=== PATIENT | female | born 1960 | race Caucasian/White ===

== ENCOUNTER 2023-09-26 15:33 | Inpatient (IN) | payer MEDICARE, OTHER, SELFPAY ==
[2023-09-26] VITALS (14 sets, daily range): BP systolic 110–159; BP diastolic 71–113; BMI 18.4; BMI 17.2
[2023-09-26 11:59] LABS: % Basophils 0.2 % (0-2); % Eosinophils 0.1 % (0-6); % Immature Granulocytes 0.5 % (0-0.5); % Lymphocytes 8.7 % (20.5-51.1); % Monocytes 4.6 % (1.7-9.3); % Neutrophils 85.9 % (42.2-75.2); Absolute Lymphocytes 0.7 10^3/uL (1.2-3.4); Absolute Monocytes 0.4 10^3/uL (0.1-0.6); Absolute Neutrophils 7.3 10^3/uL (1.4-6.5); Hematocrit 30.1 % (37.0-47.0); Hemoglobin 10.2 g/dL (12.0-16.0); Mean Corp Hgb Conc. 33.9 g/dL (33.0-37.0); Mean Corpuscular Hgb 29.2 pg (27.0-31.0); Mean Corpuscular Volume 86.2 fL (81.0-99.0); Mean Platelet Volume 8.8 fL (7.4-10.4); Nucleated Red Blood Cells % 0 %; Platelet Count 306 10^3/uL (130-400); Red Blood Cell Count 3.49 10^6/uL (4.20-5.40); Red Cell Dist. Width 16.5 % (11.5-14.5); White Blood Cell Count 8.5 10^3/uL (4.8-10.8)
--- NOTE | 2023-09-26 12:05 | ED.GENMED ---
History of Present Illness
General
Chief Complaint: Heart Rate Problem
Source: patient and family
Time Seen by Provider: 09/26/23 11:57
History of Present Illness
History of Present Illness:
63yoF with a history of hypertension, hyperlipidemia, and type 2 diabetes presenting via EMS for evaluation of an elevated heart rate. Family noticed that her bilateral legs were swollen last week. They scheduled an appointment with her PCP to
evaluate this. While at her PCP appointment today, she was found to be tachycardic in the 150s. EKG showed rapid atrial fibrillation and EMS was called. She has no prior history of atrial fibrillation and is not on any anticoagulation. No
interventions were done by EMS. Patient is asymptomatic other than her leg swelling. She denies any chest pain, shortness of breath, palpitations, dizziness, syncope.
Phy Exam
General Physical Exam
General Presentation: well appearing
General age: appears stated age
General Skin: warm and dry
General Habitus: normal
General Mental: alert
Cardiovascular Exam
Cardiovascular Exam: irregularly irregular and tachycardia
Pulmonary Exam
Pulmonary Exam: lungs clear, no respiratory distress, no crackles and no wheezing
Musculoskeletal Exam
Musculoskeletal Exam: other (2-3+ pitting edema in bilateral lower extremities)
Skin Exam
Skin Exam: normal color and warm/dry
Psychiatric Exam
Psychiatric Exam: normal mood/affect
Course
Orders/Labs/Results
Orders:
Orders
09/26/23 Lunch
2200 calorie (18 carb) Diabetic
At Your Request: Full Participation
Oral Supplement (If unsure of flavor order apple or vanilla): Ensure Enlive Vanilla
Supplement Frequency: BID
09/26/23 11:40
Electrocardiogram (*1) Urgent
Reason for Study: Chest Pain
EKG- Treatment ONCE
IV Insert/Care/Rem.- Treatment PRN
09/26/23 11:50
Complete Blood Count/With Diff Urgent
Comprehensive Metabolic Panel Urgent
Ferritin Urgent
Comment: IRON,TIBC,FERRITIN ADDED ON BY FLOOR 3:50PM 09-26-23
Glycohemoglobin (HgbA1c) Urgent
Iron Urgent
Magnesium Urgent
Comment: ADD
TSH Urgent
Comment: ADD
Total Iron Binding Urgent
09/26/23 12:04
Add On- LAB Urgent
Tests Added?: magnesium, TSH
Cardiac Monitoring- Treatment ONCE
Diltiazem HCl [Cardizem] 15 mg IV NOW STA
CR Chest - 2 Views Urgent
Comment:
Reason For Exam: Leg swelling
09/26/23 12:11
NT-proBNP Urgent
Troponin I Urgent
09/26/23 12:21
Potassium Chloride [KCl] 40 meq PO NOW STA
09/26/23 12:37
Diltiazem HCl [Cardizem] 15 mg IV NOW STA
09/26/23 13:39
Diltiazem 125 mg/125 ml Nss [Cardizem] 125 mg in 125 ml IV NOW
Initial dose in mg/hr, then titrate:: 5
Titrate to keep:: Heart rate 80-100 bpm
Titrate by mg/hr:: 5 mg/hr
Frequency of titrations (minutes):: 15
Maximum dose in mg/hr:: 15
09/26/23 14:01
Magnesium Sulfate 2 Gram/50 ml [Magnesium Sulfate] 2 gram in 50 ml IV NOW
09/26/23 15:07
ECG [Electrocardiogram (*1)] Urgent
Reason for Study: Abnormal EKG
09/26/23 15:08
CARDIOLOGY CONSULT Routine
Consulting Provider: Jasbir Bruce
Was physician already notified: Yes
Reason for consult: afbi with RVR
09/26/23 15:15
Magnesium Sulfate 2 Gram/50 ml [Magnesium Sulfate] 2 gram in 50 ml IV NOW
09/26/23 15:18
Admit/Transfer Patient As Directed
Co-Sign Provider:
Level of Care: Inpatient admission
Assign to:: IMU- Intermediate Care
Physician / Group: Dr. Emanuel
Diagnosis: Atrial fibrillation with RVR
Reason for Hospitalization: Atrial fibrillation with RVR
Expected length of stay greater than two midnights?: Yes
ELOS- Estimated Length of Stay in days: 3
I certify the patient meets the requirements for IP care: Yes
PRN Pain Medication Management As Directed
May give lesser potent ordered pain med per pt: Yes
preference::
Protocol:: Medication orders for pain may be administered in a
manner that supports deferring to patient preference
when the pt is:
- Requesting an ordered lesser potent pain medication.
Least to most potent pain medications are defined
as: acetaminophen < NSAID < tramadol < opioids
(morphine, oxycodone, hydromorphone).
- Requesting a lesser dose of the same medication IF
ORDERED.
- Requesting a less intrusive route of administration
if both routes are prescribed by the provider (PO <
IV).
09/26/23 15:19
Add On- LAB Urgent
Comments:: draw if unable to add
Tests Added?: CMP values to earlier labs
09/26/23 15:20
Legs, Bilateral US [US Periph Venous LOWER Ext Sammy] Urgent
Comment:
Reason For Exam: bilateral lower extremity swelling
09/26/23 15:21
Code Status As Directed
Resuscitation Status: Full Code
09/26/23 17:30
Dextrose 50%-Water [Dextrose 50% Syringe] 12.5 grams IV [id number] PRN
Glucagon [GlucaGen] 1 mg IM PRN PRN
Insulin Aspart Corrective Low [Novolog Flexpen-Low Resistance] See Protocol SC AC
09/26/23 17:30
Echo 2D MMode Color/Doppler Routine
Reason for Study: new-onset afib with RVR; significant BL LE edema; mild orthopnea
DIETARY CONSULT Routine
Reason for Consult: 19 lbs weight loss since June; malnutrition
Activity As Directed
Activity Level: As Tolerated
Bedside Glucose Monitoring As Directed
Frequency: AC&HS
Additional Instructions:: Change to q6h if pt on TPN, tube feeding or not eating
Ot Eval And Treat Routine
Pt Eval And Treat Routine
Activity Level: As Tolerated
09/26/23 20:00
Potassium Chloride [KCl] 40 meq PO ONCE ONE
09/27/23 06:00
Complete Blood Count/With Diff IN AM
Comprehensive Metabolic Panel IN AM
Glycohemoglobin (HgbA1c) IN AM
09/27/23 08:00
Atorvastatin [Lipitor] 40 mg PO DAILY
Abnormal Lab Results
09/26/23
11:50
RBC 3.49 L 10^6/uL
(4.20-5.40)
Hgb 10.2 L g/dL
(12.0-16.0)
Hct 30.1 L %
(37.0-47.0)
RDW 16.5 H %
(11.5-14.5)
Absolute Neuts (auto) 7.3 H 10^3/uL
(1.4-6.5)
Absolute Lymphs (auto) 0.7 L 10^3/uL
(1.2-3.4)
Neutrophils % 85.9 H %
(42.2-75.2)
Lymphocytes % 8.7 L %
(20.5-51.1)
Potassium 3.0 L mmol/L
(3.5-5.1)
Glucose 169 H mg/dl
(70-99)
Magnesium 1.1 L mg/dl
(1.6-2.3)
TIBC 177 L ug/dl
(265-497)
Ferritin 331.0 H ng/ml
(11.1-264.0)
Alkaline Phosphatase 130 H U/L
(38-126)
Total Protein 5.9 L g/dl
(6.3-8.2)
Albumin 3.1 L g/dl
(3.5-5.0)
TSH 0.44 L uIU/ml
(0.47-4.68)
09/26/23 11:50
09/26/23 11:50
Vital Signs
Initial and Last Documented VS:
Initial Vital Signs
Temp Pulse Resp BP Pulse Ox
98.5 F 152 20 148/87 98
09/26/23 11:41 09/26/23 11:41 09/26/23 11:41 09/26/23 11:41 09/26/23 11:41
Last Documented Vital Signs
Temp Pulse Resp BP Pulse Ox
98.1 F 97 18 111/75 100
09/26/23 20:13 09/26/23 19:15 09/26/23 19:15 09/26/23 15:30 09/26/23 19:15
MDM/Problems Addressed
Differential Diagnosis Includes:
63yoF here with afib with RVR. Went to PCP today due to new bilateral leg swelling. Incidentally found to be in rapid afib with HR in the 150s. No prior hx of afib. No cardiac symptoms. HR 152 on arrival. BP stable. She is well-appearing no acute
distress. Differential diagnosis includes but is not limited to: CHF, atrial fibrillation, ACS, electrolyte abnormality, thyroid dysfunction
Initial ED plan: Patient placed on secured entrance monitor. Check cardiac labs, magnesium, TSH, EKG, and chest x-ray. Will give IV Cardizem bolus.
*EKG
Interpreted by ED Provider?: Yes
EKG Intrepretation Date: 09/26/23
Heart Rate: 163
Rate: tachycardiac
Rhythm: a-fib
Felton: normal axis
QRS Pattern: right bundle branch block
Ischemia: non-specific ST changes
*Critical Care Note
Total Time (30-74mins, 75-104mins- exclusive of procedures): 35
Update Note
Update Note:
Labs reveal a potassium of 3.0 and a magnesium of 1.1 which were replaced. BNP elevated at 1600. Chest x-ray clear without pulmonary edema. Patient given Cardizem 15mg x2 with persistent tachycardia. She was initiated on a Cardizem gtt and
admitted for further management.
ED Attending Note
-
Portions of this chart may have been created with voice recognition software.� Occasional wrong word or��sound alike� substitutions may have occurred due to the inherent limitations of voice recognition software.
Discharge Plan
Departure
Patient Disposition: Admit
Date of Disposition: 09/26/23
Time of Disposition: 14:48
Presentation/result/management discussed w/ accepting MD/DO: Hospitalist
Discharge Problem:
Atrial fibrillation with RVR, Hypomagnesemia, Hypokalemia, Bilateral lower extremity edema
Interventions
Interventions:
*Risk Screen - Suicide Last Done: 09/26/23 11:41
*General Assessment Last Done: 09/26/23 11:41
*Neglect/Abuse Screening Last Done: 09/26/23 11:41
*ED COVID-19 Vaccine History Last Done: 09/26/23 17:36
*Nursing Disposition Last Done: 09/26/23 17:33
ED- Cardiac Assessment Last Done: 09/26/23 12:06
ED- Pulmonary Assessment Last Done: 09/26/23 12:06
Discharge Date and Time
Discharge Date/Time: 09/26/23 17:34
[2023-09-26] MEDS: CARDIZEM 15 MG IV ×2 (12:11→12:49)
[2023-09-26 12:16] LABS: ALT (SGPT) 15 U/L (0-35); AST (SGOT) 21 U/L (14-36); Albumin 3.1 g/dl (3.5-5.0); Alkaline Phosphatase 130 U/L (38-126); Blood Urea Nitrogen 10 mg/dl (7-17); Calcium 8.4 mg/dl (8.4-10.2); Carbon Dioxide 30 mmol/L (22-30); Chloride 98 mmol/L (98-107); Estimated Creatinine Clearance 54 ml/min; Glucose 169 mg/dl (70-99); Sodium 138 mmol/L (135-145); Total Bilirubin 0.8 mg/dl (0.2-1.3); Total Protein 5.9 g/dl (6.3-8.2); eGFR > 60.00
[2023-09-26] MEDS: KCL 40 MEQ PO ×2 (12:49→21:55)
[2023-09-26 13:16] LABS: NT-proBNP 1610 pg/ml; Troponin I < 0.012 ng/ml
[2023-09-26 13:48] LABS: Magnesium 1.1 mg/dl (1.6-2.3)
[2023-09-26] MEDS: CARDIZEM 125 IV ×2 (13:50→23:49)
[2023-09-26] MEDS: MAGNESIUM SULFATE 50 IV ×2 (14:39→17:13)
--- NOTE | 2023-09-26 15:30 | CON.CAR ---
Addendum entered and electronically signed by Jasbir Bruce MD 09/26/23 18:22:
I saw and examined the patient.
The Consumer Insights Intern's note was reviewed and I agree with the note.
Comment:
GEN: No distress, awake, Ox3
HEENT: supple, anicteric, mmm
LUNGS: scatt rhonchi
CV: Irreg, S1/S2, 1/6 syst LSB, no gallop
ABD: soft, BS+, NT/ND
EXT: +1 edema
NEURO: Gross non-focal
Plan:
63 year old female with PMH of HTN, lipids, prediabetes presents with 20lb wt loss, nausea/vomiting, edema was found to have new onset afib and elevated pro-BNP.
US legs with +DVT. Await CT Scan of chest. Chads VAsc is 5
Agree with Shreya. Cont IV cardizem.
Will give a dose of Iv lasix. I suspect she does have some mild volume overload. Will check echo in AM.
Will need to evaluate the etiology of her weight loss. Could consider ROSALIA cardioversion at some point, but would want evaluation of her esophagus with her nausea vomiting and weight loss.
For now I would continue a rate control strategy.
SKIN: No rash
Original Note:
Consultation
Consultation Request
Date/Time Consultation Performed: 09/26/23
Requesting Provider: Dr. Emanuel
Performing Provider: Paty Rutherford PA-C for Dr. Bruce
Reason for Consultation: afib with RVR
Medical History
-
Chief Complaint: tachycardia
History of Present Illness:
Patient is a 63-year-old female with past medical history of prediabetes, hypertension, hyperlipidemia who typically lives with her brother and mother. Her sister, who is present with her at bedside, states that in July her sister moved in with her
as their mother was in the hospital. She states that she had significant GI issues including vomiting and poor appetite with approximately 19 pound weight loss over the following 6 weeks, which they thought was stress related, and seems to have
improved on its own. They were scheduled to see their primary care physician earlier today, and she noted elevated heart rate and lower extremity edema and referred them to the emergency room for further evaluation. She denies chest pain,
shortness of breath, palpitations, lightheadedness or dizziness, fevers or chills, cough. She is in atrial fibrillation with rapid ventricular response which is new diagnosis for patient. She has never seen a camera prototyping engineer before. proBNP 1610.
PMH:
Prediabetes
HTN
HLD
Past Medical History
Past Medical History: Other (in HPI)
Social History
Tobacco: Non-Smoker
Alcohol: None
Living: With Family
Employment: Retired
Family History
Family History: Other (heart issues in father, brother)
Allergies / Home Medications
Allergy/AdvReac Type Severity Reaction Status Date / Time
No Known Allergies Allergy Verified 09/26/23 11:41
�Medication �Instructions �Recorded �Confirmed �Type
atorvastatin 40 mg tablet 40 mg PO DAILY 09/26/23 09/26/23 History
lisinopril 20 mg tablet 20 mg PO DAILY 09/26/23 09/26/23 History
metformin 1,000 mg tablet,extended 1,000 mg PO BID 09/26/23 09/26/23 History
release 24hr (osmotic)
Review of Systems
-
History Source: Patient and Family
All other systems: Negative unless noted
Physical Exam
Vital Signs
Temp Pulse Resp BP Pulse Ox
98.5 F 134 16 121/87 98
09/26/23 11:41 09/26/23 15:00 09/26/23 15:00 09/26/23 15:00 09/26/23 15:00
Lab Results
09/26/23 11:50
09/26/23 11:50
Troponin I < 0.012 ng/ml 09/26/23 12:11
Omg-Q-Fwnnjuvnclq Pept 1610 pg/ml 09/26/23 12:11
Physical Exam
General: No Apparent Distress and Comfortable
HEENT: Normocephalic, Anicteric and Moist Mucous Membranes
Respiratory: Other (fine crackles at bases)
Cardiac: S1/S2 and Irregular Rhythm
GI: Soft, Non Tender, Non Distended and Normal Bowel Sounds
Musculoskeletal: No Clubbing, No Cyanosis and Edema (2+ of B/L LE)
Skin: Warm and Dry
Neuro: AO x 3
Impression / Plan
-
Primary Exceptional Needs Teacher: none prior to admission
Assessment:
Presentation with elevated HR
Atrial fibrillation with RVR, new diagnosis of unclear duration
B/L LE edema, concern for acute CHF of unknown type
RBBB while in rapid afib, no prior EKG to compare
Anemia
Hypokalemia
Hypomagnesemia
Recent vomiting/poor appetite/weight loss
Prediabetes
HTN
HLD
Plan:
-Patient is a 63-year-old female who presents due to elevated heart rate and lower extremity edema noted at primary care visit today
-Suspected new A-fib triggered by recent GI issues
-Continue IV Cardizem, uptitrate as needed for HR control. holding OP lisinopril for now
-[id number] score of 5 for age, female, hypertension, CHF. Will initiate on Eliquis 5 mg twice daily based on age and creatinine. reports no bleeding issues however is noted to have anemia, hgb 10.2. check iron studies
-Replete potassium and magnesium
-proBNP 1610. Chest x-ray without acute abnormality. Consider for trial of IV Lasix 20mg daily
-For lower extremity ultrasound to rule out DVT
-Check echo
-check TSH
-may require ROSALIA/CV prior to DC
-trop negative x1, trend. no CP
-d/w patient and sister at bedside
Data Reviewed
-
EKG: Tracing Personally Visualized and interpreted
Radiology: Report Reviewed by me
Labs: Labs Reviewed by me
Old Records: Reviewed
--- NOTE | 2023-09-26 15:32 | HPS.HSE ---
Addendum entered and electronically signed by Rodrigo Emanuel MD 09/26/23 16:01:
I personally performed a history and physical exam of the patient and discussed management with the resident. I reviewed the resident's note and agree with the documented findings and plan of care HPI/CC.
63-year-old female who presents with tachycardia. She was at her outpatient physician's office and was found to be in atrial fibrillation with a rapid ventricular response. Patient denies chest pain shortness of breath. She has had significant
unintentional weight loss over the past few months. She complains of cough when laying supine. She is also noticed bilateral lower extremity edema.
121/87, 134, 16, 98.5 �F, 98% RA
NAD, awake and alert, NCAT
tachy, irreg/irreg, physiologically split S1, normal S2
CTAB
CN2-12 intact
2+ B/L LE pitting edema
ECG (read by me): Afib with RVR @ 163, R-axis devation, ST-dep V1-V4 consistent with repolarization abnormality
CXR (read by me): No acute cardiopulmonary process.
WBC 8.5
Hb 10.2
K 3.0
Mg 1.1
proBNP 1610
Trop < 0.012
Afib with RVR:
-with hypokalemia and hypomagnesemia, 80meq K now, 4g IV Mg now
-cardizem gtt, Titrate to HR<110
-cards to see
-TSH pending
-concerned with wt loss and LE edema. Check B/L LE U/S to assess for DVT. If NEG will need CTA chest to assess for PE.
-start Eliquis
-check echo once HR better controlled
Original Note:
Family Physician
-
Family Physician: Gaurav Jensen PA-C
Chief Complaint
-
Bilateral lower extremity edema and rapid heart rate.
History of Present Illness
Shiloh Flores, age 63, was brought to the emergency on 09-26-23 for evaluation of an elevated heart rate. She was at her primary's clinic for bilateral lower extremity edema for the past week or so, when her heart rate was noted to be around 150. ECG
showed atrial fibrillation and she was advised to go to the hospital. In the ED, she was initiated on diltiazem drip and pro-BNP was elevated at 1610. She was admitted for further evaluation and management.
Medical History
Past Medical History
Past Medical History: Reports Other (hypertension, hyperlipidemia, type II diabetes mellitus)
Past Surgical History: Reports Other (ovarian cyst resection - )
Social History
Tobacco: Non-smoker
Alcohol: None
Drug: None
Personal: Single
Living: With Family (brother and parents)
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
Family History
Family History: Not pertinent
Allergies / Home Medications
Allergies reflects when Allergies were last updated in [facility].
Home Medications with original date entered in [facility]
Allergy/Medication List:
Allergies
Allergy/AdvReac Type Severity Reaction Status Date / Time
No Known Allergies Allergy Verified 09/26/23 11:41
Home Medications
atorvastatin 40 mg tablet 40 mg PO DAILY 09/26/23
lisinopril 20 mg tablet 20 mg PO DAILY 09/26/23
metformin 1,000 mg tablet,extended release 24hr (osmotic) 1,000 mg PO BID 09/26/23
Review of Systems
-
History Source: Patient
Constitutional: Reports Weight Loss (19 lbs since June 2023)
EENT: Reports No Symptoms
Respiratory: Reports No Symptoms
Cardiac: Reports Palpitations
Abdomen/GI: Reports No Symptoms
: Reports No Symptoms
Musculoskeletal: Reports Edema (bilateral lower extremity)
Skin: Reports No Symptoms
Neurological: Reports No Symptoms
Endocrine: Reports No Symptoms
Hematologic/Lymphatic: Reports No Symptoms
Psych: Reports No Symptoms
Physical Exam
Vital Signs
Vital Signs
Temp Pulse Resp BP Pulse Ox
98.5 F 134 16 121/87 98
09/26/23 11:41 09/26/23 15:00 09/26/23 15:00 09/26/23 15:00 09/26/23 15:00
Physical Exam
General: No Apparent Distress and Comfortable
HEENT: NormoCephalic, Anicteric, Moist mucous membranes and Atraumatic
Respiratory: Clear and Non Labored Respirations
Cardiac: S1/S2 and Tachycardia; No Murmur, Rub or JVD
GI: Soft, Non Tender, Non Distended and No Hepatosplenomegaly
Rectal: Deferred by Provider
Musculoskeletal: No Clubbing, No Cyanosis, Edema, Left Lower Extremity (+3) and Edema, Right Lower Extremity (+3)
Skin: Warm, Dry and IV/Catheter Site
Neuro: Awake, Alert, Oriented and Nonfocal/grossly intact
Hematologic/Lymphatic: No Lymphadenopathy
Psych: Calm and Intact Judgment/Insight
Laboratory Results
-
09/26/23 11:50
09/26/23 11:50
Laboratory Results
Total Bilirubin 0.8 mg/dl (0.2-1.3) 09/26/23 11:50
AST 21 U/L (14-36) 09/26/23 11:50
ALT 15 U/L (0-35) 09/26/23 11:50
Alkaline Phosphatase 130 U/L (38-126) H 09/26/23 11:50
Troponin I < 0.012 ng/ml 09/26/23 12:11
Impression/Plan
-
Impression and plan
Atrial fibrillation with rapid ventricular response
- Admit to IMU.
- Will get repeat ECG.
- TSH pending.
- Cardiology consultation.
- pro-BNP 1610 - check echocardiogram when heart rate is better.
- Continue diltiazem drip started in the emergency.
- [id number] Score at least 4 - start apixaban.
Bilateral lower extremity edema
- Check bilateral lower extremity ultrasound to rule out DVT.
- Will get a PE study if US unremarkable.
Hypokalemia
- Status-post 80 meq in the ED.
- Follow BMP.
Hypomagnesemia
- Status-post 4g in the ED.
- Follow Mg.
Unintentional weight loss
Moderate protein-calorie malnutrition
Underweight with BMI <19.9
- 19 lbs. since June 2023.
- No associated symptoms or changes to health.
- Dietary consultation.
- Can consider imaging to explore more.
Essential hypertension
- Continue lisinopril.
Hyperlipidemia
- Continue atorvastatin
Type II diabetes mellitus
- Continue metformin.
- Check HbA1c.
- SSC.
VTE prophylaxis
- Apixaban.
Code status
- Full.
[2023-09-26 16:47] LABS: Iron 73 ug/dl (37-170)
[2023-09-26 16:57] LABS: Percent Saturation 41 % (20-50); Total Iron Binding Capacity 177 ug/dl (265-497)
[2023-09-26] MEDS: LASIX 20 MG IV (17:08)
--- NOTE | 2023-09-26 17:15 | PTCARENOTE ---
Patient received from the ER. Patient was able to walk to the bed after using the restroom. No complaints of pain. Patient currently receiving Cardizem and Mag Sulfate through IV and K-rider to be hung. CT ordered with contrast. Oriented to
room. Admission done. Call plascencia in reach.
[2023-09-26 17:25] LABS: TSH 0.44 uIU/ml (0.47-4.68)
--- NOTE | 2023-09-26 17:37 | W.PN.UPDATE ---
Update Note
Progress Note Update
I just called pharmacy to ensure that the patient gets a total of 10 mg of Eliquis now as opposed to 1999.
[2023-09-26] MEDS: ELIQUIS 10 MG PO (18:43)
[2023-09-26] MEDS: KCL 270 MEQ IV (18:43)
[2023-09-26] MEDS: OMNIPAQUE 50 ML PO (18:44)
[2023-09-26 18:53] LABS: Glucose - Point of Care 172 mg/dl (70-99)
[2023-09-26] MEDS: NOVOLOG FLEXPEN-LOW RESISTANCE 1 UNITS SC (20:28)
[2023-09-26 20:40] LABS: Glucose - Point of Care 157 mg/dl (70-99)
[2023-09-26 21:31] LABS: Troponin I 0.015 ng/ml
--- NOTE | 2023-09-26 22:04 | PTCARENOTE ---
Pt received on 15 mg/hr of Cardizem per Orders for goal of HR <100. Pt HR currently 110's, Pt having episodes of jumping up to 130's-140's, then returns to low 100's. Pt denies chest pain. Trops being followed, EKG done with each trop. Pt afib on
the monitor. Pt getting K rider @ 67.5 ml/hr via left AC IV. SENIOR ENVIRONMENTAL SCIENTIST notifed of HR. no new orders at this time. Pt down down to CT for ordered CT. Call light in reach. This RN is continuing with plan of care.
[2023-09-26 22:51] LABS: Glucose - Point of Care 111 mg/dl (70-99)
--- NOTE | 2023-09-26 23:05 | PTCARENOTE ---
DIE SETTER notified of CT results being posted. DIE SETTER notified this RN that they discussed results with Dr. Peacock, and notified this RN that the ordered 'eliquis should be enough'. Orders received for follow up BMP, to assess potassium and magnesium. Pt
remains tachycardiac with current Cardizem at 15mcg/hr, rate is however more controlled now at 100. Pt continues to deny chest pain and is asymptomatic.
[2023-09-27] VITALS (15 sets, daily range): BP systolic 79–125; BP diastolic 49–99; PULSE 96–132; O2SAT 97; BMI 16.8
[2023-09-27 00:38] LABS: Blood Urea Nitrogen 8 mg/dl (7-17); Calcium 7.5 mg/dl (8.4-10.2); Carbon Dioxide 35 mmol/L (22-30); Estimated Creatinine Clearance 59 ml/min; Glucose 112 mg/dl (70-99); Magnesium 2.5 mg/dl (1.6-2.3); Potassium 3.1 mmol/L (3.5-5.1); eGFR > 60.00
[2023-09-27 00:44] LABS: Chloride 100 mmol/L (98-107); Sodium 138 mmol/L (135-145)
--- NOTE | 2023-09-27 01:45 | W.PN.UPDATE ---
Update Note
Progress Note Update
RN notified BASEBALL PLAYER regarding HR goes up to 130's, baseline 110's, BP 121/109, asymptomatic, on Cardizem drip max 15mg/hr. noted Potassium and Mag being low and repleted.
Also patient to get CT Chest to r/o PE at present. CT results +, on Eliquis 10mg PO BID
Elevated HR likely due to PE, electrolyte abnormalities, will order Labs now.
RN notified K 3.1, noted corrected calcium 7.8. Will order KCL 40meq PO x1, Calcium gluconate 1g IV now.
Patient's HR back to baseline, continuos to be asymptomatic
[2023-09-27] MEDS: KCL 40 MEQ PO (02:07)
[2023-09-27] MEDS: CALCIUM GLUCONATE 100 IV (02:07)
[2023-09-27 05:32] LABS: % Eosinophils 0.3 % (0-6); % Immature Granulocytes 0.4 % (0-0.5); % Lymphocytes 11.6 % (20.5-51.1); % Monocytes 5.4 % (1.7-9.3); % Neutrophils 82.3 % (42.2-75.2); Absolute Lymphocytes 0.9 10^3/uL (1.2-3.4); Absolute Monocytes 0.4 10^3/uL (0.1-0.6); Absolute Neutrophils 6.2 10^3/uL (1.4-6.5); Hematocrit 28.7 % (37.0-47.0); Hemoglobin 9.7 g/dL (12.0-16.0); Mean Corp Hgb Conc. 33.8 g/dL (33.0-37.0); Mean Corpuscular Hgb 30.3 pg (27.0-31.0); Mean Corpuscular Volume 89.7 fL (81.0-99.0); Mean Platelet Volume 8.7 fL (7.4-10.4); Nucleated Red Blood Cells % 0 %; Platelet Count 306 10^3/uL (130-400); Red Cell Dist. Width 16.9 % (11.5-14.5); White Blood Cell Count 7.5 10^3/uL (4.8-10.8)
[2023-09-27 06:03] LABS: ALT (SGPT) 14 U/L (0-35); AST (SGOT) 19 U/L (14-36); Albumin 2.8 g/dl (3.5-5.0); Alkaline Phosphatase 125 U/L (38-126); Blood Urea Nitrogen 7 mg/dl (7-17); Calcium 8.1 mg/dl (8.4-10.2); Carbon Dioxide 35 mmol/L (22-30); Chloride 101 mmol/L (98-107); Estimated Creatinine Clearance 49 ml/min; Glucose 100 mg/dl (70-99); Magnesium 2.2 mg/dl (1.6-2.3); Potassium 4.3 mmol/L (3.5-5.1); Sodium 143 mmol/L (135-145); Total Bilirubin 0.6 mg/dl (0.2-1.3); Total Protein 5.4 g/dl (6.3-8.2); eGFR > 60.00
--- NOTE | 2023-09-27 07:47 | W.PN.CARDCBS ---
Addendum entered and electronically signed by Paty Rutherford PA-C 09/27/23 12:14:
attempted to call patient's sister Marita, no answer. left message. will attempt to call back later.
Addendum entered and electronically signed by Jasbir Bruce MD 09/27/23 12:10:
I saw and examined the patient.
The Administrator Pesticide's note was reviewed and I agree with the note.
Comment:
GEN: No distress, awake, Ox3
HEENT: supple, anicteric, mmm
LUNGS: CTA, no wheezes/rales
CV: Irreg, S1/S2, 1/6 syst LSB, no gallop
ABD: soft, BS+, NT/ND
EXT: No edema
NEURO: Gross non-focal
SKIN: No rash
Plan:
Remains in A-fib with modestly elevated rates. Will start Toprol 25 mg p.o. daily and titrate. Okay to continue IV Cardizem for today.
CT scan results reviewed with pulmonary embolism and possible colon mass. Agree with IV heparin until evaluation of colon mass is complete.
Check echocardiogram today.
With pulmonary embolism and colon mass will hold off on ROSALIA cardioversion for now and pursue a rate control strategy.
Eventually restart Eliquis.
Original Note:
Today's Communication / Plan
-
transition eliquis to IV heparin
continue IV cardizem gtt, add po toprol. holding OP lisinopril
check echo
Impression / Plan
-
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
Assessment:
Presentation with elevated HR
Atrial fibrillation with RVR, new diagnosis of unclear duration, s/p spontaneous conversion to SR with PACs 09/26
ST
B/L LE edema, concern for acute CHF of unknown type
RBBB while in rapid afib, no prior EKG to compare
RLE DVT/Bilateral PE/right common femoral and superficial femoral vein thrombus
Severe L colitis, concern for underlying colon mass
Anemia
Hypokalemia
Hypomagnesemia
Recent vomiting/poor appetite/weight loss
Prediabetes
HTN
HLD
Left ovarian dermoid cyst
Right adrenal adenoma
Small pancreatic cystic lesion
Plan:
-Patient is a 63-year-old female who presents due to elevated heart rate and lower extremity edema noted at primary care visit
-Imaging yesterday revealed right lower extremity DVT with involvement of right common femoral and superficial femoral vein. Also with evidence of bilateral PE with borderline right heart strain by CT.
-For echo today
-CT also with evidence of severe left colitis with inability to rule out underlying mass. Treatment per primary service
-Spontaneously converted to sinus tachycardia with frequent PACs
-Continue IV Cardizem. Add p.o. Toprol. Holding outpatient lisinopril for now
-Was initiated on Eliquis, however suspect needs GI consultation with possible colonoscopy. Discussed with hospitalist. Transition from Eliquis to IV heparin. Follow hemoglobin
-proBNP 1610. Responded well to dose of IV Lasix 20 mg on 09/25. Hold off on further at present and follow volume status
-TSH 0.44, check free T4
-d/w nursing
Progress Note - Natural Gas Engineer
Subjective
Date of Service: September 27, 2023
Slept well overnight. Denies chest discomfort, shortness of breath, palpitations, abdominal pain
Objective
Labs:
09/27/23 05:18
Labs
Hgb 9.7 g/dL (12.0-16.0) L 09/27/23 05:18
Hct 28.7 % (37.0-47.0) L 09/27/23 05:18
Plt Count 306 10^3/uL (130-400) 09/27/23 05:18
Sodium 143 mmol/L (135-145) 09/27/23 05:18
Potassium 4.3 mmol/L (3.5-5.1) D 09/27/23 05:18
BUN 7 mg/dl (7-17) 09/27/23 05:18
Creatinine 0.7 mg/dL (0.6-1.0) 09/27/23 05:18
Glucose 100 mg/dl (70-99) H 09/27/23 05:18
Troponins
09/26/23 09/26/23
12:11 20:48
Troponin I < 0.012 0.015
Vital Signs and I&O:
Vital Signs
Temp Pulse Resp BP Pulse Ox
97.4 F 112 23 114/64 98
09/27/23 04:25 09/27/23 07:30 09/27/23 07:30 09/27/23 06:00 09/27/23 07:30
Vital Signs
Temp Pulse Resp BP Pulse Ox
97.4 F 112 23 114/64 98
09/27/23 04:25 09/27/23 07:30 09/27/23 07:30 09/27/23 06:00 09/27/23 07:30
Intake & Output
09/24/23 09/25/23 09/26/23 09/27/23
07:59 07:59 07:59 07:59
Intake Total 960 / 960
Output Total 1800 / 1800
Balance -840 / -840
Physical Exam
Physical Exam
GEN: No distress, awake, alert, oriented x3
HEENT: supple, anicteric, mmm, eomi
LUNGS: CTA B/L, no wheezes/rales
CV: Reg and tachy, S1/S2, no murmur
ABD: soft, BS+, NT/ND
EXT: No cyanosis, clubbing. 1+ of LLE, 2+ of RLE edema
NEURO: Gross non-focal
SKIN: Warm, pink, dry. No rash
[2023-09-27] MEDS: NOVOLOG FLEXPEN-LOW RESISTANCE SC (07:54)
[2023-09-27] MEDS: ZESTRIL 20 MG PO (07:57)
[2023-09-27] MEDS: LIPITOR 40 MG PO (07:57)
[2023-09-27 08:01] LABS: Glucose - Point of Care 98 mg/dl (70-99)
[2023-09-27 08:34] LABS: Glycohemoglobin (HgbA1c) 6.5 % (4.0-5.6)
[2023-09-27 09:03] LABS: Hematocrit 28.9 % (37.0-47.0); Hemoglobin 9.7 g/dL (12.0-16.0); Mean Corp Hgb Conc. 33.6 g/dL (33.0-37.0); Mean Corpuscular Volume 86.5 fL (81.0-99.0); Mean Platelet Volume 8.7 fL (7.4-10.4); Platelet Count 364 10^3/uL (130-400); Red Blood Cell Count 3.34 10^6/uL (4.20-5.40); Red Cell Dist. Width 17.1 % (11.5-14.5); White Blood Cell Count 7.6 10^3/uL (4.8-10.8)
[2023-09-27 09:06] LABS: APTT 28.4 Sec (23.4-35.0)
--- NOTE | 2023-09-27 09:11 | CON.ONC ---
Impression
Impression
acute VTE, on heparin gtt
new AF with RVR, on heparin gtt, Cardizem, echo pending
b/l LE edema, elevated BNP
severe left colitis with inability to rule out underlying mass
normocytic anemia, Hgb ~10g/dL, unknown baseline. Iron studies c/w AOCD
weight loss
electrolyte derangement
Left ovarian dermoid cyst, will need eventual dedicated pelvic ultrasound
Right adrenal adenoma, will need eventual dedicated adrenal protocol CT
Small pancreatic cystic lesion, will need eventual MRI/MRCP abdomen without and with gadolinium contrast
Plan
Plan
f/u GI consult
VTE seemingly unprovoked, 3 months OAC with consideration of VTE ppx thereafter. Would defer to cardiology regarding OAC halfway dosing with new AF. f/u LA, cardiolipin, [id number]. check baseline dddimer.
f/u 2D echo
check retic, b12, folate
Patient History
History of Present Illness
63yo F presented with nausea, vomiting, 20lb weight loss despite increased edema and was found to have new onset atrial fibrillation and elevated BNP. She reports GI symptoms of nausea, vomiting, and poor oral intake resulting in 20lb weight loss
since July 2023. She was referred to the ER by her PCP for elevated HR and increased lower extremity edema. LE US showed Extensive right lower extremity DVT. CT showed bilateral pulmonary emboli with borderline right heart strain. She has been
started on a heparin gtt.
She denies chest pain, shortness of breath, palpitations, lightheadedness or dizziness, fevers or chills, cough. She denies any prior VTE events or provoking factors leading up to VTE.
Poor historian, brother, Khanh at bedside provided history. He tells me that patient's legal guardian is their sister since pt has IDD.
Past-Medical/Surgical History
PMH HTN, HLD, preDM2, IDD
PSH: ovarian cyst
Social: never smoker, retired, denies ETOH or recreational drugs. Lives with sister
Family denies bleeding/clotting disorders. denies malignancy
Patient Medication
�Medication �Instructions �Recorded �Confirmed �Last Taken �Type
atorvastatin 40 mg tablet 40 mg PO DAILY High Cholesterol 09/26/23 09/26/23 09/26/23 History
lisinopril 20 mg tablet 20 mg PO DAILY Blood Pressure 09/26/23 09/26/23 09/26/23 History
metformin 1,000 mg tablet,extended 1,000 mg PO BID Diabetes 09/26/23 09/26/23 09/26/23 History
release 24hr (osmotic)
Active Medications
Generic Name Dose Route Start Last Admin
Trade Name Freq PRN Reason Stop Dose Admin
Apixaban 10 mg 09/26/23 17:45 09/26/23 18:43
Apixaban (Eliquis) 5 Mg Tablet PO 10 mg
BID MENDEZ Administration
Atorvastatin Calcium 40 mg 09/27/23 08:00 09/27/23 07:57
Atorvastatin (Lipitor) 40 Mg Tablet PO 10/25/23 07:59 40 mg
DAILY MENDEZ Administration
Dextrose 12.5 grams 09/26/23 17:30
Dextrose 50% (0.5 Grams/Ml) 50 Ml Syringe IV 10/24/23 17:29
[id number] PRN
hypoglycemia
Protocol
Glucagon 1 mg 09/26/23 17:30
Glucagon 1 Mg Vial IM 10/24/23 17:29
PRN PRN
hypoglycemia
Protocol
Diltiazem HCl 125 mg in 125 mls @ 0 mls/hr 09/26/23 23:45 09/26/23 23:49
Cardizem IV 125 mls
PER PROTOCOL MENDEZ Administration
Protocol
Per Protocol
Heparin Sodium 25,000 units in 250 mls @ 0 mls/hr 09/27/23 07:45
Heparin 33429 Units/250 Ml IV
PER PROTOCOL MENDEZ
Protocol
Per Protocol
Insulin Aspart 0 units 09/26/23 17:30 09/27/23 07:54
Insulin Aspart Low Resistance 300 Units/3 Ml Pen.Injctr SC 10/24/23 17:29 Not Given
AC MENDEZ
Protocol
Lisinopril 20 mg 09/27/23 08:00 09/27/23 07:57
Lisinopril 20 Mg Tablet PO 10/25/23 07:59 20 mg
DAILY MENDEZ Administration
Metoprolol Succinate 25 mg 09/27/23 09:00
Metoprolol 25 Mg Extended Release Tablet PO 10/25/23 08:59
DAILY MENDEZ
Sodium Chloride 0 flush 09/26/23 18:00
Sodium Chloride 0.9% (Flush) Syringe IV 10/24/23 17:59
PER PROTOCOL MENDEZ
Review of Systems
-
Review of systems notable for HPI, otherwise negative
Physical Exam
-
General: No Apparent Distress and Comfortable
HEENT: Normocephalic, Anicteric and Moist Mucous Membranes
Respiratory: crackles b/l bases
Cardiac: S1/S2 and Irregular Rhythm
GI: Soft, Non Tender, Non Distended
Musculoskeletal: +2 RLE edema, +1 LLE edema
Skin: Warm and Dry
Neuro: AO x 3
Labs
Lab Results
WBC 7.6 10^3/uL (4.8-10.8) 09/27/23 08:45
RBC 3.34 10^6/uL (4.20-5.40) L 09/27/23 08:45
Hgb 9.7 g/dL (12.0-16.0) L 09/27/23 08:45
Hct 28.9 % (37.0-47.0) L 09/27/23 08:45
MCV 86.5 fL (81.0-99.0) 09/27/23 08:45
MCH 29.0 pg (27.0-31.0) 09/27/23 08:45
MCHC 33.6 g/dL (33.0-37.0) 09/27/23 08:45
RDW 17.1 % (11.5-14.5) H 09/27/23 08:45
Plt Count 364 10^3/uL (130-400) 09/27/23 08:45
MPV 8.7 fL (7.4-10.4) 09/27/23 08:45
Abs Immat Gran (auto) 0.0 10^3/uL (0-0.05) 09/27/23 05:18
Absolute Neuts (auto) 6.2 10^3/uL (1.4-6.5) 09/27/23 05:18
Absolute Lymphs (auto) 0.9 10^3/uL (1.2-3.4) L 09/27/23 05:18
Absolute Monos (auto) 0.4 10^3/uL (0.1-0.6) 09/27/23 05:18
Absolute Eos (auto) 0.0 10^3/uL (0-0.7) 09/27/23 05:18
Absolute Basos (auto) 0.0 10^3/uL (0-0.2) 09/27/23 05:18
Immature Gran % 0.4 % (0-0.5) 09/27/23 05:18
Neutrophils % 82.3 % (42.2-75.2) H 09/27/23 05:18
Lymphocytes % 11.6 % (20.5-51.1) L 09/27/23 05:18
Monocytes % 5.4 % (1.7-9.3) 09/27/23 05:18
Eosinophils % 0.3 % (0-6) 09/27/23 05:18
Basophils % 0.0 % (0-2) 09/27/23 05:18
Creatinine 0.7 mg/dL (0.6-1.0) 09/27/23 05:18
Vital Signs
Vital Signs
Temp Pulse Resp BP Pulse Ox
97.4 F 102 23 114/64 98
09/27/23 04:25 09/27/23 07:57 09/27/23 07:30 09/27/23 07:57 09/27/23 07:30
[2023-09-27] MEDS: CARDIZEM 125 IV ×2 (09:28→18:20)
--- NOTE | 2023-09-27 09:40 | W.PN.HOSP.TC ---
Addendum entered and electronically signed by Rodrigo Emanuel MD 09/27/23 11:32:
I saw and evaluated the patient. I reviewed the resident�s note and agree with findings and plan as documented in the resident�s note.
No new complaints.
NAD, awake and alert, NCAT
tachy, irreg/irreg, normal S1/S2
CTAB anteriorly
remains CN2-12 intact
2+ B/L LE pitting edema
ECG on admission (read by me): Afib with RVR @ 163, R-axis devation, ST-dep V1-V4 consistent with repolarization abnormality
CTA C/A/P:
1. Bilateral pulmonary emboli as described. Borderline right heart strain.
2. Severe left-sided colitis. Difficult to rule out mass in the sigmoid colon. Recommend direct visualization.
3. Findings most in keeping with a left ovarian dermoid measuring up to 3.9 cm. Consider further evaluation with dedicated pelvic ultrasound.
4. Probable right adrenal adenoma measuring up to 2.1 cm. This can be further evaluated on a nonemergent basis with a dedicated adrenal protocol CT, to be ordered as CT Abdomen with and without contrast.
5. Tiny 5 mm pancreatic cystic lesion, possibly a pseudocyst or side branch of intraductal papillary mucinous neoplasm. Recommend outpatient workup with dedicated MRI/MRCP abdomen without and with gadolinium contrast.
6. Right common femoral and superficial femoral vein thrombus noted. The IVC and bilateral common iliac veins are patent.
WBC 8.5
Hb 10.2
K 3.0
Mg 1.1
proBNP 1610
Trop < 0.012
Acute B/L PEs and RLE DVT:
-stop Eliquis, transition to heparin gtt for now
-concern for hypercoagulable state due to underlying malignancy, yet to be discovered. CT scan of the abdomen pelvis notable for sigmoid colitis where there could be an underlying mass. Also 5 mm pancreatic cystic lesion is concerning.
-Consult GI/Heme
-Check MRI of the abdomen with MRCP
Afib with RVR:
-with hypokalemia and hypomagnesemia, both resolved with repletion
-cardizem gtt, Titrate to HR<110
-Cardiology following
-TSH slightly low, free T4 normal
-Check echo
Discussed with hematology and cardiology. Patient Sister updated at length.
Total time spent on today's encounter was 55 minutes which included time spent in counseling the patient/family regarding diagnosis and treatment plan as listed above, goals of care, and symptom management. Case was discussed with nursing staff,
specialists, and care coordinators/case management. All labs and imaging personally reviewed by me. Remainder the time spent in detailed review of previous records, lab data, imaging, and other medical provider documentation.
Original Note:
Today's Communication/Plan
-
- Heparin ggt today.
- MR/MRCP and echocardiogram.
- Heme/onc, GI and dietary consultation.
Assessment / Plan
Assessment / Plan
Assessment
Shiloh Flores, age 63, was brought to the emergency on 09-26-23 for evaluation of an elevated heart rate. She was at her primary's clinic for bilateral lower extremity edema for the past week or so, when her heart rate was noted to be around 150. ECG
showed atrial fibrillation and she was advised to go to the hospital. In the ED, she was initiated on diltiazem drip and pro-BNP was elevated at 1610. She was admitted for further evaluation and management.
Impression and plan
Atrial fibrillation with rapid ventricular response
- Admit to IMU.
- Will get repeat ECG.
- TSH 0.44; T4 pending.
- Cardiology consultation.
- pro-BNP 1610 - check echocardiogram when heart rate is better.
- Continue diltiazem drip started in the emergency.
- Start metoprolol succinate 25 mg.
- [id number] Score at least 4 - apixaban started yesterday, held per below.
Acute bilateral pulmonary embolism
Acute extensive right lower extremity deep vein thrombosis
- Likely unprovoked with no clear etiology.
- Notably, has had a 19 lbs weight loss since June 2023.
- Received 1 dose of apixaban 10 mg last night; hold and start heparin drip.
- Lupus anticoagulant profile sent before starting the drip.
Severe left-sided colitis
Pancreatic cystic lesion
- CT AP findings cannot conclusively rule out a mass - check MRI/MRCP abdomen without and with gadolinium contrast.
- Hematology-oncology and gastroenterology consultation.
Hypokalemia
- Status-post 80 meq in the ED.
- Follow BMP; replete as needed.
Hypomagnesemia
- Status-post 4g in the ED.
- Follow Mg.
Unintentional weight loss
Moderate protein-calorie malnutrition
Underweight with BMI <19.9
- 19 lbs. since June 2023.
- No associated symptoms or changes to health.
- Ensure twice a day.
- Dietary consultation.
Essential hypertension
- Hold lisinopril.
Hyperlipidemia
- Continue atorvastatin.
Type II diabetes mellitus
- Hold metformin.
- Check HbA1c.
- SSC.
VTE prophylaxis
- Apixaban.
Code status
- Full.
Anticipated Discharge: > 48 hours
Subjective/Interval History
-
Date of Service: September 27, 2023
Objective Data
-
Labs:
Laboratory Results
09/27/23 09/27/23 09/27/23
00:11 05:18 08:45
WBC 7.5 7.6
Hgb 9.7 L 9.7 L
Hct 28.7 L 28.9 L
Plt Count 306 364
APTT 28.4
Sodium 138 143
Potassium 3.1 L 4.3 D
Chloride 100 101
Carbon Dioxide 35 H 35 H
BUN 8 7
Creatinine 0.6 0.7
Glucose 112 H 100 H
Calcium 7.5 L 8.1 L
Total Bilirubin 0.6
AST 19
ALT 14
Alkaline Phosphatase 125
Vital Signs:
Vital Signs
Temp Pulse Resp BP Pulse Ox
97.4 F 102 23 114/64 98
09/27/23 04:25 09/27/23 07:57 09/27/23 07:30 09/27/23 07:57 09/27/23 07:30
I&O
09/26/23 09/27/23 09/28/23
06:59 06:59 06:59
Intake Total 960 / 960
Output Total 1800 / 1800
Balance -840 / -840
Review of Systems
-
History Source: Patient
Constitutional: Reports Weight Loss, No Appetite and Fatigue
EENT: Reports No Symptoms Reported
Respiratory: Reports No Symptoms
Cardiac: Reports Palpitations
Abdomen/GI: Reports No Symptoms
Breast: Reports No Symptoms
Genitourinary: Reports No Symptoms
Musculoskeletal: Reports Edema (bilateral lower extremity)
Skin: Reports No Symptoms
Neuro: Reports No Symptoms
Endocrine: Reports No Symptoms
Hematologic / Lymphatic: Reports No Symptoms
Allergy / Immunology: Reports No Symptoms
Physical Exam
-
General: No Apparent Distress and Comfortable
HEENT: Normocephalic, Atraumatic, Moist Mucous Membranes and Anicteric
Respiratory: Clear to Auscultation and Non Labored Respirations
Cardiac: Regular Rhythm, S1/S2 and Tachycardic
GI: Soft, Nontender, Nondistended and No Hepatosplenomegaly
Genito-urinary: No Costovertebral Tender
Musculoskeletal: No Clubbing, No Cyanosis, Edema, Right Lower Extrem (+3) and Edema, Left Lower Extrem (+3)
Skin: Warm, Dry and IV Access / Catheter Site
Neuro: Awake, Alert, Oriented and Nonfocal/Grossly Intact
Hematologic / Lymphatic: No Lymphadenopathy
Psych: Calm
[2023-09-27] MEDS: HEPARIN 25000 UNITS/250 ML IV (09:42)
[2023-09-27] MEDS: TOPROL XL 25 MG PO (09:42)
--- NOTE | 2023-09-27 09:45 | PTCARENOTE ---
Patient received from business consult. Patient resting comfortably in the chair. AAO, VSS. No events noted overnight. No complaints of pain at this time. Cardizem gtt continued at 15mg/hr for HR 80-100. Patient did received Calcium via IV
overnight. Heparin gtt started at 700 units, holding Eliquis. Planning for MRI this AM. Call plascencia in reach.
[2023-09-27 10:11] LABS: Free T4 1.81 ng/dl (0.78-2.19)
--- NOTE | 2023-09-27 10:13 | CON.GI ---
Addendum entered and electronically signed by Enrrique Coates MD 09/27/23 15:48:
Pt ate today. We will put on clears tomorrow for colonoscopy Sunday.
Addendum entered and electronically signed by Enrrique Coates MD 09/27/23 15:42:
I saw and examined the patient.
The RECORD LABEL INTERN or PA's note was reviewed and I agree with the note.
Comment: 63yo female with intellectual disability admitted with Afib/RVR and found to have DVT, b/l PE. Started on Eliquis, but switched to heparin gtt. CT CAP showed extensive moderate/severe circumferential wall thickening descending/sigmoid
colon, difficult to rule out mass in sigmoid colon. Pt has had n/v prior to admission, but started on PPI with improvement. She had n/v for several months and lost 17 pounds. No prior EGD/colonoscopy. She may have been eating poorly due to
stress of mother being sick. Pt remains on heparin until eval of colon mass/colonoscopy. Also holding off on ROSALIA/cardioversion and focus on rate control.
REC:
L colon thickening could be from ischemic colitis given her other clot burden, but will plan on colonoscopy to rule out colon mass
OK for colonoscopy from Cardiology standpoint
Hold heparin at 2am for procedure tomorrow.
Will prep tonight.
She is eating without difficulty and has no further n/v. Will hold off on EGD
Addendum entered and electronically signed by Nerissa Harris NP 09/27/23 11:08:
MRI pending for pancreatic cyst evaluation.
Original Note:
Consultation
-
Date/Time Consultation Requested: 09/27/23 @ 09:48
Date/Time Consultation Performed: 09/27/23 @ 10:15
Requesting Provider: Beto Sim MD
Performing Provider: ELOY Ayala; Dr. Enrrique Coates
Reason for Consultation: left sided colitis, panc cyst
Medical History
Chief Complaint / HPI
Chief Complaint: bilateral LE edema, rapid heart beat
History of Present Illness:
The pt is a 63 yo female with a PMH significant for HTN, HLD, DM2, intellectual disability, who presented to the ER as directed by her PCP with complaints of a rapid heart rate and bilateral LE edema. Upon review of admitting records, the patient
had been complaining of increasing lower extremity edema bilaterally along with an elevated heart rate for about a week. She was evaluated by her PCP and underwent an EKG found to be in A-fib with RVR and was sent to the emergency room. She was
started on a diltiazem drip and admitted for evaluation by cardiology. She was placed on apixaban initially, due to the presence of A-fib, but also with findings of an extensive right lower extremity DVT on ultrasound. She was found to have
severely low magnesium levels of 1.1 and low potassium 3.0 and this was repleted. She underwent a CT of the chest, abdomen, and pelvis to rule out PE given her ongoing tachycardia and also for evaluation of weight loss, and was found to have
bilateral PE with concern for right heart strain, along with a 2.1 cm right adrenal nodule, a 5 mm pancreatic cyst, and moderate to severe thickening of the descending and sigmoid colon consistent with colitis. She was placed on IV heparin and an
echo was ordered. She is also pending an MRI of the abdomen due to findings of a small pancreatic cyst. Routine labs reviewed from today showing hemoglobin of 9.7, WBC 7.6, platelets 364,000, potassium 4.3, sodium 143, BUN 7, creatinine 0.7,
magnesium 2.2, total protein 5.4, albumin 2.8, with normal LFTs. Hemoglobin A1c 6.5 on admission. TSH 0.44 but with normal free T4. We are being asked to evaluate for the colonic CT findings along with her abnormal weight loss and upper GI
complaints. The patient has a mild intellectual disability therefore her brother is also at the bedside to assist with HPI. He reports that she has been having loss of appetite secondary to nausea and vomiting since June. She notes that her mother
was hospitalized at that time and was under somewhat increased stress, but she reports that anytime she had tried to eat food she would have subsequent vomiting within several minutes. This has subsequently led to about 19 pounds of weight loss
since that time. About 2 weeks ago her brother started her on pantoprazole and she has seen some improvement in her nausea and vomiting symptoms. She denies any hematemesis, melena or hematochezia. She denies any complaints of constipation or
diarrhea. She has no abdominal pain. She denies any dysphagia or odynophagia. She denies any family history of colon cancer or other GI cancers or disorders. She has never had a colonoscopy or endoscopy in the past. She denies use of blood
thinners, although is on IV heparin at this time. She denies any prior use of NSAIDs. She is on metformin for diabetes. She denies any recent travel, prolonged car rides, or family history of blood clotting disorders. Hematology is also
following for recommendations.
Past Medical History
Past Medical History: HTN, Hypercholesterolemia, NIDDM and Other (Intellectual disability)
Past Surgical History: Gynecological (Ovarian cyst removal)
Social History
Tobacco: Non-Smoker
Alcohol: None
Drug: None
Personal: Single
Living: With Family
Family History
Family History: Reviewed & Not Pertinent
Allergies / Home Medications
Allergy/AdvReac Type Severity Reaction Status Date / Time
No Known Allergies Allergy Verified 09/26/23 11:41
�Medication �Instructions �Recorded
atorvastatin 40 mg tablet 40 mg PO DAILY High Cholesterol 09/26/23
lisinopril 20 mg tablet 20 mg PO DAILY Blood Pressure 09/26/23
metformin 1,000 mg tablet,extended 1,000 mg PO BID Diabetes 09/26/23
release 24hr (osmotic)
Review of Systems
-
History Source: Patient and Family
Constitutional: Reports Weight Loss
EENT: Reports No Symptoms
Respiratory: Reports Cough
Cardiac: Reports Palpitations
Abdomen/GI: Reports No Symptoms
: Reports No Symptoms
Musculoskeletal: Reports Edema (Bilateral lower extremities)
Skin: Reports No Symptoms
Neurological: Reports No Symptoms
Endocrine: Reports No Symptoms
Vital Signs
Temp Pulse Resp BP Pulse Ox
97.4 F 106 23 125/90 98
09/27/23 04:25 09/27/23 09:42 09/27/23 07:30 09/27/23 09:42 09/27/23 07:30
Physical Exam
Exam
General: Well Developed, No Apparent Distress, Comfortable and Other (Thin appearing female in no acute distress)
HEENT: Normocephalic, Anicteric and Atraumatic
Respiratory: Clear
Cardiac: S1/S2 and Irregular Rhythm
Breast: Deferred by me
GI: Soft, Non Tender, Non Distended and Normal Bowel Sounds
Rectal: Deferred by Provider
Musculoskeletal: No Edema
Skin: Warm and Dry
Neuro: Awake, Alert and Oriented
Psych: Calm
Results
WBC 7.6 10^3/uL (4.8-10.8) 09/27/23 08:45
Hgb 9.7 g/dL (12.0-16.0) L 09/27/23 08:45
Hct 28.9 % (37.0-47.0) L 09/27/23 08:45
MCV 86.5 fL (81.0-99.0) 09/27/23 08:45
Plt Count 364 10^3/uL (130-400) 09/27/23 08:45
Absolute Neuts (auto) 6.2 10^3/uL (1.4-6.5) 09/27/23 05:18
APTT 28.4 Sec (23.4-35.0) 09/27/23 08:45
Sodium 143 mmol/L (135-145) 09/27/23 05:18
Potassium 4.3 mmol/L (3.5-5.1) D 09/27/23 05:18
Chloride 101 mmol/L (98-107) 09/27/23 05:18
Carbon Dioxide 35 mmol/L (22-30) H 09/27/23 05:18
BUN 7 mg/dl (7-17) 09/27/23 05:18
Creatinine 0.7 mg/dL (0.6-1.0) 09/27/23 05:18
Calcium 8.1 mg/dl (8.4-10.2) L 09/27/23 05:18
Total Bilirubin 0.6 mg/dl (0.2-1.3) 09/27/23 05:18
AST 19 U/L (14-36) 09/27/23 05:18
ALT 14 U/L (0-35) 09/27/23 05:18
Alkaline Phosphatase 125 U/L (38-126) 09/27/23 05:18
Diagnostic Image Results:
09/26/23 CT C/A/P w/IV contrast only: IMPRESSION:
1. Bilateral pulmonary emboli as described. Borderline right heart strain.
2. Severe left-sided colitis. Difficult to rule out mass in the sigmoid colon. Recommend direct visualization.
3. Findings most in keeping with a left ovarian dermoid measuring up to 3.9 cm. Consider further evaluation with dedicated pelvic ultrasound.
4. Probable right adrenal adenoma measuring up to 2.1 cm. This can be further evaluated on a nonemergent basis with a dedicated adrenal protocol CT, to be ordered as CT Abdomen with and without contrast.
5. Tiny 5 mm pancreatic cystic lesion, possibly a pseudocyst or side branch of intraductal papillary mucinous neoplasm. Recommend outpatient workup with dedicated MRI/MRCP abdomen without and with gadolinium contrast.
6. Right common femoral and superficial femoral vein thrombus noted. The IVC and bilateral common iliac veins are patent.
09/26/23 Duplex bilateral LE:IMPRESSION:
1. Extensive right lower extremity DVT as detailed.
2. No evidence of deep venous thrombosis in the left lower extremity as described above.
Prior GI Procedures:
EGD: none
Colonoscopy: none
Assessment / Plan
-
The patient is a pleasant 63-year-old female with a past medical history significant for hypertension, hyperlipidemia, DM2, intellectual disability, who presented to the emergency room after being referred by her primary care physician for new onset
A-fib and bilateral lower extremity edema, found to have an extensive right lower extremity DVT and bilateral PEs, started on apixaban initially now on IV heparin. Also with findings of moderate to severe left-sided colitis of uncertain etiology.
She reports about 19 pounds of weight loss since June along with symptoms of nausea and vomiting after eating, which has since improved since starting on pantoprazole. She has no chronic GI complaints and has never had a colonoscopy or EGD. She
denies any abdominal pain or signs of bleeding. She has no family history of colorectal cancer or other GI cancers or disorders.
Problem list:
-Extensive right lower extremity DVT, bilateral pulmonary emboli, suspected to be unprovoked
-Weight loss
-Nausea, vomiting
-CT imaging showing moderate to severe left-sided colitis, 2.1 cm right adrenal lesion, 5 mm pancreatic cyst
-Hypomagnesemia, resolved
-Hypokalemia, resolved
-Afib with RVR
-elevated ProBNP
-normocytic anemia, without iron deficiency
Other pertinent medical history:
-Hypertension
-HLD
-DM2
-intellectual disability
Recommendations:
-Etiology of current GI symptoms possibly secondary to underlying occult GI process v gastroparesis v PUD v other. She has no clinical symptoms of colitis at this time and CT is limited of the bowels without contrast. She however has had ongoing
nausea and vomiting with significant weight loss, which has since improved since starting on PPI therapy.
-She will need endoscopic evaluation with EGD and colonoscopy at some point in the near future. Given her ongoing issues including A-fib with RVR and bilateral PE with evidence of heart strain, will need to discuss with the hospitalist and
grants manager regarding timing for endoscopic evaluation. Ideally this should be done inpatient given she will need long-term anticoagulation. The patient and her brother are agreeable to this plan. Will review with Dr. Coates
-Continue daily PPI given her nausea and vomiting symptoms. To rule out possible PUD versus gastroparesis although her hemoglobin A1c is in an acceptable range making this less likely.
-Diet as per speech therapy
-PRN antiemetics
-Cardiology and hematology are following
-Further management pending above
-
-
Thank you for consultation and allowing me to participate in the patient's care. Please call the semiconductor technician GI physician during the after hours with any questions or concerns.
--- NOTE | 2023-09-27 10:52 | PTOTSP ---
ST Acute Care Evaluation
Pt presents with fairly functional oral, pharyngeal, and esophageal phases of swallow with solids and liquids - no overt s/s of penetration or aspiration observed at bedside. Pt DOES demonstrate some unsafe behaviors with PO intake including
slightly impulsive intake rate and has some reduced insight to deficits/impairments of impact of loosely-fitting dentures which place her at an increased aspiration risk.
Recommendations:
- Continue with regular solids (choose softer items), thin liquids, meds as tolerated.
- General aspiration precautions: HOB upright, small bites/sips, EAT/DRINK SLOWLY, and use denture adhesive as needed.
- Reflux precautions: HOB upright for at least 60 minutes after meals; overchew foods; PPI as RX.
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
--- NOTE | 2023-09-27 11:14 | CM ---
Addendum entered by Elaine Tom RN 09/27/23 17:18:
Plan issue Eliquis Free Month Card.
Plan offer VN for PT/OT.
Plan home possibly with VN.
Original Note:
Patient with Hx intellectual disability with Dx Afib with RVR, pulmonary emboli, RLE DVT. Room air. Receiving IV Heparin. PT & OT recommend HH.
Spoke with patient's brother Khanh Flores (ph [phone]);
The patient resides with her mother and brother Khanh in a 1 story house with 3 DION[address].
The patient has been independent in ADLs such as bathing/dressing and ambulates independently without using an assistive device.
Khanh says that the patient has an intellectual disability with an IQ of 60, so needs to be supervised by family.
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
The patient receives $900/month through Social Security.
The patient has no DME, VN or SNF.
PCP - Gaurav Jensen
Pharmacy - [facility]
CM Consult: Alfonso Check Eliquis
Per ambulatory orders/[employer], Eliquis cost $550/month, $832.44 90 days.
CM spoke with pharmacist, [facility]; cost is identical to cost above.
CM spoke with Danny Bauer (ph [phone], patient's plan # [phone]); $542.73/month. Patient has not met deductible of $545.00, the cost after that is unknown. They do not honor copay cards.
Spoke with Morena Farrell CM who contacted Danny Ponce and was given additional information - $545 deductible (which will be eliminated with Free Month Card given to local [facility]) and $18.90 for a 30 day supply.
Spoke with daughter ELIJAH Kirkland; she agrees to the $18.90 cost of Eliquis through [employer] with initial month at [facility] using the Free Month Card.
Plan offer VN for PT/OT.
Plan home possibly with VN.
--- NOTE | 2023-09-27 11:19 | CM ---
Pricing on Eliquis 5mg BID through the patient's [facility] ID # [id number] is $18.90 for a 30 day supply
[2023-09-27 13:01] LABS: Glucose - Point of Care 236 mg/dl (70-99)
[2023-09-27] MEDS: NOVOLOG FLEXPEN-LOW RESISTANCE 2 UNITS SC (13:43)
[2023-09-27 16:46] LABS: APTT 57.7 Sec (23.4-35.0)
[2023-09-27] MEDS: ATIVAN 1 MG IV (16:57)
[2023-09-27 18:30] LABS: Glucose - Point of Care 258 mg/dl (70-99)
[2023-09-27] MEDS: NOVOLOG FLEXPEN-LOW RESISTANCE 3 UNITS SC (18:40)
--- NOTE | 2023-09-27 20:11 | W.PN.UPDATE ---
Update Note
Progress Note Update
Upon further discussion with my partner, we will plan on flex sig to evaluate the L colon to exclude a mass. Keep NPO p MN. Hold heparin at 2am for flex sig tomorrow.
[2023-09-27 22:33] LABS: Glucose - Point of Care 218 mg/dl (70-99)
[2023-09-27 23:52] LABS: APTT 38.3 Sec (23.4-35.0)
[2023-09-28] VITALS (13 sets, daily range): BP systolic 94–137; BP diastolic 61–108
--- NOTE | 2023-09-28 02:00 | PTCARENOTE ---
Heparin placed on hold @ 0200 per MD order, in preparation for tentative flex/sig in AM
[2023-09-28 05:53] LABS: D-Dimer 1.15 ug/mlFEU (0.00-0.50)
[2023-09-28 05:59] LABS: Blood Urea Nitrogen 11 mg/dl (7-17); Carbon Dioxide 36 mmol/L (22-30); Chloride 100 mmol/L (98-107); Estimated Creatinine Clearance 58 ml/min; Glucose 96 mg/dl (70-99); Potassium 4.1 mmol/L (3.5-5.1); Sodium 140 mmol/L (135-145); eGFR > 60.00
[2023-09-28 06:38] LABS: Hematocrit 25.2 % (37.0-47.0); Hemoglobin 8.4 g/dL (12.0-16.0); Mean Corp Hgb Conc. 33.3 g/dL (33.0-37.0); Mean Corpuscular Hgb 29.3 pg (27.0-31.0); Mean Corpuscular Volume 87.8 fL (81.0-99.0); Mean Platelet Volume 8.8 fL (7.4-10.4); Platelet Count 283 10^3/uL (130-400); Red Blood Cell Count 2.87 10^6/uL (4.20-5.40); Red Cell Dist. Width 17.5 % (11.5-14.5); Reticulocyte Count 2.5 % (0.4-2.8)
[2023-09-28 07:09] LABS: Folate 8.1 ng/ml (2.76-20); Vitamin B12 542 pg/ml (239-931)
--- NOTE | 2023-09-28 08:42 | W.PN.UPDATE ---
Update Note
Progress Note Update
discussed via TT both CT and MRI with radiologist Dr. Oliver. Not c/w diverticulitis. More likely colitis less likely mass.
d/w Dr. Emanuel and sister Latonia and brother Khanh. will hold heparin and do flex sig.
[2023-09-28] MEDS: LIPITOR 40 MG PO (08:45)
[2023-09-28] MEDS: TOPROL XL 25 MG PO (08:45)
[2023-09-28] MEDS: NOVOLOG FLEXPEN-LOW RESISTANCE SC ×2 (08:46→13:16)
--- NOTE | 2023-09-28 08:47 | W.PN.HOSP.TC ---
Addendum entered and electronically signed by Rodrigo Emanuel MD 09/28/23 09:34:
I saw and evaluated the patient. I reviewed the resident�s note and agree with findings and plan as documented in the resident�s note.
No new complaints. Denies CP/SOB/abd pain
NAD, awake and alert, NCAT
RRR with occasional premature beats, normal S1/S2
CTAB anteriorly
remains CN2-12 intact
2+ RLE and 1+ LLE pitting edema
ECG on admission (read by me): Afib with RVR @ 163, R-axis deviation, ST-dep V1-V4 consistent with repolarization abnormality
CTA C/A/P:
1. Bilateral pulmonary emboli as described. Borderline right heart strain.
2. Severe left-sided colitis. Difficult to rule out mass in the sigmoid colon. Recommend direct visualization.
3. Findings most in keeping with a left ovarian dermoid measuring up to 3.9 cm. Consider further evaluation with dedicated pelvic ultrasound.
4. Probable right adrenal adenoma measuring up to 2.1 cm. This can be further evaluated on a nonemergent basis with a dedicated adrenal protocol CT, to be ordered as CT Abdomen with and without contrast.
5. Tiny 5 mm pancreatic cystic lesion, possibly a pseudocyst or side branch of intraductal papillary mucinous neoplasm. Recommend outpatient workup with dedicated MRI/MRCP abdomen without and with gadolinium contrast.
6. Right common femoral and superficial femoral vein thrombus noted. The IVC and bilateral common iliac veins are patent.
MRI Abd with MRCP: Subcentimeter pancreatic cystic lesions without suspicious features, likely pseudocysts and/or side branch ductal papillary mucinous neoplasms. Recommend follow-up MRI/MRCP abdomen without and with gadolinium contrast in 2 years
per ACR criteria. Wall thickening of the sigmoid colon likely reflects colitis, less likely diverticulitis. This appears overall slightly improved in extent compared to prior CT, with particular improvement throughout the descending colon compared
to prior.
Echo: Normal left ventricular size, wall thickness and systolic function. No regional
wall motion abnormalities are seen. LV ejection fraction is 56% by volumetric
assessment. Stage II diastolic dysfunction suggestive of abnormal relaxation
and increased filling pressures.
Normal right ventricular size and function.
Severely dilated left atrium.
Thickened mitral valve leaflets. Mitral annular calcification. Mild-moderate
mitral regurgitation.
Mild tricuspid regurgitation. Estimated pulmonary artery pressure of 25-30 mmHg
assuming a right atrial pressure of 3 mmHg.
No prior study available for comparison.
Acute B/L PEs and RLE DVT:
-cont heparin gtt (on hold for flex sig)
-will need lifelong AC
Sigmoid colitis:
-Doubt infectious as patient without fever, leukocytosis, abdominal pain
-For flex sig today, discussed with GI
Afib with RVR:
-with hypokalemia and hypomagnesemia, both resolved with repletion
-was on cardizem gtt until 8PM
-cont Toprol XL
-now converted to SR
-Cardiology following
-TSH slightly low, free T4 normal
-Echo above and notable for EF 56%, G2DD, normal RV sz/fxn, severely dilated LA, mild-mod MR, mild TR
Total time spent on today's encounter was 52 minutes which included time spent in counseling the patient/family regarding diagnosis and treatment plan as listed above, goals of care, and symptom management. Case was discussed with nursing staff,
specialists, and care coordinators/case management. All labs and imaging personally reviewed by me. Remainder the time spent in detailed review of previous records, lab data, imaging, and other medical provider documentation.
Original Note:
Today's Communication/Plan
-
- Flexible sigmoidoscopy today.
- Resume heparin after the procedure.
Assessment / Plan
Assessment / Plan
Assessment
Shiloh Flores, age 63, was brought to the emergency on 09-26-23 for evaluation of an elevated heart rate. She was at her primary's clinic for bilateral lower extremity edema for the past week or so, when her heart rate was noted to be around 150. ECG
showed atrial fibrillation and she was advised to go to the hospital. In the ED, she was initiated on diltiazem drip and pro-BNP was elevated at 1610. She was admitted for further evaluation and management.
Impression and plan
Atrial fibrillation with rapid ventricular response
- TSH 0.44 and fT4 1.81.
- Cardiology consultation.
- pro-BNP 1610
- Echocardiogram: stage II diastolic dysfunction, severely dilated left atrium, abnormal relaxation, increased filling pressures.
- Continue diltiazem drip started in the emergency.
- Start metoprolol succinate 25 mg.
- [id number] Score at least 4 - apixaban started 09-26-23, held per below.
Acute bilateral pulmonary embolism
Acute extensive right lower extremity deep vein thrombosis
- Likely unprovoked with no clear etiology.
- Notably, has had a 19 lbs weight loss since June 2023.
- Received 1 dose of apixaban 10 mg last night; hold and switched to heparin drip (held for now).
- Lupus anticoagulant profile sent before starting the drip.
Severe left-sided colitis
Pancreatic cystic lesion
- CT abdomen-pelvis and MR abdomen didn't show any masses.
- Sigmoidoscopy scheduled today; heparin held since 2 AM.
- Hematology-oncology and gastroenterology consultation.
- Will cancel colorectal surgery consultation; no indication for an intervention yet.
Hypokalemia
- Status-post 80 meq in the ED.
- Follow BMP; replete as needed.
Hypomagnesemia
- Status-post 4g in the ED.
- Follow Mg.
Unintentional weight loss
Moderate protein-calorie malnutrition
Underweight with BMI <19.9
- 19 lbs. since June 2023.
- No associated symptoms or changes to health.
- Ensure twice a day.
- Dietary consultation.
Essential hypertension
- Hold lisinopril.
Hyperlipidemia
- Continue atorvastatin.
Type II diabetes mellitus
- Hold metformin.
- Check HbA1c.
- SSC.
VTE prophylaxis
- Heparin drip.
Code status
- Full.
Anticipated Discharge: 24 - 48 hours
Subjective/Interval History
-
Date of Service: September 28, 2023
Objective Data
-
Labs:
Laboratory Results
09/27/23 09/28/23
23:27 05:27
WBC 9.0
Hgb 8.4 L
Hct 25.2 L
Plt Count 283 D
APTT 38.3 H
Sodium 140
Potassium 4.1
Chloride 100
Carbon Dioxide 36 H
BUN 11
Creatinine 0.6
Glucose 96
Calcium 8.0 L
Vital Signs:
Vital Signs
Temp Pulse Resp BP Pulse Ox
98.8 F 79 17 109/67 95
09/28/23 07:27 09/28/23 07:00 09/28/23 07:00 09/28/23 06:00 09/28/23 07:00
I&O
09/27/23 09/28/23 09/29/23
06:59 06:59 06:59
Intake Total 960 / 960 400 / 400
Output Total 1800 / 1800
Balance -840 / -840 400 / 400
Review of Systems
-
History Source: Patient
Constitutional: Reports Weight Loss, No Appetite and Fatigue
EENT: Reports No Symptoms Reported
Respiratory: Reports No Symptoms
Cardiac: Reports Palpitations
Abdomen/GI: Reports No Symptoms
Breast: Reports No Symptoms
Genitourinary: Reports No Symptoms
Musculoskeletal: Reports Edema (bilateral lower extremity; improved)
Skin: Reports No Symptoms
Neuro: Reports No Symptoms
Endocrine: Reports No Symptoms
Hematologic / Lymphatic: Reports No Symptoms
Allergy / Immunology: Reports No Symptoms
Physical Exam
-
General: No Apparent Distress and Comfortable
HEENT: Normocephalic, Atraumatic, Moist Mucous Membranes and Anicteric
Respiratory: Clear to Auscultation and Non Labored Respirations
Cardiac: Regular Rhythm, S1/S2 and Tachycardic
GI: Soft, Nontender, Nondistended and No Hepatosplenomegaly
Genito-urinary: No Costovertebral Tender
Musculoskeletal: No Clubbing, No Cyanosis, Edema, Right Lower Extrem (+2) and Edema, Left Lower Extrem (+2)
Skin: Warm, Dry and IV Access / Catheter Site
Neuro: Awake, Alert, Oriented and Nonfocal/Grossly Intact
Hematologic / Lymphatic: No Lymphadenopathy
Psych: Calm
--- NOTE | 2023-09-28 10:22 | W.PN.CARDCBS ---
Addendum entered and electronically signed by Hernandez Harvey MD 09/28/23 12:28:
I saw and examined the patient.
The MEDICAL OFFICE REPRESENTATIVE or PA's note was reviewed and I agree with the note.
Comment: General: Well developed, well nourished in NAD.
Neck: Supple, no JVD, HJR, carotids +2 B/L, no bruits bilaterally.
Heart: Non displaced PMI, RRR, no murmurs, No S3, S4, no rubs.
Lungs: Scattered rhonchi
Extremities: No clubbing, cyanosis or edema bilaterally.
Neuro: Grossly nonfocal, awake, alert and oriented x3.
Remains in sinus rhythm. Continue IV Cardizem while n.p.o. for workup of colon mass. Volume status stable off of oral diuretics.
Original Note:
Today's Communication / Plan
-
for sigmoidoscopy today to evaluate possible colon mass
remains in NSR, will continue IV dilitiazem through procedure since NPO
Impression / Plan
-
Primary Trimmer Meat: none prior to admission
Assessment:
Presentation with elevated HR
Atrial fibrillation with RVR, new diagnosis of unclear duration, s/p spontaneous conversion to SR with PACs 09/26
ST
B/L LE edema, concern for acute CHF of unknown type
RBBB while in rapid afib, no prior EKG to compare
RLE DVT/Bilateral PE/right common femoral and superficial femoral vein thrombus
Severe L colitis, getting sigmoidoscopy today
Anemia
Hypokalemia-resolved
Hypomagnesemia
Recent vomiting/poor appetite/weight loss
Prediabetes
HTN
HLD
Left ovarian dermoid cyst
Right adrenal adenoma
Small pancreatic cystic lesion
Plan:
-Patient is a 63-year-old female who presents due to elevated heart rate and lower extremity edema noted at primary care visit
-Imaging 09/25 revealed right lower extremity DVT with involvement of right common femoral and superficial femoral vein. Also with evidence of bilateral PE with borderline right heart strain by CT.
-Echo 09/27/23 EF 56%, stage II diastolic dysfxn, sev LA dilatation, mild-mod MR, mild TR, PAP 25-30
-CT with evidence of severe left colitis with inability to rule out underlying mass. Sigmoidoscopy today.
-Spontaneously converted to sinus tachycardia with frequent PACs 09/26. Reviewed telemetry for past 24 hrs- [facility]
-Continue IV Cardizem (since NPO). Continue p.o. Toprol. Holding outpatient lisinopril for now
-Was initiated on Eliquis, but transitioned to Heparin since getting GI procedure. Follow hemoglobins-Hgb down to 8.4 09/27, was 9.7 09/26. Sigmoidoscopy today.
-will need custodial anticoagulation for PE and afib. Depending on results of procedure, may transition back to Eliquis.
-proBNP 1610. Responded well to dose of IV Lasix 20 mg on 09/25. Hold off on further at present and follow volume status
-K stable 4.1, 09/27
-TSH 0.44, free T4 1.81 09/25
-d/w nursing
Progress Note - Trimmer Meat
Subjective
Date of Service: September 28, 2023
NPO for sigmoidoscopy today, just rec'd pre-procedure enema
denies CP/SOB/palpitations/dizziness
remains in NSR
Objective
Labs:
09/28/23 05:27
09/28/23 05:27
Labs
Hgb 8.4 g/dL (12.0-16.0) L 09/28/23 05:27
Hct 25.2 % (37.0-47.0) L 09/28/23 05:27
Plt Count 283 10^3/uL (130-400) D 09/28/23 05:27
APTT 38.3 Sec (23.4-35.0) H 09/27/23 23:27
Sodium 140 mmol/L (135-145) 09/28/23 05:27
Potassium 4.1 mmol/L (3.5-5.1) 09/28/23 05:27
BUN 11 mg/dl (7-17) 09/28/23 05:27
Creatinine 0.6 mg/dL (0.6-1.0) 09/28/23 05:27
Glucose 96 mg/dl (70-99) 09/28/23 05:27
Troponins
09/26/23 09/26/23
12:11 20:48
Troponin I < 0.012 0.015
Vital Signs and I&O:
Vital Signs
Temp Pulse Resp BP Pulse Ox
98.8 F 79 17 109/67 95
09/28/23 07:27 09/28/23 07:00 09/28/23 07:00 09/28/23 06:00 09/28/23 07:00
Vital Signs
Temp Pulse Resp BP Pulse Ox
98.8 F 79 17 109/67 95
09/28/23 07:27 09/28/23 07:00 09/28/23 07:00 09/28/23 06:00 09/28/23 07:00
Intake & Output
09/26/23 09/27/23 09/28/23 09/29/23
06:59 06:59 06:59 06:59
Intake Total 960 / 960 400 / 400
Output Total 1800 / 1800
Balance -840 / -840 400 / 400
Physical Exam
Physical Exam
GEN: No distress, awake, Ox3
HEENT: supple, anicteric, mmm
LUNGS: CTA, no wheezes/rales
CV: RRR w/ occ ectopic beats, S1/S2, 1/6 syst LSB, no gallop
ABD: soft, BS+, NT/ND
EXT: 2+ RLE edema trace LLE edema
NEURO: Gross non-focal
SKIN: No rash
--- NOTE | 2023-09-28 12:06 | W.PN.UPDATE ---
Update Note
Progress Note Update
flex sig:
severe diverticular narrowing in distal sigmoid and can't get past this safely. No obvious mass.
would resume heparin and if fever/wbc or clinically diverticulitis would treat it. If not would repeat imaging in future (weeks) to see if this resolved
can restart heparin and can eat
d/w sister alejandro
[2023-09-28 12:19] LABS: Glucose - Point of Care 104 mg/dl (70-99)
[2023-09-28] MEDS: NOVOLOG FLEXPEN-LOW RESISTANCE 1 UNITS SC (16:55)
[2023-09-28 17:03] LABS: Glucose - Point of Care 175 mg/dl (70-99)
[2023-09-28] MEDS: CARDIZEM 125 IV (18:07)
[2023-09-28 21:58] LABS: Glucose - Point of Care 104 mg/dl (70-99)
[2023-09-28 22:26] LABS: APTT 58.6 Sec (23.4-35.0)
[2023-09-29] VITALS (9 sets, daily range): BP systolic 110–150; BP diastolic 65–92
--- NOTE | 2023-09-29 01:01 | PTCARENOTE ---
Caring for patient overnight. aaox3. Denies pain. Continued to be on heparin gtt & cards gtt in beginning of shift. Cardizem was running at 5mg/hr. HR was dropping to 60's around 2345, [employer] aware, cards gtt put on hold for now. Heparin gtt continues.
Will monitor. BP's stable. Rhythm is Sinus arrhythmia and SR with PAC. Remains RA. Bed alarm on. Father & sister at bedside in beginning of shift. Will continue to monitor.
[2023-09-29] MEDS: HEPARIN 25000 UNITS/250 ML IV (03:26)
[2023-09-29 05:29] LABS: Hematocrit 27.6 % (37.0-47.0); Hemoglobin 9.2 g/dL (12.0-16.0); Mean Corp Hgb Conc. 33.3 g/dL (33.0-37.0); Mean Corpuscular Hgb 30.2 pg (27.0-31.0); Mean Corpuscular Volume 90.5 fL (81.0-99.0); Mean Platelet Volume 8.9 fL (7.4-10.4); Platelet Count 284 10^3/uL (130-400); Red Blood Cell Count 3.05 10^6/uL (4.20-5.40); Red Cell Dist. Width 17.2 % (11.5-14.5); White Blood Cell Count 6.5 10^3/uL (4.8-10.8)
[2023-09-29 05:52] LABS: APTT 123.7 Sec (23.4-35.0)
[2023-09-29 06:07] LABS: Blood Urea Nitrogen 9 mg/dl (7-17); Calcium 8.3 mg/dl (8.4-10.2); Carbon Dioxide 34 mmol/L (22-30); Chloride 100 mmol/L (98-107); Estimated Creatinine Clearance 49 ml/min; Glucose 93 mg/dl (70-99); Potassium 4.1 mmol/L (3.5-5.1); Sodium 137 mmol/L (135-145); eGFR > 60.00
[2023-09-29 08:20] LABS: Glucose - Point of Care 101 mg/dl (70-99)
[2023-09-29] MEDS: NOVOLOG FLEXPEN-LOW RESISTANCE SC (08:33)
[2023-09-29] MEDS: TOPROL XL 25 MG PO ×2 (08:36→21:12)
--- NOTE | 2023-09-29 08:59 | W.PN.HOSP.TC ---
Addendum entered and electronically signed by Rodrigo Emanuel MD 09/29/23 10:06:
I saw and evaluated the patient. I reviewed the resident�s note and agree with findings and plan as documented in the resident�s note.
No new complaints. Denies CP/SOB.
NAD, awake and alert, NCAT
tachy, irreg/irreg, normal S1/S2
CTAB anteriorly
continues to remain CN2-12 intact
ECG on admission (read by me): Afib with RVR @ 163, R-axis deviation, ST-dep V1-V4 consistent with repolarization abnormality
CTA C/A/P:
1. Bilateral pulmonary emboli as described. Borderline right heart strain.
2. Severe left-sided colitis. Difficult to rule out mass in the sigmoid colon. Recommend direct visualization.
3. Findings most in keeping with a left ovarian dermoid measuring up to 3.9 cm. Consider further evaluation with dedicated pelvic ultrasound.
4. Probable right adrenal adenoma measuring up to 2.1 cm. This can be further evaluated on a nonemergent basis with a dedicated adrenal protocol CT, to be ordered as CT Abdomen with and without contrast.
5. Tiny 5 mm pancreatic cystic lesion, possibly a pseudocyst or side branch of intraductal papillary mucinous neoplasm. Recommend outpatient workup with dedicated MRI/MRCP abdomen without and with gadolinium contrast.
6. Right common femoral and superficial femoral vein thrombus noted. The IVC and bilateral common iliac veins are patent.
MRI Abd with MRCP: Subcentimeter pancreatic cystic lesions without suspicious features, likely pseudocysts and/or side branch ductal papillary mucinous neoplasms. Recommend follow-up MRI/MRCP abdomen without and with gadolinium contrast in 2 years
per ACR criteria. Wall thickening of the sigmoid colon likely reflects colitis, less likely diverticulitis. This appears overall slightly improved in extent compared to prior CT, with particular improvement throughout the descending colon compared
to prior.
Echo: Normal left ventricular size, wall thickness and systolic function. No regional
wall motion abnormalities are seen. LV ejection fraction is 56% by volumetric
assessment. Stage II diastolic dysfunction suggestive of abnormal relaxation
and increased filling pressures.
Normal right ventricular size and function.
Severely dilated left atrium.
Thickened mitral valve leaflets. Mitral annular calcification. Mild-moderate
mitral regurgitation.
Mild tricuspid regurgitation. Estimated pulmonary artery pressure of 25-30 mmHg
assuming a right atrial pressure of 3 mmHg.
No prior study available for comparison.
Acute B/L PEs and RLE DVT:
-stop heparin gtt, transition to Eliquis
-will need lifelong AC
Sigmoid colitis:
-Doubt infectious as patient without fever, leukocytosis, abdominal pain
-flex sig 09/28/23: Severe diverticular narrowing in the distal sigmoid past which the scope could not be safely passed. No obvious mass.
Afib with RVR:
-with hypokalemia and hypomagnesemia, both resolved with repletion
-was on cardizem gtt, now off and tachycardic
-cont Toprol XL
-start Cardizem CD 120mg x 1, further dosing to be determined by cardiology
-Cardiology following
-TSH slightly low, free T4 normal
-Echo above and notable for EF 56%, G2DD, normal RV sz/fxn, severely dilated LA, mild-mod MR, mild TR
Total time spent on today's encounter was 50 minutes which included time spent in counseling the patient/family regarding diagnosis and treatment plan as listed above, goals of care, and symptom management. Case was discussed with nursing staff,
specialists, and care coordinators/case management. All labs and imaging personally reviewed by me. Remainder the time spent in detailed review of previous records, lab data, imaging, and other medical provider documentation.
Original Note:
Today's Communication/Plan
-
- Switch to apixaban today.
- Holding diltiazem drip for now.
Assessment / Plan
Assessment / Plan
Assessment
Shiloh Flores, age 63, was brought to the emergency on 09-26-23 for evaluation of an elevated heart rate. She was at her primary's clinic for bilateral lower extremity edema for the past week or so, when her heart rate was noted to be around 150. ECG
showed atrial fibrillation and she was advised to go to the hospital. In the ED, she was initiated on diltiazem drip and pro-BNP was elevated at 1610. She was admitted for further evaluation and management.
Impression and plan
Atrial fibrillation with rapid ventricular response
- TSH 0.44 and fT4 1.81.
- Cardiology consultation.
- pro-BNP 1610
- Echocardiogram: stage II diastolic dysfunction, severely dilated left atrium, abnormal relaxation, increased filling pressures.
- Can transition diltiazem drip to oral; hold for now due to low heart rate; pending cardiology follow-up.
- Continue metoprolol succinate 25 mg.
- [id number] Score at least 4 - apixaban started 09-26-23, held for heparin drip; re-start today.
Acute bilateral pulmonary embolism
Acute extensive right lower extremity deep vein thrombosis
- Likely unprovoked with no clear etiology; will need life-long anticoagulation.
- Notably, has had a 19 lbs weight loss since June 2023.
- Received 1 dose of apixaban 10 mg on admission; switched to heparin drip; switching back to apixaban today.
- Hematology-oncology following.
Severe left-sided colitis
Pancreatic cystic lesion
- CT abdomen-pelvis and MR abdomen didn't show any masses.
- Sigmoidoscopy noted severe narrowing and tortuosity - no masses.
- Gastroenterology following; presentation unlikely to be related to any GI issues.
- Will cancel colorectal surgery consultation; no indication for an intervention yet.
Hypokalemia
- Status-post 80 meq in the ED.
- Follow BMP; replete as needed.
Hypomagnesemia
- Status-post 4g in the ED.
- Follow Mg.
Unintentional weight loss
Moderate protein-calorie malnutrition
Underweight with BMI <19.9
- 19 lbs. since June 2023.
- No associated symptoms or changes to health.
- Ensure twice a day.
- Dietary consultation.
Essential hypertension
- Hold lisinopril.
Hyperlipidemia
- Continue atorvastatin.
Type II diabetes mellitus
- Resume metformin.
- Check HbA1c.
- SSC.
VTE prophylaxis
- Heparin drip.
Code status
- Full.
Anticipated Discharge: 24 - 48 hours
Subjective/Interval History
-
Date of Service: September 29, 2023
Objective Data
-
Labs:
Laboratory Results
09/28/23 09/29/23 09/29/23
21:46 05:06 11:59
WBC 6.5
Hgb 9.2 L
Hct 27.6 L
Plt Count 284
APTT 58.6 H 123.7 H Pending
Sodium 137
Potassium 4.1
Chloride 100
Carbon Dioxide 34 H
BUN 9
Creatinine 0.7
Glucose 93
Calcium 8.3 L
Vital Signs:
Vital Signs
Temp Pulse Resp BP Pulse Ox
98.4 F 108 13 117/79 96
09/29/23 07:35 09/29/23 08:36 09/29/23 04:00 09/29/23 08:36 09/29/23 04:00
I&O
09/28/23 09/29/23 09/30/23
06:59 06:59 06:59
Intake Total 400 / 400 960 / 960
Output Total 600 / 600
Balance 400 / 400 360 / 360
Review of Systems
-
History Source: Patient
Constitutional: Reports Weight Loss
EENT: Reports No Symptoms Reported
Respiratory: Reports No Symptoms
Cardiac: Reports Palpitations
Abdomen/GI: Reports No Symptoms
Breast: Reports No Symptoms
Genitourinary: Reports No Symptoms
Musculoskeletal: Reports Edema (bilateral lower extremity; improved)
Skin: Reports No Symptoms
Neuro: Reports No Symptoms
Endocrine: Reports No Symptoms
Hematologic / Lymphatic: Reports No Symptoms
Allergy / Immunology: Reports No Symptoms
Physical Exam
-
General: No Apparent Distress and Comfortable
HEENT: Normocephalic, Atraumatic, Moist Mucous Membranes and Anicteric
Respiratory: Clear to Auscultation and Non Labored Respirations
Cardiac: Regular Rhythm, S1/S2 and Tachycardic
GI: Soft, Nontender, Nondistended and No Hepatosplenomegaly
Genito-urinary: No Costovertebral Tender
Musculoskeletal: No Clubbing, No Cyanosis, Edema, Right Lower Extrem (+3) and Edema, Left Lower Extrem (+3)
Skin: Warm, Dry and IV Access / Catheter Site
Neuro: Awake, Alert, Oriented and Nonfocal/Grossly Intact
Hematologic / Lymphatic: No Lymphadenopathy
Psych: Calm
[2023-09-29] MEDS: ELIQUIS 10 MG PO ×2 (09:34→21:12)
[2023-09-29] MEDS: LIPITOR 40 MG PO (09:34)
--- NOTE | 2023-09-29 09:48 | PTCARENOTE ---
Pt OOB to chair cardizem off at shift change. Heparin gtt now DC given Eliquis as ordered.
--- NOTE | 2023-09-29 09:54 | PTCARENOTE ---
Pt sister POA called for update attempted to WILLY LM
[2023-09-29] MEDS: CARDIZEM CD 120 MG PO (10:02)
--- NOTE | 2023-09-29 11:27 | W.PN.CARDCBS ---
Addendum entered and electronically signed by Estefani Steven DO 09/29/23 14:26:
I saw and examined the patient.
The Mortarman's note was reviewed and I agree with the note.
Comment: Patient seen and examined. Sitting out of bed to chair and offers no complaints.
GEN: NAD, OOB to chair. RA
HEENT: mmm
LUNGS: CTA, no wheezes/rales
CV: RRR w/ occ ectopic beats, S1/S2, 02/10 syst LSB, no gallop
EXT: 2+ RLE edema trace LLE edema
Plan:
-Patient is a 63-year-old female admitted with new onset rapid atrial fibrillation found to have right lower extremity DVT with bilateral pulmonary embolism
-Patient has converted to sinus rhythm with PACs
-IV Cardizem discontinued. Will increase Toprol succinate to 25 mg twice daily
-Monitor heart rate/blood pressure trends
-Continue anticoagulation. Hospitalist service has transition from IV heparin to therapeutic dose to Eliquis given DVT/PE
-CT with evidence of severe left colitis with inability to rule out underlying mass.
-Sigmoidoscopy attempted 09/28/2023, but unable to get past severe diverticular narrowing in the distal sigmoid.
-Diet has been resumed. GI has signed off.
Normocytic anemia�monitor on anticoagulation
-Mild heart failure with preserved ejection fraction in the setting of rapid atrial fibrillation as well as bilateral PE
-proBNP 1610.
-Responded well to dose of IV Lasix 20 mg on 09/25.
-Hold off on further at present and follow volume status
From a cardiac standpoint may be transferred to telemetry
Discharge planning deferred to primary
Outpatient cardiac follow-up will be arranged
Original Note:
Today's Communication / Plan
-
Increase Toprol to 25mg BID for rate control
Continue Eliquis for anticoagulation for PE/DVT as well as Afib
Follow up arranged.
Impression / Plan
-
Primary Monitor And Storage Bin Tender: none prior to admission
Assessment:
Presentation with elevated HR
Atrial fibrillation with RVR, new diagnosis of unclear duration, s/p spontaneous conversion to SR with PACs 09/26
ST
B/L LE edema
RBBB while in rapid afib, no prior EKG to compare
RLE DVT/Bilateral PE/right common femoral and superficial femoral vein thrombus
Severe L colitis, getting sigmoidoscopy today
Anemia
Hypokalemia-resolved
Hypomagnesemia
Recent vomiting/poor appetite/weight loss
Prediabetes
HTN
HLD
Left ovarian dermoid cyst
Right adrenal adenoma
Small pancreatic cystic lesion
Echo 09/27/2023: EF 56%, stage II diastolic dysfunction, mild to moderate MR, mild TR, estimated PAP 25 to 30 mmHg
Plan:
-Patient is a 63-year-old female who presented due to elevated heart rate and lower extremity edema noted at primary care visit
-Imaging 09/25 revealed RLE DVT with involvement of right common femoral and superficial femoral vein. Also with evidence of bilateral PE with borderline right heart strain by CT.
-Echo 09/27/23 with preserved EF as noted above.
-CT with evidence of severe left colitis with inability to rule out underlying mass. Sigmoidoscopy attempted 09/28/2023, but unable to get past severe diverticular narrowing in the distal sigmoid.
-In rapid afib on arrival which was new diagnosis. Spontaneously converted to SR 09/26 and remains in sinus tach by review of tele.
-IV cardizem stopped. Given a single dose of PO Cardizem CD 120mg today. HRs improving. Also on Toprol 25mg daily, but will increase dose to 25mg BID for better rate control. Up-titrate as needed.
-Continue Eliquis for anticoagulation.
-proBNP 1610. Responded well to dose of IV Lasix 20 mg on 09/25. Hold off on further at present and follow volume status
-Follow up arranged.
Progress Note - Monitor And Storage Bin Tender
Subjective
Date of Service: September 29, 2023
No complaints.
Objective
Labs:
09/29/23 05:06
09/29/23 05:06
Labs
Hgb 9.2 g/dL (12.0-16.0) L 09/29/23 05:06
Hct 27.6 % (37.0-47.0) L 09/29/23 05:06
Plt Count 284 10^3/uL (130-400) 09/29/23 05:06
APTT 123.7 Sec (23.4-35.0) H 09/29/23 05:06
Sodium 137 mmol/L (135-145) 09/29/23 05:06
Potassium 4.1 mmol/L (3.5-5.1) 09/29/23 05:06
BUN 9 mg/dl (7-17) 09/29/23 05:06
Creatinine 0.7 mg/dL (0.6-1.0) 09/29/23 05:06
Glucose 93 mg/dl (70-99) 09/29/23 05:06
Troponins
09/26/23 09/26/23
12:11 20:48
Troponin I < 0.012 0.015
Vital Signs and I&O:
Vital Signs
Temp Pulse Resp BP Pulse Ox
98.4 F 117 19 113/68 96
09/29/23 07:35 09/29/23 10:02 09/29/23 10:00 09/29/23 10:02 09/29/23 10:00
Vital Signs
Temp Pulse Resp BP Pulse Ox
98.4 F 117 19 113/68 96
09/29/23 07:35 09/29/23 10:02 09/29/23 10:00 09/29/23 10:02 09/29/23 10:00
Intake & Output
08/22/24 08/23/24 08/24/24 08/25/24
06:59 06:59 06:59 06:59
Intake Total 960 / 960 400 / 400 960 / 960
Output Total 1800 / 1800 600 / 600
Balance -840 / -840 400 / 400 360 / 360
Physical Exam
Physical Exam
GEN: No distress, awake, alert, oriented x3
HEENT: supple, anicteric, mmm
LUNGS: CTA, no wheezes/rales
CV: RRR w/ occ ectopic beats, S1/S2, 1/6 syst LSB, no gallop
EXT: 2+ RLE edema trace LLE edema
NEURO: Gross non-focal
SKIN: No rash
[2023-09-29 12:14] LABS: Glucose - Point of Care 373 mg/dl (70-99)
[2023-09-29] MEDS: NOVOLOG FLEXPEN-LOW RESISTANCE 5 UNITS SC (12:57)
--- NOTE | 2023-09-29 13:24 | W.PN.GI.CBS2 ---
Today's Communication / Plan
-
clinically improved
Assessment / Plan
-
The patient is a pleasant 63-year-old female with a past medical history significant for hypertension, hyperlipidemia, DM2, intellectual disability, who presented to the emergency room after being referred by her primary care physician for new onset
A-fib and bilateral lower extremity edema, found to have an extensive right lower extremity DVT and bilateral PEs, started on apixaban initially now on IV heparin. Also with findings of moderate to severe left-sided colitis of uncertain etiology.
She reports about 19 pounds of weight loss since June along with symptoms of nausea and vomiting after eating, which has since improved since starting on pantoprazole. She has no chronic GI complaints and has never had a colonoscopy or EGD. She
denies any abdominal pain or signs of bleeding. She has no family history of colorectal cancer or other GI cancers or disorders.
Problem list:
-Extensive right lower extremity DVT, bilateral pulmonary emboli, suspected to be unprovoked
-Weight loss
-Nausea, vomiting
-CT imaging showing moderate to severe left-sided colitis, 2.1 cm right adrenal lesion, 5 mm pancreatic cyst
-Hypomagnesemia, resolved
-Hypokalemia, resolved
-Afib with RVR
-elevated ProBNP
-normocytic anemia, without iron deficiency
Other pertinent medical history:
-Hypertension
-HLD
-DM2
-intellectual disability
Recommendations:
- flex sig showed severe diverticular disease with narrowing, could not advance scope. likely finding on CT scan. Would not retry scope, d/w sister POA as well
- nausea improved
- ok for any anticoagulation needed
will sign off call with questions
Subjective
Subjective
Date of Service: September 29, 2023
Pt w/o pain, hungry
Objective
Data Reviewed
Laboratory Data:
Laboratory Results
09/29/23 05:06
09/29/23 05:06
Laboratory Results
APTT 123.7 Sec (23.4-35.0) H 09/29/23 05:06
Magnesium 2.2 mg/dl (1.6-2.3) 09/27/23 05:18
Total Bilirubin 0.6 mg/dl (0.2-1.3) 09/27/23 05:18
AST 19 U/L (14-36) 09/27/23 05:18
ALT 14 U/L (0-35) 09/27/23 05:18
Alkaline Phosphatase 125 U/L (38-126) 09/27/23 05:18
Vital Signs and I&O:
Vital Signs
Temp Pulse Resp BP Pulse Ox
98.0 F 97 20 129/92 97
09/29/23 11:30 09/29/23 12:00 09/29/23 12:00 09/29/23 12:00 09/29/23 12:00
I&O
09/28/23 09/29/23 09/30/23
06:59 06:59 06:59
Intake Total 400 / 400 960 / 960
Output Total 600 / 600
Balance 400 / 400 360 / 360
Physical Exam
Physical Exam
GI: Soft and Non Distended
[2023-09-29] MEDS: NOVOLOG FLEXPEN-LOW RESISTANCE 2 UNITS SC (16:44)
[2023-09-29 16:57] LABS: Glucose - Point of Care 203 mg/dl (70-99)
[2023-09-29 21:46] LABS: Glucose - Point of Care 279 mg/dl (70-99)
--- NOTE | 2023-09-29 22:21 | PTCARENOTE ---
Caring for pt overnight. aaox3, anxious, denies pain. SR w/ pac. Rhythm looks better than yesterday. VSS. Took her PO eliquis & sabinarol. Anxious about going home tomorrow, wants to leave. Remains on RA. RLE more swollen than LLE d/t DVT. Pt oob to
chair & BSC x1. No other issues at this time. Will continue to monitor.
[2023-09-30] VITALS (10 sets, daily range): BP systolic 107–136; BP diastolic 64–100
[2023-09-30 01:51] LABS: Beta-2-Glycoprotein I Ab. IgG <10 SGU (<=20); Beta-2-Glycoprotein I Ab. IgM <10 SMU (<=20)
[2023-09-30 07:33] LABS: Hematocrit 27.1 % (37.0-47.0); Hemoglobin 8.9 g/dL (12.0-16.0); Mean Corp Hgb Conc. 32.8 g/dL (33.0-37.0); Mean Corpuscular Volume 88.3 fL (81.0-99.0); Mean Platelet Volume 8.9 fL (7.4-10.4); Platelet Count 324 10^3/uL (130-400); Red Blood Cell Count 3.07 10^6/uL (4.20-5.40); Red Cell Dist. Width 17.4 % (11.5-14.5); White Blood Cell Count 8.8 10^3/uL (4.8-10.8)
[2023-09-30 07:45] LABS: Blood Urea Nitrogen 14 mg/dl (7-17); Calcium 8.4 mg/dl (8.4-10.2); Carbon Dioxide 35 mmol/L (22-30); Chloride 98 mmol/L (98-107); Estimated Creatinine Clearance 49 ml/min; Glucose 117 mg/dl (70-99); Potassium 4.4 mmol/L (3.5-5.1); Sodium 136 mmol/L (135-145); eGFR > 60.00
[2023-09-30 07:59] LABS: Glucose - Point of Care 131 mg/dl (70-99)
[2023-09-30] MEDS: NOVOLOG FLEXPEN-LOW RESISTANCE SC ×2 (08:22→17:04)
[2023-09-30] MEDS: LIPITOR 40 MG PO (08:42)
[2023-09-30] MEDS: TOPROL XL 25 MG PO (08:42)
[2023-09-30] MEDS: ELIQUIS 10 MG PO ×2 (08:42→19:54)
--- NOTE | 2023-09-30 09:51 | W.PN.HOSP.TC ---
Addendum entered and electronically signed by Rodrigo Emanuel MD 09/30/23 10:22:
I saw and evaluated the patient. I reviewed the resident�s note and agree with findings and plan as documented in the resident�s note.
No new complaints. Denies CP/SOB.
NAD, awake and alert, NCAT
remains tachy, irreg/irreg, normal S1/S2
CTAB
CN2-12 intact
2+ RLE edema
ECG on admission (read by me): Afib with RVR @ 163, R-axis deviation, ST-dep V1-V4 consistent with repolarization abnormality
CTA C/A/P:
1. Bilateral pulmonary emboli as described. Borderline right heart strain.
2. Severe left-sided colitis. Difficult to rule out mass in the sigmoid colon. Recommend direct visualization.
3. Findings most in keeping with a left ovarian dermoid measuring up to 3.9 cm. Consider further evaluation with dedicated pelvic ultrasound.
4. Probable right adrenal adenoma measuring up to 2.1 cm. This can be further evaluated on a nonemergent basis with a dedicated adrenal protocol CT, to be ordered as CT Abdomen with and without contrast.
5. Tiny 5 mm pancreatic cystic lesion, possibly a pseudocyst or side branch of intraductal papillary mucinous neoplasm. Recommend outpatient workup with dedicated MRI/MRCP abdomen without and with gadolinium contrast.
6. Right common femoral and superficial femoral vein thrombus noted. The IVC and bilateral common iliac veins are patent.
MRI Abd with MRCP: Subcentimeter pancreatic cystic lesions without suspicious features, likely pseudocysts and/or side branch ductal papillary mucinous neoplasms. Recommend follow-up MRI/MRCP abdomen without and with gadolinium contrast in 2 years
per ACR criteria. Wall thickening of the sigmoid colon likely reflects colitis, less likely diverticulitis. This appears overall slightly improved in extent compared to prior CT, with particular improvement throughout the descending colon compared
to prior.
Echo: Normal left ventricular size, wall thickness and systolic function. No regional
wall motion abnormalities are seen. LV ejection fraction is 56% by volumetric
assessment. Stage II diastolic dysfunction suggestive of abnormal relaxation
and increased filling pressures.
Normal right ventricular size and function.
Severely dilated left atrium.
Thickened mitral valve leaflets. Mitral annular calcification. Mild-moderate
mitral regurgitation.
Mild tricuspid regurgitation. Estimated pulmonary artery pressure of 25-30 mmHg
assuming a right atrial pressure of 3 mmHg.
No prior study available for comparison.
Acute B/L PEs and RLE DVT:
-was on heparin gtt, now transitioned to Eliquis
-will need lifelong AC
Sigmoid colitis:
-Doubt infectious as patient without fever, leukocytosis, abdominal pain
-flex sig 09/28/23: Severe diverticular narrowing in the distal sigmoid past which the scope could not be safely passed. No obvious mass.
Afib with RVR:
-with hypokalemia and hypomagnesemia, both resolved with repletion
-was on cardizem gtt, now off
-cont Toprol XL BID
-Cardiology following
-TSH slightly low, free T4 normal
-Echo above and notable for EF 56%, G2DD, normal RV sz/fxn, severely dilated LA, mild-mod MR, mild TR
Dispo: tachy this AM 100s-110s. Will need better rate control prior to discharge.
Original Note:
Today's Communication/Plan
-
- Resume metformin
- Transfer to tele.
- Metoprolol twice a day.
Assessment / Plan
Assessment / Plan
Assessment
Shiloh Flores, age 63, was brought to the emergency on 09-26-23 for evaluation of an elevated heart rate. She was at her primary's clinic for bilateral lower extremity edema for the past week or so, when her heart rate was noted to be around 150. ECG
showed atrial fibrillation and she was advised to go to the hospital. In the ED, she was initiated on diltiazem drip and pro-BNP was elevated at 1610. She was admitted for further evaluation and management.
Impression and plan
Atrial fibrillation with rapid ventricular response
Acute heart failure with preserved ejection fraction in setting of the above
- TSH 0.44 and fT4 1.81, pro-BNP 1610.
- Echocardiogram: stage II diastolic dysfunction, severely dilated left atrium, abnormal relaxation, increased filling pressures.
- Diltiazem drip discontinued; increase metoprolol succinate 25 mg to twice a day.
- [id number] Score at least 4 - apixaban started 09-26-23; held for heparin drip; re-started 09-29-23.
- Cardiology following.
Acute bilateral pulmonary embolism
Acute extensive right lower extremity deep vein thrombosis
- Likely unprovoked with no clear etiology; will need life-long anticoagulation.
- Notably, has had a 19 lbs weight loss since June 2023; [id number] imaging noted no masses this admission.
- Apixaban -> heparin drip -> apixaban, per above.
- Hematology-oncology following.
Severe left-sided colitis
Pancreatic cystic lesion
- CT abdomen-pelvis and MR abdomen didn't show any masses.
- Sigmoidoscopy on 09-28-23 could not go past severe diverticular narrowing in the distal sigmoid.
- Gastroenterology following; will require outpatient follow-up.
- Will cancel colorectal surgery consultation; no indication for an intervention yet.
Hypokalemia
- Status-post 80 meq in the ED.
- Follow BMP; replete as needed.
Hypomagnesemia
- Status-post 4g in the ED.
- Follow Mg.
Unintentional weight loss
Moderate protein-calorie malnutrition
Underweight with BMI <19.9
- 19 lbs. since June 2023.
- No associated symptoms or changes to health.
- Ensure twice a day.
- Dietary consultation.
Essential hypertension
- Hold lisinopril.
Hyperlipidemia
- Continue atorvastatin.
Type II diabetes mellitus
- Resume metformin.
- Check HbA1c.
- SSC.
Venous thromboembolism prophylaxis
- Apixaban.
Code status
- Full.
Anticipated Discharge: 24 - 48 hours
Subjective/Interval History
-
Date of Service: September 30, 2023
Objective Data
-
Labs:
Laboratory Results
09/30/23
07:05
WBC 8.8
Hgb 8.9 L
Hct 27.1 L
Plt Count 324
Sodium 136
Potassium 4.4
Chloride 98
Carbon Dioxide 35 H
BUN 14
Creatinine 0.7
Glucose 117 H
Calcium 8.4
Vital Signs:
Vital Signs
Temp Pulse Resp BP Pulse Ox
98.1 F 101 19 121/68 99
09/30/23 07:25 09/30/23 08:42 09/30/23 08:00 09/30/23 08:42 09/30/23 08:37
I&O
09/29/23 09/30/23 10/01/23
06:59 06:59 06:59
Intake Total 960 / 960
Output Total 600 / 600
Balance 360 / 360
Review of Systems
-
History Source: Patient
Constitutional: Reports Weight Loss
EENT: Reports No Symptoms Reported
Respiratory: Reports No Symptoms
Cardiac: Reports Palpitations
Abdomen/GI: Reports No Symptoms
Breast: Reports No Symptoms
Genitourinary: Reports No Symptoms
Musculoskeletal: Reports Edema (bilateral lower extremity; improved)
Skin: Reports No Symptoms
Neuro: Reports No Symptoms
Endocrine: Reports No Symptoms
Hematologic / Lymphatic: Reports No Symptoms
Allergy / Immunology: Reports No Symptoms
Physical Exam
-
General: No Apparent Distress and Comfortable
HEENT: Normocephalic, Atraumatic, Moist Mucous Membranes and Anicteric
Respiratory: Clear to Auscultation and Non Labored Respirations
Cardiac: Regular Rhythm, S1/S2 and Tachycardic
GI: Soft, Nontender, Nondistended and No Hepatosplenomegaly
Genito-urinary: No Costovertebral Tender
Musculoskeletal: No Clubbing, No Cyanosis, Edema, Right Lower Extrem (+3) and Edema, Left Lower Extrem (+3)
Skin: Warm, Dry and IV Access / Catheter Site
Neuro: Awake, Alert, Oriented and Nonfocal/Grossly Intact
Hematologic / Lymphatic: No Lymphadenopathy
Psych: Calm
[2023-09-30] MEDS: GLUCOPHAGE 1000 MG PO ×2 (10:10→17:24)
[2023-09-30 11:27] LABS: Glucose - Point of Care 368 mg/dl (70-99)
[2023-09-30] MEDS: TOPROL XL 12.5 MG PO (11:46)
[2023-09-30] MEDS: NOVOLOG FLEXPEN-LOW RESISTANCE 5 UNITS SC (11:47)
[2023-09-30 12:40] LABS: Cardiolipin IgA Antibody <10 APL (<=11); Cardiolipin IgM Antibody <10 MPL (<=12); Cardiolipin Igg Antibody <10 GPL (<=14)
--- NOTE | 2023-09-30 14:06 | W.PN.CARDCBS ---
Today's Communication / Plan
-
Titrate dose of Toprol-XL for improved heart rate trends
Discharge planning
Impression / Plan
-
Primary Type Proof Reproducer: none prior to admission
Assessment:
Presentation with elevated HR
Atrial fibrillation with RVR, new diagnosis of unclear duration, s/p spontaneous conversion to SR with PACs 09/26
ST
B/L LE edema
RBBB while in rapid afib, no prior EKG to compare
RLE DVT/Bilateral PE/right common femoral and superficial femoral vein thrombus
Severe L colitis, getting sigmoidoscopy today
Anemia
Hypokalemia-resolved
Hypomagnesemia
Recent vomiting/poor appetite/weight loss
Prediabetes
HTN
HLD
Left ovarian dermoid cyst
Right adrenal adenoma
Small pancreatic cystic lesion
Echo 09/27/2023: EF 56%, stage II diastolic dysfunction, mild to moderate MR, mild TR, estimated PAP 25 to 30 mmHg
Plan:
-Patient is a 63-year-old female admitted with new onset rapid atrial fibrillation found to have right lower extremity DVT with bilateral pulmonary embolism
-Patient has converted to sinus rhythm with PACs
-Increase Toprol-XL to 37.5 mg twice daily
-Monitor heart rate/blood pressure trends
-Continue anticoagulation. Hospitalist service has transition from IV heparin to therapeutic dose to Eliquis given DVT/PE
-CT with evidence of severe left colitis with inability to rule out underlying mass.
-Sigmoidoscopy attempted 09/28/2023, but unable to get past severe diverticular narrowing in the distal sigmoid.
-Diet has been resumed. GI has signed off.
Normocytic anemia�monitor on anticoagulation
-Mild heart failure with preserved ejection fraction in the setting of rapid atrial fibrillation as well as bilateral PE
-proBNP 1610.
-Responded well to dose of IV Lasix 20 mg on 09/25.
-Hold off on further at present and follow volume status
From a cardiac standpoint may be transferred to telemetry
Discharge planning deferred to primary
Outpatient cardiac follow-up will be arranged
Progress Note - Type Proof Reproducer
Subjective
Date of Service: September 30, 2023
Seen and examined sitting out of bed to chair without symptoms. Overall feels well and is anxious for eventual discharge
Objective
Labs:
09/30/23 07:05
09/30/23 07:05
Labs
Hgb 8.9 g/dL (12.0-16.0) L 09/30/23 07:05
Hct 27.1 % (37.0-47.0) L 09/30/23 07:05
Plt Count 324 10^3/uL (130-400) 09/30/23 07:05
APTT Cancelled 09/29/23 11:59
Sodium 136 mmol/L (135-145) 09/30/23 07:05
Potassium 4.4 mmol/L (3.5-5.1) 09/30/23 07:05
BUN 14 mg/dl (7-17) 09/30/23 07:05
Creatinine 0.7 mg/dL (0.6-1.0) 09/30/23 07:05
Glucose 117 mg/dl (70-99) H 09/30/23 07:05
Vital Signs and I&O:
Vital Signs
Temp Pulse Resp BP Pulse Ox
97.6 F 98 19 108/64 99
09/30/23 11:10 09/30/23 11:46 09/30/23 08:00 09/30/23 11:46 09/30/23 08:37
Vital Signs
Temp Pulse Resp BP Pulse Ox
97.6 F 98 19 108/64 99
09/30/23 11:10 09/30/23 11:46 09/30/23 08:00 09/30/23 11:46 09/30/23 08:37
Intake & Output
08/09/29/23 09/30/23 10/01/23
06:59 06:59 06:59 06:59
Intake Total 400 / 400 960 / 960
Output Total 600 / 600
Balance 400 / 400 360 / 360
Physical Exam
Physical Exam
GEN: NAD, OOB to chair. RA
HEENT: mmm
LUNGS: CTA, no wheezes/rales
CV: RRR w/ occ ectopic beats, S1/S2, 1/6 syst LSB, no gallop
EXT: ++ RLE edema; trace LLE edema
--- NOTE | 2023-09-30 17:00 | PTCARENOTE ---
Assumed care of patient this morning. She is aaox3. Pt pleasant. Pt ate all meals today. Pt downgraded to telemetry and patient steady on feet. Pt able to use bathroom and take walks around unit herself. She had no complaints during the day. All
questions asked by sisters, answered to best ability of RN. Assessment, care and VS as charted.
[2023-09-30 17:14] LABS: Glucose - Point of Care 133 mg/dl (70-99)
[2023-09-30] MEDS: TOPROL XL 37.5 MG PO (19:54)
--- NOTE | 2023-09-30 20:17 | PTCARENOTE ---
Received pt from mayr LEZAMA. Pt is AAOx3. Sinus tach on the monitor. On RA, lungs clear. BRP. Pt walking around the unit. VSS. Pt is out of bed in the chair with call plascencia in reach.
[2023-09-30 21:47] LABS: Glucose - Point of Care 263 mg/dl (70-99)
[2023-10-01] VITALS (12 sets, daily range): BP systolic 87–143; BP diastolic 61–83; PULSE 81; O2SAT 98; BMI 16.8
[2023-10-01 05:36] LABS: Hematocrit 24.5 % (37.0-47.0); Hemoglobin 8.2 g/dL (12.0-16.0); Mean Corp Hgb Conc. 33.5 g/dL (33.0-37.0); Mean Corpuscular Hgb 30.7 pg (27.0-31.0); Mean Corpuscular Volume 91.8 fL (81.0-99.0); Platelet Count 303 10^3/uL (130-400); Red Blood Cell Count 2.67 10^6/uL (4.20-5.40); Red Cell Dist. Width 17.7 % (11.5-14.5)
[2023-10-01 05:43] LABS: Blood Urea Nitrogen 17 mg/dl (7-17); Calcium 8.3 mg/dl (8.4-10.2); Carbon Dioxide 32 mmol/L (22-30); Chloride 99 mmol/L (98-107); Estimated Creatinine Clearance 49 ml/min; Glucose 154 mg/dl (70-99); Potassium 4.1 mmol/L (3.5-5.1); Sodium 136 mmol/L (135-145); eGFR > 60.00
[2023-10-01] MEDS: TOPROL XL 37.5 MG PO ×2 (08:13→20:20)
[2023-10-01] MEDS: LIPITOR 40 MG PO (08:13)
[2023-10-01] MEDS: GLUCOPHAGE 1000 MG PO ×2 (08:14→16:03)
[2023-10-01] MEDS: ELIQUIS 10 MG PO ×2 (08:15→20:20)
[2023-10-01 08:22] LABS: Glucose - Point of Care 122 mg/dl (70-99)
[2023-10-01] MEDS: NOVOLOG FLEXPEN-LOW RESISTANCE SC (08:24)
--- NOTE | 2023-10-01 09:05 | W.PN.CARDCBS ---
Today's Communication / Plan
-
Stable cardiology status for discharge
Sign off
Impression / Plan
-
Primary Secured Entrance Monitor: none prior to admission
Assessment:
Presentation with elevated HR
Atrial fibrillation with RVR, new diagnosis of unclear duration, s/p spontaneous conversion to SR with PACs 09/26
ST
B/L LE edema
RBBB while in rapid afib, no prior EKG to compare
RLE DVT/Bilateral PE/right common femoral and superficial femoral vein thrombus
Severe L colitis, getting sigmoidoscopy today
Anemia
Hypokalemia-resolved
Hypomagnesemia
Recent vomiting/poor appetite/weight loss
Prediabetes
HTN
HLD
Left ovarian dermoid cyst
Right adrenal adenoma
Small pancreatic cystic lesion
Echo 09/27/2023: EF 56%, stage II diastolic dysfunction, mild to moderate MR, mild TR, estimated PAP 25 to 30 mmHg
Plan:
Remains in sinus rhythm
Continue Eliquis and Toprol
Volume status okay on no diuretics
Stable cardiology status for discharge
Will sign off, call with questions
Progress Note - Secured Entrance Monitor
Subjective
Date of Service: October 01, 2023
No complaints
Objective
Labs:
10/01/23 04:57
10/01/23 04:57
Labs
Hgb 8.2 g/dL (12.0-16.0) L 10/01/23 04:57
Hct 24.5 % (37.0-47.0) L 10/01/23 04:57
Plt Count 303 10^3/uL (130-400) 10/01/23 04:57
APTT Cancelled 09/29/23 11:59
Sodium 136 mmol/L (135-145) 10/01/23 04:57
Potassium 4.1 mmol/L (3.5-5.1) 10/01/23 04:57
BUN 17 mg/dl (7-17) 10/01/23 04:57
Creatinine 0.7 mg/dL (0.6-1.0) 10/01/23 04:57
Glucose 154 mg/dl (70-99) H 10/01/23 04:57
Vital Signs and I&O:
Vital Signs
Temp Pulse Resp BP Pulse Ox
98.7 F 99 16 134/83 97
10/01/23 08:03 10/01/23 08:13 09/30/23 15:41 10/01/23 08:13 10/01/23 08:32
Vital Signs
Temp Pulse Resp BP Pulse Ox
98.7 F 99 16 134/83 97
10/01/23 08:03 10/01/23 08:13 09/30/23 15:41 10/01/23 08:13 10/01/23 08:32
Intake & Output
09/29/23 09/30/23 10/01/23 10/02/23
06:59 06:59 06:59 06:59
Intake Total 960 / 960 1250 / 1250
Output Total 600 / 600
Balance 360 / 360 1250 / 1250
Physical Exam
Physical Exam
General: Well developed, well nourished in NAD.
Neck: Supple, no JVD, HJR, carotids +2 B/L, no bruits bilaterally.
Heart: Non displaced PMI, RRR, no murmurs, No S3, S4, no rubs.
Lungs: Scattered rhonchi
Extremities: No clubbing, cyanosis or edema bilaterally.
Neuro: Grossly nonfocal, awake, alert and oriented x3.
[2023-10-01 11:38] LABS: Glucose - Point of Care 211 mg/dl (70-99)
[2023-10-01] MEDS: NOVOLOG FLEXPEN-LOW RESISTANCE 2 UNITS SC (11:49)
--- NOTE | 2023-10-01 11:53 | PTCARENOTE ---
Pt transferred to [facility]. Report called to receiving RN. Pt transported via wheelchair. Collected all pt belongings and sent with pt.
--- NOTE | 2023-10-01 15:14 | CM ---
Patient with Hx intellectual disability with Dx Afib with RVR, pulmonary emboli, RLE DVT. Room air. PT & OT recommend HH. Transferred from IMU to 3W today,
Spoke with patient's sister ELIJAH Kirkland;
discussed PT/OT recommendations - Marita agrees to a referral to [facility] for SN/PT/OT.
IMM completed and copy sent to her email at [email or web address].
Spoke with Christelle, Clinical Liaison, [facility]; they are able to accept the referral.
Met with patient; Shreya Free Month Card left at bedside on 3W.
Plan home with [facility], with family.
[2023-10-01] MEDS: NOVOLOG FLEXPEN-LOW RESISTANCE 1 UNITS SC (16:06)
[2023-10-01 16:07] LABS: Glucose - Point of Care 199 mg/dl (70-99)
--- NOTE | 2023-10-01 17:35 | W.PN.HOSP.TC ---
Addendum entered and electronically signed by Markos Campuzano MD 10/01/23 23:40:
Attending Addendum-
I saw and evaluated the patient. I reviewed the resident�s note and agree with findings and plan as documented in the resident�s note. Sub: feels much improved. no Cp palps 'i wanna go home' Full 12 point ROS reviewed and negative except as
documented Exam: Vitals reviewed in chart GEN-NAD heart irreg irreg lungs clear abd soft LE no edema Plan:
# Atrial fibrillation with rapid ventricular response
- resolved dilt->toprol XL BID
- cont eliquis- new
- [id number] Score 4
# Acute heart failure with preserved ejection fraction
- not is AE
- no meds
- fluids restrict daily weights
- Cardiology following.
# Leukocytosis
- repeat CBC in am
- unclear etiology
# Acute bilateral PE/Acute extensive right lower extremity DVT
- cont new eliquis- life long treatment dose
- Hematology-oncology following.
#Left-sided colitis
- resolved
- Pancreatic cystic lesion
- Sigmoidoscopy on 09-28-23 could not go past severe diverticular narrowing in the distal sigmoid.
- Gastroenterology following; will require outpatient follow-up.
- Will cancel colorectal surgery consultation; no indication for an intervention yet.
# Hypokalemia
- resolved
- Follow BMP; replete as needed.
# Hypomagnesemia
- resolved
- Follow Mg.
Unintentional weight loss
Moderate protein-calorie malnutrition
Underweight with BMI <19.9
- 19 lbs. since June 2023.
- No associated symptoms or changes to health.
- Ensure twice a day.
# Essential hypertension
- restart lisinopril.
# Hyperlipidemia
- Continue atorvastatin.
# Type II diabetes mellitus
- Resume metformin.
- SSC.
- controlled
Venous thromboembolism prophylaxis
- Apixaban.
Code status
- Full.
Dispo DC home in am
Time spent coordinating care, review of plan of care with resident, personally reviewed records in EMR, med rec, consults, notes, labs, radiology, d/w nursing � 53 mins
Original Note:
Today's Communication/Plan
-
Rate controlled on Toprol, stable per cardiology
Will plan for discharge tomorrow pending WBC count and AM labs
Assessment / Plan
Assessment / Plan
Assessment
Shiloh Flores, age 63, was brought to the emergency on 09-26-23 for evaluation of an elevated heart rate. She was at her primary's clinic for bilateral lower extremity edema for the past week or so, when her heart rate was noted to be around 150. ECG
showed atrial fibrillation and she was advised to go to the hospital. In the ED, she was initiated on diltiazem drip and pro-BNP was elevated at 1610. She was admitted for further evaluation and management.
Assessment & Plan:
##Atrial fibrillation with rapid ventricular response
#Acute heart failure with preserved ejection fraction
- TSH 0.44 and fT4 1.81, pro-BNP 1610 on admission.
- Echocardiogram: stage II diastolic dysfunction, severely dilated left atrium, abnormal relaxation, increased filling pressures
- [id number] Score at least 4
- Metoprolol Succinate 37.5mg BID
- Cardiology: Sign off, stable for discharge
- Will call patient sister Latonia in the AM to confer plan
#Acute bilateral pulmonary embolism
#Acute extensive right lower extremity deep vein thrombosis
- Likely unprovoked with no clear etiology; will need life-long anticoagulation.
- Hematology-oncology following.
- Continue with Eliquis 10mg PO BID
#Severe left-sided colitis
#Pancreatic cystic lesion
- CT Abd/Pelvis and MR abdomen didn't show any masses
- Sigmoidoscopy on 09/28/2023 could not go past severe diverticular narrowing in the distal sigmoid.
- Gastroenterology following; will require outpatient follow-up.
- Will cancel colorectal surgery consultation; no indication for an intervention at this time
#Hypokalemia
- Status-post 80 meq in the ED.
- K stable 4.1
#Hypomagnesemia
- Status-post 4g in the ED
- Last Mg 09/26 was stable at 2.2
#Unintentional weight loss
#Malnutrition
#Underweight with BMI <19.9
- Lost 19 lbs. since June 2023
- No associated symptoms or changes to health
- Dietary consult placed; patient meets criteria for Malnutrition as she has had >10% weight loss over a 6 month period & <75% of her energy needs met for over 1 month.
- Ensure twice a day; patient's appetite is good
#HTN
- Continue to hold Lisinopril, BP currently stable on Toprol
#Hyperlipidemia
- Continue atorvastatin
#DM Type II
- C/w metformin 1000mgBID
- HbA1c from 09/25 was 6.5%
- SSC on, used 0 units so far
#Dispo:
-VTE PPx: Eliquis
- Code Status: Full
- Diet: Regular
Anticipated Discharge: Within 24 hours
Subjective/Interval History
-
No acute complaints this morning. No overnight events.
She is not complaining of any N/V/Diarrhea, no dizziness, chest pain or palpitations, no abdominal pain. She is passing stool and urine with no signs of blood. No subjective fevers or chills.
Objective Data
-
Labs:
Laboratory Results
10/01/23
04:57
WBC 15.0 H
Hgb 8.2 L
Hct 24.5 L
Plt Count 303
Sodium 136
Potassium 4.1
Chloride 99
Carbon Dioxide 32 H
BUN 17
Creatinine 0.7
Glucose 154 H
Calcium 8.3 L
Vital Signs:
Vital Signs
Temp Pulse Resp BP Pulse Ox
97.8 F 90 17 143/73 98
10/01/23 14:58 10/01/23 14:58 10/01/23 14:58 10/01/23 14:58 10/01/23 14:58
I&O
09/30/23 10/01/23 10/02/23
06:59 06:59 06:59
Intake Total 1250 / 1250 540 / 540
Balance 1250 / 1250 540 / 540
Review of Systems
-
Unable to obtain full review of systems at this time due to: Other (Intellectual Disability)
History Source: Patient
All other systems: Reviewed and negative
Constitutional: Reports No Symptoms
EENT: Reports No Symptoms Reported
Respiratory: Reports No Symptoms
Cardiac: Reports No Symptoms
Abdomen/GI: Reports No Symptoms
Genitourinary: Reports No Symptoms
Musculoskeletal: Reports No Symptoms
Neuro: Reports No Symptoms
Physical Exam
-
General: Well Developed, Well Nourished and No Apparent Distress
HEENT: Normocephalic, Atraumatic, Moist Mucous Membranes and Anicteric
Respiratory: Clear to Auscultation
Cardiac: S1/S2 and Irregular Rhythm
Breast: Deferred by me
GI: Soft, Nontender, Nondistended and Normal Bowel Sounds
Rectal: Deferred by Provider
Genito-urinary: Deferred by me
Musculoskeletal: No Clubbing, No Cyanosis, Edema, Right Lower Extrem (Trace) and Edema, Left Lower Extrem (Trace)
Skin: Warm and Dry
Neuro: Awake, Alert and Oriented
Hematologic / Lymphatic: No Lymphadenopathy
Psych: Calm
[2023-10-01 19:47] LABS: Anti-Xa Qualitative Interp Present (Not Present); Anticoagulant Med Neutralizati DOAC-Stop (Not Performed); Hexagonal Phospholipid Confirm Not Performed s (<=7.9); Neutralized PTT-LA Ratio Not Performed (<=1.20); Neutralized dRVTT Screen Ratio 1.12 (<=1.20); PTT-LA Ratio 0.67 (<=1.20); Thrombin Time Not Performed s (<=19.5); dRVTT 1.1 Mix Ratio Not Performed (<=1.20); dRVTT Confirmation Ratio Not Performed (<=1.20); dRVTT Screen Ratio 1.85 (<=1.20)
[2023-10-01 22:12] LABS: Glucose - Point of Care 168 mg/dl (70-99)
[2023-10-02 03:00] VITALS: BP 134/78
[2023-10-02 06:25] LABS: % Basophils 0.2 % (0-2); % Eosinophils 0.5 % (0-6); % Immature Granulocytes 0.3 % (0-0.5); % Lymphocytes 11.9 % (20.5-51.1); % Monocytes 4.6 % (1.7-9.3); % Neutrophils 82.5 % (42.2-75.2); Absolute Eosinophils 0.1 10^3/uL (0-0.7); Absolute Lymphocytes 1.2 10^3/uL (1.2-3.4); Absolute Monocytes 0.5 10^3/uL (0.1-0.6); Absolute Neutrophils 8.1 10^3/uL (1.4-6.5); Hematocrit 24.8 % (37.0-47.0); Hemoglobin 8.1 g/dL (12.0-16.0); Mean Corp Hgb Conc. 32.7 g/dL (33.0-37.0); Mean Corpuscular Hgb 29.5 pg (27.0-31.0); Mean Corpuscular Volume 90.2 fL (81.0-99.0); Nucleated Red Blood Cells % 0 %; Platelet Count 314 10^3/uL (130-400); Red Blood Cell Count 2.75 10^6/uL (4.20-5.40); Red Cell Dist. Width 17.7 % (11.5-14.5); White Blood Cell Count 9.8 10^3/uL (4.8-10.8)
[2023-10-02 06:40] LABS: ALT (SGPT) 12 U/L (0-35); AST (SGOT) 15 U/L (14-36); Albumin 2.7 g/dl (3.5-5.0); Alkaline Phosphatase 101 U/L (38-126); Blood Urea Nitrogen 12 mg/dl (7-17); Calcium 8.8 mg/dl (8.4-10.2); Carbon Dioxide 34 mmol/L (22-30); Chloride 99 mmol/L (98-107); Estimated Creatinine Clearance 58 ml/min; Glucose 104 mg/dl (70-99); Potassium 4.4 mmol/L (3.5-5.1); Sodium 137 mmol/L (135-145); Total Bilirubin 0.4 mg/dl (0.2-1.3); Total Protein 5.3 g/dl (6.3-8.2); eGFR > 60.00
[2023-10-02 07:21] VITALS: BP 138/77
[2023-10-02 07:31] LABS: Glucose - Point of Care 93 mg/dl (70-99)
--- NOTE | 2023-10-02 07:53 | W.PN.HOSP.TC ---
Addendum entered and electronically signed by Markos Campuzano MD 10/02/23 22:36:
Attending Addendum-
I saw and evaluated the patient. I reviewed the resident�s note and agree with findings and plan as documented in the resident�s note. Sub:'I wanna go home and want pancakes!' No complaints. Full 12 point ROS reviewed and negative except as
documented Exam: Vitals reviewed in chart GEN-NAD heart irreg irreg lungs clear abd soft LE no edema Plan:
# Atrial fibrillation with rapid ventricular response
- resolved dilt->toprol XL BID
- cont eliquis- new
- [id number] Score 4
# Acute heart failure with preserved ejection fraction
- not is AE
- no meds
- fluids restrict daily weights
- Cardiology following.
# Leukocytosis
- resolved
# Acute bilateral PE/Acute extensive right lower extremity DVT
- cont new eliquis- life long treatment dose loading x 7 days then 5 bid
- Hematology-oncology following.
#Left-sided colitis
- resolved
- Pancreatic cystic lesion
- Sigmoidoscopy on 09-28-23 could not go past severe diverticular narrowing in the distal sigmoid.
- Gastroenterology following; will require outpatient follow-up.
- Will cancel colorectal surgery consultation; no indication for an intervention yet.
# Hypokalemia
- resolved
- Follow BMP; replete as needed.
# Hypomagnesemia
- resolved
- Follow Mg.
Unintentional weight loss
Moderate protein-calorie malnutrition
Underweight with BMI <19.9
- 19 lbs. since June 2023.
- No associated symptoms or changes to health.
- Ensure twice a day.
# Essential hypertension
- restart lisinopril.
# Hyperlipidemia
- Continue atorvastatin.
# Type II diabetes mellitus
- Resume metformin.
- SSC.
- controlled
Venous thromboembolism prophylaxis
- Apixaban.
Code status
- Full.
Dispo DC home
Time spent coordinating care, DC planning, review of DC plan of care with resident, transition of care, review of records, med rec/scripts sent electronically, consults, notes, d/w consultants, nursing, family, and CM� 37 mins
Original Note:
Today's Communication/Plan
-
Discharge patient to home. Continue taking Toprol 37.5mg BID & Eliquis 10mg BID for 7 days, then switch to Eliquis 5mg BID for the next 30days. Follow up OP with Cardiology, PCP and GI.
Assessment / Plan
Assessment / Plan
Shiloh Flores, age 63, was brought to the emergency on 09-26-23 for evaluation of an elevated heart rate. She was at her primary's clinic for bilateral lower extremity edema for the past week or so, when her heart rate was noted to be around 150. ECG
showed atrial fibrillation and she was advised to go to the hospital. In the ED, she was initiated on diltiazem drip and pro-BNP was elevated at 1610. She was admitted for further evaluation and management.
Assessment & Plan:
##Atrial fibrillation with rapid ventricular response
#Acute heart failure with preserved ejection fraction
- TSH 0.44 and fT4 1.81, pro-BNP 1610 on admission.
- Echocardiogram: stage II diastolic dysfunction, severely dilated left atrium, abnormal relaxation, increased filling pressures
- [id number] Score at least 4
- Metoprolol Succinate 37.5mg BID
- Cardiology: Sign off, stable for discharge
- Rate controlled on Toprol; OK to D/C
#Acute bilateral pulmonary embolism
#Acute extensive right lower extremity deep vein thrombosis
- Likely unprovoked with no clear etiology; will need life-long anticoagulation.
- Hematology-oncology following.
- Continue with Eliquis 10mg PO BID for 7 days, then transition to 5mg BID for 30 days
- OP Cardiology follow up & PCP follow up in 2 weeks
#Severe left-sided colitis
#Pancreatic cystic lesion
- CT Abd/Pelvis and MR abdomen didn't show any masses
- Sigmoidoscopy on 09/28/2023 could not go past severe diverticular narrowing in the distal sigmoid.
- Will cancel colorectal surgery consultation; no indication for an intervention at this time
- Patient to follow up OP with GI of her choice.
#Hypokalemia
- Resolved - K stable 4.4
#Hypomagnesemia
- Resolved - Last Mg 09/26 was stable at 2.2
#Unintentional weight loss
#Malnutrition
#Underweight with BMI <19.9
- Lost 19 lbs. since June 2023
- No associated symptoms or changes to health
- Dietary consult placed; patient meets criteria for Malnutrition as she has had >10% weight loss over a 6 month period & <75% of her energy needs met for over 1 month.
- Ensure twice a day; patient's appetite is good
#HTN
- Continue to hold Lisinopril, BP currently stable on Toprol
#Hyperlipidemia
- Continue atorvastatin
#DM Type II
- C/w metformin 1000mgBID
- HbA1c from 09/25 was 6.5%
- SSC on, used 0 units so far
#Dispo:
Discharge Today
Anticipated Discharge: Today
Subjective/Interval History
-
Seen in the AM, no overnight events. No acute complaints.
Objective Data
-
Labs:
Laboratory Results
10/02/23
05:29
WBC 9.8
Hgb 8.1 L
Hct 24.8 L
Plt Count 314
Sodium 137
Potassium 4.4
Chloride 99
Carbon Dioxide 34 H
BUN 12
Creatinine 0.6
Glucose 104 H
Calcium 8.8
Total Bilirubin 0.4
AST 15
ALT 12
Alkaline Phosphatase 101
Vital Signs:
Vital Signs
Temp Pulse Resp BP Pulse Ox
97.8 F 78 17 138/77 98
10/02/23 07:21 10/02/23 07:21 10/02/23 07:21 10/02/23 07:21 10/02/23 07:21
I&O
10/01/23 10/02/23 10/03/23
06:59 06:59 06:59
Intake Total 1250 / 1250 660 / 660
Balance 1250 / 1250 660 / 660
Review of Systems
-
Unable to obtain full review of systems at this time due to: Other (Intellectual Disability)
History Source: Patient
All other systems: Reviewed and negative
Constitutional: Reports No Symptoms
EENT: Reports No Symptoms Reported
Respiratory: Reports No Symptoms
Cardiac: Reports No Symptoms
Abdomen/GI: Reports No Symptoms
Genitourinary: Reports No Symptoms
Musculoskeletal: Reports No Symptoms
Skin: Reports No Symptoms
Neuro: Reports No Symptoms
Physical Exam
-
General: Well Developed, Well Nourished and No Apparent Distress
HEENT: Normocephalic, Atraumatic, Moist Mucous Membranes, Anicteric and PERRLA
Respiratory: Clear to Auscultation
Cardiac: S1/S2 and Irregular Rhythm
Breast: Deferred by me
GI: Soft, Nontender, Nondistended and Normal Bowel Sounds
Musculoskeletal: No Clubbing, No Cyanosis, Edema, Right Lower Extrem (2+ edema up to the tibia, improving) and Edema, Left Lower Extrem (2+ pitting edema just above the ankle, improving)
Skin: Warm and Dry
Neuro: Awake, Alert and Oriented
[2023-10-02] MEDS: NOVOLOG FLEXPEN-LOW RESISTANCE SC ×2 (08:09→11:52)
[2023-10-02] MEDS: ELIQUIS 10 MG PO (08:10)
[2023-10-02] MEDS: LIPITOR 40 MG PO (08:10)
[2023-10-02] MEDS: GLUCOPHAGE 1000 MG PO (08:10)
[2023-10-02] MEDS: TOPROL XL 37.5 MG PO (08:11)
[2023-10-02 10:52] VITALS: BP 114/67
[2023-10-02 11:29] LABS: Glucose - Point of Care 195 mg/dl (70-99)
--- NOTE | 2023-10-02 12:57 | CM ---
Pt for discharge today
Family to transport
[facility]'s/Darline to follow
Plan - home with [facility]'s/Darline and family care
f - [phone]
[2023-10-02] MEDS: PREVNAR 20 0.5 ML IM (13:28)
--- NOTE | 2023-10-02 17:29 | W.DCSUMMARY ---
Addendum entered and electronically signed by Markos Campuzano MD 10/02/23 22:39:
Read, reviewed, and agree. See same day progress note for additional details. Addendum- Eliquis dose clarified with cards pharmacy and patient- Eliquis 10mg PO BID x 7 days total then 5mg PO BID
Jarrett Campuzano MD
Original Note:
Documented by User: Cade Spencer MD, Resident 10/02/23 17:31
Discharge Summary
Discharge Data
Date of Admission: 09/26/23
Date of Discharge: 10/02/23
-
Pending Results: No
Hospital Course
Discharging Physician : Dr. Cade Spencer, Dr. Markos Victoria
Disposition : Home
Primary care physician :� � Unknown
Principal Discharge diagnosis :��
A-fib with rapid ventricular response
Acute heart failure with preserved ejection fraction
Acute bilateral PE
Severe left-sided colitis
Chronic Discharge diagnosis :��
Hypertension
Hyperlipidemia
Type 2 diabetes mellitus
Hospital Course :�
63-year-old female presented to the ED with elevated heart rate, bilateral leg swelling which has been ongoing for 1 week.� In the ED she was 10 she was found tachycardic with heart rate of 150s.� EKG showed atrial fibrillation with rapid
ventricular response.� Patient has had no prior history of A-fib and was not on any anticoagulation.� Patient was started on IV Cardizem 15 mg x2 with no change in the heart rate and patient remained tachycardic.� Patient was then initiated on
Cardizem gtt and cardiology was consulted.� Cardiology started the patient on Eliquis 5 mg twice daily, patient did not have any bleeding issues but she did have a hemoglobin of 10.2 on admission.� lower extremity ultrasound was positive for right
lower extremity DVT, CT scan of the chest showed bilateral PE,� �troponin levels were negative.� Patient's dose of Eliquis was increased to 10 mg twice daily in addition to metoprolol 25 mg twice daily.� Patient was not a candidate for cardioversion
due to active bilateral PE and lower extremity DVT.� CT scan also showed severe left-sided colitis, patient was asymptomatic, no fever no chills no signs of infection.� Sigmoidoscopy was done which showed no emerging colon mass.� Patient's heart
rate improved with beta-jeni and anticoagulation.� Right lower extremity swelling improved.� Echocardiogram showed mild HFpEF for which patient was given a low-dose of IV Lasix of 20 mg.� � � �
On the day of discharge vitals were stable.�
We are discharging patient on Eliquis 10 mg twice a day, and Toprol XL 37.5 mg twice daily.� Patient to follow-up with outpatient cardiology and primary care physician.�
Important imaging findings :��
Chest x-ray- No focal consolidation, pleural effusion, or pneumothorax.� The cardiomediastinal silhouette is normal. Mild dextroscoliosis of the thoracolumbar spine.
Peripheral vascular ultrasound- 1. Extensive right lower extremity DVT as detailed.� 2. No evidence of deep venous thrombosis in the left lower extremity.�
Abdominal/pelvis CT-��
1. Bilateral pulmonary emboli as described.� Borderline right heart strain.
2. Severe left-sided colitis. Difficult to rule out mass in the sigmoid colon. Recommend direct visualization.
3. Findings most in keeping with a left ovarian dermoid measuring up to 3.9 cm. Consider further evaluation with dedicated pelvic ultrasound.
4. Probable right adrenal adenoma measuring up to 2.1 cm. This can be further evaluated on a nonemergent basis with a dedicated adrenal protocol CT, to be ordered as CT Abdomen with and without contrast.
5. Tiny 5 mm pancreatic cystic lesion, possibly a pseudocyst or side branch of intraductal papillary mucinous neoplasm. Recommend outpatient workup with dedicated MRI/MRCP abdomen without and with gadolinium contrast.
6. Right common femoral and superficial femoral vein thrombus noted. The IVC and bilateral common iliac veins are patent.
Abdominal MRI-�
Subcentimeter pancreatic cystic lesions without suspicious features, likely pseudocysts and/or side branch ductal papillary mucinous neoplasms. Recommend follow-up MRI/MRCP abdomen without and with gadolinium contrast in 2 years per ACR criteria.
Procedure findings :��
Sigmoidoscopy-� � �Multiple diverticula were found in the recto-sigmoid colon and distal� sigmoid colon. There was severe narrowing and tortuosity in this region� and the scope could not be safely passed through this area.
Discharge Plan
-
Patient Disposition: Home (Routine Discharge)
Discharge Diagnosis/Procedures: Atrial fibrillation with rapid ventricular response
Acute heart failure with preserved ejection fraction
Acute bilateral PE/acute extensive right lower extremity DVT
Severe left-sided colitis
Hypokalemia
Hypertension
Hyperlipidemia
Type 2 diabetes mellitus
Condition: Good
Diet: Low Sodium
Activity: No restrictions
Driving Restrictions: As prior to admission
Bathing Restrictions: None
Referrals:
Alpa Mcgrath PA-C [Specified Professional Personl] - 10/26/23 10:40 am (You have a follow up visit with Cardiology at the [place] office. Please call with questions. )
Gaurav Jensen PA-C [Family Provider] - in less than 1 week
Additional Discharge Medication Instructions: Eliquis 5 mg take 1 tablet twice a day
Metoprolol succinate extended release 37.5 mg take 1 tablet twice a day
Prescriptions:
New
Eliquis 5 mg Tablet
10 mg PO BID 30 Days Qty: 120 0RF
Rx Instructions:
take one tablet twice a day
metoprolol succinate 25 mg Tablet Extended Release 24 Hr
37.5 mg PO BID 30 Days Qty: 90 0RF
Eliquis 5 mg tablet
10 mg PO BID 7 Days Qty: 28 0RF
Rx Instructions:
Take 2 5mg Tablets, two times per day, for seven days
Eliquis 5 mg tablet
5 mg PO BID 30 Days Qty: 60 0RF
Rx Instructions:
Take one 5mg tablet, two times per day, for 30 days
Continued
atorvastatin 40 mg Tablet
40 mg PO DAILY
lisinopril 20 mg Tablet
20 mg PO DAILY
metformin 1,000 mg Tablet Extended Release 24hr
1,000 mg PO BID
Discharge Orders:
Discharge Patient (As Directed); Ordered 10/02/23
Ordered By: Claudia Tamayo
Discharge Date and Time
Discharge Date/Time: 10/02/23 13:58
Print Language: PARAGUAYAN

Documented by User: Markos Campuzano MD 10/02/23 22:33
Discharge Summary
Discharge Data
Date of Admission: 09/26/23
Date of Discharge: 10/02/23
Discharge Plan
-
Patient Disposition: Home (Routine Discharge)
Discharge Diagnosis/Procedures: Atrial fibrillation with rapid ventricular response
Acute heart failure with preserved ejection fraction
Acute bilateral PE/acute extensive right lower extremity DVT
Severe left-sided colitis
Hypokalemia
Hypertension
Hyperlipidemia
Type 2 diabetes mellitus
Condition: Good
Diet: Low Sodium
Activity: No restrictions
Driving Restrictions: As prior to admission
Bathing Restrictions: None
Referrals:
Alpa Mcgrath PA-C [Specified Professional Personl] - 10/26/23 10:40 am (You have a follow up visit with Cardiology at the [facility]. Please call with questions. )
Gaurav Jensen PA-C [Family Provider] - in less than 1 week
Additional Discharge Medication Instructions: Eliquis 5 mg take 1 tablet twice a day
Metoprolol succinate extended release 37.5 mg take 1 tablet twice a day
Prescriptions:
New
Eliquis 5 mg Tablet
10 mg PO BID 30 Days Qty: 120 0RF
Rx Instructions:
take one tablet twice a day
metoprolol succinate 25 mg Tablet Extended Release 24 Hr
37.5 mg PO BID 30 Days Qty: 90 0RF
Eliquis 5 mg tablet
10 mg PO BID 7 Days Qty: 28 0RF
Rx Instructions:
Take 2 5mg Tablets, two times per day, for seven days
Eliquis 5 mg tablet
5 mg PO BID 30 Days Qty: 60 0RF
Rx Instructions:
Take one 5mg tablet, two times per day, for 30 days
Continued
atorvastatin 40 mg Tablet
40 mg PO DAILY
lisinopril 20 mg Tablet
20 mg PO DAILY
metformin 1,000 mg Tablet Extended Release 24hr
1,000 mg PO BID
Discharge Orders:
Discharge Patient (As Directed); Ordered 10/02/23
Ordered By: Claudia Tamayo
Discharge Date and Time
Discharge Date/Time: 10/02/23 13:58
Print Language: PARAGUAYAN
== END 2023-10-02 13:58 | disposition home health service (06) | DRG 308 ==
LOC: 3 WEST ACU 15:33
PROVIDERS: Internal Medicine; Nurse Practitioner Acute Care; Nurse Practitioner Gerontology; Physician Assistant; Student in an Organized Health Care Education/Training Program; ADMITTING PHYSICIAN Internal Medicine; ATTENDING PHYSICIAN Family Medicine; CONSULT PHYSICIAN Internal Medicine Cardiovascular Disease; CONSULT PHYSICIAN Internal Medicine Hematology & Oncology; CONSULT PHYSICIAN Specialist; EMERGENCY PHYSICIAN Emergency Medicine; FAMILY PHYSICIAN Physician Assistant Medical
PROC: 0DJD8ZZ Inspection of Lower Intestinal Tract, Via Natural or Artificial Opening Endoscopic (ICD-10-PCS; 2023-09-28)
DX: I48.91 Unspecified atrial fibrillation (principal); I26.99 Other pulmonary embolism without acute cor pulmonale; I50.31 Acute diastolic (congestive) heart failure; E44.0 Moderate protein-calorie malnutrition; Z68.1 Body mass index [BMI] 19.9 or less, adult; K51.50 Left sided colitis without complications; I82.411 Acute embolism and thrombosis of right femoral vein; E87.6 Hypokalemia; E83.42 Hypomagnesemia; I11.0 Hypertensive heart disease with heart failure; E11.649 Type 2 diabetes mellitus with hypoglycemia without coma; E27.9 Disorder of adrenal gland, unspecified; E78.00 Pure hypercholesterolemia, unspecified; K57.30 Diverticulosis of large intestine without perforation or abscess without bleeding; Z79.01 Long term (current) use of anticoagulants
CPT/HCPCS: 71046; 71275; 74177; 74183; 80048; 80053; 82607; 82728; 82746; 82962; 83036; 83540; 83550; 83735; 83880; 84439; 84443; 84484; 85025; 85027; 85045; 85379; 85520; 85610; 85613; 85730; 86146; 86147; 90677; 92526; 92610; 93005; 93306; 93970; 96374; 96375; 96376; 97116; 97163; 97166; 97530; 97535; 99291; A9575; G0009; Q9967

== ENCOUNTER 2023-11-03 02:47 | Inpatient (IN) | payer MEDICARE, OTHER, SELFPAY ==
[2023-11-02] VITALS (19 sets, daily range): BP systolic 88–116; BP diastolic 56–73; BMI 19.2
--- NOTE | 2023-11-02 21:27 | ED.GENMED ---
History of Present Illness
General
Chief Complaint: Fever
Time Seen by Provider: 11/02/23 21:14
History of Present Illness
History of Present Illness:
Patient is a 63-year-old woman with history of intellectual disability, PE/DVT on Eliquis, A-fib presenting to the emergency department after a fall. Per chart review patient was discharged on October 01 after she was admitted for A-fib, bilateral
PE as well as HFpEF which was a new diagnosis and A-fib that self converted. Patient has a limited history given her intellectual disability. She does state that she fell. Patient states that she fell in the bathroom however family members who
were there states that it occurred in the bedroom. Patient was slightly confused after the fall. She did not lose consciousness. She is on a blood thinner. She was dizzy after the fall. They then brought her in here. She was found to be
febrile. Patient has been having diarrhea. Per chart review appears that patient was diagnosed with severe left-sided colitis and had a sigmoidoscopy done which was unremarkable. Patient denies any palpitations chest pain or difficulty breathing.
Denies any nausea or vomiting. She denies any fevers at home. She does state that she felt lightheaded dizzy prior to the fall. She is compliant with her Eliquis. She is not on any diuretics and did see her business services representative recently for follow-up
from the hospitalization.
Phy Exam
Physical Exam
Physical Exam:
GENERAL: in no acute distress
HEENT: normocephalic, extraocular movements intact, dry oral mucosa
NECK: normal inspection
RESPIRATORY: no respiratory distress, clear to auscultation bilaterally
CARDIOVASCULAR: Tachycardic rate
ABDOMEN/: soft, non-distended, left upper and lower sided tenderness, no rebound or guarding
EXTREMITIES: non-tender, bilateral pitting edema
NEUROLOGIC: awake and alert, moves all extremities
SKIN: warm
Course
Orders/Labs/Results
Orders:
Orders
11/02/23 21:07
Electrocardiogram (*1) Urgent
Reason for Study: Chest Pain
Cardiac Monitoring- Treatment ONCE
EKG- Treatment ONCE
IV Insert/Care/Rem.- Treatment PRN
O2 Therapy [RESP] Urgent
Titrate/Wean O2 to maintain O2 sat greater than (%): 90
Special Instructions: Maintain sats >/=90%
Pulse Ox/spot Check [RESP] Urgent
Quantity: 1
Special Instructions: ON ROOM AIR
11/02/23 21:14
COVID-19 Antigen Urgent
Source: Nasal Swab
Complete Blood Count/With Diff Urgent
Comprehensive Metabolic Panel Urgent
Lactate Level [Lactic Acid] Urgent
NT-proBNP Urgent
Comment: ADDON
Prothrombin Time Urgent
Troponin I Urgent
Influenza A+B Rapid Molecular Urgent
LILY Source: Nasal Swab
Specimen Description:
11/02/23 21:15
CR Chest Portable - 1 View Urgent
Comment:
Reason For Exam: sob
Reason Study Needs to be Portable: Patient Unstable
11/02/23 21:24
CT Abd/pelvis W Iv Cont Urgent
Comment:
Reason For Exam: abdominal pain
CT Head W/o Iv Contrast Urgent
Comment:
Reason For Exam: fall on eliquis
0.9% Sodium Chloride 250 ml [Nss] 250 ml IV BOLUS
Piperacillin/Tazo 4.5 Gram [Zosyn] 4.5 gram in 100 ml IV NOW
11/02/23 21:25
Urinalysis Reflex To Culture Urgent
Acetaminophen [Tylenol] 1,000 mg PO NOW STA
11/02/23 21:48
Blood Culture Routine
LILY Source: Blood/Venous
Specimen Description:
Blood Culture Urgent
LILY Source: Blood/Venous
Specimen Description:
11/02/23 21:50
CT Cervical Spine W/o Iv Contr Urgent
Comment:
Reason For Exam: fall
11/02/23 22:17
Add On- LAB Urgent
Comments:: BNP
Tests Added?: BNP
11/02/23 22:18
NORepinephrine 4 MG/250 ML [Levophed] 4 mg in 250 ml IV NOW
Initial dose in mcg/min, then titrate:: 2
Titrate to keep:: MAP > 65 mmHg
Titrate by mcg/min:: 1-2 mcg/min
Frequency of titrations (minutes):: 5
Maximum dose in ICU in mcg/min:: 30
Maximum dose in IMU in mcg/min:: 8
Maximum dose in IVU in mcg/min:: 4
Begin to taper infusion when:: Remained at goal for 4hrs
Taper by mcg/min:: 1-2 mcg/min
Frequency of taper (minutes) if patient maintains goal:: 30
Taper to off?: Yes
If infusion off & no longer maintaining goal:: Contact Provider
11/02/23 23:00
Lactic Acid Q4H
Comment: CANCEL 2nd LACTIC ACID IF 1st LACTIC ACID IS LESS THAN 2
11/03/23 01:15
Lactate Level [Lactic Acid] Urgent
11/03/23 03:00
Lactic Acid Q4H
Comment: CANCEL 2nd LACTIC ACID IF 1st LACTIC ACID IS LESS THAN 2
Abnormal Lab Results
11/02/23
21:14
RBC 2.68 L 10^6/uL
(4.20-5.40)
Hgb 7.9 L g/dL
(12.0-16.0)
Hct 24.8 L %
(37.0-47.0)
MCHC 31.9 L g/dL
(33.0-37.0)
RDW 15.3 H %
(11.5-14.5)
Plt Count 575 H 10^3/uL
(130-400)
Absolute Neuts (auto) 7.7 H 10^3/uL
(1.4-6.5)
Absolute Lymphs (auto) 0.7 L 10^3/uL
(1.2-3.4)
Neutrophils % 87.2 H %
(42.2-75.2)
Lymphocytes % 7.7 L %
(20.5-51.1)
PT 27.2 H Sec
(11.4-14.6)
BUN 41 H mg/dl
(7-17)
Glucose 202 H mg/dl
(70-99)
Lactic Acid 4.9 H* mmol/L
(0.7-2.0)
Total Protein 5.2 L g/dl
(6.3-8.2)
Albumin 2.5 L g/dl
(3.5-5.0)
11/02/23 21:14
11/02/23 21:14
Vital Signs
Initial and Last Documented VS:
Initial Vital Signs
Temp Pulse Resp BP Pulse Ox
102.3 F H 147 23 106/73 93
11/02/23 21:09 11/02/23 21:09 11/02/23 21:09 11/02/23 21:09 11/02/23 21:09
Last Documented Vital Signs
Temp Pulse Resp BP Pulse Ox
102.3 F H 132 21 110/70 97
11/02/23 21:09 11/02/23 22:50 11/02/23 22:50 11/02/23 22:50 11/02/23 22:50
MDM/Problems Addressed
Differential Diagnosis Includes:
Patient is a 63-year-old woman with history of PE/DVT on Eliquis, A-fib on metoprolol, HFpEF not on diuretics presenting to the emergency department after a fall and diarrhea and abdominal pain. She is febrile tachycardic with a blood pressure in
the low 100s. Exam does show woman with dry oral mucosa and left-sided abdominal tenderness. Differential is broad but from the fall will rule out traumatic intracranial injury. Given the abdominal pain and the recent colitis will rule out
abscess fistula. Less likely to be perforation given that the abdomen is soft. Could be UTI. Will check blood work urine EKG chest x-ray CT scan of the head and abdomen. Will give empiric antibiotics. Given the HFpEF as well as some bilateral
pitting edema we will give small fluid boluses.
*Critical Care Note
Total Time (30-74mins, 75-104mins- exclusive of procedures): Not Applicable
Update Note
Update Note:
On reevaluation patient blood pressure is now in the 80s. She did receive 250 cc fluid bolus as well as 250 cc through the antibiotics. I did complete a bedside echo. She does have a plethoric IVC. She does have some B-lines but not overtly
significant for pulmonary edema. Given the plethoric IVC and the bilateral pitting edema we will add on BNP. Will start peripheral pressors and hold additional fluids.
Received critical call as patient's lactate is elevated. Chest x-ray per my interpretation with no focal opacity.
On reevaluation patient resting comfortably. Currently has no new complaints. Does not feel lightheaded dizzy. Her heart rate has improved to the low 100s. We are pending CT scans at this time. Discussed with hospitalist. Signed out to
oncoming attending pending CT scans and urine sample.
ED Attending Note
-
Portions of this chart may have been created with voice recognition software.� Occasional wrong word or��sound alike� substitutions may have occurred due to the inherent limitations of voice recognition software.
Discharge Plan
Departure
Prescriptions:
No Action
atorvastatin 40 mg Tablet
40 mg PO DAILY
lisinopril 20 mg Tablet
20 mg PO DAILY
metformin 1,000 mg Tablet Extended Release 24hr
1,000 mg PO BID
Eliquis 5 mg Tablet
10 mg PO BID 30 Days Qty: 120 0RF
Rx Instructions:
take one tablet twice a day
metoprolol succinate 25 mg Tablet Extended Release 24 Hr
37.5 mg PO BID 30 Days Qty: 90 0RF
Eliquis 5 mg tablet
10 mg PO BID 7 Days Qty: 28 0RF
Rx Instructions:
Take 2 5mg Tablets, two times per day, for seven days
Eliquis 5 mg tablet
5 mg PO BID 30 Days Qty: 60 0RF
Rx Instructions:
Take one 5mg tablet, two times per day, for 30 days
Referrals:
Kaylynn Vela DO [Family Provider] -
Interventions
Interventions:
*Risk Screen - Suicide Last Done: 11/02/23 20:59
*General Assessment Last Done: 11/02/23 20:59
*Neglect/Abuse Screening Last Done: 11/02/23 20:59
ED- Fall Risk Assessment Last Done: 11/02/23 20:59
*ED COVID-19 Vaccine History Last Done: 11/02/23 20:59
ED- Neurological Assessment Last Done: 11/02/23 20:59
ED-Skin Assessment Last Done: 11/02/23 20:59
Discharge Date and Time
Print Language: SAMOAN
[2023-11-02 21:47] LABS: Hematocrit 24.8 % (37.0-47.0); Hemoglobin 7.9 g/dL (12.0-16.0); Mean Corp Hgb Conc. 31.9 g/dL (33.0-37.0); Mean Corpuscular Hgb 29.5 pg (27.0-31.0); Mean Corpuscular Volume 92.5 fL (81.0-99.0); Mean Platelet Volume 9.7 fL (7.4-10.4); Platelet Count 575 10^3/uL (130-400); Red Blood Cell Count 2.68 10^6/uL (4.20-5.40); Red Cell Dist. Width 15.3 % (11.5-14.5); White Blood Cell Count 8.9 10^3/uL (4.8-10.8)
[2023-11-02] MEDS: TYLENOL 1000 MG PO (21:48)
[2023-11-02 21:49] LABS: COVID-19 Antigen Negative (Negative)
[2023-11-02 21:55] LABS: INR 2.54; PT 27.2 Sec (11.4-14.6)
[2023-11-02] MEDS: NSS 250 IV (21:55)
[2023-11-02] MEDS: ZOSYN 100 IV (21:55)
[2023-11-02 22:09] LABS: Troponin I < 0.012 ng/ml
[2023-11-02 22:10] LABS: % Basophils 0.5 % (0-2); % Immature Granulocytes 0.5 % (0-0.5); % Lymphocytes 7.7 % (20.5-51.1); % Monocytes 4.1 % (1.7-9.3); % Neutrophils 87.2 % (42.2-75.2); Absolute Lymphocytes 0.7 10^3/uL (1.2-3.4); Absolute Monocytes 0.4 10^3/uL (0.1-0.6); Absolute Neutrophils 7.7 10^3/uL (1.4-6.5); Nucleated Red Blood Cells % 0 %
[2023-11-02 22:14] LABS: ALT (SGPT) 13 U/L (0-35); AST (SGOT) 19 U/L (14-36); Albumin 2.5 g/dl (3.5-5.0); Alkaline Phosphatase 119 U/L (38-126); Blood Urea Nitrogen 41 mg/dl (7-17); Calcium 8.4 mg/dl (8.4-10.2); Carbon Dioxide 24 mmol/L (22-30); Chloride 103 mmol/L (98-107); Estimated Creatinine Clearance 40 ml/min; Glucose 202 mg/dl (70-99); Potassium 4.2 mmol/L (3.5-5.1); Sodium 140 mmol/L (135-145); Total Bilirubin 0.5 mg/dl (0.2-1.3); Total Protein 5.2 g/dl (6.3-8.2); eGFR > 60.00
[2023-11-02 22:17] LABS: Lactic Acid 4.9 mmol/L (0.7-2.0)
[2023-11-02] MEDS: LEVOPHED 250 IV (22:24)
[2023-11-02 23:17] LABS: NT-proBNP 1530 pg/ml
[2023-11-03] VITALS (86 sets, daily range): BP systolic 47–125; BP diastolic 37–84; BMI 17.1
[2023-11-03 00:59] LABS: Urine Albumin Trace (Neg - Trace); Urine Bilirubin 1+ (Negative); Urine Character Slightly Cloudy (Clear); Urine Color Yellow; Urine Glucose Negative (Negative); Urine Ketone Negative (Negative); Urine Leukocyte 2+ (Negative); Urine Nitrite Positive (Negative); Urine Occult Blood 3+ (Negative); Urine Specific Gravity 1.015 (<1.030); Urine Urobilinogen Negative (Neg - 1+)
--- NOTE | 2023-11-03 01:09 | HPS.HSE ---
Family Physician
-
Family Physician: Kaylynn Vela,
Chief Complaint
-
Fall & Abdominal Pain
History of Present Illness
This is a 63-year-old female with past medical history of IDD, hypertension, diabetes, intellectual developmental delay and was recently diagnosed with atrial fibrillation as well as PE and right lower extremity DVT presenting to the emergency
department with episode of fall at home and found to be febrile in the ED.
Patient reports that she has been having loose stools/diarrhea for the past 2 to 3 days. She reports going to the bathroom around 3-4 times a day with watery stools. She denies any blood in her stool. She denies seeing any black or dark stool.
She denies any nausea or vomiting. Reports poor appetite and reduced p.o. intake. She was febrile in the ED but denies fevers at home. She reports abdominal pain and points to the left lower quadrant.
Patient reports high urine output. She specifically denies dysuria or flank pain. She was walking in the bathroom when she felt she tripped and fell. She reported feeling dizzy today. She denies chest pain, palpitations.
During her last admission she was found to be in atrial fibrillation with rapid response. She was found to have mild CHF with preserved EF and bilateral PE as well as a right lower extremity DVT. She was placed on Eliquis 10 mg twice daily.
Metoprolol was also started at 25 mg twice daily and discharged on 37.5 twice daily. She was not discharged on any diuretics.
Patient reported that starting about 4 days ago she had difficulty putting on her shoes and family confirmed that she started having bilateral lower extremity edema at around that time. Patient is less mobile and states that she is mostly sitting
down most of the day. She denies any calf pain. She denies any orthopnea, PND or worsening dyspnea on exertion. Patient recently completed a session for outpatient loop monitoring.
On arrival in ED she was febrile to 101. BP was 88/56 and she was tachycardic to 120,. ECG with ST at 140. Hgb 7.9. Plt 575. BUN 41. Cr 1.0. Trop 0.012. Lactate is 4.9. Chest Xray is clear. CT head/ C-spine is negative for any acute
process. CT abd pelvis with circumferential thickening of the distal transverse colon to rectum and additional central small bowel wall thickening c/w enterocolitis. COVID/FLU negative. U/A pending.
Medical History
Past Medical History
Past Medical History: Reports Arrhythmia (atrial fibrillation), CHF, HTN and NIDDM
Additional Past Medical History:
Intellectual developmental delay
Past Surgical History: Reports None
Social History
Tobacco: Non-smoker
Alcohol: None
Drug: None
Personal: Single
Living: With Family
Employment: Not Employed
Family History
Family History: Not pertinent
Allergies / Home Medications
Allergies reflects when Allergies were last updated in [email or web address].
Home Medications with original date entered in [email or web address]
Allergy/Medication List:
Allergies
Allergy/AdvReac Type Severity Reaction Status Date / Time
No Known Allergies Allergy Verified 09/26/23 11:41
Home Medications
atorvastatin 40 mg tablet 40 mg PO DAILY High Cholesterol 09/26/23
lisinopril 20 mg tablet 20 mg PO DAILY Blood Pressure 09/26/23
metformin 1,000 mg tablet,extended release 24hr (osmotic) 1,000 mg PO BID Diabetes 09/26/23
apixaban 5 mg tablet (Eliquis) 5 mg PO BID 30 days #60 tabs 10/02/23
apixaban 5 mg tablet (Eliquis) 10 mg (2 x 5 mg) PO BID 30 days #120 tabs 10/02/23
apixaban 5 mg tablet (Eliquis) 10 mg (2 x 5 mg) PO BID 7 days #28 tabs 10/02/23
metoprolol succinate 25 mg tablet,extended release 24 hr 37.5 mg (1.5 x 25 mg) PO BID Arrhythmia 30 days #90 tabs 10/02/23
Review of Systems
-
History Source: Patient and Family
Constitutional: Reports No Symptoms
EENT: Reports No Symptoms
Respiratory: Reports No Symptoms
Cardiac: Reports No Symptoms
Abdomen/GI: Reports Abdominal Pain and Diarrhea
: Reports No Symptoms
Musculoskeletal: Reports No Symptoms
Skin: Reports No Symptoms
Neurological: Reports Weakness
Endocrine: Reports No Symptoms
Hematologic/Lymphatic: Reports No Symptoms
Psych: Reports No Symptoms
Physical Exam
Vital Signs
Vital Signs
Temp Pulse Resp BP Pulse Ox
98.7 F 148 27 121/68 97
11/02/23 23:29 11/03/23 01:00 11/03/23 00:45 11/03/23 01:00 11/03/23 01:00
Physical Exam
General: No Apparent Distress, Comfortable and Appears Chronically Ill
HEENT: NormoCephalic, Anicteric, Atraumatic and PERRLA
Respiratory: Clear
Cardiac: S1/S2, Irregular Rhythm and Tachycardia
GI: Soft, Non Tender, Non Distended and Normal Bowel Sounds
Rectal: Deferred by Provider
Genito-urinary: Deferred by me
Musculoskeletal: No Clubbing, No Cyanosis, Edema, Left Lower Extremity (2+ pitting edema) and Edema, Right Lower Extremity (2+ pitting edema)
Skin: Warm
Neuro: AO x 3
Hematologic/Lymphatic: No Lymphadenopathy
Psych: Calm
Laboratory Results
-
11/02/23 21:14
11/02/23 21:14
Laboratory Results
PT 27.2 Sec (11.4-14.6) H 11/02/23 21:14
INR 2.54 11/02/23 21:14
Lactic Acid Cancelled 11/03/23 03:00
Total Bilirubin 0.5 mg/dl (0.2-1.3) 11/02/23 21:14
AST 19 U/L (14-36) 11/02/23 21:14
ALT 13 U/L (0-35) 11/02/23 21:14
Alkaline Phosphatase 119 U/L (38-126) 11/02/23 21:14
Troponin I < 0.012 ng/ml 11/02/23 21:14
Data Reviewed
-
Diagnostic Radiology: Image Personally Visualized and interpreted
CT Scan: Report Reviewed by me
Medical Tests (Nuc Med, Echo, EKG etc): Image Personally Visualized and interpreted
Lab Data: Labs Reviewed by me
Old Records: Reviewed
Impression/Plan
-
IMPRESSION:
63 Female with recent diagnosis of afib RVR on AC presenting with diarrhea, abdominal pain, fever and hypotension. Initial w/u in ED was negative. COVID/FLU negative and clear Xray. However u/a was found to be markedly positive. CT showing signs
c/w enterocolitis and patient reporting diarrhea. Hgb is stable.
PLAN:
1. Urosepsis - Patient with fever, markedly positive u/a and hypotension with lactic acidosis.
- admit to icu
- blood and urine cultures sent
- zosyn for now
- levophed to maintain map > 60
- she is appears dehydrated for me despite lower extremity edema. Cannot give 30ml/kg at this time. Will give additional bolus of 250 ml. If well tolerated, will give total of 500 ml bolus
- ID consultation
- holding lisinopril and metoprolol for now
2. Enterocolitis - possible enterocolitis on CT scan. Finding appears similar to prior CT scan in september which at the time showed severe - left sided colitis. Patient was asymptomatic at that time. Had sigmoidoscopy that showed severe
diverticular disease with narrowing, could not advance scope and likely explains the current findings. Cannot rule out colitis entirely but no evidence of perforation
- will continue zosyn as above
- hold diuretics for now
- obtain stool cdiff, culture and wbc
- consider GI consultation
- regular diet as tolerated
3. AFIB RVR - Poor rate control in setting of fever, sepsis and pressors. Recently completed outpatient continuos monitoring
- holding metoprolol due to pressors
- may need amio vs attempted cardioversion as she has been on AC for 1 month
- cardiology consultation
- IV metoprolol as bp tolerates
4. CHF - H/O HFpEF, Peripheral edema w/o pulmonary edema or pleural effusion on xray.
- holding diuretics for now
- holding lisinopril
- rate control as above
5. DM II
- hold metformin x 48 hours
- insulin sliding scale
6. Anemia - Hgb 7.9 today, 8.1 last d/c so no significant change. Denies any hematochezia or melena.
- type and screen in am
- transfuse for hgb > 7
DVT PPX - on eliquis
Code status - Full code
[2023-11-03 01:10] LABS: Urine Bacteria Many (Negative); Urine White Cell 70-80 /HPF (0-5)
[2023-11-03 01:55] LABS: Lactic Acid 2.1 mmol/L (0.7-2.0)
[2023-11-03] MEDS: NSS 250 IV (02:08)
[2023-11-03] MEDS: TYLENOL 650 MG PO (04:20)
[2023-11-03] MEDS: ZOSYN 50 IV ×4 (04:21→20:48)
[2023-11-03 05:08] LABS: Hematocrit 24.3 % (37.0-47.0); Hemoglobin 7.8 g/dL (12.0-16.0); Mean Corp Hgb Conc. 32.1 g/dL (33.0-37.0); Mean Corpuscular Hgb 30.4 pg (27.0-31.0); Mean Corpuscular Volume 94.6 fL (81.0-99.0); Mean Platelet Volume 9.8 fL (7.4-10.4); Platelet Count 421 10^3/uL (130-400); Red Blood Cell Count 2.57 10^6/uL (4.20-5.40); Red Cell Dist. Width 15.3 % (11.5-14.5); White Blood Cell Count 10.1 10^3/uL (4.8-10.8)
[2023-11-03 05:09] LABS: APTT 37.2 Sec (23.4-35.0); INR 2.71; PT 28.7 Sec (11.4-14.6)
[2023-11-03 05:35] LABS: Lactic Acid 2.3 mmol/L (0.7-2.0)
[2023-11-03 06:50] LABS: Cortisol, Random 60.8 ug/dl
[2023-11-03] MEDS: NOVOLOG FLEXPEN-LOW RESISTANCE SC ×3 (07:30→16:58)
[2023-11-03 07:50] LABS: Glucose - Point of Care 164 mg/dl (70-99)
--- NOTE | 2023-11-03 08:00 | PTCARENOTE ---
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 Patient is sleepy, easily arousable. She is AAOx3. on room air. Patient is on room air, 97%. she is in a sinus rhythm with atrial tachycardia with intermittent afib. Pressure has been low. Levophed has
turned off prior to report. Map remains >65. Patient is pale, is ordered 1800 nils diet, TT HMS and obtained order for clear liquid diet. Patient has purewick in place with some cat urine noted in collection canister. Small blistered abrasion
on left abdomen. Patient is pale and cachectic in appearance. Skin is otherwise intact.
--- NOTE | 2023-11-03 08:37 | CON.INTV ---
Consultation
Consultation Request
Date/Time Consultation Requested: 11/03/2023325
Date/Time Consultation Performed: 11/03/2023 - 832
Requesting Provider: Dr. Aiken
Performing Provider: Dr. Jurado
Reason for Consultation: Sepsis
Medical History
-
Chief Complaint: Fall
History of Present Illness:
63-year-old female with a past medical history of hypertension, hyperlipidemia, history of DVT/PE, DM type II, intellectual developmental delay and A-fib on Eliquis who presented with fall at home. She was getting ready to shower when she lost her
balance and fell. No head trauma or LOC. She says she has a history of blood clots and she is endorsing feet swelling. She also endorsed having diarrhea for the last 2-3 days, going to the bathroom 3�4 times a day with watery stools. She is also
been urinating a lot but no pain or flank pain. She was recently hospitalized here on 09/25 - 10/02/2023 where she was found to be in A-fib with RVR which was new onset, with cardiology consulted due to acute heart failure and she also had an acute
PE. She was stabilized and discharged home with Eliquis and metoprolol and told to follow-up with cardiology as an outpatient. Currently, in the ER she was febrile to 102.3 �F, pulse rate 147, breathing at 23 breaths/min, BP 106/73 and saturating
93% on room air. Labs showed normal WBC at 8.9, anemia to 7.9, thrombocytosis to 575, elevated INR to 2.54, glucose 202, lactate 4.9, troponin negative at <0.012, BNP elevated at 1530, albumin level 2.5, urinalysis positive for UTI with positive
nitrites and 2+ leukocyte esterase and COVID antigen was negative. Blood cultures and urine cultures were collected. CXR showed no acute cardiopulmonary disease. CT abdomen/pelvis with contrast showed colitis involving the splenic flexure to
distal sigmoid colon otherwise no evidence of hydronephrosis and the kidneys appeared normal. CT head was done as well as CT cervical spine given her fall and there was no acute intracranial normalities, and no evidence of vertebral fracture or
herniation/displacement. In the ER she was given Zosyn, 250 cc IVF bolus with NS 0.9% x 2 (total of 1/2L) and then started on Levophed given persistent SBP in the 80�90s. She was admitted to the ICU for further care and director statistical programming services
consulted for additional management/recommendations.
When I saw the patient today at bedside she was in no acute distress, with BP 80/66 and was just weaned off of Levophed at change of shift this morning. Heart rate 107 and saturating 99% on room air. She denies shortness of breath, chest pain or
abdominal pain. Per the nurse, the patient is having gelatinous foul-smelling stool. Patient also denies WALKER, nausea, fevers or chills.
PMHx: History of PE/RLE DVT, hypertension, hyperlipidemia, paroxysmal A-fib on Eliquis, chronic HFpEF, anemia, intellectual development delay
PSHx: Ovarian cyst mass removal (1999), hernia repair at age 3
Past Medical History
Past Medical History: Other (Above as per HPI)
Past Surgical History: Other (Above as per HPI)
Social History
Tobacco: Non-smoker
Alcohol: None
Drug: None
Personal: Single
Living: With Family
Employment: Not Employed
Family History
Family History: Hypertension (Mother)
Allergies / Home Medications
Allergies
Allergy/AdvReac Type Severity Reaction Status Date / Time
No Known Allergies Allergy Verified 09/26/23 11:41
Home Medications
�Medication �Instructions �Recorded �Confirmed �Last Taken �Type
atorvastatin 40 mg tablet 40 mg PO DAILY High Cholesterol 09/26/23 11/03/23 11/02/23 History
lisinopril 20 mg tablet 10 mg PO DAILY Blood Pressure 09/26/23 11/03/23 11/02/23 History
apixaban 5 mg tablet (Eliquis) 5 mg PO BID 30 days #60 tabs 10/02/23 11/03/23 11/03/23 Rx
5
metformin 500 BID 11/03/23 11/03/23 11/02/23 History
metoprolol succinate 50 mg BID 11/03/23 11/03/23 11/02/23 History
Review of Systems
-
History Source: Patient
All other systems: Negative unless noted
Vitals / Labs / Diagnostic Testing
Vital Signs
Temp Pulse Resp BP Pulse Ox
98.8 F 99 18 98/63 99
11/03/23 07:00 11/03/23 10:11 11/03/23 09:00 11/03/23 10:11 11/03/23 09:00
Lab Data
11/03/23 04:36
11/02/23 21:14
Laboratory Results
11/02/23 11/03/23
21:14 04:36
PT 27.2 H 28.7 H
INR 2.54 2.71
APTT 37.2 H
Microbiology
11/02/23 21:14 Nasal Swab Influenza Types A & B (MARK) - Final
Negative for Influenza A & B, NAAT
Negative results must be combined with clinical observations
and patient history.
Nucleic Acid Amplification test (NAAT)performed on the
[employer] platform.
Diagnostic Testing:
Physical Exam
-
HEENT: Normocephalic and Anicteric
Cardiovascular: Irregular Rhythm, Peripheral Edema (+1 lower extremity pitting edema bilaterally) and Other (Tachycardic)
Respiratory: Wheeze (negative), Rales (negative), Rhonchi (negative) and Non-Labored Respirations
GI: Soft, Non Distended, Non Tender and Normal Bowel Sounds
Neurology: Awake, Alert and Tremors (negative)
Skin: Warm and Dry
General: Respiratory Distress (negative), Comfortable, Chills (negative) and Sweats (negative)
Assessment
-
Assessment: 63-year-old female with a past medical history of hypertension, hyperlipidemia, history of DVT/PE, DM type II, intellectual developmental delay and A-fib on Eliquis who presented with fall at home. She was getting ready to shower when
she lost her balance and fell. No head trauma or LOC. She says she has a history of blood clots and she is endorsing feet swelling. She also endorsed having diarrhea for the last 2-3 days, going to the bathroom 3�4 times a day with watery stools.
She is also been urinating a lot but no pain or flank pain. She was recently hospitalized here on 09/25 - 10/02/2023 where she was found to be in A-fib with RVR which was new onset, with cardiology consulted due to acute heart failure and she also
had an acute PE. She was stabilized and discharged home with Eliquis and metoprolol and told to follow-up with cardiology as an outpatient. Currently, in the ER she was febrile to 102.3 �F, pulse rate 147, breathing at 23 breaths/min, BP 106/73
and saturating 93% on room air. Labs showed normal WBC at 8.9, anemia to 7.9, thrombocytosis to 575, elevated INR to 2.54, glucose 202, lactate 4.9, troponin negative at <0.012, BNP elevated at 1530, albumin level 2.5, urinalysis positive for UTI
with positive nitrites and 2+ leukocyte esterase and COVID antigen was negative. Blood cultures and urine cultures were collected. CXR showed no acute cardiopulmonary disease. CT abdomen/pelvis with contrast showed colitis involving the splenic
flexure to distal sigmoid colon otherwise no evidence of hydronephrosis and the kidneys appeared normal. CT head was done as well as CT cervical spine given her fall and there was no acute intracranial normalities, and no evidence of vertebral
fracture or herniation/displacement. In the ER she was given Zosyn, 250 cc IVF bolus with NS 0.9% x 2 (total of 1/2L) and then started on Levophed given persistent SBP in the 80�90s. She was admitted to the ICU for further care and director statistical programming
services consulted for additional management/recommendations.
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
Impression:
#Septic shock due to complicated UTI + colitis involving the splenic flexure to distal sigmoid colon
#Complicated UTI
#Lactic acidosis due to shock state as above
#Hypoalbuminemia
#Acute kidney injury (baseline creatinine 0.6�0.7)
#DM type II (HbA1C: 6.5 on 09/26/2023) c/b hyperglycemia
#Thrombocytosis likely reactive due to sepsis
#Supratherapeutic INR likely due to septic shock with recent diarrhea for the last 3-4 days prior to arrival in the setting of Eliquis use
#Acute on chronic anemia (baseline Hb 8.5�10g/dL)
#Colitis involving the splenic flexure to distal sigmoid colon with history of severe left-sided colitis from September 2023
#Left ovarian dermoid cyst
#5 mm pancreatic cystic lesion suspected to be pseudocyst or sidebranch of intraductal papillary mucinous neoplasm
#History of bilateral PE with extensive right lower extremity DVT (09/2023)
Plan:
- Continue with broad spectrum ABx and would plan for 10-14 days total given her shock state
- Currently on Zosyn (started 11/02)
- Continue vasopressors with levophed and wean as tolerated
- Maintain MAP>65
- if levophed requirements rise >10 then start vasopressin and consider stress dose steroids depending on requirements
- Continue to trend lactate until it is <2 mmol/L
- Ok to give IVF but use cautiously given Hx of CHF
- Start supplemental albumin 25g 25% to help raise albumin level and improve oncotic pressure
- Maintain SpO2 >90-94%
- Monitor diarrhea and check for C. diff --> negative; follow-up stool cultures
- Patient did have sigmoidoscopy last admission in September 2023 which showed multiple diverticula in the rectosigmoid colon and distal sigmoid colon with severe narrowing and tortuosity in that region and the scope could not be safely passed through
the area --> GI on last admission said that given high risk would not repeat attempt at colonoscopy or sigmoidoscopy, which was discussed with patient's POA (sister) at the time
- Replete electrolytes with K>4, Mg>2
- trend H/H and transfuse if needed to keep >7g/dL; keep plt>20k
- Maintain euglycemia with goal BG 140-180 with ISS and if BG still not at goal then would start lantus in that case
- prn nebulized bronchodilators - not currently bronchospastic
- Incentive spirometer encouraged
- PT/OT once off pressors
- DVT ppx: Eliquis but careful given elevated INR; anti-Xa level is elevated at 3.92, which is expected given that she is on Eliquis. Considering that this is not markedly elevated and this assay is not calibrated for use of Eliquis, I will
cautiously continue with Eliquis for now and monitor for any bleeding.
Critical care statement: A total of 40 minutes of critical care time was provided for this patient today. This includes management of unstable vital signs, evaluation of the patient at bedside, reviewing the patient's pertinent medical records
including radiographs, microbiology, laboratory evaluations, and discussion with primary team, consultants, pharmacy, nutrition, physical therapy, case management, charge nurse, critical care nursing, and respiratory therapy.
Data:
CT abdomen/pelvis with IV contrast 11/02/2023:
1). Colitis from the splenic flexure to the distal sigmoid colon
2). Small bowel enteritis
3). 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
[2023-11-03] MEDS: NSS (PRESERVATIVE FREE) 10 ML IV (08:40)
[2023-11-03] MEDS: LIPITOR 40 MG PO (08:40)
[2023-11-03] MEDS: PROTONIX IV 40 MG IV (08:40)
[2023-11-03] MEDS: ELIQUIS 5 MG PO ×2 (08:41→20:53)
--- NOTE | 2023-11-03 09:06 | CON.ID ---
Consultation
-
Date/Time Consultation Requested: 11/03/23 3:26
Date/Time Consultation Performed: 11/03/23 9:09
Requesting Provider: Dr Aiken
Performing Provider: Dr Brooks
Reason for Consultation: sepsis, pyelonephritis, ?colitis
Chief Complaint / Past History
Chief Complaint
Fall & Abdominal Pain
History of Present Illness
Ms Flores is a 63 year old female with history of DM, intellectual developmental delay who presented here for fall and home. Fall in the bathroom, confused and slightly dizzy after the fall, no LOC. Also watery stools for 2-3 days, no bloody or
dark stool. No nausea or vomiting. Also urinary frequency and urgency but no dysuria/suprapubic tenderness/flank pain. + anoreixa. Denies fevers at home but found to be febrile in the ER. No chronic GI complaints. Does have 19 lb wiehgt loss
since june and nausea and vomiting after eating that improved on protonix.
Her last admission was notable for colitis with flex sig showing severe diverticular disease with narrowing to the point that scope could not be advanced.
In e ER febrile to 101, BP 88/56 and HR 120, wbc 8.9, Hgb 7.9, Plt 575,L shift noted, BUN 41. Cr 1.0 from baseline 0.7, t bili 0.5, ast 19, alt 13, alk phos 119. Trop 0.012. Lactate 4.9 downtrending to 2.3. UA 70-80 wbc/hpf, no comment on
squamous cells, Chest Xray is clear. CT head/ C-spine is negative for any acute process. CT abd pelvis w/IV contrast with colitis distal transverse colon to rectum and additional central small bowel wall thickening c/w enterocolitis. covid ag
neg, influenza pcr neg, bcx x2 in progress, urine culture in progress,
Past History
Additional Past Medical History:
atrial fibrillation, CHF, HTN and NIDDM
Past Surgical History: None
Allergy History:
No Known Allergies Allergy (Verified 09/26/23 11:41)
Medications Reviewed: Yes
Social History
Tobacco: Non-Smoker
Alcohol: None
Drug: None
Family History
Family History: Not Pertinent
Review of Systems
Review of Systems
General: Negative Fever or Chills
All systems: All other systems were reviewed and were negative
Vital Signs
Temp Pulse Resp BP Pulse Ox
98.8 F 99 18 85/55 99
11/03/23 07:00 11/03/23 09:00 11/03/23 09:00 11/03/23 09:00 11/03/23 09:00
Physical Exam
Physical Exam
Constitutional: No Acute Distress and Cachetic
Cardiovascular: Regular Rate and S1/S2; Negative Murmur or Rub
Pulmonary: Clear and Symmetric; Negative Wheezes, Rales or Rhonchi
Gastrointestinal: Soft, Tender (LLQ), Non Distended and Normal Bowel Sounds
Genito-Urinary: Negative Suprapubic Tenderness
Skin: Warm and Dry; Negative Rash or Jaundice
Neurological: Awake and Alert (articulate)
Lab / Diagnostic Study Results
11/03/23 04:36
11/02/23 21:14
Abs Immat Gran (auto) 0.0 10^3/uL (0-0.05) 11/02/23 21:14
Absolute Neuts (auto) 7.7 10^3/uL (1.4-6.5) H 11/02/23 21:14
Absolute Lymphs (auto) 0.7 10^3/uL (1.2-3.4) L 11/02/23 21:14
Absolute Monos (auto) 0.4 10^3/uL (0.1-0.6) 11/02/23 21:14
Absolute Basos (auto) 0.0 10^3/uL (0-0.2) 11/02/23 21:14
Immature Gran % 0.5 % (0-0.5) 11/02/23 21:14
Neutrophils % 87.2 % (42.2-75.2) H 11/02/23 21:14
Lymphocytes % 7.7 % (20.5-51.1) L 11/02/23 21:14
Monocytes % 4.1 % (1.7-9.3) 11/02/23 21:14
Eosinophils % 0.0 % (0-6) 11/02/23 21:14
Basophils % 0.5 % (0-2) 11/02/23 21:14
PT 28.7 Sec (11.4-14.6) H 11/03/23 04:36
INR 2.71 11/03/23 04:36
Lactic Acid 2.3 mmol/L (0.7-2.0) H 11/03/23 04:36
Microbiology Results
Micro:
11/03/23 00:48 Urine Culture - Pending
Urine
11/02/23 21:48 Blood Culture - Pending
Blood/Venous
11/02/23 21:48 Blood Culture - Pending
Blood/Venous
11/02/23 21:14 Influenza Types A & B (MARK) - Final
Nasal Swab Negative for Influenza A & B, NAAT
Negative results must be combined with clinical observations
and patient history.
Nucleic Acid Amplification test (NAAT)performed on the
[employer] platform.
Assessment / Plan
UTI
Questionable Gastroenteritis/colitis
Septic Shock - resolved
Thrombocytosis - improving
Cachexia
Intellectual disability
- agree that finding of possible enteritis on CT scan may reflect known narrowing attributed to diverticular disease
- blood cultures x2 in progress
- urine culture in progress
- C diff will be checked given shock; routine stools cultures low yield
- currently on zosyn - would continue
follow clinically
--- NOTE | 2023-11-03 09:18 | CON.CAR ---
Addendum entered and electronically signed by Jasbir Bruce MD 11/03/23 10:02:
I saw and examined the patient.
The Warper Fixer's note was reviewed and I agree with the note.
Comment:
GEN: No distress, awake, Ox3
HEENT: supple, anicteric, mmm
LUNGS: CTA, no wheezes/rales
CV: Irreg, S1/S2, 1/6 syst LSB, no gallop
ABD: soft, BS+, NT/ND
EXT: +1 edema
NEURO: Gross non-focal
SKIN: No rash
Plan:
She is well-known to us from a recent hospitalization in September for DVT/PE and new onset atrial fibrillation. She presents after a fall and was found to have sepsis, and UTI. She was briefly on Levophed but this is now weaned off and started on IV
antibiotics. We are asked to reevaluate her for paroxysmal atrial fibrillation. She was previously taking Eliquis.
Currently on telemetry she is in sinus rhythm with bursts of A-fib/atrial tachycardia. Will start amiodarone 200 mg p.o. 3 times daily. Continue Eliquis.
Eventually restart Toprol when blood pressure becomes more stable and her infection has been treated.
She is markedly anemic. Continue to follow hemoglobin while on Eliquis
Treat antibiotics for infection.
Echo from previous admission in September revealed preserved ejection fraction with mild to moderate valvular disease.
Original Note:
Consultation
Consultation Request
Date/Time Consultation Requested: 11/03/23 at 0326
Date/Time Consultation Performed: 11/03/23 at 0848
Requesting Provider: Dr. Dos Santos
Performing Provider: Dr. Bruce
Reason for Consultation: Paroxysmal Afib, elevated pro-BNP, fall on Eliquis
Medical History
-
History of Present Illness:
Patient came to [facility] last night after a fall at home and cardiology is now consulted for abnormal telemetry and chronic OAC. Patient was just admitted to 09/26/23 until 10/02/23 with new DVT and PE. Cardiology was consulted at that time foe new
Afib that spontaneously converted to SR. Eliquis 5 mg BID started. Patient was also diuresed with Lasix 20 mg IV x1, but patient was not discharged to home on diuretic due to hypotension. Patient came to hospital f/u visit at cardiology office
10/26/23 and appeared to be euvolemic and patient's sister thought her LE edema was improved. Lisinopril dose was decreased to 10 mg daily due to hypotension. Also, Toprol XL was increased to 50 mg BID due to rapid HR, but patient was in SR on ECG. 7
day monitor applied that is not yet resulted. Patient came back to [facility] last night after a fall at home. Patient with sepsis, shock and UTI on admission. Levophed started overnight, but now stopped. Patient started on IV antibiotics. Cardiology
consulted for tele review that looked like possible recurrent Afib with RVR. Patient denies palpitations. No chest pain or SOB
PMH:
Recent admission with DVT, PE and newly diagnosed Afib 09/26/23 until 10/02/23
Paroxysmal Afib
new diagnosis 09/26/23 that spontaneously converted 09/27/23
Chronic Eliquis OAC
Acute on chronic vs chronic B/L LE edema
cRBBB
h/o right common femoral and superficial femoral vein thrombus and B/L PE 09/26/23
Anemia
Prediabetes
HTN
HLD
Past Medical History
Past Medical History: Other (in HPI)
Past Surgical History: Gynecological (ovarian cyst removed 1999) and Other (hernia repair)
Social History
Tobacco: Non-Smoker
Alcohol: None
Personal: Single
Living: With Family
Employment: Retired
Family History
Family History: Other (heart issues in father, brother)
Allergies / Home Medications
Allergy/AdvReac Type Severity Reaction Status Date / Time
No Known Allergies Allergy Verified 09/26/23 11:41
�Medication �Instructions �Recorded �Confirmed �Type
atorvastatin 40 mg tablet 40 mg PO DAILY High Cholesterol 09/26/23 09/26/23 History
lisinopril 20 mg tablet 20 mg PO DAILY Blood Pressure 09/26/23 09/26/23 History
metformin 1,000 mg tablet,extended 1,000 mg PO BID Diabetes 09/26/23 09/26/23 History
release 24hr (osmotic)
apixaban 5 mg tablet (Eliquis) 5 mg PO BID 30 days #60 tabs 10/02/23 11/03/23 Rx
apixaban 5 mg tablet (Eliquis) 10 mg (2 x 5 mg) PO BID 30 days 10/02/23 Rx
#120 tabs
apixaban 5 mg tablet (Eliquis) 10 mg (2 x 5 mg) PO BID 7 days #28 10/02/23 Rx
tabs
metoprolol succinate 25 mg 37.5 mg (1.5 x 25 mg) PO BID 10/02/23 Rx
tablet,extended release 24 hr Arrhythmia 30 days #90 tabs
Review of Systems
-
History Source: Patient
All other systems: Negative unless noted
Physical Exam
Vital Signs
Temp Pulse Resp BP Pulse Ox
98.8 F 99 18 85/55 99
11/03/23 07:00 11/03/23 09:00 11/03/23 09:00 11/03/23 09:00 11/03/23 09:00
GEN: NAD. AAOx3
HEENT: EOMI, MMM, wearing glasses
LUNGS: CTA B/L, no wheezes or rales
CV: SR with PACs and short runs of Atach on tele. 02/10 syst LSB
EXT: +2 pitting B/L LE edema. No clubbing, cyanosis or lesions B/L
NEURO: Gross non-focal
SKIN: Warm, dry and pink. No rash
Lab Results
11/03/23 04:36
11/02/23 21:14
Troponin I < 0.012 ng/ml 11/02/23 21:14
Ofl-X-Ltwvbrxajsh Pept 1530 pg/ml 11/02/23 21:14
Impression / Plan
-
PCP: Gaurav Jensen PA-C
Cardiology: Dr. Bruce
Impression:
Admitted with fall, UTI and sepsis 11/02/23
Enterocolitis
previously identified severe left colitis 09/26/23
Fall
Sinus tachycardia with PACs and short runs of PAT 11/03/23
Recent admission with DVT, PE and newly diagnosed Afib 09/26/23 until 10/02/23
Paroxysmal Afib
new diagnosis 09/26/23 that spontaneously converted 09/27/23
Chronic Eliquis OAC
Acute on chronic vs chronic B/L LE edema
cRBBB
h/o right common femoral and superficial femoral vein thrombus and B/L PE 09/26/23
Anemia
Prediabetes
HTN
HLD
Echo 09/27/2023: EF 56%, stage II diastolic dysfunction, mild to moderate MR, mild TR, estimated PAP 25 to 30 mmHg
Plan:
-Patient came to [facility] last night after a fall at home and cardiology is now consulted for abnormal telemetry and chronic OAC. Patient was just admitted to 09/26/23 until 10/02/23 with new DVT and PE. Cardiology was consulted at that time foe new
Afib that spontaneously converted to SR. Eliquis 5 mg BID started. Patient was also diuresed with Lasix 20 mg IV x1, but patient was not discharged to home on diuretic due to hypotension. Patient came to hospital f/u visit at cardiology office
10/26/23 and appeared to be euvolemic and patient's sister thought her LE edema was improved. Lisinopril dose was decreased to 10 mg daily due to hypotension. Also, Toprol XL was increased to 50 mg BID due to rapid HR, but patient was in SR on ECG. 7
day monitor applied that is not yet resulted. Patient came back to [facility] last night after a fall at home. Patient with sepsis, shock and UTI on admission. Levophed started overnight, but now stopped. Patient started on IV antibiotics. Cardiology
consulted for tele review that looked like possible recurrent Afib with RVR. Patient denies palpitations. No chest pain or SOB
-Tele and ECG reviewed by me. Patient with sinus tachycardia and PACs and short runs of Atach on tele. Will add amiodarone 200 mg TID. Outpatient dose of Toprol XL 50 mg BID is on hold due ot hypotension.
-Cont Eliquis 5 mg BID (age 63, wt 39.7 kg, Cre 1.0). Patient fell in the setting of sepsis and shock.
-pro-BNP is elevated at 1530 and was 1610 during her last admission. Patient with chronic LE edema that her family reports was improved at her last office visit 10/26/23. Patient with extensive RLE DVT last admission. Not sure that we can safely add
tubigrips to help with edema. Cont with elevation. Would not diurese and of note patient was only given Lasix 20 mg IV x1 last admission and was not d/c'd to home on a diuretic. EF preserved
-Troponin undetectable x1
-Outpatient dose of lisinopril decreased to 10 mg daily prior to admission and is now on hold due to hypotension
[2023-11-03 09:23] LABS: Lactic Acid 2.1 mmol/L (0.7-2.0)
[2023-11-03] MEDS: PACERONE 200 MG PO ×3 (10:11→20:48)
[2023-11-03 11:39] LABS: Glucose - Point of Care 146 mg/dl (70-99)
[2023-11-03 12:46] LABS: Lactic Acid 3.3 mmol/L (0.7-2.0)
--- NOTE | 2023-11-03 12:47 | W.PN.UPDATE ---
Update Note
Progress Note Update
Non-billable addendum, admitted 1 AM today
Admitted for urosepsis, currently off pressors
Assessment:
Septic shock
UTI
- s/p IVF and now off pressors; Albumin added. monitor BP and follow lactate levels
- ID following; continue Zosyn, day 1 for suspected UTI and possible colitis. Follow cultures, C. Diff
PAF with RVR from sepsis
Sinus tachycardia with PACs and short runs of PAT
- DCA cards following
- Eliquis/Amiodarone
Recent admission acute bilateral PE and RLE DVT
- continue Eliquis
Acute on chronic vs chronic B/L LE edema
Hx of chronic HFpEF
- monitor diuretic needs
Acute thrombocytosis possibly from sepsis
Type 2 DM
- hold Metformin
- SSI
- diabetic diet
- A1c 6.5% recently
Essential HTN
- holding BP meds for sepsis
HLD - statin
Chronic anemia
- monitor Hb
DVT ppx: Eliquis
Code: Full
--- NOTE | 2023-11-03 12:50 | PTCARENOTE ---
Patient had bowel movement, gelatinous, loose. assisted patient onto bedside commode. sent stool sample
[2023-11-03] MEDS: FLEXBUMIN 100 IV ×2 (13:24→16:53)
[2023-11-03 13:39] LABS: Heparin Anti-Xa LMW (LMWH) 3.92 IU/mL (0.20-0.50)
[2023-11-03 16:37] LABS: Lactic Acid 1.6 mmol/L (0.7-2.0)
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
[2023-11-03] MEDS: LR 1000 IV (16:50)
[2023-11-03 17:08] LABS: Glucose - Point of Care 144 mg/dl (70-99)
--- NOTE | 2023-11-03 20:45 | PTCARENOTE ---
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 RA IV x 2 WNL- LR/levo infusing per work list. RA Sat 98%. purewick intact. POC discussed. call thais w/pt.
[2023-11-03 22:11] LABS: Glucose - Point of Care 136 mg/dl (70-99)
[2023-11-04] VITALS (31 sets, daily range): BP systolic 90–144; BP diastolic 57–92; BMI 16.3
--- NOTE | 2023-11-04 | PTCARENOTE ---
no changes in pt assessment.
[2023-11-04] MEDS: ZOSYN 50 IV ×4 (05:00→20:43)
[2023-11-04] MEDS: LR 1000 IV (05:01)
--- NOTE | 2023-11-04 05:13 | PTCARENOTE ---
no changes in pt assessment.
[2023-11-04 05:17] LABS: Venous Blood Gas B.E. 2.6 mmol/L (-4 to +4); Venous Blood Gas HCO3 27.8 mmol/L (22-27); Venous Blood Gas O2 Sat % 94.7 %; Venous Blood Gas pCO2 46 mmHg (35-48); Venous Blood Gas pH 7.39 (7.32-7.43); Venous Blood Gas pO2 61 mmHg (30-50)
[2023-11-04 05:33] LABS: APTT 45.1 Sec (23.4-35.0); INR 3.89; PT 38.2 Sec (11.4-14.6)
[2023-11-04 06:02] LABS: ALT (SGPT) < 10 U/L (0-35); AST (SGOT) 16 U/L (14-36); Albumin 2.5 g/dl (3.5-5.0); Alkaline Phosphatase 92 U/L (38-126); Blood Urea Nitrogen 22 mg/dl (7-17); Calcium 8.2 mg/dl (8.4-10.2); Carbon Dioxide 25 mmol/L (22-30); Chloride 102 mmol/L (98-107); Estimated Creatinine Clearance 42 ml/min; Glucose 85 mg/dl (70-99); Magnesium 1.6 mg/dl (1.6-2.3); Potassium 2.9 mmol/L (3.5-5.1); Sodium 139 mmol/L (135-145); Total Bilirubin 0.6 mg/dl (0.2-1.3); Total Protein 4.6 g/dl (6.3-8.2); eGFR > 60.00
[2023-11-04 06:22] LABS: Hematocrit 17.2 % (37.0-47.0); Hemoglobin 5.5 g/dL (12.0-16.0); Mean Corpuscular Hgb 28.8 pg (27.0-31.0); Mean Corpuscular Volume 90.1 fL (81.0-99.0); Mean Platelet Volume 9.2 fL (7.4-10.4); Platelet Count 251 10^3/uL (130-400); Red Blood Cell Count 1.91 10^6/uL (4.20-5.40); Red Cell Dist. Width 14.9 % (11.5-14.5); White Blood Cell Count 10.9 10^3/uL (4.8-10.8)
--- NOTE | 2023-11-04 06:32 | PTCARENOTE ---
Isaiah covering pt- text pg'd to make aware of hgb 5.5 (recheck sent- result also 5.5). also K+2.9 but still awaiting redraw result on this also. awaiting orders.
[2023-11-04 06:49] LABS: Blood Urea Nitrogen 21 mg/dl (7-17); Calcium 8.4 mg/dl (8.4-10.2); Carbon Dioxide 26 mmol/L (22-30); Chloride 102 mmol/L (98-107); Estimated Creatinine Clearance 42 ml/min; Glucose 89 mg/dl (70-99); Potassium 2.7 mmol/L (3.5-5.1); Sodium 139 mmol/L (135-145); eGFR > 60.00
[2023-11-04] MEDS: KCL 40 MEQ PO (07:06)
[2023-11-04] MEDS: KCL 270 MEQ IV (07:10)
[2023-11-04] MEDS: NOVOLOG FLEXPEN-LOW RESISTANCE SC ×3 (07:47→16:46)
--- NOTE | 2023-11-04 08:27 | W.PN.CARDCBS ---
Today's Communication / Plan
-
Hemoglobin down to 5.5. Transfuse and follow hemoglobin. Would hold Eliquis in a.m. for now.
Remains in sinus rhythm with bursts of A. tach and A-fib. Continue amiodarone 200 mg p.o. 3 times daily.
Continue antibiotics for colitis/sepsis.
Continue to use Levophed as needed for blood pressure support
Impression / Plan
-
PCP: Gaurav Jensen PA-C
Cardiology: Dr. Bruce
Impression:
Admitted with fall, UTI and sepsis 11/02/23
Enterocolitis
previously identified severe left colitis 09/26/23
Fall
marked anemia
Sinus tachycardia with PACs and short runs of PAT 11/03/23
Recent admission with DVT, PE and newly diagnosed Afib 09/26/23 until 10/02/23
Paroxysmal Afib
new diagnosis 09/26/23 that spontaneously converted 09/27/23
Chronic Eliquis OAC
Acute on chronic vs chronic B/L LE edema
cRBBB
h/o right common femoral and superficial femoral vein thrombus and B/L PE 09/26/23
Prediabetes
HTN
HLD
Echo 09/27/2023: EF 56%, stage II diastolic dysfunction, mild to moderate MR, mild TR, estimated PAP 25 to 30 mmHg
Plan:
-Hemoglobin down to 5.5 but no overt bleeding. Will hold Eliquis in a.m. today. Would repeat later today after transfusion.
-Still with possible colitis. Replete electrolytes.
-Rhythm remains sinus with bursts of A. tach/A-fib. Continue amiodarone 200 mg p.o. 3 times daily.
-Continue antibiotics
-Troponin undetectable x1
-Continue supportive care for sepsis/infection with Levophed. Would hold off on diuretics and watch for signs of volume overload.
Progress Note - Product Safety Professional
Subjective
Date of Service: November 04, 2023
Denies any bleeding. Denies any palpitations or chest pains.
Objective
Labs:
11/04/23 06:09
11/04/23 06:09
Labs
Hgb 5.5 g/dL (12.0-16.0) L* D 11/04/23 06:09
Hct 17.2 % (37.0-47.0) L* 11/04/23 06:09
Plt Count 251 10^3/uL (130-400) D 11/04/23 06:09
PT 38.2 Sec (11.4-14.6) H 11/04/23 05:02
INR 3.89 11/04/23 05:02
APTT 45.1 Sec (23.4-35.0) H 11/04/23 05:02
Sodium 139 mmol/L (135-145) 11/04/23 06:09
Potassium 2.7 mmol/L (3.5-5.1) L* 11/04/23 06:09
BUN 21 mg/dl (7-17) H 11/04/23 06:09
Creatinine 0.8 mg/dL (0.6-1.0) 11/04/23 06:09
Glucose 89 mg/dl (70-99) 11/04/23 06:09
Troponins
11/02/23
21:14
Troponin I < 0.012
Vital Signs and I&O:
Vital Signs
Temp Pulse Resp BP Pulse Ox
99.2 F 88 24 106/63 98
11/04/23 08:23 11/04/23 07:55 11/04/23 07:55 11/04/23 07:00 11/04/23 07:55
Vital Signs
Temp Pulse Resp BP Pulse Ox
99.2 F 88 24 106/63 98
11/04/23 08:23 11/04/23 07:55 11/04/23 07:55 11/04/23 07:00 11/04/23 07:55
Intake & Output
11/02/23 11/03/23 11/04/23 11/05/23
06:59 06:59 06:59 06:59
Intake Total 1345.0 / 1545.0 280 / 280
Output Total 250 / 250
Balance 1095.0 / 1295.0 280 / 280
Physical Exam
Physical Exam
GEN: No distress, awake, Ox3
HEENT: supple, anicteric, mmm
LUNGS: CTA, no wheezes/rales
CV: Reg, with ectopy, S1/S2, 1/6 syst LSB, no gallop
ABD: soft, BS+, NT/ND
EXT: No edema
NEURO: Gross non-focal
SKIN: No rash
--- NOTE | 2023-11-04 08:44 | W.PN.INTV ---
Today's Communication / Plan
Recommendations
Continue with antibiotics as per ID
Follow-up urine culture sensitivities which is now growing E. coli
Follow-up blood cultures
Trend H/H and transfuse if needed to keep Hb>7, plt>20k; hold Eliquis for now; trend INR
Maintain MAP >65
Hemodynamics have been stable since off Levophed since 11/02
Up OOB as tolerated
PT/OT
Maintain SpO2 >90-94%
prn IV albumin for hypotension
ADAT as per GI
Patient is stable for downgrade out of ICU to telemetry. Hazmat Technician/Pulmonary service will now sign off. Please reconsult if there are any additional questions/concerns, or if patient's respiratory status deteriorates.
Assessment
-
Assessment: 63-year-old female with a past medical history of hypertension, hyperlipidemia, history of DVT/PE, DM type II, intellectual developmental delay and A-fib on Eliquis who presented with fall at home. She was getting ready to shower when
she lost her balance and fell. No head trauma or LOC. She says she has a history of blood clots and she is endorsing feet swelling. She also endorsed having diarrhea for the last 2-3 days, going to the bathroom 3�4 times a day with watery stools.
She is also been urinating a lot but no pain or flank pain. She was recently hospitalized here on 09/25 - 10/02/2023 where she was found to be in A-fib with RVR which was new onset, with cardiology consulted due to acute heart failure and she also
had an acute PE. She was stabilized and discharged home with Eliquis and metoprolol and told to follow-up with cardiology as an outpatient. Currently, in the ER she was febrile to 102.3 �F, pulse rate 147, breathing at 23 breaths/min, BP 106/73
and saturating 93% on room air. Labs showed normal WBC at 8.9, anemia to 7.9, thrombocytosis to 575, elevated INR to 2.54, glucose 202, lactate 4.9, troponin negative at <0.012, BNP elevated at 1530, albumin level 2.5, urinalysis positive for UTI
with positive nitrites and 2+ leukocyte esterase and COVID antigen was negative. Blood cultures and urine cultures were collected. CXR showed no acute cardiopulmonary disease. CT abdomen/pelvis with contrast showed colitis involving the splenic
flexure to distal sigmoid colon otherwise no evidence of hydronephrosis and the kidneys appeared normal. CT head was done as well as CT cervical spine given her fall and there was no acute intracranial normalities, and no evidence of vertebral
fracture or herniation/displacement. In the ER she was given Zosyn, 250 cc IVF bolus with NS 0.9% x 2 (total of 1/2L) and then started on Levophed given persistent SBP in the 80�90s. 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
services consulted for additional management/recommendations.
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
Impression:
#Septic shock due to complicated UTI + colitis involving the splenic flexure to distal sigmoid colon - shock state resolved as of 11/02
#Complicated UTI with E. coli seen on UCx (collected 11/03/2023, although only 30,000 CFU/mL)
#Lactic acidosis due to shock state as above - resolved
#Hypoalbuminemia
#Intermittent atrial tachycardia with A-fib
#Acute kidney injury (baseline creatinine 0.6�0.7) - resolved
#DM type II (HbA1C: 6.5 on 09/26/2023) c/b hyperglycemia
#Thrombocytosis likely reactive due to sepsis - resolved
#Supratherapeutic INR likely due to septic shock with recent diarrhea for the last 3-4 days prior to arrival in the setting of Eliquis use
#Acute on chronic anemia (baseline Hb 8.5�10g/dL)
#Iron deficiency anemia
#Colitis involving the splenic flexure to distal sigmoid colon with history of severe left-sided colitis from September 2023
#Left ovarian dermoid cyst
#5 mm pancreatic cystic lesion suspected to be pseudocyst or sidebranch of intraductal papillary mucinous neoplasm
#History of bilateral PE with extensive right lower extremity DVT (09/2023)
Plan:
- Continue with broad spectrum ABx and would plan for 10-14 days total given she was in septic shock (now shock state resolved)
- Currently on Zosyn (started 11/02)
- E. coli growing on urine culture collected 11/02 - follow-up sensitivities; follow-up blood cultures collected on 11/02/2023 (NGTD)
- Maintain MAP>65
- Patient has been weaned off of vasopressors since 11/02
- prn albumin 25g, 25%
- Maintain SpO2 >90-94%
- Cardiology consulted given she has been having bursts of atrial tachycardia/A-fib
- Continue with amiodarone and reduce down to lowest required dose --> currently on 200mg PO TID
- Monitor diarrhea and check for C. diff --> negative; follow-up stool cultures
- Patient did have sigmoidoscopy last admission in September 2023 which showed multiple diverticula in the rectosigmoid colon and distal sigmoid colon with severe narrowing and tortuosity in that region and the scope could not be safely passed through
the area --> GI on last admission said that given high risk would not repeat attempt at colonoscopy or sigmoidoscopy, which was discussed with patient's POA (sister) at the time
- GI consulted - recs appreciated
- Now on low residue diet ---> ADAT
- Replete electrolytes with K>4, Mg>2
- trend H/H and transfuse if needed to keep >7g/dL; keep plt>20k
- Received 1 U PRBC today --> repeat H/H to ensure Hb rises appropriately
- Start iron supplementation given undetectable iron saturation with iron level <20
- Maintain euglycemia with goal BG 140-180 with ISS and if BG still not at goal then would start lantus in that case
- prn nebulized bronchodilators - not currently bronchospastic
- Incentive spirometer encouraged
- PT/OT
- DVT ppx: SCDs only for now given her acute anemia; once Hb is stable for >24-48 hours then consider resuming Eliquis at that time. Anti-Xa level were checked yesterday and was elevated at 3.92, which is expected given that she is on Eliquis.
Patient is stable for downgrade out of ICU to telemetry. Hazmat Technician/Pulmonary service will now sign off. Thank you for allowing us to be involved in the care of this patient. Please reconsult if there are any additional questions/concerns, or if
patient's respiratory status deteriorates.
Data:
CT abdomen/pelvis with IV contrast 11/02/2023:
1). Colitis from the splenic flexure to the distal sigmoid colon
2). Small bowel enteritis
3). 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
Total time spent today was 75 minutes for this encounter. Time includes reviewing laboratory test/imaging results, reviewing pertinent medical records, obtaining and reviewing medical history, performing an appropriate exam, ordering medications,
tests and procedures. Time also includes documentation of this encounter, coordinating patient care and communicating with other healthcare professionals. Total time does not include separately billed tests performed on this date of service.
Subjective Dataa
Subjective Data
Date of Service:
Date of Service: November 04, 2023
Chief Complaint: Hazmat Technician Follow Up
Subjective:
Patient was seen and evaluated today at bedside. She was sitting in a chair in no acute distress. She has been off of Levophed since 7 PM last night. This morning patient's BP was 120/77, heart rate 102 and saturating 98% on room air. She was
anemic this morning with Hb 5.5 with no signs of bleeding. INR continues to climb and is currently 3.89. Potassium this morning was low at 2.7 and she was repleted. 1 unit PRBC was also ordered for transfusion. Patient's mother, Chey, at
bedside and all questions were answered. Patient denies chest pain, SOB, WALKER, nausea, fevers or chills. Still having gelatinous stool which is nonbloody.
Review of Systems
General: Other (Negative unless mentioned above)
Objective Data
Data Reviewed
Vital Signs / I&O / Oxygen:
Vital Signs
Temp Pulse Resp BP Pulse Ox
99.2 F 93 24 106/71 98
11/04/23 08:23 11/04/23 08:45 11/04/23 07:55 11/04/23 08:45 11/04/23 07:55
Intake and Output
11/03/23 11/04/23 11/05/23
06:59 06:59 06:59
Intake Total 1345.0 / 1545.0 427.5 / 427.5
Output Total 250 / 250
Balance 1095.0 / 1295.0 427.5 / 427.5
SaO2 98
Physical Exam
General: Respiratory Distress (negative), Comfortable, Chills (negative) and Sweats (negative)
HEENT: Normocephalic and Anicteric
Cardiovascular: S1-S2 and Peripheral Edema (+1 lower extremity pitting edema bilaterally)
Respiratory: Wheeze (negative), Crackles (negative), Rhonchi (negative) and Other (Grossly diminished breath sounds bilaterally)
GI: Soft, Non Distended, Non Tender and Normal Bowel Sounds
Neurology: Awake, Alert and Tremors (negative)
Skin: Warm, Dry, Jaundice (negative) and Rash (negative)
Labs/Micro/Reports
Lab Data
11/04/23 06:09
11/04/23 06:09
Laboratory Results
11/04/23
05:02
PT 38.2 H
INR 3.89
APTT 45.1 H
Microbiology
11/02/23 21:48 Blood/Venous Blood Culture - Preliminary
No Growth in 24 hours- Final report to follow
11/02/23 21:48 Blood/Venous Blood Culture - Preliminary
No Growth in 24 hours- Final report to follow
11/03/23 12:00 Feces/Stool Stool Leukocytes - Final
11/03/23 12:00 Feces/Stool C. difficile GDH Antigen & Toxins - Final
Negative for toxigenic C.difficile
11/02/23 21:14 Nasal Swab Influenza Types A & B (MARK) - Final
Negative for Influenza A & B, NAAT
Negative results must be combined with clinical observations
and patient history.
Nucleic Acid Amplification test (NAAT)performed on the
[employer] platform.
[2023-11-04] MEDS: LIPITOR 40 MG PO (08:45)
[2023-11-04] MEDS: PACERONE 200 MG PO ×3 (08:45→20:43)
[2023-11-04] MEDS: MAGNESIUM SULFATE 100 IV (08:46)
[2023-11-04] MEDS: NSS (PRESERVATIVE FREE) 10 ML IV (08:46)
[2023-11-04] MEDS: PROTONIX IV 40 MG IV (08:46)
[2023-11-04] MEDS: ELIQUIS PO (08:46)
--- NOTE | 2023-11-04 08:59 | PTCARENOTE ---
Updated assessment, vital signs ongoing and as documented. Cardiology follow up at bedside this am with patient. Lyte replacement as ordered. Reviewed with Hospitalist team, additional lytes as ordered. Holding danielle this am will reevaluate this
afternoon with cardiology. IVF continue will update nutritional follow up. Continue with teaching and rounds.
--- NOTE | 2023-11-04 09:39 | W.PN.ID1 ---
Date of Service
Date of Service: November 04, 2023
Today's Communication
continue zosyn
Assessment / Plan
UTI
Questionable Gastroenteritis/colitis
Septic Shock - resolved
Thrombocytosis - improving
Cachexia
Intellectual disability
- agree that finding of possible enteritis on CT scan may reflect known narrowing of colon attributed to diverticular disease
- blood cultures x2 in progress
- urine culture in progress
- C diff negative; routine stools cultures low yield
- hgb and K dropped overnight, management per primary team
- currently on zosyn - would continue
follow clinically
Chief Complaint
-: UTI and Other (shock)
Subjective / Review of Systems
afebrile
bp stable
hgb and K dropped overnight
no other overnight events
denies further abdominal pain
Vital Signs / Physical Exam
Vital Signs
Vital Signs
Temp Pulse Resp BP Pulse Ox
99.2 F 93 24 106/71 98
11/04/23 08:23 11/04/23 08:45 11/04/23 07:55 11/04/23 08:45 11/04/23 07:55
Physical Exam
Constitutional: No Acute Distress, Chronically Ill and Cachetic
Cardiovascular: Regular Rate and S1/S2; Negative Murmur or Rub
Pulmonary: Clear and Symmetric; Negative Wheezes or Rales
Gastrointestinal: Soft, Non Tender, Non Distended and Normal Bowel Sounds
Skin: Warm and Dry; Negative Rash or Jaundice
Objective Data
Lab Data
Lab Results
11/04/23 06:09
11/04/23 06:09
PT 38.2 Sec (11.4-14.6) H 11/04/23 05:02
INR 3.89 11/04/23 05:02
APTT 45.1 Sec (23.4-35.0) H 11/04/23 05:02
Estimated Creat Clear 42 ml/min 11/04/23 06:09
Lactic Acid 1.6 mmol/L (0.7-2.0) 11/03/23 16:17
Total Bilirubin 0.6 mg/dl (0.2-1.3) 11/04/23 05:02
AST 16 U/L (14-36) 11/04/23 05:02
ALT < 10 U/L (0-35) 11/04/23 05:02
Alkaline Phosphatase 92 U/L (38-126) 11/04/23 05:02
Most recent labs reviewed.
Micro Results:
11/02/23 21:48 Blood Culture - Preliminary
Blood/Venous No Growth in 24 hours- Final report to follow
11/02/23 21:48 Blood Culture - Preliminary
Blood/Venous No Growth in 24 hours- Final report to follow
11/03/23 12:00 Salmonella/Shigella Culture - Pending
Feces/Stool Campylobacter Culture - Pending
Shiga Toxin Test - Pending
Stool Leukocytes - Final
11/03/23 12:00 C. difficile GDH Antigen & Toxins - Final
Feces/Stool Negative for toxigenic C.difficile
11/03/23 00:48 Urine Culture - Pending
Urine
11/02/23 21:14 Influenza Types A & B (MARK) - Final
Nasal Swab Negative for Influenza A & B, NAAT
Negative results must be combined with clinical observations
and patient history.
Nucleic Acid Amplification test (NAAT)performed on the
[employer] platform.
[2023-11-04 12:20] LABS: Hematocrit 18.1 % (37.0-47.0); Hemoglobin 5.8 g/dL (12.0-16.0); Mean Corpuscular Hgb 29.1 pg (27.0-31.0); Mean Platelet Volume 9.4 fL (7.4-10.4); Platelet Count 290 10^3/uL (130-400); Red Blood Cell Count 1.99 10^6/uL (4.20-5.40); White Blood Cell Count 12.1 10^3/uL (4.8-10.8)
[2023-11-04 12:42] LABS: Blood Urea Nitrogen 17 mg/dl (7-17); Calcium 8.4 mg/dl (8.4-10.2); Carbon Dioxide 24 mmol/L (22-30); Chloride 105 mmol/L (98-107); Estimated Creatinine Clearance 42 ml/min; Glucose 85 mg/dl (70-99); Potassium 3.5 mmol/L (3.5-5.1); Sodium 140 mmol/L (135-145); eGFR > 60.00
[2023-11-04 13:29] LABS: Iron < 20 ug/dl (37-170); Total Iron Binding Capacity 108 ug/dl (265-497)
--- NOTE | 2023-11-04 14:47 | PTCARENOTE ---
Assessment trends ongoing. Unchanged. Receiving prbc, 100% of clears for lunch consumed. Follow up with POA and nursing table games floor supervisor now patient confidential. Patient ambulates room and to commode with light assist. GI consult updated at bedside.
Following updates with lumber buyer in and out at bedside with patient. Presently watching tv and verbalizes help thru shift. Continue supportive cares and teaching. Complete bed bath with PCT this shift.
--- NOTE | 2023-11-04 14:48 | CON.GI ---
Consultation
-
Date/Time Consultation Requested: 11/04/23
Date/Time Consultation Performed: 11/04/23
Requesting Provider:
Performing Provider:
Reason for Consultation: colitis
Medical History
Chief Complaint / HPI
Chief Complaint: diarrhea
History of Present Illness:
This is a 63-year-old female with a past medical history significant for hypertension, hyperlipidemia, DM2, intellectual disability, recently in from 09/25 to 10/01 for new onset A-fib and bilateral lower extremity edema, found to have an extensive
right lower extremity DVT and bilateral PE started on Eliquis who now presents to the ER after a fall at home and had dizziness prior to the fall.� She has been diagnosed with urosepsis and has been started on antibiotics, pressors and amiodarone
and is in the ICU. Also on prior CT had findings of moderate to severe left-sided colitis of uncertain etiology ? mass and she underwent a sigmoidoscopy on 09/28/[address] Dos Santos and was found to have severe diverticulosis in the rectosigmoid and
the distal sigmoid colon with narrowed lumen and was unable to pass the scope beyond.� There was no obvious colitis noted in that area.� She had been having symptoms of intermittent episodes of diarrhea prior to that admission and also recently
prior to this admission along with weight loss.� Patient has intellectual disability and is able to answer some questions but hard to obtain history and most of the history was also obtained from reviewing the chart extensively from her prior
admissions.� On repeat CT from 11/01 still shows colitis from splenic flexure to the distal sigmoid colon.� She also had a drop in hemoglobin today from 7.8 yesterday to 5.8 today and during her admission in September her hemoglobin ranged between
8-10.� Discussed with nurse there was no rectal bleeding or melena since admission.� She did receive IV fluids for hypotension since admission.
Past Medical History
Past Medical History: Other (HTN, Hypercholesterolemia, NIDDM and Other (Intellectual disability), DVT, PE, A.fib, mild CHF/HFpEF,Left ovarian dermoid cyst, Right adrenal adenoma, Small pancreatic cystic lesion/IPMN)
Past Surgical History: Other (Ovarian cyst removal)
Social History
Tobacco: Non-Smoker
Alcohol: None
Drug: None
Living: With Family
Family History
Family History: Reviewed & Not Pertinent
Allergies / Home Medications
Allergy/AdvReac Type Severity Reaction Status Date / Time
No Known Allergies Allergy Verified 09/26/23 11:41
�Medication �Instructions �Recorded
atorvastatin 40 mg tablet 40 mg PO DAILY High Cholesterol 09/26/23
lisinopril 20 mg tablet 10 mg PO DAILY Blood Pressure 09/26/23
apixaban 5 mg tablet (Eliquis) 5 mg PO BID 30 days #60 tabs 10/02/23
metformin 500 BID 11/03/23
metoprolol succinate 50 mg BID 11/03/23
Review of Systems
-
All other systems: A 12 pt ROS was Negative except as stated above in HPI
Vital Signs
Temp Pulse Resp BP Pulse Ox
98.4 F 96 25 120/77 98
11/04/23 13:35 11/04/23 14:40 11/04/23 14:40 11/04/23 14:00 11/04/23 14:45
Physical Exam
Exam
General: No Apparent Distress
HEENT: Normocephalic
Respiratory: Clear
Cardiac: Irregular Rhythm
GI: Soft, Non Tender, Normal Bowel Sounds and Distended (especially upper abdomen)
Musculoskeletal: No Clubbing
Skin: Warm
Neuro: Awake, Alert and Oriented
Psych: Calm
Results
WBC 12.1 10^3/uL (4.8-10.8) H 11/04/23 12:06
Hgb 5.8 g/dL (12.0-16.0) L* 11/04/23 12:06
Hct 18.1 % (37.0-47.0) L* 11/04/23 12:06
MCV 91.0 fL (81.0-99.0) 11/04/23 12:06
Plt Count 290 10^3/uL (130-400) 11/04/23 12:06
Absolute Neuts (auto) Cancelled 11/04/23 05:02
PT 38.2 Sec (11.4-14.6) H 11/04/23 05:02
INR 3.89 11/04/23 05:02
APTT 45.1 Sec (23.4-35.0) H 11/04/23 05:02
Sodium 140 mmol/L (135-145) 11/04/23 12:06
Potassium 3.5 mmol/L (3.5-5.1) D 11/04/23 12:06
Chloride 105 mmol/L (98-107) 11/04/23 12:06
Carbon Dioxide 24 mmol/L (22-30) 11/04/23 12:06
BUN 17 mg/dl (7-17) 11/04/23 12:06
Creatinine 0.8 mg/dL (0.6-1.0) 11/04/23 12:06
Calcium 8.4 mg/dl (8.4-10.2) 11/04/23 12:06
Total Bilirubin 0.6 mg/dl (0.2-1.3) 11/04/23 05:02
AST 16 U/L (14-36) 11/04/23 05:02
ALT < 10 U/L (0-35) 11/04/23 05:02
Alkaline Phosphatase 92 U/L (38-126) 11/04/23 05:02
Diagnostic Image Results:
11/02/23 CT abdomen and pelvis with IV contrast
IMPRESSION:
1). Colitis from the splenic flexure to the distal sigmoid colon
2). Small bowel enteritis
3). 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
09/27/23 MRI abdomen W/o W Contrast
IMPRESSION:
Subcentimeter pancreatic cystic lesions without suspicious features, likely pseudocysts and/or side branch ductal papillary mucinous neoplasms. Recommend follow-up MRI/MRCP abdomen without and with gadolinium contrast in 2 years per ACR criteria.
Wall thickening of the sigmoid colon likely reflects colitis, less likely diverticulitis. This appears overall slightly improved in extent compared to prior CT, with particular improvement throughout the descending colon compared to prior.
09/26/23 CT chest,abdomen and Pelvis with IV contrast
IMPRESSION:
1. Bilateral pulmonary emboli as described. Borderline right heart strain.
2. Severe left-sided colitis. Difficult to rule out mass in the sigmoid colon. Recommend direct visualization.
3. Findings most in keeping with a left ovarian dermoid measuring up to 3.9 cm. Consider further evaluation with dedicated pelvic ultrasound.
4. Probable right adrenal adenoma measuring up to 2.1 cm. This can be further evaluated on a nonemergent basis with a dedicated adrenal protocol CT, to be ordered as CT Abdomen with and without contrast.
5. Tiny 5 mm pancreatic cystic lesion, possibly a pseudocyst or side branch of intraductal papillary mucinous neoplasm. Recommend outpatient workup with dedicated MRI/MRCP abdomen without and with gadolinium contrast.
6. Right common femoral and superficial femoral vein thrombus noted. The IVC and bilateral common iliac veins are patent.
Prior GI Procedures:
EGD: none
Colonoscopy: none
09/28/23 Flex Sig
Impression: - Diverticulosis in the recto-sigmoid colon and in the
distal sigmoid colon. Severe with narrowing and pale mucosa.
- No specimens collected.
Assessment / Plan
-
1. Left-sided colitis noted on multiple recent imaging studies from September and recent CT from 11/01 involving splenic flexure to sigmoid colon unclear if this is related to possible ischemic colitis versus segmental colitis from severe
diverticulosis versus less likely IBD, on sigmoidoscopy in September there was no evidence of obvious colitis in the rectosigmoid but because of severe narrowing in the distal sigmoid unable to pass scope beyond. When medically stable would recommend
a virtual CT or prior to DC we could do a Gastrografin enema to rule out possible neoplasm. Her diarrhea could be related to overflow diarrhea given luminal narrowing seen in the distal sigmoid colon on sigmoidoscopy vs colitis. Her abdomen seems
slightly distended today could be ileus will get an obstruction series in a.m. currently has no nausea or vomiting. She did have stool studies done from admission which were negative C. difficile and cultures are pending.
2. Current admission is for urosepsis continue care per primary team, she had been on pressors now off of them, continue antibiotics
3. Small subcentimeter pancreatic cystic lesions probable IPMN will need repeat MRI with MRCP in 2 years
4. Anemia with elevated ferritin level most likely reactive currently has no overt bleeding she did have a drop in hemoglobin of almost 2 g but no rectal bleeding or melena was reported some of it could be related to IV fluids and dilution continue
to monitor and transfuse as needed.
5. DVT, PE and A-fib all dx in September admission, on Eliquis watch closely for any signs of GI blood loss especially given acute drop in hemoglobin and may need to hold it if continues to drop
Data Reviewed
-
CT Scan: Report Reviewed by me
MRI: Report Reviewed by me
-
-
Thank you for consultation and allowing me to participate in the patient's care. Please call the ged preparation teacher GI physician during the after hours with any questions or concerns.
[2023-11-04 14:49] LABS: Folate 7.9 ng/ml (2.76-20); Vitamin B12 798 pg/ml (239-931)
--- NOTE | 2023-11-04 15:59 | W.PN.HOSP.TC ---
Today's Communication/Plan
-
1 unit PRBC follow Hb
holding Eliquis
continue Amiodarone
Continue IV abx
appreciate ID/cards/GI inputs
downgraded to tele after discussion with ICU team.
Assessment / Plan
Assessment / Plan
Assessment:
Septic shock
UTI
- s/p IVF and now off pressors; s/p Albumin. monitor BP. lactate levels normal.
- ID following; continue Zosyn, day 2 for suspected UTI and possible colitis. Follow cultures, C. Diff
- GI consulting on CT findings of colitis - ddx including ischemic vs diverticular disease. Considering Gastrografin enema vs outpatient virtual CT. Obs series planned in AM.
PAF with RVR from sepsis
Sinus tachycardia with PACs and short runs of PAT
- DCA cards following
- Amiodarone
- Eliquis held for anemia
Recent admission acute bilateral PE and RLE DVT
- Eliquis held for anemia
acute on chronic anemia, suspect dilutional from sepsis IVF
- follow up anemia workup
- no evidence of GI bleed
- s/p 1 unit PRBC today; f/u Hb
Acute on chronic vs chronic B/L LE edema
Hx of chronic HFpEF
- monitor diuretic needs
Acute thrombocytosis - resolved
Type 2 DM
- hold Metformin
- SSI
- diabetic diet
- A1c 6.5% recently
Essential HTN
- holding BP meds for sepsis
HLD - statin
Hypomagnesemia
Hypokalemia
- replete via IV prn
DVT ppx: SCDs while anemic
Code: Full
Dispo: tx to Tele
Anticipated Discharge: > 48 hours
Subjective/Interval History
-
Date of Service: November 04, 2023
resting comfortably, no complaints
Objective Data
-
Labs:
Laboratory Results
11/04/23 11/04/23 11/04/23
05:02 06:09 12:06
WBC Cancelled 10.9 H 12.1 H
Hgb Cancelled 5.5 L* D 5.8 L*
Hct Cancelled 17.2 L* 18.1 L*
Plt Count Cancelled 251 D 290
PT 38.2 H
INR 3.89
APTT 45.1 H
Sodium 139 139 140
Potassium 2.9 L D 2.7 L* 3.5 D
Chloride 102 102 105
Carbon Dioxide 25 26 24
BUN 22 H 21 H 17
Creatinine 0.8 0.8 0.8
Glucose 85 89 85
Calcium 8.2 L 8.4 8.4
Total Bilirubin 0.6
AST 16
ALT < 10
Alkaline Phosphatase 92
11/04/23
16:00
WBC Pending
Hgb Pending
Hct Pending
Plt Count Pending
PT
INR
APTT
Sodium
Potassium
Chloride
Carbon Dioxide
BUN
Creatinine
Glucose
Calcium
Total Bilirubin
AST
ALT
Alkaline Phosphatase
Vital Signs:
Vital Signs
Temp Pulse Resp BP Pulse Ox
99.8 F 106 20 138/94 98
11/04/23 15:30 11/04/23 15:34 11/04/23 15:15 11/04/23 15:34 11/04/23 14:45
I&O
11/03/23 11/04/23 11/05/23
06:59 06:59 06:59
Intake Total 1345.0 / 1545.0 1820.0 / 1820.0
Output Total 250 / 250
Balance 1095.0 / 1295.0 1820.0 / 1820.0
Physical Exam
-
General: No Apparent Distress
HEENT: Normocephalic and Atraumatic
Respiratory: Negative Wheezes
Cardiac: Regular Rhythm and S1/S2
GI: Soft
Musculoskeletal: No Edema
Neuro: AO x 3
Hematologic / Lymphatic: No Lymphadenopathy
Psych: Calm
Data Reviewed
-
Total Time Spent with Patient (in minutes): 41
Labs: Labs Reviewed by me
[2023-11-04] MEDS: KLOR-CON 40 MEQ PO (16:46)
--- NOTE | 2023-11-04 20:00 | PTCARENOTE ---
Recieved pt via handoff. Pt AO. WEBER. Generalized weakness in all extremities. Pulses weak on palpation. 98% on RA. Hypoactive bowel sounds in all [address] draining cat urine. Skin pale with trace edema. Receiving fluids see
flowsheet. Call plascencia within reach.
[2023-11-04] MEDS: TYLENOL 650 MG PO (20:38)
[2023-11-04 21:09] LABS: Hematocrit 20.4 % (37.0-47.0); Hemoglobin 6.8 g/dL (12.0-16.0); Mean Corp Hgb Conc. 33.3 g/dL (33.0-37.0); Mean Corpuscular Hgb 29.7 pg (27.0-31.0); Mean Corpuscular Volume 89.1 fL (81.0-99.0); Mean Platelet Volume 9.7 fL (7.4-10.4); Platelet Count 242 10^3/uL (130-400); Red Blood Cell Count 2.29 10^6/uL (4.20-5.40); Red Cell Dist. Width 15.3 % (11.5-14.5); White Blood Cell Count 13.7 10^3/uL (4.8-10.8)
[2023-11-05] VITALS (17 sets, daily range): BP systolic 115–145; BP diastolic 73–104; PULSE 111; O2SAT 99; BMI 18.6
--- NOTE | 2023-11-05 | PTCARENOTE ---
Pt receiving one unit of PRBC, tolerating well. Reassessed all systems and no changes in status, will continue to monitor.
[2023-11-05] MEDS: ZOSYN 50 IV (03:23)
[2023-11-05 04:00] LABS: % Basophils 0.2 % (0-2); % Eosinophils 0.2 % (0-6); % Immature Granulocytes 1.2 % (0-0.5); % Lymphocytes 5.1 % (20.5-51.1); % Monocytes 2.5 % (1.7-9.3); % Neutrophils 90.8 % (42.2-75.2); Absolute Immature Granulocytes 0.2 10^3/uL (0-0.05); Absolute Lymphocytes 0.7 10^3/uL (1.2-3.4); Absolute Monocytes 0.3 10^3/uL (0.1-0.6); Absolute Neutrophils 12.1 10^3/uL (1.4-6.5); Hematocrit 26.4 % (37.0-47.0); Mean Corp Hgb Conc. 34.1 g/dL (33.0-37.0); Mean Corpuscular Hgb 29.3 pg (27.0-31.0); Mean Platelet Volume 9.8 fL (7.4-10.4); Nucleated Red Blood Cells % 0 %; Platelet Count 233 10^3/uL (130-400); Red Blood Cell Count 3.07 10^6/uL (4.20-5.40); Red Cell Dist. Width 15.2 % (11.5-14.5); White Blood Cell Count 13.3 10^3/uL (4.8-10.8)
[2023-11-05 04:02] LABS: INR 2.21; PT 24.4 Sec (11.4-14.6)
[2023-11-05 04:03] LABS: APTT 40.3 Sec (23.4-35.0); Fibrinogen 383 MG/DL (199-459)
[2023-11-05 04:24] LABS: ALT (SGPT) 11 U/L (0-35); AST (SGOT) 18 U/L (14-36); Albumin 2.3 g/dl (3.5-5.0); Alkaline Phosphatase 98 U/L (38-126); Blood Urea Nitrogen 16 mg/dl (7-17); Calcium 7.9 mg/dl (8.4-10.2); Carbon Dioxide 24 mmol/L (22-30); Chloride 104 mmol/L (98-107); Estimated Creatinine Clearance 64 ml/min; Glucose 133 mg/dl (70-99); Magnesium 2.1 mg/dl (1.6-2.3); Phosphorus 2.8 mg/dl (2.5-4.5); Potassium 3.3 mmol/L (3.5-5.1); Sodium 137 mmol/L (135-145); Total Bilirubin 1.7 mg/dl (0.2-1.3); Total Protein 4.5 g/dl (6.3-8.2); eGFR > 60.00
--- NOTE | 2023-11-05 06:08 | PTCARENOTE ---
All systems reassessed, pt asleep will continue to monitor.
[2023-11-05] MEDS: KCL 270 MEQ IV (06:12)
[2023-11-05] MEDS: NOVOLOG FLEXPEN-LOW RESISTANCE SC (07:16)
[2023-11-05] MEDS: PROTONIX IV 40 MG IV (08:09)
[2023-11-05] MEDS: NSS (PRESERVATIVE FREE) 10 ML IV (08:09)
[2023-11-05] MEDS: LIPITOR 40 MG PO (08:10)
[2023-11-05] MEDS: PACERONE 200 MG PO ×3 (08:11→21:32)
[2023-11-05 08:21] LABS: Direct Bilirubin 0.5 mg/dl (0.0-0.4); LDH 256 U/L (120-246)
--- NOTE | 2023-11-05 09:13 | W.PN.CARDCBS ---
Today's Communication / Plan
-
Agree with primary care service regarding starting heparin cautiously (atrial arrhythmias, DVT and PE recently) and following hemoglobin-eventually if able resume Eliquis
Await GI opinion
If no obvious GI source of anemia consider hematology assessment
Recheck EKG
Lasix 20 mg x 1 for increased volume
Impression / Plan
-
PCP: Gaurav Jensen PA-C
Cardiology: Dr. Bruce
Impression:
Admitted with fall, UTI and sepsis 11/02/23
Enterocolitis
previously identified severe left colitis 09/26/23
Fall
Marked anemia
Sinus tachycardia with PACs and short runs of PAT 11/03/23
Recent admission with DVT, PE and newly diagnosed Afib 09/26/23 until 10/02/23
Paroxysmal Afib
new diagnosis 09/26/23 that spontaneously converted 09/27/23
Chronic Eliquis OAC
Acute on chronic vs chronic B/L LE edema
cRBBB
h/o right common femoral and superficial femoral vein thrombus and B/L PE 09/26/23
Prediabetes
HTN
HLD
Iatrogenic increased volume
Echo 09/27/2023: EF 56%, stage II diastolic dysfunction, mild to moderate MR, mild TR, estimated PAP 25 to 30 mmHg
Plan:
-Complicated situation with anemia of unclear close and no overt bleeding. Hemoglobin had been down to 5.5 and received 1 unit of packed red blood cells with hemoglobin currently 9.0. Recent DVT/PE and atrial fibrillation all of which warrants
anticoagulation.
Agree with primary care service regarding starting heparin cautiously and following hemoglobin-eventually if able resume Eliquis
Await GI opinion
If no obvious GI source consider hematology assessment
-Rhythm remains sinus with bursts of A. tach/A-fib.
Continue amiodarone 200 mg p.o. 3 times daily.
Recheck EKG
-Weights are up and down and likely not reliable. Exam with increased volume
Will give 1 dose of IV Lasix and follow.
-Still with possible colitis. Followed by primary service
-Hypokalemia and prior hypomagnesemia followed by primary service. Potassium being repleted.
-Continue antibiotics
-Troponin undetectable x1
-Continue supportive care for sepsis/infection with pressor support as needed.
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
Subjective
Date of Service: November 05, 2023
She denies chest pain and palpitations. 'She feels like she is going to '.
Objective
Labs:
11/05/23 03:22
11/05/23 03:22
Labs
Hgb 9.0 g/dL (12.0-16.0) L D 11/05/23 03:22
Hct 26.4 % (37.0-47.0) L 11/05/23 03:22
Plt Count 233 10^3/uL (130-400) 11/05/23 03:22
PT 24.4 Sec (11.4-14.6) H 11/05/23 03:22
INR 2.21 11/05/23 03:22
APTT 40.3 Sec (23.4-35.0) H 11/05/23 03:22
Sodium 137 mmol/L (135-145) 11/05/23 03:22
Potassium 3.3 mmol/L (3.5-5.1) L 11/05/23 03:22
BUN 16 mg/dl (7-17) 11/05/23 03:22
Creatinine 0.6 mg/dL (0.6-1.0) 11/05/23 03:22
Glucose 133 mg/dl (70-99) H 11/05/23 03:22
Troponins
11/02/23
21:14
Troponin I < 0.012
Vital Signs and I&O:
Vital Signs
Temp Pulse Resp BP Pulse Ox
97.5 F 99 14 118/93 97
11/05/23 07:31 11/05/23 08:11 11/05/23 06:05 11/05/23 08:11 11/05/23 08:35
Vital Signs
Temp Pulse Resp BP Pulse Ox
97.5 F 99 14 118/93 97
11/05/23 07:31 11/05/23 08:11 11/05/23 06:05 11/05/23 08:11 11/05/23 08:35
Intake & Output
11/03/23 11/04/23 11/05/23 11/06/23
06:59 06:59 06:59 06:59
Intake Total 1345.0 / 1545.0 3170.0 / 3170.0 120 / 120
Output Total 250 / 250 70 / 70
Balance 1095.0 / 1295.0 3100.0 / 3100.0 120 / 120
Physical Exam
Physical Exam
General: Well developed, well nourished in NAD.
Heart: Tacky but regular
Lungs: decreased breath sounds at the bases
Extremities: No clubbing, cyanosis and +1 edema bilaterally.
Neuro: Grossly nonfocal, awake, alert
--- NOTE | 2023-11-05 09:16 | W.PN.ID1 ---
Date of Service
Date of Service: November 05, 2023
Today's Communication
- UTI ruled out - colony count in the urine is very low at 30K, not consistent with UTI
- given two episodes of colitis which appears to be assc with anatomic irregularity/stricture within 2 months, recent unprovoked DVT/PE, would purse definitive diagnosis and management of cause of possible stricture, consider colorectal surgery
involvement at some point
- switched to augmentin day 3 of rx - final duration pending course
Assessment / Plan
Colitis
- Ruled out UTI
Septic Shock - resolved
Thrombocytosis - improving
Cachexia
Intellectual disability
- UTI ruled out, very low colony count of E coli, sepsis was likely due to colitis
- agree with additional imaging, would do inpatient if feasible
- given two episodes of colitis which appears to be assc with anatomic irregularity within 2 months, recent unprovoked DVT/PE, would purse definitive diagnosis and management of cause of possible stricture, consider colorectal surgery involvement at
some point
- blood cultures x2 in progress
- urine culture in progress
- C diff negative; routine stools cultures low yield
- switched to augmentin day 3 of rx - final duration pending course
follow clinically
Chief Complaint
-: UTI and Other (shock)
Subjective / Review of Systems
afebrile
bp stable
no events overnight
s/p 1 unit transfusion with overcorrection
no complaints
Vital Signs / Physical Exam
Vital Signs
Vital Signs
Temp Pulse Resp BP Pulse Ox
97.5 F 99 14 118/93 97
11/05/23 07:31 11/05/23 08:11 11/05/23 06:05 11/05/23 08:11 11/05/23 08:35
Physical Exam
Constitutional: No Acute Distress and Chronically Ill
Cardiovascular: Regular Rate and S1/S2; Negative Murmur or Rub
Pulmonary: Clear and Symmetric; Negative Wheezes or Rales
Gastrointestinal: Soft, Non Tender, Non Distended and Normal Bowel Sounds
Genito-Urinary: Negative Suprapubic Tenderness
Skin: Warm and Dry; Negative Rash or Jaundice
Objective Data
Lab Data
Lab Results
11/05/23 03:22
11/05/23 03:22
PT 24.4 Sec (11.4-14.6) H 11/05/23 03:22
INR 2.21 11/05/23 03:22
APTT 40.3 Sec (23.4-35.0) H 11/05/23 03:22
Estimated Creat Clear 64 ml/min 11/05/23 03:22
Lactic Acid 1.6 mmol/L (0.7-2.0) 11/03/23 16:17
Total Bilirubin 1.7 mg/dl (0.2-1.3) H D 11/05/23 03:22
AST 18 U/L (14-36) 11/05/23 03:22
ALT 11 U/L (0-35) 11/05/23 03:22
Alkaline Phosphatase 98 U/L (38-126) 11/05/23 03:22
Most recent labs reviewed.
Micro Results:
11/03/23 00:48 Urine Culture - Final
Urine Escherichia coli
11/02/23 21:48 Blood Culture - Preliminary
Blood/Venous No Growth in 48 hours- Final report to follow
11/02/23 21:48 Blood Culture - Preliminary
Blood/Venous No Growth in 48 hours- Final report to follow
11/03/23 12:00 Salmonella/Shigella Culture - Preliminary
Feces/Stool Culture in Progress
Campylobacter Culture - Preliminary
Culture in Progress
Shiga Toxin Test - Pending
Stool Leukocytes - Final
11/03/23 12:00 C. difficile GDH Antigen & Toxins - Final
Feces/Stool Negative for toxigenic C.difficile
11/02/23 21:14 Influenza Types A & B (MARK) - Final
Nasal Swab Negative for Influenza A & B, NAAT
Negative results must be combined with clinical observations
and patient history.
Nucleic Acid Amplification test (NAAT)performed on the
[employer] platform.
[2023-11-05] MEDS: HEPARIN 25000 UNITS/250 ML IV (09:45)
[2023-11-05] MEDS: AUGMENTIN 875 MG/125 MG 1 TABLET PO ×2 (10:21→21:32)
[2023-11-05] MEDS: LASIX 20 MG IV (11:06)
--- NOTE | 2023-11-05 11:42 | W.PN.HOSP.TC ---
Today's Communication/Plan
-
Heparin drip and follow CBC
Check FOBT
follow potassium and magnesium q12h
Start Glucerna
GI to reeval
Assessment / Plan
Assessment / Plan
63yo F with PMHx of DM, HTN, intellectual impairment, Afib, recent diagnosis of VTE brought to the hospital after the fall, found febrile with sepsis on admisison 2/2 UTI. Also had watery diarrhea for 3 days before admission and still was
continuing. Also b/l LE swelling
A/P:
#UTI with sepsis on admission
#Colitis, enteritis
#Overflow diarrhea
never used pressors - no shock
Zosyn as per ID
Ucx - pansensitive E.coli
C.diff negative
GI consult: working on ischemic/diverticular causes
#Paroxysmal Afib with RVR
#PACs
#acute on chronic HFpEF
Cardiology follows: amiodarone
Echo in Sep - grade 2 diastolic dysfunction, severe L atrial dilation
Lasix as per cardio
#Anemia, acute on chronic
#Iron deficiency
#Anemia of chronic disease
Eliquis initially held, as per RN - no signs of bleeding with stool, bedside FOBT done - apparently neg, will repeat for official record
Heparin drip and closely follow Hgb, transfuse as needed to keep Hgb >7
#LE swelling, cannot exclude 2/2 protein-loosing enteropathy with diarrhea
Lasix PRN
GI consult for diarrhea
Advise to increase oral intake
Proteine supplements
C.diff neg
Stool Cx pending
#Indirect bilirubinemia
most likely 2/2 PRBC transfusion
check haptoglobin
LDH mildly increased, no concern for significant hemolysis
Check retics
#Hypokalemia
#Hypomagnesemia
replete and follow
#DM type 2 with neuropathy
Accuchecks, DM diet, insulin SS, hold metformin
#L pelvis demoid
PCP f/u as outpatient
#Essential HTN
held BP meds due to relative hypotension - restart low dose lisinopril
DVT ppx on Heparin drip
FUll code
I have spent at least 59min reviewing chart, test results, communicating with consultants and direct patient care
Anticipated Discharge: > 48 hours
Subjective/Interval History
-
Date of Service: November 05, 2023
Objective Data
-
Labs:
Laboratory Results
11/05/23 11/05/23 11/05/23
03:22 07:52 16:00
WBC 13.3 H
Hgb 9.0 L D
Hct 26.4 L
Plt Count 233
PT 24.4 H
INR 2.21
APTT 40.3 H Pending Pending
Sodium 137
Potassium 3.3 L Pending
Chloride 104
Carbon Dioxide 24
BUN 16
Creatinine 0.6
Glucose 133 H
Calcium 7.9 L
Total Bilirubin 1.7 H D
AST 18
ALT 11
Alkaline Phosphatase 98
Vital Signs:
Vital Signs
Temp Pulse Resp BP Pulse Ox
97.5 F 101 14 134/92 97
11/05/23 07:31 11/05/23 11:06 11/05/23 06:05 11/05/23 11:06 11/05/23 08:35
I&O
11/04/23 11/05/23 11/06/23
06:59 06:59 06:59
Intake Total 1345.0 / 1545.0 3170.0 / 3170.0 770 / 770
Output Total 250 / 250 70 / 70 200 / 200
Balance 1095.0 / 1295.0 3100.0 / 3100.0 570 / 570
Review of Systems
-
History Source: Patient
All other systems: Reviewed and negative
Physical Exam
-
General: No Apparent Distress
HEENT: Normocephalic, Atraumatic and Moist Mucous Membranes
Respiratory: Clear to Auscultation
Cardiac: Regular Rhythm
GI: Soft, Nontender and Nondistended
Genito-urinary: No Costovertebral Tender
Musculoskeletal: No Clubbing, No Cyanosis, Edema, Right Lower Extrem and Edema, Left Lower Extrem
Skin: Warm
Neuro: Awake, Alert, Oriented and AO x 3
Hematologic / Lymphatic: Lymphadenopathy
Psych: Calm
[2023-11-05] MEDS: NOVOLOG FLEXPEN-LOW RESISTANCE 1 UNITS SC (12:15)
[2023-11-05 12:21] LABS: Glucose - Point of Care 179 mg/dl (70-99)
--- NOTE | 2023-11-05 12:39 | PTCARENOTE ---
No noted changes in assessment. VS as documented. Hospitalist team, cardiology teams at bedside thru morning. Updated plan of cares. Heparin drip orders and follow up lab trends as ordered. Patient can be dc'd from contact isolation/mod. Cleared
stool and micro. Hem/Gastro occult test times two negative this shift. Stool more gelatinous and increased bulk with solid po intake. Will continue with skin cares, ongoing rounds and frequent patient safety checks. PT/OT at bedside. Patient
ambulate dowell with assist. Follow up lytes and labs as ordered. Meds with follow up via [facility].
[2023-11-05] MEDS: FERRLECIT 110 MG IV (13:52)
--- NOTE | 2023-11-05 14:15 | W.PN.GI.CBS2 ---
Today's Communication / Plan
-
Gatrograffin enema in AM
X ray today
Assessment / Plan
-
1. Left-sided colitis noted on multiple recent imaging studies from September and recent CT from 11/01 involving splenic flexure to sigmoid colon unclear if this is related to possible ischemic colitis versus segmental colitis from severe
diverticulosis versus less likely IBD, on sigmoidoscopy in September there was no evidence of obvious colitis in the rectosigmoid but because of severe narrowing in the distal sigmoid unable to pass scope beyond. When medically stable would recommend
a virtual CT or prior to DC we could do a Gastrografin enema to rule out possible neoplasm will schedule in AM . Her diarrhea could be related to overflow diarrhea given luminal narrowing seen in the distal sigmoid colon on sigmoidoscopy vs
colitis. currently has no nausea or vomiting. She did have stool studies done from admission which were negative C. difficile and cultures also neg. Abd Xray pending r/o ileus. Will attempt colonoscopy prior to DC with endoscope or pediatric
colonoscope and if still unable to traverse the stricture may need colorectal surgery consult for resection
2. Current admission is for urosepsis continue care per primary team, she had been on pressors now off of them, continue antibiotics
3. Small subcentimeter pancreatic cystic lesions probable IPMN will need repeat MRI with MRCP in 2 years
4. Anemia with elevated ferritin level most likely AOCD, currently has no overt bleeding she did have a drop in hemoglobin of almost 2 g but no rectal bleeding or melena was reported some of it could be related to IV fluids and dilution continue to
monitor and transfuse as needed. Hb improved and stable post transfusion.
5. DVT, PE and A-fib all dx in September admission, on Eliquis watch closely for any signs of GI blood loss especially given acute drop in hemoglobin and may need to hold it if continues to drop. Eliquis held and on Heparin now
Subjective
Subjective
Date of Service: November 05, 2023
Patient appears comfortable and tolerating diet no nausea or vomiting
Discussed with nurse she had a bowel movement today which appears mucousy no blood no melena
Objective
Data Reviewed
Laboratory Data:
Laboratory Results
11/05/23 03:22
Laboratory Results
PT 24.4 Sec (11.4-14.6) H 11/05/23 03:22
INR 2.21 11/05/23 03:22
APTT 40.3 Sec (23.4-35.0) H 11/05/23 03:22
Phosphorus 2.8 mg/dl (2.5-4.5) 11/05/23 03:22
Magnesium 2.1 mg/dl (1.6-2.3) 11/05/23 03:22
Total Bilirubin 1.7 mg/dl (0.2-1.3) H D 11/05/23 03:22
AST 18 U/L (14-36) 11/05/23 03:22
ALT 11 U/L (0-35) 11/05/23 03:22
Alkaline Phosphatase 98 U/L (38-126) 11/05/23 03:22
Vital Signs and I&O:
Vital Signs
Temp Pulse Resp BP Pulse Ox
98.7 F 108 22 133/89 99
11/05/23 12:37 11/05/23 12:37 11/05/23 12:37 11/05/23 12:37 11/05/23 12:38
I&O
11/04/23 11/05/23 11/06/23
06:59 06:59 06:59
Intake Total 1345.0 / 1545.0 3170.0 / 3170.0 1480 / 1480
Output Total 250 / 250 70 / 70 400 / 400
Balance 1095.0 / 1295.0 3100.0 / 3100.0 1080 / 1080
Physical Exam
Physical Exam
Cardiology: Irregular Rate/Rhythm
Pulmonary: Clear
GI: Soft, Distended (Mildly distended), Non Tender and Normal Bowel Sounds
--- NOTE | 2023-11-05 14:19 | PTCARENOTE ---
Updated assessment. Patient remains on heparin drip follow up with GI. Two negative stool for hemacult. Review stool character and color. Possible plan for follow up scope. Eating and drinking tolerates low residue diet and clears denies n/v. Does
have some frequency with stools but remains continent. Voiding post lasix dosing. For follow up lytes and labs later today as ordered. Prep for transfer to fourth floor. Will follow up with POA to bring paper work and make aware of transfer.
--- NOTE | 2023-11-05 14:22 | PTCARENOTE ---
Update with infectious disease team. Patient clear of any isolation. New antibiotics as ordered. Continue to follow and update medications and plan of cares.
[2023-11-05] MEDS: TYLENOL 650 MG PO (14:41)
--- NOTE | 2023-11-05 16:01 | PTCARENOTE ---
Updated assessment plan with [facility]east team. Prep for transfer to xray then 4th floor. Gabrielle cares and skin cares completed. Family attempts to return to bedside at this time. Reinforce policies and procedures.
--- NOTE | 2023-11-05 16:12 | CM ---
CM spoke with [facility]
Confirmed receipt of report
Case has been assigned and work will outreach to CM
Discussion with nursing/Ronnie
[facility] completed visit today
Will await outcome of [facility] plan
Pt downgraded from ICU to 4E today
PT/OT with VN recommendations
CM will continue to follow for dc planning
Discharge Disposition- anticipate home with VN and [facility] involvement
--- NOTE | 2023-11-05 16:30 | TRANSFER ---
Pt arrives from ICU. stand by assistance provided into bathroom then to bed. heparin infusing at 800 units per hour into right FA without issue. staff settling pt in and working on drawing lab work. dinner ordered. pt oriented to unit. bed low,
rails up x 3, belongings in reach, call plascencia and tv remote in hand. po hydration provided.
[2023-11-05 16:36] LABS: Glucose - Point of Care 210 mg/dl (70-99)
--- NOTE | 2023-11-05 17:15 | W.PN.UPDATE ---
Addendum entered and electronically signed by Jadyn Michel MD 11/05/23 17:18:
patient already on antibiotics
Original Note:
Update Note
Progress Note Update
11/05/23 Abdomen series
IMPRESSION:
Radiographic findings most compatible with an enterocolitis. No findings highly suspicious for a bowel obstruction.
Suspicion for intramural colonic abscesses on the recent prior CT from 11/02/2023 measuring 1.6 cm in the anterolateral wall of the distal descending colon, and 2.4 cm in the anterior wall of the proximal sigmoid colon, both associated with severe
colitis.
DW she may have abscess noted on prior CT reviewed by him, will repeat CT and DC Gastrograffin enema for now and will need to consult CRS
[2023-11-05] MEDS: NOVOLOG FLEXPEN-LOW RESISTANCE 2 UNITS SC (17:25)
[2023-11-05 18:00] LABS: Magnesium 1.6 mg/dl (1.6-2.3); Potassium 3.6 mmol/L (3.5-5.1)
[2023-11-05 18:05] LABS: APTT > 200.0 Sec (23.4-35.0)
[2023-11-05] MEDS: OMNIPAQUE 50 ML PO (18:13)
[2023-11-05 21:16] LABS: Glucose - Point of Care 193 mg/dl (70-99)
[2023-11-05 21:22] LABS: Hepatitis C Antibody Negative (Negative)
[2023-11-06 03:18] VITALS: BP 131/90
[2023-11-06 03:21] LABS: APTT 82.3 Sec (23.4-35.0)
[2023-11-06 07:31] VITALS: BP 138/85
[2023-11-06 08:14] LABS: % Basophils 0.2 % (0-2); % Eosinophils 0.3 % (0-6); % Immature Granulocytes 0.7 % (0-0.5); % Lymphocytes 5.5 % (20.5-51.1); % Monocytes 2.9 % (1.7-9.3); % Neutrophils 90.4 % (42.2-75.2); Absolute Immature Granulocytes 0.1 10^3/uL (0-0.05); Absolute Lymphocytes 0.6 10^3/uL (1.2-3.4); Absolute Monocytes 0.3 10^3/uL (0.1-0.6); Absolute Neutrophils 10.1 10^3/uL (1.4-6.5); Hematocrit 27.3 % (37.0-47.0); Hemoglobin 9.4 g/dL (12.0-16.0); Mean Corp Hgb Conc. 34.4 g/dL (33.0-37.0); Mean Corpuscular Hgb 30.1 pg (27.0-31.0); Mean Corpuscular Volume 87.5 fL (81.0-99.0); Mean Platelet Volume 9.3 fL (7.4-10.4); Nucleated Red Blood Cells % 0 %; Platelet Count 205 10^3/uL (130-400); Red Blood Cell Count 3.12 10^6/uL (4.20-5.40); Red Cell Dist. Width 15.6 % (11.5-14.5); Reticulocyte Count 1.7 % (0.4-2.8); White Blood Cell Count 11.2 10^3/uL (4.8-10.8)
[2023-11-06] MEDS: NOVOLOG FLEXPEN-LOW RESISTANCE SC ×2 (08:15→12:45)
[2023-11-06 08:18] LABS: Glucose - Point of Care 127 mg/dl (70-99)
[2023-11-06 08:44] LABS: INR 1.53; PT 18.3 Sec (11.4-14.6)
[2023-11-06 08:46] LABS: APTT 71.7 Sec (23.4-35.0)
[2023-11-06 08:57] LABS: ALT (SGPT) 12 U/L (0-35); AST (SGOT) 13 U/L (14-36); Albumin 2.2 g/dl (3.5-5.0); Alkaline Phosphatase 133 U/L (38-126); Blood Urea Nitrogen 12 mg/dl (7-17); Calcium 7.8 mg/dl (8.4-10.2); Carbon Dioxide 25 mmol/L (22-30); Chloride 104 mmol/L (98-107); Estimated Creatinine Clearance 64 ml/min; Glucose 116 mg/dl (70-99); Magnesium 1.6 mg/dl (1.6-2.3); Potassium 3.3 mmol/L (3.5-5.1); Sodium 136 mmol/L (135-145); Total Bilirubin 0.6 mg/dl (0.2-1.3); Total Protein 4.5 g/dl (6.3-8.2); eGFR > 60.00
[2023-11-06] MEDS: NSS (PRESERVATIVE FREE) 10 ML IV (09:35)
[2023-11-06] MEDS: PACERONE 200 MG PO ×3 (09:36→22:10)
[2023-11-06] MEDS: ZESTRIL 5 MG PO (09:36)
[2023-11-06] MEDS: LIPITOR 40 MG PO (09:36)
[2023-11-06] MEDS: PROTONIX IV 40 MG IV (09:36)
[2023-11-06] MEDS: ZOSYN 50 IV (09:52)
[2023-11-06] MEDS: HEPARIN 1700 UNITS IV (10:00)
[2023-11-06] MEDS: MAGNESIUM SULFATE 50 IV (10:15)
--- NOTE | 2023-11-06 11:34 | CON.ONC ---
Impression
Impression
colitis/abscess
DVT/PE, late September 2023, likely provoked secondary to colitis
pAfib
intellectual disability
Plan
Plan
With recent DVT and PE, would recommend retrievable IVC filter if surgery is planned
If she declines surgery, would continue heparin --> Eliquis as she'll be at ongoing risk for VTE and w/ parox afib
I stopped IV iron - labs are c/w anemia of chronic disease not iron deficiency
Will sign off, please call w/ questions
Patient History
History of Present Illness
Asked to see patient re: consideration for IVC filter
She was admitted in September 2023 with N/V, weight loss and LE edema. She was found to have extensive RLE DVT, bilateral PE w/ right heart strain, new afib w/ RVR, and severe left sided colitis. After hospital stay, she was discharged on Eliquis.
She is now readmitted with enterocolitis and abdominal abscess, colectomy is being considered.
Patient tells me, 'I'm not having any surgery!'
Past-Medical/Surgical History
Past Medical History
Past Medical History: Other (HTN, Hypercholesterolemia, NIDDM and Other (Intellectual disability), DVT, PE, A.fib, mild CHF/HFpEF,Left ovarian dermoid cyst, Right adrenal adenoma, Small pancreatic cystic lesion/IPMN)
Past Surgical History: Other (Ovarian cyst removal)
Social History
Tobacco: Non-Smoker
Alcohol: None
Drug: None
Living: With Family
Family History
Family History: N/C
Patient Medication
�Medication �Instructions �Recorded �Confirmed �Last Taken �Type
atorvastatin 40 mg tablet 40 mg PO DAILY High Cholesterol 09/26/23 11/03/23 11/02/23 History
lisinopril 20 mg tablet 10 mg PO DAILY Blood Pressure 09/26/23 11/03/23 11/02/23 History
apixaban 5 mg tablet (Eliquis) 5 mg PO BID 30 days #60 tabs 10/02/23 11/03/23 11/03/23 Rx
5
metformin 500 BID Diabetes 11/03/23 11/03/23 11/02/23 History
metoprolol succinate 50 mg BID Heart Disease/Condition 11/03/23 11/03/23 11/02/23 History
Active Medications
Generic Name Dose Route Start Last Admin
Trade Name Freq PRN Reason Stop Dose Admin
Acetaminophen 650 mg 11/03/23 03:26 11/05/23 14:41
Acetaminophen 325 Mg Tablet PO 12/01/23 03:25 650 mg
Q4HPRN PRN Administration
WALKER/mild pain/temp > 100.4 F
Acetaminophen 650 mg 11/03/23 03:26
Acetaminophen 650 Mg Rectal Suppository RECTAL 12/01/23 03:25
Q4HPRN PRN
WALKER/ mild pain/ temp >/= 100.4F
Amiodarone HCl 200 mg 11/03/23 16:00 11/06/23 09:36
Amiodarone 200 Mg Tablet PO 12/01/23 15:59 200 mg
TID MENDEZ Administration
Atorvastatin Calcium 40 mg 11/03/23 08:00 11/06/23 09:36
Atorvastatin (Lipitor) 40 Mg Tablet PO 12/01/23 07:59 40 mg
DAILY MENDEZ Administration
Dextrose 12.5 grams 11/03/23 04:00
Dextrose 50% (0.5 Grams/Ml) 50 Ml Syringe IV 12/01/23 03:59
[id number] PRN
hypoglycemia
Protocol
Glucagon 1 mg 11/03/23 04:00
Glucagon 1 Mg Vial IM 12/01/23 03:59
PRN PRN
hypoglycemia - no IV access
Protocol
Heparin Sodium 3,500 units 11/06/23 09:35
Heparin 80 Units/Kg Iv Rebolus IV 12/04/23 09:34
PRN PRN
PTT < OR = 64 seconds
Heparin Sodium 1,700 units 11/06/23 09:36 11/06/23 10:00
Heparin 40 Units/Kg Iv Rebolus IV 12/04/23 09:35 1,700 units
PRN PRN Administration
PTT = 64.1 to 72.9 seconds
Heparin Sodium 25,000 units in 250 mls @ 0 mls/hr 11/05/23 08:00 11/05/23 09:45
Heparin 41511 Units/250 Ml IV 250 mls
PER PROTOCOL MENDEZ Administration
Protocol
Per Protocol
Piperacillin Sod/Tazobactam Sod 3.375 gram in 50 mls @ 100 mls/hr 11/06/23 08:00 11/06/23 09:52
Zosyn IV 50 mls
Q6H MENDEZ Administration
Insulin Aspart 0 units 11/03/23 07:30 11/06/23 08:15
Insulin Aspart Low Resistance 300 Units/3 Ml Pen.Injctr SC 12/01/23 07:29 Not Given
AC MENDEZ
Protocol
Lisinopril 5 mg 11/06/23 08:00 11/06/23 09:36
Lisinopril 5 Mg Tablet PO 12/04/23 07:59 5 mg
DAILY MENDEZ Administration
Ondansetron HCl 4 mg 11/03/23 03:26
Ondansetron 4 Mg/2 Ml Vial IV 12/01/23 03:25
Q6HPRN PRN
NAUSEA/VOMITING
Pantoprazole Sodium 40 mg 11/03/23 08:00 11/06/23 09:36
Pantoprazole Sodium 40 Mg/10 Ml Vial IV 12/01/23 07:59 40 mg
DAILY MENDEZ Administration
Sodium Chloride 0 flush 11/03/23 01:00
Sodium Chloride 0.9% (Flush) Syringe IV 12/01/23 00:59
PER PROTOCOL MENDEZ
Sodium Chloride 10 ml 11/03/23 08:00 11/06/23 09:35
Sodium Chloride 0.9% (Preservative Free) 10 Ml Vial IV 12/01/23 07:59 10 ml
DAILY MENDEZ Administration
Review of Systems
-
All Other Systems: Not reviewed unless documented
Physical Exam
-
General: No Apparent Distress and Comfortable; Negative Appears in Distress
Cardiology: Irregular Rate/Rhythm
Extremities: No C/C/E
Neurology: Non Focal and No Lateralizing Symptoms
Skin: Warm and Dry
Labs
Lab Results
WBC 11.2 10^3/uL (4.8-10.8) H 11/06/23 08:00
RBC 3.12 10^6/uL (4.20-5.40) L 11/06/23 08:00
Hgb 9.4 g/dL (12.0-16.0) L 11/06/23 08:00
Hct 27.3 % (37.0-47.0) L 11/06/23 08:00
MCV 87.5 fL (81.0-99.0) 11/06/23 08:00
MCH 30.1 pg (27.0-31.0) 11/06/23 08:00
MCHC 34.4 g/dL (33.0-37.0) 11/06/23 08:00
RDW 15.6 % (11.5-14.5) H 11/06/23 08:00
Plt Count 205 10^3/uL (130-400) 11/06/23 08:00
MPV 9.3 fL (7.4-10.4) 11/06/23 08:00
Abs Immat Gran (auto) 0.1 10^3/uL (0-0.05) H 11/06/23 08:00
Absolute Neuts (auto) 10.1 10^3/uL (1.4-6.5) H 11/06/23 08:00
Absolute Lymphs (auto) 0.6 10^3/uL (1.2-3.4) L 11/06/23 08:00
Absolute Monos (auto) 0.3 10^3/uL (0.1-0.6) 11/06/23 08:00
Absolute Eos (auto) 0.0 10^3/uL (0-0.7) 11/06/23 08:00
Absolute Basos (auto) 0.0 10^3/uL (0-0.2) 11/06/23 08:00
Immature Gran % 0.7 % (0-0.5) H 11/06/23 08:00
Neutrophils % 90.4 % (42.2-75.2) H 11/06/23 08:00
Lymphocytes % 5.5 % (20.5-51.1) L 11/06/23 08:00
Monocytes % 2.9 % (1.7-9.3) 11/06/23 08:00
Eosinophils % 0.3 % (0-6) 11/06/23 08:00
Basophils % 0.2 % (0-2) 11/06/23 08:00
Creatinine 0.6 mg/dL (0.6-1.0) 11/06/23 08:00
Vital Signs
Vital Signs
Temp Pulse Resp BP Pulse Ox
98.7 F 100 18 136/80 96
11/06/23 07:31 11/06/23 09:36 11/06/23 07:31 11/06/23 09:36 11/06/23 07:31
[2023-11-06 11:57] VITALS: BP 128/89
--- NOTE | 2023-11-06 12:36 | W.PN.HOSP.TC ---
Today's Communication/Plan
-
zosyn
patient and family working with Colorectal Sx for options
Assessment / Plan
Assessment / Plan
63yo F with PMHx of DM, HTN, intellectual impairment, Afib, recent diagnosis of VTE brought to the hospital after the fall, found febrile with sepsis on admisison 2/2 UTI. Also had watery diarrhea for 3 days before admission and still was
continuing. Also b/l LE swelling
A/P:
#Colitis, enteritis with abdominal abscess
#pSBO
Zosyn
Patient tolerating diet and has liquis bowel movement
COlorectalSx: options are resection vs perc drain. Unfortunately with possibility of underlying malignancy and further need for definite surgical intervention - surgical approach would be more favorable. Patient will need periOP IVCf and PICC. PoA
and patient will make decision for selection of the further management. Hospice also an option. This discussed with PoA on 11/06/23
C.diff negative
GI consult: working on ischemic/diverticular causes
#UTI with sepsis on admission
#Overflow diarrhea
never used pressors - no shock
Ucx - pansensitive E.coli
#Paroxysmal Afib with RVR
#PACs
#acute on chronic HFpEF
Cardiology follows: amiodarone
Echo in Sep - grade 2 diastolic dysfunction, severe L atrial dilation
Lasix as per cardio
#Recent VTE, provoked
#Anemia of chronic disease
Eliquis initially held, as per RN - no signs of bleeding with stool, bedside FOBT done - apparently neg, will repeat for official record
Heparin drip and closely follow Hgb, transfuse as needed to keep Hgb >7
Onc followed: recommended periOP IVCf
#LE swelling, cannot exclude 2/2 protein-loosing enteropathy with diarrhea
Lasix PRN
GI consult for diarrhea
Advise to increase oral intake
Proteine supplements
C.diff neg
Stool Cx pending
#Indirect bilirubinemia
most likely 2/2 PRBC transfusion
check haptoglobin
LDH mildly increased, no concern for significant hemolysis
Check retics
#Hypokalemia
#Hypomagnesemia
replete and follow
#DM type 2 with neuropathy
Accuchecks, DM diet, insulin SS, hold metformin
#L pelvis demoid
PCP f/u as outpatient
#Essential HTN
held BP meds due to relative hypotension - restart low dose lisinopril
DVT ppx on Heparin drip
FUll code
I have spent at least 59min reviewing chart, test results, communicating with consultants and direct patient care
Anticipated Discharge: > 48 hours
Subjective/Interval History
-
Date of Service: November 06, 2023
Objective Data
-
Labs:
Laboratory Results
11/06/23 11/06/23 11/06/23
08:00 15:45
WBC 11.2 H
Hgb 9.4 L
Hct 27.3 L
Plt Count 205
PT 18.3 H
INR 1.53
APTT 82.3 H 71.7 H Pending
Sodium 136
Potassium 3.3 L
Chloride 104
Carbon Dioxide 25
BUN 12
Creatinine 0.6
Glucose 116 H
Calcium 7.8 L
Total Bilirubin 0.6 D
AST 13 L
ALT 12
Alkaline Phosphatase 133 H
Vital Signs:
Vital Signs
Temp Pulse Resp BP Pulse Ox
98.5 F 105 22 128/89 97
11/06/23 11:57 11/06/23 11:57 11/06/23 11:57 11/06/23 11:57 11/06/23 11:57
I&O
11/05/23 11/06/23 11/07/23
06:59 06:59 06:59
Intake Total 3170.0 / 3170.0 2480 / 2480
Output Total 70 / 70 900 / 900
Balance 3100.0 / 3100.0 1580 / 1580
Review of Systems
-
History Source: Patient
All other systems: Reviewed and negative
Physical Exam
-
General: No Apparent Distress
HEENT: Moist Mucous Membranes
Respiratory: Clear to Auscultation
Cardiac: Regular Rhythm
GI: Soft, Nontender and Nondistended
Musculoskeletal: No Clubbing, No Cyanosis and No Edema
Neuro: Awake and Oriented
Psych: Other (intellectual disability)
[2023-11-06 12:47] LABS: Glucose - Point of Care 96 mg/dl (70-99)
--- NOTE | 2023-11-06 13:08 | CON.CRS ---
Consultation
-
Date/Time Consultation Requested: 11/06/2023, 07:12
Date/Time Consultation Performed: 11/06/2023, 08:30
Requesting Provider: Shawn Solorio MD
Performing Provider: Chandana Rose
Reason for Consultation: colitis
Medical History
-
Chief Complaint: abdominal pain
History of Present Illness:
63-year-old female, with a history of DVT/PE, diabetes type 2, intellectual developmental delay, A-fib on Eliquis, hypertension, hyperlipidemia, and colitis, presents to the ER on 11/03/2023 complaining of loose stools and diarrhea for 2 or 3 days.
Associated with this was left lower quadrant pain. She denies any bleeding in her stool. She denies any nausea or vomiting. She did have a decreased appetite and reduced oral intake. Despite this she has high urine output. She also had
complained upon admission of difficulty putting on her shoes and bilateral lower extremity edema as well as a recent fall. She was previously admitted from 09/26/2023 to 10/02/2023. During that admission she was diagnosed with A-fib which required a
rapid response and was found to have a bilateral pulmonary embolus as well as a right lower extremity DVT. Thus, she was placed on Eliquis 10 mg twice a day.
On admission to the ER she was febrile with a temperature of 101.0. Her blood pressure was 88/56 and she was tachycardic in the 120s. CT of the head and C-spine it was negative. CT of the abdomen and pelvis showed colitis from the splenic flexure
to the distal sigmoid colon. A urinalysis revealed a UTI. Zosyn was started. Given the findings on CT, gastroenterology was consulted. She did have a sigmoidoscopy in September 2023 and there is no evidence of obvious colitis in the rectosigmoid
but because of severe narrowing in the distal sigmoid, the scope was not able to be passed. GI had been considering a Gastrografin enema versus another colonoscopy during this admission. A repeat CAT scan was performed yesterday due to continuing
symptoms. CT showed a crescentic [place] elongated abnormal fluid collection measuring at least 7 cm in the left lower abdomen adjacent to suspected sigmoid colitis and secondarily inflamed partial obstruction proximal to the mid small bowel
containing bubbles of air suspicious for abscess. Given these findings, we have been consulted for further surgical recommendations.
Past Medical History
Past Medical History: Arrhythmias (afib), CHF, HTN, NIDDM and Other (intellectual development delay, PE/RLE DVT, chronic anemia)
Past Surgical History: Other (Ovarian cyst mass removal (1999), hernia repair at age 3)
Social History
Tobacco: Non-Smoker
Alcohol: None
Drug: None
Family History
Family History: Reviewed & Not Pertinent
Allergies / Home Medications
Allergy/AdvReac Type Severity Reaction Status Date / Time
No Known Allergies Allergy Verified 09/26/23 11:41
�Medication �Instructions �Recorded �Confirmed �Type
atorvastatin 40 mg tablet 40 mg PO DAILY High Cholesterol 09/26/23 11/03/23 History
lisinopril 20 mg tablet 10 mg PO DAILY Blood Pressure 09/26/23 11/03/23 History
apixaban 5 mg tablet (Eliquis) 5 mg PO BID 30 days #60 tabs 10/02/23 11/03/23 Rx
metformin 500 BID Diabetes 11/03/23 11/03/23 History
metoprolol succinate 50 mg BID Heart Disease/Condition 11/03/23 11/03/23 History
Review of Systems
-
History Source: Patient
All other systems: Negative unless noted
Abdomen/GI: Abdominal Pain and Diarrhea
A 10 point review of systems was completed, and was negative except as per HPI.
Physical Exam
Vital Signs
Temp 98.5 F 11/06/23 11:57
Pulse 105 11/06/23 11:57
Resp Rate 22 11/06/23 11:57
Blood pressure 128/89 11/06/23 11:57
SaO2 97 11/06/23 11:57
11/05/23 11/06/2311/06/24
06:59 06:59 06:59
Actual Weight 43.3 kg
Body Mass Index (BMI) 18.6
Lab Results / Allergies
11/06/23 08:00
11/06/23 08:00
WBC 11.2 10^3/uL (4.8-10.8) H 11/06/23 08:00
Hgb 9.4 g/dL (12.0-16.0) L 11/06/23 08:00
Hct 27.3 % (37.0-47.0) L 11/06/23 08:00
Plt Count 205 10^3/uL (130-400) 11/06/23 08:00
Abs Immat Gran (auto) 0.1 10^3/uL (0-0.05) H 11/06/23 08:00
Neutrophils % 90.4 % (42.2-75.2) H 11/06/23 08:00
Allergy/AdvReac Type Severity Reaction Status Date / Time
No Known Allergies Allergy Verified 09/26/23 11:41
Physical Exam
General: Well Developed and Well Nourished
GI: Soft, Non Tender and Tender (mild LLQ)
Skin: Warm and Dry
Neuro: AO x 3
Psych: Calm
Data Reviewed
-
CT Scan: Image Personally Visualized and interpreted, Report Reviewed by me and Discussed with Patient
Labs: Labs Reviewed by me, Discussed with Physician and Discussed with Patient
Old Records: Reviewed
Assessment / Plan
-
Assessment: 63-year-old female with a history of intellectual disability and recent DVT with PE and atrial fibrillation on Eliquis, found to have urosepsis due to UTI and an abnormal fluid collection measuring at least 7 cm the left lower abdomen
adjacent to suspected sigmoid colitis and at least partially obstructed proximal to mid small bowel containing bubbles of air suspicious for abscess
Plan:
CT is concerning given that she has not improved for a month radiographically. Most recent CT shows an abscess indicating that is worsening and a partial small bowel obstruction possibly from the secondarily. 1 option would be have IR put a drain
in however this may not avoid surgery. Another option is an open left colectomy with colostomy with a most likely permanent colostomy. When this was discussed with the patient, the patient verbalized several times 'I do not want surgery!'. We
will attempt to reach out to her sister who is the power of ip attorney to discuss the above options. Will discuss with vascular regarding whether or not she needs an IVC filter given her recent PE. If the family does not want surgery. Then an IR
drain may help temporarily. Will reach out to the other specialist involved to decide what is the best course of action for this patient as well as explained options to the POA. Plans to follow.
--- NOTE | 2023-11-06 14:11 | W.PN.CARDCBS ---
Addendum entered and electronically signed by Cameron Aguila MD 11/06/23 15:52:
I saw and examined the patient.
The Directory Assistance Operator's note was reviewed and I agree with the note.
Comment: Briefly, 63-year-old woman past medical history of atrial fibrillation and recent DVT/PE on Eliquis who presented with sepsis. CT abdomen pelvis concerning for abscess adjacent to the sigmoid colon. Ongoing consideration of operative
management and cardiology is asked to comment on this.
Not at prohibitive risk to proceed with surgery: no active ACS, decompensated heart failure, high-grade valve disease or uncontrolled arrhythmia
In regards to her atrial fibrillation, would continue amiodarone
Heparin drip for cardioembolic prophylaxis with eventual transition back to Eliquis
Rest per Shikha Woodruff
Original Note:
Today's Communication / Plan
-
Cont amiodarone load
Impression / Plan
-
PCP: Gaurav Jensen PA-C
Cardiology: Dr. Bruce
Impression:
Admitted with fall, UTI and sepsis 11/02/23
Possible sigmoid colitis
previously identified severe left colitis 09/26/23
Fall
Marked anemia
Sinus tachycardia with PACs and short runs of PAT 11/03/23
Recent admission with DVT, PE and newly diagnosed Afib 09/26/23 until 10/02/23
Paroxysmal Afib
new diagnosis 09/26/23 that spontaneously converted 09/27/23
Chronic Eliquis OAC
Acute on chronic vs chronic B/L LE edema
cRBBB
h/o right common femoral and superficial femoral vein thrombus and B/L PE 09/26/23
Prediabetes
HTN
HLD
Iatrogenic increased volume
Echo 09/27/2023: EF 56%, stage II diastolic dysfunction, mild to moderate MR, mild TR, estimated PAP 25 to 30 mmHg
Plan:
Patient was seen by colorectal surgery service 11/06/23 and there is concern that her abdominal CT changes have not improved and that the most recent Ct suggests an abscess and partial SBO. CRS team outlines options of IR and drain vs open left
colectomy with likely permanent colostomy vs hospice.
-From a cardiac standpoint, patient with preserved EF, no significant valvular heart disease and no chest pain or unstable symptoms. Patient can proceed with any of the above scenarios at moderate risk and without further cardiac testing. Would
recommend telemetry and to maintain Hg greater than 8.
-Heparin gtt running for recent DVT/PE 09/2023 and h/o pAfib.
-Patient was newly diagnosed Afib 09/2023 and now tele shows sinus tachycardia and PACs and short runs of Atach. New to amiodarone 200 mg TID and patient has received 1.8 gram load as of 11/06/23.
-Outpatient dose of Toprol XL 50 mg BID initially held due to hypotension.
-Outpatient dose of lisinopril decreased to 5 mg daily due to hypotension on admission
HPI: Patient came to [facility] last night after a fall at home and cardiology is now consulted for abnormal telemetry and chronic OAC. Patient was just admitted to 09/26/23 until 10/02/23 with new DVT and PE. Cardiology was consulted at that time foe
new Afib that spontaneously converted to SR. Eliquis 5 mg BID started. Patient was also diuresed with Lasix 20 mg IV x1, but patient was not discharged to home on diuretic due to hypotension. Patient came to hospital f/u visit at cardiology office
10/26/23 and appeared to be euvolemic and patient's sister thought her LE edema was improved. Lisinopril dose was decreased to 10 mg daily due to hypotension. Also, Toprol XL was increased to 50 mg BID due to rapid HR, but patient was in SR on ECG. 7
day monitor applied that is not yet resulted. Patient came back to [facility] last night after a fall at home. Patient with sepsis, shock and UTI on admission. Levophed started overnight, but now stopped. Patient started on IV antibiotics. Cardiology
consulted for tele review that looked like possible recurrent Afib with RVR. Patient denies palpitations. No chest pain or SOB
Progress Note - Metal Tank Erector
Subjective
Date of Service: November 06, 2023
No pain or palpitations
Objective
Labs:
11/06/23 08:00
11/06/23 08:00
Labs
Hgb 9.4 g/dL (12.0-16.0) L 11/06/23 08:00
Hct 27.3 % (37.0-47.0) L 11/06/23 08:00
Plt Count 205 10^3/uL (130-400) 11/06/23 08:00
PT 18.3 Sec (11.4-14.6) H 11/06/23 08:00
INR 1.53 11/06/23 08:00
APTT 71.7 Sec (23.4-35.0) H 11/06/23 08:00
Sodium 136 mmol/L (135-145) 11/06/23 08:00
Potassium 3.3 mmol/L (3.5-5.1) L 11/06/23 08:00
BUN 12 mg/dl (7-17) 11/06/23 08:00
Creatinine 0.6 mg/dL (0.6-1.0) 11/06/23 08:00
Glucose 116 mg/dl (70-99) H 11/06/23 08:00
Vital Signs and I&O:
Vital Signs
Temp Pulse Resp BP Pulse Ox
98.5 F 105 22 128/89 97
11/06/23 11:57 11/06/23 11:57 11/06/23 11:57 11/06/23 11:57 11/06/23 11:57
Vital Signs
Temp Pulse Resp BP Pulse Ox
98.5 F 105 22 128/89 97
11/06/23 11:57 11/06/23 11:57 11/06/23 11:57 11/06/23 11:57 11/06/23 11:57
Intake & Output
11/04/23 11/05/23 11/06/23 11/07/23
06:59 06:59 06:59 06:59
Intake Total 1345.0 / 1545.0 3170.0 / 3170.0 2480 / 2480
Output Total 250 / 250 70 / 70 900 / 900
Balance 1095.0 / 1295.0 3100.0 / 3100.0 1580 / 1580
Physical Exam
Physical Exam
GEN: NAD
HEENT: MMM, wearing glasses
LUNGS: No audible wheeze
CV: SR with PACs and short runs of Atach on tele
EXT: +1-2 pitting B/L LE edema
NEURO: Gross non-focal
SKIN: No rash
[2023-11-06] MEDS: KCL 40 MEQ PO (14:28)
--- NOTE | 2023-11-06 15:00 | W.PN.GI.CBS2 ---
Today's Communication / Plan
-
Continue Zosyn
Await family decision regarding GOC/surgery
Assessment / Plan
-
1. Left-sided colitis noted on multiple recent imaging studies from September and recent CT from 11/01 and 11/04 involving splenic flexure to sigmoid colon unclear if this is related to possible ischemic colitis versus segmental colitis from severe
diverticulosis versus less likely IBD cannot r/o malignant stricture, on sigmoidoscopy in September there was no evidence of obvious colitis in the rectosigmoid but because of severe narrowing in the distal sigmoid unable to pass scope beyond. Her
diarrhea could be related to overflow diarrhea given luminal narrowing seen in the distal sigmoid colon on sigmoidoscopy vs colitis. currently has no nausea or vomiting. She did have stool studies done from admission which were negative C.
difficile and cultures also neg. repeat CT from yesterday concerning for large abscess and partial small bowel obstruction. Discussed with Dr. Rose and other consultants at length option would be resection and colostomy versus temporary IR drain
and eventual resection and since patient is currently refusing surgery then the option would be hospice. I discussed at length with her sister who is her POA at bedside and her [id number] they are going to talk to the patient and see if she
would be agreeable for surgery. Continue Zosyn; she is currently on heparin and Eliquis has been held and may also need filter prior to surgery.
2. Current admission is for urosepsis continue care per primary team, she had been on pressors now off of them, continue antibiotics
3. Small subcentimeter pancreatic cystic lesions probable IPMN will need repeat MRI with MRCP in 2 years
4. Anemia with elevated ferritin level most likely AOCD, currently has no overt bleeding she did have a drop in hemoglobin of almost 2 g but no rectal bleeding or melena was reported some of it could be related to IV fluids and dilution continue to
monitor and transfuse as needed. Hb improved and stable post transfusion.
5. DVT, PE and A-fib all dx in September admission, on Eliquis watch closely for any signs of GI blood loss especially given acute drop in hemoglobin and may need to hold it if continues to drop. [place] held and on Heparin now
Subjective
Subjective
Date of Service: November 06, 2023
Patient denies abdominal pain but noted results from the CT last night there is evidence of colitis and abscess and partial small bowel obstruction
Still has loose mucousy bowel movements no rectal bleeding negative for occult blood
Objective
Data Reviewed
Laboratory Data:
Laboratory Results
11/06/23 08:00
11/06/23 08:00
Laboratory Results
PT 18.3 Sec (11.4-14.6) H 11/06/23 08:00
INR 1.53 11/06/23 08:00
APTT 71.7 Sec (23.4-35.0) H 11/06/23 08:00
Phosphorus 2.8 mg/dl (2.5-4.5) 11/05/23 03:22
Magnesium 1.6 mg/dl (1.6-2.3) 11/06/23 08:00
Total Bilirubin 0.6 mg/dl (0.2-1.3) D 11/06/23 08:00
AST 13 U/L (14-36) L 11/06/23 08:00
ALT 12 U/L (0-35) 11/06/23 08:00
Alkaline Phosphatase 133 U/L (38-126) H 11/06/23 08:00
Vital Signs and I&O:
Vital Signs
Temp Pulse Resp BP Pulse Ox
98.5 F 105 22 128/89 97
11/06/23 11:57 11/06/23 11:57 11/06/23 11:57 11/06/23 11:57 11/06/23 11:57
I&O
11/05/23 11/06/23 11/07/23
06:59 06:59 06:59
Intake Total 3170.0 / 3170.0 2480 / 2480
Output Total 70 / 70 900 / 900
Balance 3100.0 / 3100.0 1580 / 1580
11/05/23 CT abdomen and pelvis
IMPRESSION:
Findings at least for crescentic/curvilinear elongated abnormal fluid collection measuring at least 7 cm in the left lower abdomen adjacent to suspected sigmoid colitis and secondarily inflamed partially obstructed proximal to mid small bowel
containing bubbles of air, suspicious for abscess.
Oral contrast only opacifying stomach and proximal to mid small bowel, possibly partially obstructed in the left abdomen.
No free air.
New small bilateral pleural effusions.
Suspected small volume free fluid in the dependent true pelvis.
No additional significant interval change in comparison to recent prior study, as detailed above.
Physical Exam
Physical Exam
Cardiology: Normal Sinus Rhythm
Pulmonary: Clear
GI: Soft, Distended (especially in upper abdomen) and Normal Bowel Sounds
[2023-11-06 15:06] VITALS: BP 130/94
--- NOTE | 2023-11-06 15:42 | W.PN.ID1 ---
Date of Service
Date of Service: November 06, 2023
Today's Communication
- c/w augmentin day 4 of Rx, if patient is planned for the OR can switch to unasyn the AM of the procedure
follow clinically
Assessment / Plan
Colitis
Septic Shock - resolved
Thrombocytosis - improving
Cachexia
Intellectual disability
- UTI ruled out, very low colony count of E coli, sepsis was likely due to colitis
- given two episodes of colitis which appears to be assc with anatomic irregularity within 2 months, recent unprovoked DVT/PE, would purse definitive diagnosis and management of cause of possible stricture
- appreciate colorectal surgery, GI and consultants input
- c/w augmentin day 4 of Rx, if patient is planned for the OR can switch to unasyn the AM of the procedure
follow clinically
Chief Complaint
-: UTI and Other (shock)
Subjective / Review of Systems
afebrile
no further abdominal pain
discussed at length with sister (ELIJAH) and seems that patient will likely become agreeable for the surgey
Vital Signs / Physical Exam
Vital Signs
Vital Signs
Temp Pulse Resp BP Pulse Ox
98.5 F 105 22 128/89 97
11/06/23 11:57 11/06/23 11:57 11/06/23 11:57 11/06/23 11:57 11/06/23 11:57
Physical Exam
Constitutional: No Acute Distress, Chronically Ill and Cachetic
Cardiovascular: Regular Rate and S1/S2; Negative Murmur or Rub
Pulmonary: Clear and Symmetric; Negative Wheezes or Rales
Gastrointestinal: Soft, Non Tender, Non Distended and Normal Bowel Sounds
Skin: Warm and Dry; Negative Rash or Jaundice
Objective Data
Lab Data
Lab Results
11/06/23 08:00
11/06/23 08:00
PT 18.3 Sec (11.4-14.6) H 11/06/23 08:00
INR 1.53 11/06/23 08:00
APTT 71.7 Sec (23.4-35.0) H 11/06/23 08:00
Estimated Creat Clear 64 ml/min 11/06/23 08:00
Lactic Acid 1.6 mmol/L (0.7-2.0) 11/03/23 16:17
Total Bilirubin 0.6 mg/dl (0.2-1.3) D 11/06/23 08:00
AST 13 U/L (14-36) L 11/06/23 08:00
ALT 12 U/L (0-35) 11/06/23 08:00
Alkaline Phosphatase 133 U/L (38-126) H 11/06/23 08:00
Most recent labs reviewed.
Micro Results:
11/02/23 21:48 Blood Culture - Preliminary
Blood/Venous No Growth in 72 hours- Final report to follow
11/02/23 21:48 Blood Culture - Preliminary
Blood/Venous No Growth in 72 hours- Final report to follow
11/03/23 12:00 Salmonella/Shigella Culture - Final
Feces/Stool No Salmonella, Shigella, Aeromonas or Plesiomonas species
isolated.
Campylobacter Culture - Final
No Campylobacter species isolated.
Shiga Toxin Test - Final
No E. coli Shiga Toxin 1 or 2 detected.
Stool Leukocytes - Final
11/03/23 00:48 Urine Culture - Final
Urine Escherichia coli
11/03/23 12:00 C. difficile GDH Antigen & Toxins - Final
Feces/Stool Negative for toxigenic C.difficile
11/02/23 21:14 Influenza Types A & B (MARK) - Final
Nasal Swab Negative for Influenza A & B, NAAT
Negative results must be combined with clinical observations
and patient history.
Nucleic Acid Amplification test (NAAT)performed on the
[employer] platform.
Care Review
Plan reviewed with: Physician (all consulting MDs via group tiger text )
[2023-11-06] MEDS: ZOSYN IV ×2 (15:47→15:50)
[2023-11-06 16:05] VITALS: BP 136/89; PULSE 111
[2023-11-06] MEDS: UNASYN IV ×2 (16:13→22:11)
[2023-11-06 16:56] LABS: Glucose - Point of Care 197 mg/dl (70-99)
[2023-11-06] MEDS: NOVOLOG FLEXPEN-LOW RESISTANCE 1 UNITS SC (17:00)
--- NOTE | 2023-11-06 17:07 | CM ---
Records requested by Joanie at [facility] (phone [phone]). Faxed to [phone].
Met with family, assisted with coordinating meeting with Dr. Rose to discuss surgical plans.
CM to continue to follow.
--- NOTE | 2023-11-06 19:26 | PTCARENOTE ---
Received patient this am AAOx3. Pt anxious an forgetful at times. Pt has cognitive deficit. OOB to chair an tolerated well. Tolerated diet well. K 3.3 Pt medicated with 40 meq po potassium. Magnesium 1.6 Pt medicated with Magnesium rider as
ordered. Pt offered no complaints. Made patient comfortable. Cont to assess patient status.
[2023-11-06 20:15] LABS: Haptoglobin 319 mg/dL (30-200)
[2023-11-06 20:27] VITALS: BP 148/98
[2023-11-06 21:43] LABS: Glucose - Point of Care 161 mg/dl (70-99)
[2023-11-06] MEDS: HEPARIN 25000 UNITS/250 ML IV (22:14)
[2023-11-07] VITALS (9 sets, daily range): BP systolic 122–152; BP diastolic 80–93; PULSE 96–101; O2SAT 98
[2023-11-07 00:08] LABS: APTT 63.7 Sec (23.4-35.0)
[2023-11-07] MEDS: HEPARIN 3500 UNITS IV ×2 (00:54→16:54)
[2023-11-07] MEDS: UNASYN IV ×4 (03:07→21:50)
[2023-11-07 07:23] LABS: Glucose - Point of Care 114 mg/dl (70-99)
--- NOTE | 2023-11-07 08:37 | W.PN.GI.CBS2 ---
Today's Communication / Plan
-
clear liquis change to NPO if develops bleeding
Timing of surgery per CRS
Assessment / Plan
-
1. Left-sided colitis noted on multiple recent imaging studies from September and recent CT from 11/01 and 11/04 involving splenic flexure to sigmoid colon unclear if this is related to possible ischemic colitis versus segmental colitis from severe
diverticulosis versus less likely IBD cannot r/o malignant stricture, on sigmoidoscopy in September there was no evidence of obvious colitis in the rectosigmoid but because of severe narrowing in the distal sigmoid unable to pass scope beyond. Her
diarrhea could be related to overflow diarrhea given luminal narrowing seen in the distal sigmoid colon on sigmoidoscopy vs colitis. currently has no nausea or vomiting. She did have stool studies done from admission which were negative C.
difficile and cultures also neg. repeat CT from 11/04 concerning for large abscess and partial small bowel obstruction. Discussed with Dr. Rose and other consultants at length option would be resection and colostomy versus temporary IR drain and
eventual resection and since patient is currently refusing surgery then the option would be hospice. I discussed at length with her sister who is her POA at bedside and her [id number] yesterday they are going to talk to the patient and see if
she would be agreeable for surgery. Continue Zosyn; she is currently on heparin and Eliquis has been held and may also need filter prior to surgery. Patient now agreeable for surgery.
2. Current admission is for urosepsis continue care per primary team, she had been on pressors now off of them, continue antibiotics
3. Small subcentimeter pancreatic cystic lesions probable IPMN will need repeat MRI with MRCP in 2 years
4. Anemia with elevated ferritin level most likely AOCD, currently has no overt bleeding she did have a drop in hemoglobin of almost 2 g but no rectal bleeding or melena was reported some of it could be related to IV fluids and dilution continue to
monitor and transfuse as needed. Hb improved and stable post transfusion.
5. DVT, PE and A-fib all dx in September admission, on Eliquis watch closely for any signs of GI blood loss especially given acute drop in hemoglobin and may need to hold it if continues to drop. [place] held and on Heparin now
Subjective
Subjective
Date of Service: November 07, 2023
Patient denies abdominal pain, no nausea or vomiting, tolerating clear liquids, she did have a loose bowel movement today which was brown no blood noted
Objective
Data Reviewed
Laboratory Data:
Laboratory Results
PT 18.3 Sec (11.4-14.6) H 11/06/23 08:00
INR 1.53 11/06/23 08:00
APTT Cancelled 11/07/23 02:10
Phosphorus 2.8 mg/dl (2.5-4.5) 11/05/23 03:22
Magnesium 1.6 mg/dl (1.6-2.3) 11/06/23 08:00
Total Bilirubin 0.6 mg/dl (0.2-1.3) D 11/06/23 08:00
AST 13 U/L (14-36) L 11/06/23 08:00
ALT 12 U/L (0-35) 11/06/23 08:00
Alkaline Phosphatase 133 U/L (38-126) H 11/06/23 08:00
Vital Signs and I&O:
Vital Signs
Temp Pulse Resp BP Pulse Ox
97.6 F 64 22 126/80 92
11/07/23 07:30 11/07/23 07:30 11/07/23 07:30 11/07/23 07:30 11/07/23 07:30
I&O
11/06/23 11/07/23 11/08/23
06:59 06:59 06:59
Intake Total 2480 / 2480 1372 / 1372
Output Total 900 / 900
Balance 1580 / 1580 1372 / 1372
Physical Exam
Physical Exam
Cardiology: Normal Sinus Rhythm
Pulmonary: Clear
GI: Soft, Distended (more distended), Non Tender and Normal Bowel Sounds
[2023-11-07] MEDS: NOVOLOG FLEXPEN-LOW RESISTANCE SC ×3 (09:14→17:25)
--- NOTE | 2023-11-07 09:20 | W.PN.CRS1 ---
Today's Communication / Plan
-
As above
Assessment/Plan
-
63-year-old female with PMH of DVT/bilateral PE, A-fib (on Eliquis), DM, developmental delay, HTN, HLD, colitis associated with stricture (on flex sig in September, unable to traverse stricture), felt to be likely ischemic versus diverticular, other
possibilities include IBD, malignancy, less likely infectious; readmitted with recurrent abdominal pain and diarrhea, CT showing significant inflammation from the splenic flexure to the descending colon associated with a 7 cm collection, also
showing a partial small bowel obstruction
AF, HR in the 80s, down from 100s, normotensive
Labs pending
Plan for OR tomorrow due to worsening inflammation and stricture
Clears today and bowel prep; n.p.o. past midnight; will order p.o. antibiotics
Continue hep drip, hold 4 hours prior to surgery; will consult IR for IVC filter placement
Pain control with Tylenol
Continue IV antibiotics
Would send CRP and fecal calprotectin for completeness sake
Will get ostomy marking
Appreciate GI and hospitalist
Subjective Data
Subjective Data
Date of Service: November 07, 2023
No overnight events. Remains a little bloated, but passing flatus and BMs, nonbloody per patient.
Objective Data
-
Vital Signs
Temp Pulse Resp BP Pulse Ox
97.6 F 64 22 126/80 92
11/07/23 07:30 11/07/23 07:30 11/07/23 07:30 11/07/23 07:30 11/07/23 07:30
Intake & Output
11/06/23 11/07/23 11/08/23
06:59 06:59 06:59
Intake Total 2480 / 2480 1372 / 1372
Output Total 900 / 900
Balance 1580 / 1580 1372 / 1372
Intake:
Oral fluids 2100 / 2100 840 / 840
IV fluids (Total) 92 / 92
Heparin
IV piggybacks 326 / 326 440 / 440
Output:
Urine, Voided 900 / 900
Other:
Number of approximated MODERATE 5 1
amounts of urine
How many times incontinent 1
MODERATE amount urine
Physical Exam
-
General: No Acute Distress and AOx3
HEENT: Grossly Normal
Abdomen: Soft, Distended (Mildly distended), Tender (Mild tender in the left hemiabdomen), No Guarding and No Rebound
Skin: Warm and Dry
[2023-11-07 09:27] LABS: Hematocrit 29.1 % (37.0-47.0); Hemoglobin 9.8 g/dL (12.0-16.0); Mean Corp Hgb Conc. 33.7 g/dL (33.0-37.0); Mean Corpuscular Hgb 29.2 pg (27.0-31.0); Mean Corpuscular Volume 86.6 fL (81.0-99.0); Mean Platelet Volume 9.8 fL (7.4-10.4); Platelet Count 228 10^3/uL (130-400); Red Blood Cell Count 3.36 10^6/uL (4.20-5.40); Red Cell Dist. Width 15.4 % (11.5-14.5); White Blood Cell Count 9.7 10^3/uL (4.8-10.8)
[2023-11-07 09:37] LABS: APTT 105.8 Sec (23.4-35.0)
[2023-11-07] MEDS: NULYTELY SOLUTION 4 LITERS PO (09:48)
[2023-11-07] MEDS: PROTONIX IV 40 MG IV (09:50)
[2023-11-07] MEDS: NSS (PRESERVATIVE FREE) 10 ML IV (09:51)
[2023-11-07] MEDS: ZESTRIL 5 MG PO (09:51)
[2023-11-07] MEDS: LIPITOR 40 MG PO (09:51)
[2023-11-07] MEDS: PACERONE 200 MG PO ×3 (09:52→21:40)
--- NOTE | 2023-11-07 10:06 | WOUNDNOTE ---
[facility] RN note: Patient stoma marked in bilateral abdomen per Krystyna Santiago Colorectal PA's request. Patient for surgery tomorrow. Stoma marked patient in bilateral upper quadrants over the rectus muscle avoiding skin creases. LUQ stoma marixa 5.1cm to
L of midline and 4cm above the umbilical line. RUQ stoma marixa 4.2cm to R of midline and 4cm above the umbilical line. Patient has a distended abdomen however, patient stated this is her normal. Upper quadrants marked d/t body habitus and she would
have trouble seeing the lower quadrants. She lives with her brother and mother. She stated the ostomy nurse can call her sister to include in ostomy teaching. Instructed patient the surgeon makes to final decision with stoma placement. Patient has a
couple small dermal abrasions from patient scratching. Silicone border foam maintained. Skin on heels and sacrum intact. Perianal skin red and intact. Barrier ointment and air chair cushion given. Patient moves self and she ambulated from chair to
bed with supervision. Discussed with LISE Carrera. Will follow as needed.
[2023-11-07 11:33] LABS: Glucose - Point of Care 137 mg/dl (70-99)
[2023-11-07 12:12] LABS: ALT (SGPT) 13 U/L (0-35); AST (SGOT) 14 U/L (14-36); Albumin 2.5 g/dl (3.5-5.0); Alkaline Phosphatase 146 U/L (38-126); Blood Urea Nitrogen 9 mg/dl (7-17); Calcium 7.8 mg/dl (8.4-10.2); Carbon Dioxide 26 mmol/L (22-30); Chloride 103 mmol/L (98-107); Estimated Creatinine Clearance 64 ml/min; Glucose 104 mg/dl (70-99); Potassium 3.4 mmol/L (3.5-5.1); Sodium 139 mmol/L (135-145); Total Bilirubin 0.6 mg/dl (0.2-1.3); eGFR > 60.00
[2023-11-07 12:43] LABS: Magnesium 1.7 mg/dl (1.6-2.3)
--- NOTE | 2023-11-07 12:44 | W.PN.HOSP.TC ---
Today's Communication/Plan
-
bowel prep
IVC placement
PICC placement
cont Abx
Replete potassium
Hold hep 4h before procedure
Discussed with sister bedside
Assessment / Plan
Assessment / Plan
63yo F with PMHx of DM, HTN, intellectual impairment, Afib, recent diagnosis of VTE brought to the hospital after the fall, found febrile with sepsis on admission 2/2 UTI. Also had watery diarrhea for 3 days before admission and still was
continuing. Also b/l LE swelling. Managed for CHF, Afib with RVR, later found abdominal abscess planned for colectomy
A/P:
#Colitis, enteritis with abdominal abscess
#pSBO
Zosyn
COlorectalSx: planned for resection with colostomy on 11/07/23. started bowel prep
CRP and Calprotectin to be sent
C.diff negative
GI consult: working on ischemic/diverticular causes
Place PICC in anticipation for TPN
#UTI with sepsis on admission
#Overflow diarrhea
never used pressors - no shock
Ucx - pansensitive E.coli - completed Abx for it
#Paroxysmal Afib with RVR
#PACs
#acute on chronic HFpEF
Cardiology follows: amiodarone
Echo in Sep - grade 2 diastolic dysfunction, severe L atrial dilation
Lasix as per cardio
#Recent VTE, provoked
#Anemia of chronic disease
Eliquis initially held, as per RN - no signs of bleeding with stool, bedside FOBT done - apparently neg, will repeat for official record
Heparin drip and closely follow Hgb, transfuse as needed to keep Hgb >7
Onc followed: recommended periOP IVCf - IRAD consulted
#LE swelling, cannot exclude 2/2 protein-loosing enteropathy with diarrhea
Lasix PRN
GI consult: persistent colitis
Advise to increase oral intake
Proteine supplements
C.diff neg
Stool Cx pending
#Indirect bilirubinemia
most likely 2/2 PRBC transfusion and acute disease
haptoglobin high
#Hypokalemia
#Hypomagnesemia
2/2 enteric losses and poor oral intake
replete and follow
#DM type 2 with neuropathy
Accuchecks, DM diet, insulin SS, hold metformin
#L pelvis dermoid
PCP f/u as outpatient
#Essential HTN
held BP meds due to relative hypotension - restart low dose lisinopril
DVT ppx on Heparin drip
FUll code
I have spent at least 59min reviewing chart, test results, communicating with consultants and direct patient care
Anticipated Discharge: > 48 hours
Subjective/Interval History
-
Date of Service: November 07, 2023
Objective Data
-
Labs:
Laboratory Results
11/07/23 11/07/23 11/07/23
02:10 09:12 15:55
WBC 9.7
Hgb 9.8 L
Hct 29.1 L
Plt Count 228
APTT Cancelled 105.8 H Pending
Sodium 139
Potassium 3.4 L
Chloride 103
Carbon Dioxide 26
BUN 9
Creatinine 0.6
Glucose 104 H
Calcium 7.8 L
Total Bilirubin 0.6
AST 14
ALT 13
Alkaline Phosphatase 146 H
Vital Signs:
Vital Signs
Temp Pulse Resp BP Pulse Ox
96.6 F L 70 21 152/93 98
11/07/23 11:41 11/07/23 11:41 11/07/23 11:41 11/07/23 11:41 11/07/23 11:41
I&O
11/06/23 11/07/23 11/08/23
06:59 06:59 06:59
Intake Total 2480 / 2480 1372 / 1372
Output Total 900 / 900
Balance 1580 / 1580 1372 / 1372
Review of Systems
-
History Source: Patient
All other systems: Reviewed and negative
Physical Exam
-
General: No Apparent Distress
HEENT: Normocephalic
Respiratory: Clear to Auscultation
Cardiac: Regular Rhythm
Neuro: Awake, Alert, Oriented and AO x 3
--- NOTE | 2023-11-07 12:45 | W.PN.CARDCBS ---
Addendum entered and electronically signed by Estefani Steven DO 11/07/23 18:01:
I saw and examined the patient.
The Invoice Coder's note was reviewed and I agree with the note.
Comment: Patient seen and examined sitting out of bed to chair. Overall offers no new complaints; poor historian.
GEN: NAD
HEENT: MMM
LUNGS: Bronchovesicular breath sounds, decreased at the bases, right greater than left
CV: SR with PACs and short runs of Atach on tele
EXT: +2 pitting B/L LE edema
Plan:
Colitis/enteritis with abdominal abscess status post small bowel obstruction
-Colorectal surgery and GI consulted
-Plan for resection with colostomy 11/08/23
-IV antibiotics; ID consulted
Patient appears volume overloaded recent echocardiogram noting preserved ejection fraction with grade 2 diastolic dysfunction
-proBNP added on and elevated at 10,400
-Will start Lasix 40 mg IV daily and monitor response
-Optimize goal-directed medical therapy following surgery
Sinus tachycardia with PACs and runs of PAT
-Continue to monitor on telemetry
-Continue new amiodarone; monitor EKG/telemetry
-Replete potassium/magnesium
-Outpatient Toprol-XL held on admission due to hypotension/shock. Will add Lopressor
Recent admission for newly diagnosed atrial fibrillation now in sinus rhythm
-IV heparin while off oral anticoagulation for upcoming surgery
-Continue amiodarone and resume beta-jeni
-Monitor on telemetry
Recent admission for DVT/PE 09/26/2023
-IV heparin drip
-Agree with plan for IVC filter per surgery
Intellectual impairment�noted
Will follow with you
Original Note:
Today's Communication / Plan
-
Check pro-BNP, consider a dose of Lasix 20 mg IV x1
Impression / Plan
-
PCP: Gaurav Jensen PA-C
Cardiology: Dr. Bruce
Impression:
Admitted with fall, UTI and sepsis 11/02/23
Possible sigmoid colitis
previously identified severe left colitis 09/26/23
Fall
Marked anemia
Sinus tachycardia with PACs and short runs of PAT 11/03/23
Recent admission with DVT, PE and newly diagnosed Afib 09/26/23 until 10/02/23
Paroxysmal Afib
new diagnosis 09/26/23 that spontaneously converted 09/27/23
Chronic Eliquis OAC
Acute on chronic vs chronic B/L LE edema
cRBBB
h/o right common femoral and superficial femoral vein thrombus and B/L PE 09/26/23
Prediabetes
HTN
HLD
Iatrogenic increased volume
Hypokalemia
Echo 09/27/2023: EF 56%, stage II diastolic dysfunction, mild to moderate MR, mild TR, estimated PAP 25 to 30 mmHg
Plan:
-Colorectal surgery and GI notes reviewed. Patient is scheduled for left colectomy and colostomy.
-From a cardiac standpoint, patient with preserved EF, no significant valvular heart disease and no chest pain or unstable symptoms. Not at prohibitive risk to proceed with surgery
-Would recommend telemetry beena-op and to maintain Hg greater than 8.
-Heparin gtt running for recent DVT/PE 09/2023 and h/o pAfib, renewed by me 11/07/23 and then scheduled to stop 11/08/23 at 0800 in anticipation of surgery
-Patient was newly diagnosed with Afib 09/2023 and now tele shows sinus tachycardia and PACs and short runs of Atach. New to amiodarone 200 mg TID and patient has received 2.2 gram load as of 11/07/23.
-Outpatient dose of Toprol XL 50 mg BID initially held due to hypotension.
-Outpatient dose of lisinopril decreased to 5 mg daily due to hypotension on admission
-K rider ordered for hypokalemia
-Small B/L pleural effusions on CT chest 11/05/23. Check pro-BNP. Patient has received 2.5 L IVFs this admission. Patient was given a single dose of Lasix 20 mg IV x1 last admission and was not taking a diuretic prior to admission. EF 56% by echo
09/27/23
HPI: Patient came to [facility] last night after a fall at home and cardiology is now consulted for abnormal telemetry and chronic OAC. Patient was just admitted to 09/26/23 until 10/02/23 with new DVT and PE. Cardiology was consulted at that time foe
new Afib that spontaneously converted to SR. Eliquis 5 mg BID started. Patient was also diuresed with Lasix 20 mg IV x1, but patient was not discharged to home on diuretic due to hypotension. Patient came to hospital f/u visit at cardiology office
10/26/23 and appeared to be euvolemic and patient's sister thought her LE edema was improved. Lisinopril dose was decreased to 10 mg daily due to hypotension. Also, Toprol XL was increased to 50 mg BID due to rapid HR, but patient was in SR on ECG. 7
day monitor applied that is not yet resulted. Patient came back to [facility] last night after a fall at home. Patient with sepsis, shock and UTI on admission. Levophed started overnight, but now stopped. Patient started on IV antibiotics. Cardiology
consulted for tele review that looked like possible recurrent Afib with RVR. Patient denies palpitations. No chest pain or SOB
Progress Note - Sales And Customer Relations Rep
Subjective
Date of Service: November 07, 2023
She feels well
Objective
Labs:
11/07/23 09:12
11/07/23 09:12
Labs
Hgb 9.8 g/dL (12.0-16.0) L 11/07/23 09:12
Hct 29.1 % (37.0-47.0) L 11/07/23 09:12
Plt Count 228 10^3/uL (130-400) 11/07/23 09:12
PT 18.3 Sec (11.4-14.6) H 11/06/23 08:00
INR 1.53 11/06/23 08:00
APTT 105.8 Sec (23.4-35.0) H 11/07/23 09:12
Sodium 139 mmol/L (135-145) 11/07/23 09:12
Potassium 3.4 mmol/L (3.5-5.1) L 11/07/23 09:12
BUN 9 mg/dl (7-17) 11/07/23 09:12
Creatinine 0.6 mg/dL (0.6-1.0) 11/07/23 09:12
Glucose 104 mg/dl (70-99) H 11/07/23 09:12
Vital Signs and I&O:
Vital Signs
Temp Pulse Resp BP Pulse Ox
96.6 F L 70 21 152/93 98
11/07/23 11:41 11/07/23 11:41 11/07/23 11:41 11/07/23 11:41 11/07/23 11:41
Vital Signs
Temp Pulse Resp BP Pulse Ox
96.6 F L 70 21 152/93 98
11/07/23 11:41 11/07/23 11:41 11/07/23 11:41 11/07/23 11:41 11/07/23 11:41
Intake & Output
11/05/23 11/06/23 11/07/23 11/08/23
06:59 06:59 06:59 06:59
Intake Total 3170.0 / 3170.0 2480 / 2480 1372 / 1372
Output Total 70 / 900 / 900
Balance 3100.0 / 3100.0 1580 / 1580 1372 / 1372
Physical Exam
Physical Exam
GEN: NAD
HEENT: MMM
LUNGS: No audible wheeze
CV: SR with PACs and short runs of Atach on tele
EXT: +1-2 pitting B/L LE edema
NEURO: Gross non-focal
SKIN: No rash
--- NOTE | 2023-11-07 12:58 | W.PN.ID1 ---
Date of Service
Date of Service: November 07, 2023
Today's Communication
- c/w unasyn
Assessment / Plan
Colitis
Septic Shock - resolved
Cachexia
Intellectual disability
- UTI ruled out, very low colony count of E coli, sepsis was likely due to colitis
- given two episodes of colitis which appears to be assc with anatomic irregularity within 2 months, recent unprovoked DVT/PE, would purse definitive diagnosis and management of cause of possible stricture
- appreciate colorectal surgery, GI and consultants input
- switched to unasyn yesterday by IM service - im in agreement
follow clinically
Chief Complaint
-: UTI and Other (shock)
Subjective / Review of Systems
afebrile
anxious and forgetful
for IVC and PICC placement
feels nervous no other complaints
Vital Signs / Physical Exam
Vital Signs
Vital Signs
Temp Pulse Resp BP Pulse Ox
96.6 F L 70 21 152/93 98
11/07/23 11:41 11/07/23 11:41 11/07/23 11:41 11/07/23 11:41 11/07/23 11:41
Physical Exam
Constitutional: No Acute Distress and Chronically Ill
Cardiovascular: Regular Rate and S1/S2; Negative Murmur or Rub
Pulmonary: Clear and Symmetric; Negative Wheezes or Rales
Gastrointestinal: Soft, Non Tender, Non Distended and Normal Bowel Sounds
Skin: Warm and Dry; Negative Rash or Jaundice
Objective Data
Lab Data
Lab Results
11/07/23 09:12
11/07/23 09:12
PT 18.3 Sec (11.4-14.6) H 11/06/23 08:00
INR 1.53 11/06/23 08:00
APTT 105.8 Sec (23.4-35.0) H 11/07/23 09:12
Estimated Creat Clear 64 ml/min 11/07/23 09:12
Lactic Acid 1.6 mmol/L (0.7-2.0) 11/03/23 16:17
Total Bilirubin 0.6 mg/dl (0.2-1.3) 11/07/23 09:12
AST 14 U/L (14-36) 11/07/23 09:12
ALT 13 U/L (0-35) 11/07/23 09:12
Alkaline Phosphatase 146 U/L (38-126) H 11/07/23 09:12
Most recent labs reviewed.
Micro Results:
11/02/23 21:48 Blood Culture - Preliminary
Blood/Venous No Growth in 4 days- Final report to follow
11/02/23 21:48 Blood Culture - Preliminary
Blood/Venous No Growth in 4 days- Final report to follow
11/03/23 12:00 Salmonella/Shigella Culture - Final
Feces/Stool No Salmonella, Shigella, Aeromonas or Plesiomonas species
isolated.
Campylobacter Culture - Final
No Campylobacter species isolated.
Shiga Toxin Test - Final
No E. coli Shiga Toxin 1 or 2 detected.
Stool Leukocytes - Final
11/03/23 00:48 Urine Culture - Final
Urine Escherichia coli
11/03/23 12:00 C. difficile GDH Antigen & Toxins - Final
Feces/Stool Negative for toxigenic C.difficile
11/02/23 21:14 Influenza Types A & B (MARK) - Final
Nasal Swab Negative for Influenza A & B, NAAT
Negative results must be combined with clinical observations
and patient history.
Nucleic Acid Amplification test (NAAT)performed on the
[employer] platform.
--- NOTE | 2023-11-07 13:21 | VATNOTE ---
Spoke with GI PA regarding PICC order as no TPN or nutrition consult ordered--no possibility for TPN until after surgery on 11/07 and TPN is not definite. Discussed with the ordering provider, states we may hold off on PICC placement until we know
the patient will need TPN tomorrow.
[2023-11-07] MEDS: KCL 270 MEQ IV (13:26)
[2023-11-07] MEDS: MAGNESIUM SULFATE 50 IV (13:27)
[2023-11-07 13:59] LABS: NT-proBNP 10400 pg/ml
[2023-11-07] MEDS: FLAGYL 1000 MG PO ×3 (14:17→23:21)
--- NOTE | 2023-11-07 16:08 | PTCARENOTE ---
Spoke to Latonia, patients sister about the POA. I asked her ot bring in a copy of it at her next visit. She said 'ok, I brought it yesterday but I forgot it today'.
[2023-11-07] MEDS: NEOMYCIN 1000 MG PO ×3 (16:19→23:20)
[2023-11-07 16:32] LABS: APTT 61.3 Sec (23.4-35.0)
[2023-11-07 16:48] LABS: Glucose - Point of Care 123 mg/dl (70-99)
--- NOTE | 2023-11-07 17:41 | CM ---
met with patient at bedside.patient with large abdominal abscess .for bowel resection with colostomy tomorrow,cont iv abx.picc placment in anticipation for tpn.cm to follow post surgery.will need new therapy orders.
[2023-11-07] MEDS: ZOFRAN 4 MG IV (18:31)
[2023-11-07] MEDS: LOPRESSOR 25 MG PO (21:40)
[2023-11-07] MEDS: LASIX 40 MG IV (21:43)
[2023-11-07 21:51] LABS: Glucose - Point of Care 131 mg/dl (70-99)
[2023-11-07 23:08] LABS: APTT 141.4 Sec (23.4-35.0)
[2023-11-07] MEDS: NSS 1000 IV (23:21)
[2023-11-08] VITALS (41 sets, daily range): BP systolic 40–147; BP diastolic 50–92; BMI 18.0
[2023-11-08] MEDS: UNASYN IV ×4 (03:43→23:49)
[2023-11-08 06:11] LABS: Glucose - Point of Care 101 mg/dl (70-99)
[2023-11-08] MEDS: NOVOLOG FLEXPEN-LOW RESISTANCE SC ×3 (08:16→20:07)
[2023-11-08] MEDS: LASIX 40 MG IV (08:17)
[2023-11-08] MEDS: PROTONIX IV 40 MG IV (08:18)
[2023-11-08] MEDS: NSS (PRESERVATIVE FREE) 10 ML IV (08:18)
[2023-11-08 08:21] LABS: % Basophils 0.1 % (0-2); % Eosinophils 0.6 % (0-6); % Immature Granulocytes 0.9 % (0-0.5); % Lymphocytes 6.4 % (20.5-51.1); % Monocytes 2.9 % (1.7-9.3); % Neutrophils 89.1 % (42.2-75.2); Absolute Eosinophils 0.1 10^3/uL (0-0.7); Absolute Immature Granulocytes 0.1 10^3/uL (0-0.05); Absolute Lymphocytes 0.7 10^3/uL (1.2-3.4); Absolute Monocytes 0.3 10^3/uL (0.1-0.6); Absolute Neutrophils 9.8 10^3/uL (1.4-6.5); Hematocrit 28.5 % (37.0-47.0); Hemoglobin 9.6 g/dL (12.0-16.0); Mean Corp Hgb Conc. 33.7 g/dL (33.0-37.0); Mean Corpuscular Hgb 30.1 pg (27.0-31.0); Mean Corpuscular Volume 89.3 fL (81.0-99.0); Mean Platelet Volume 9.5 fL (7.4-10.4); Nucleated Red Blood Cells % 0 %; Platelet Count 224 10^3/uL (130-400); Red Blood Cell Count 3.19 10^6/uL (4.20-5.40)
--- NOTE | 2023-11-08 08:23 | W.PN.GI.CBS2 ---
Today's Communication / Plan
-
OR today per CRS
On antibiotics and heparin held
Assessment / Plan
-
1. Left-sided colitis noted on multiple recent imaging studies from September and recent CT from 11/01 and 11/04 involving splenic flexure to sigmoid colon unclear if this is related to possible ischemic colitis versus segmental colitis from severe
diverticulosis versus less likely IBD cannot r/o malignant stricture. on sigmoidoscopy in September there was no evidence of obvious colitis in the rectosigmoid but because of severe narrowing in the distal sigmoid unable to pass scope beyond. Her
diarrhea could be related to overflow diarrhea given luminal narrowing seen in the distal sigmoid colon on sigmoidoscopy vs colitis. currently has no nausea or vomiting. She did have stool studies done from admission which were negative C.
difficile and cultures also neg. repeat CT from 11/04 concerning for large abscess and partial small bowel obstruction. Discussed with Dr. Rose and other consultants at length needs resection and colostomy. Continue Unasyn per ID. Eliquis has been
held and now heparin also held for surgery. may also need filter prior to surgery. Patient now agreeable for surgery.
2. Small subcentimeter pancreatic cystic lesions probable IPMN will need repeat MRI with MRCP in 2 years
4. Anemia with elevated ferritin level most likely AOCD, currently has no overt bleeding she did have a drop in hemoglobin of almost 2 g but no rectal bleeding or melena was reported some of it could be related to IV fluids and dilution continue to
monitor and transfuse as needed. Hb improved and stable post transfusion.
5. DVT, PE and A-fib all dx in September admission, was on Eliquis held now for surgery
Further recommendations per colorectal surgery after resection today.
GI will sign off and will be available as needed
Subjective
Subjective
Date of Service: November 08, 2023
Patient looks comfortable currently n.p.o. for surgery today no vomiting also denies abdominal pain
Objective
Data Reviewed
Laboratory Data:
Laboratory Results
11/08/23 07:34
Laboratory Results
PT 18.3 Sec (11.4-14.6) H 11/06/23 08:00
INR 1.53 11/06/23 08:00
APTT 141.4 Sec (23.4-35.0) H 11/07/23 22:49
Phosphorus 2.8 mg/dl (2.5-4.5) 11/05/23 03:22
Magnesium 1.7 mg/dl (1.6-2.3) 11/07/23 09:12
Total Bilirubin 0.6 mg/dl (0.2-1.3) 11/07/23 09:12
AST 14 U/L (14-36) 11/07/23 09:12
ALT 13 U/L (0-35) 11/07/23 09:12
Alkaline Phosphatase 146 U/L (38-126) H 11/07/23 09:12
Vital Signs and I&O:
Vital Signs
Temp Pulse Resp BP Pulse Ox
97.8 F 82 19 130/83 98
11/08/23 07:32 11/08/23 07:32 11/08/23 07:32 11/08/23 08:17 11/08/23 07:32
I&O
11/07/23 11/08/23 11/09/23
06:59 06:59 06:59
Intake Total 1372 / 1372 2175 / 2175
Balance 1372 / 1372 2175 / 2175
Physical Exam
Physical Exam
Cardiology: Normal Sinus Rhythm
Pulmonary: Clear
GI: Soft, Distended (Mildly distended), Non Tender and Normal Bowel Sounds
[2023-11-08 08:24] LABS: APTT 56.7 Sec (23.4-35.0)
[2023-11-08] MEDS: PACERONE PO (08:34)
[2023-11-08] MEDS: LOPRESSOR PO ×2 (08:34→21:28)
[2023-11-08] MEDS: ZESTRIL PO (08:35)
[2023-11-08 08:47] LABS: ALT (SGPT) 14 U/L (0-35); AST (SGOT) 15 U/L (14-36); Albumin 2.3 g/dl (3.5-5.0); Alkaline Phosphatase 132 U/L (38-126); Blood Urea Nitrogen 8 mg/dl (7-17); Calcium 7.3 mg/dl (8.4-10.2); Carbon Dioxide 31 mmol/L (22-30); Chloride 104 mmol/L (98-107); Estimated Creatinine Clearance 62 ml/min; Glucose 91 mg/dl (70-99); Magnesium 1.7 mg/dl (1.6-2.3); Potassium 3.7 mmol/L (3.5-5.1); Sodium 141 mmol/L (135-145); Total Bilirubin 0.4 mg/dl (0.2-1.3); Total Protein 4.6 g/dl (6.3-8.2); eGFR > 60.00
--- NOTE | 2023-11-08 10:40 | W.PN.CARDCBS ---
Addendum entered and electronically signed by Cameron Aguila MD 11/08/23 16:00:
I saw and examined the patient.
The Shipfitter Helper's note was reviewed and I agree with the note.
Comment: Briefly, 63-year-old woman with recent history of DVT/PE and newly diagnosed atrial fibrillation who presents with intra-abdominal infection/abscess and is planned for colectomy later today
Oral anticoagulation is on hold, would resume when safe from a surgical standpoint
Was receiving IV Lasix, will hold off on further Lasix dosing as I suspect she will be more prone to dehydration with colostomy in place
Continue amiodarone to maintain sinus rhythm
Original Note:
Today's Communication / Plan
-
Left colectomy today
Stop Lasix for now
Cont amiodarone load
Impression / Plan
-
PCP: Gaurav Jensen PA-C
Cardiology: Dr. Bruce
Impression:
Admitted with fall, UTI and sepsis 11/02/23
Possible sigmoid colitis
previously identified severe left colitis 09/26/23
Fall
Marked anemia
Sinus tachycardia with PACs and short runs of PAT 11/03/23
Recent admission with DVT, PE and newly diagnosed Afib 09/26/23 until 10/02/23
Paroxysmal Afib
new diagnosis 09/26/23 that spontaneously converted 09/27/23
Chronic Eliquis OAC
Acute on chronic vs chronic B/L LE edema
cRBBB
h/o right common femoral and superficial femoral vein thrombus and B/L PE 09/26/23
Prediabetes
HTN
HLD
Iatrogenic increased volume
Hypokalemia
Echo 09/27/2023: EF 56%, stage II diastolic dysfunction, mild to moderate MR, mild TR, estimated PAP 25 to 30 mmHg
Plan:
-Colorectal surgery and GI notes reviewed. Patient is scheduled for left colectomy and colostomy 11/08/23.
-From a cardiac standpoint, patient with preserved EF, no significant valvular heart disease and no chest pain or unstable symptoms. Not at prohibitive risk to proceed with surgery
-Would recommend telemetry benea-op and to maintain Hg greater than 8.
-Heparin gtt running for recent DVT/PE 09/2023 and h/o pAfib. Outpatient dose of Eliquis held on admission and then bridged with Heparin gtt.
-Patient was newly diagnosed with Afib 09/2023 and now tele shows sinus tachycardia and PACs and short runs of Atach. New to amiodarone and patient has received 2.8 gram load as of 11/08/23.
-Outpatient dose of Toprol XL 50 mg BID initially held due to hypotension.
-Outpatient dose of lisinopril decreased to 5 mg daily due to hypotension on admission
-Small B/L pleural effusions on CT chest 11/05/23[place] [address]97 on 11/08/23. Patient received 2.5 L IVFs this admission. Patient ordered Lasix 40 mg IV daily for 11/07/23 and 11/08/23. Will hold additional Lasix with planned colectomy. Patient was
not taking a diuretic prior to admission. EF 56% by echo 09/27/23
HPI: Patient came to [facility] last night after a fall at home and cardiology is now consulted for abnormal telemetry and chronic OAC. Patient was just admitted to 09/26/23 until 10/02/23 with new DVT and PE. Cardiology was consulted at that time foe
new Afib that spontaneously converted to SR. Eliquis 5 mg BID started. Patient was also diuresed with Lasix 20 mg IV x1, but patient was not discharged to home on diuretic due to hypotension. Patient came to hospital f/u visit at cardiology office
10/26/23 and appeared to be euvolemic and patient's sister thought her LE edema was improved. Lisinopril dose was decreased to 10 mg daily due to hypotension. Also, Toprol XL was increased to 50 mg BID due to rapid HR, but patient was in SR on ECG. 7
day monitor applied that is not yet resulted. Patient came back to [facility] last night after a fall at home. Patient with sepsis, shock and UTI on admission. Levophed started overnight, but now stopped. Patient started on IV antibiotics. Cardiology
consulted for tele review that looked like possible recurrent Afib with RVR. Patient denies palpitations. No chest pain or SOB
Progress Note - Skeiner
Subjective
Date of Service: November 08, 2023
She denies palpitations
Objective
Labs:
11/08/23 07:34
11/08/23 07:34
Labs
Hgb 9.6 g/dL (12.0-16.0) L 11/08/23 07:34
Hct 28.5 % (37.0-47.0) L 11/08/23 07:34
Plt Count 224 10^3/uL (130-400) 11/08/23 07:34
PT 18.3 Sec (11.4-14.6) H 11/06/23 08:00
INR 1.53 11/06/23 08:00
APTT 56.7 Sec (23.4-35.0) H 11/08/23 07:34
Sodium 141 mmol/L (135-145) 11/08/23 07:34
Potassium 3.7 mmol/L (3.5-5.1) 11/08/23 07:34
BUN 8 mg/dl (7-17) 11/08/23 07:34
Creatinine 0.6 mg/dL (0.6-1.0) 11/08/23 07:34
Glucose 91 mg/dl (70-99) 11/08/23 07:34
Vital Signs and I&O:
Vital Signs
Temp Pulse Resp BP Pulse Ox
98.4 F 86 19 147/87 98
11/08/23 08:53 11/08/23 08:53 11/08/23 08:53 11/08/23 08:53 11/08/23 10:00
Vital Signs
Temp Pulse Resp BP Pulse Ox
98.4 F 86 19 147/87 98
11/08/23 08:53 11/08/23 08:53 11/08/23 08:53 11/08/23 08:53 11/08/23 10:00
Intake & Output
11/06/23 11/07/23 11/08/23 11/09/23
06:59 06:59 06:59 06:59
Intake Total 2480 / 2480 1372 / 1372 2175 / 2175
Output Total 900 / 900
Balance 1580 / 1580 1372 / 1372 2175 / 2175
Physical Exam
Physical Exam
GEN: NAD
HEENT: MMM
LUNGS: No audible wheeze
CV: SR with PACs and short runs of Atach on tele
EXT: +1-2 pitting B/L LE edema
NEURO: Gross non-focal
SKIN: No rash
[2023-11-08] MEDS: MAGNESIUM SULFATE 50 IV (10:56)
--- NOTE | 2023-11-08 11:03 | W.PN.HOSP.TC ---
Today's Communication/Plan
-
Cont Unasyn
for OR today
PICC to be placed
Assessment / Plan
Assessment / Plan
63yo F with PMHx of DM, HTN, intellectual impairment, Afib, recent diagnosis of VTE brought to the hospital after the fall, found febrile with sepsis on admission 2/2 UTI. Also had watery diarrhea for 3 days before admission and still was
continuing. Also b/l LE swelling. Managed for CHF, Afib with RVR, later found abdominal abscess planned for colectomy on 11/08/23
A/P:
#Colitis, enteritis with abdominal abscess
#pSBO
Zosyn switched to Unasyn
COlorectalSx: planned for resection with colostomy on 11/07/23. started bowel prep
CRP elevated
Calprotectin pending
C.diff negative
GI consult: working on ischemic/diverticular causes
Place PICC in anticipation for TPN
#UTI with sepsis on admission
#Overflow diarrhea
never used pressors - no shock
Ucx - pansensitive E.coli - completed Abx for it
#Paroxysmal Afib with RVR
#PACs
#acute on chronic HFpEF
Cardiology follows: amiodarone
Echo in Sep - grade 2 diastolic dysfunction, severe L atrial dilation
Lasix as per cardio
Hold anticoagulation until allowed to restart by surgical service
#Recent VTE, provoked
#Anemia of chronic disease
Eliquis initially held, as per RN - no signs of bleeding with stool, bedside FOBT done - apparently neg, will repeat for official record
Heparin drip and closely follow Hgb, transfuse as needed to keep Hgb >7
Onc followed: recommended periOP IVCf - IRAD consulted and IVC filter placed on 11/08/23
#LE swelling, cannot exclude 2/2 protein-loosing enteropathy with diarrhea
Lasix PRN
GI consult: persistent colitis
Advise to increase oral intake
Proteine supplements
C.diff neg
Stool Cx neg
#Indirect bilirubinemia
#Minimal alk.phos elevated
No RUQ pain
most likely 2/2 PRBC transfusion and acute disease
haptoglobin high
#Hypokalemia
#Hypomagnesemia
2/2 enteric losses and poor oral intake
replete and follow
#DM type 2 with neuropathy
Accuchecks, DM diet, insulin SS, hold metformin
#L pelvis dermoid
PCP f/u as outpatient
#Essential HTN
held BP meds due to relative hypotension - restart low dose lisinopril
DVT ppx on Heparin drip
FUll code
I have spent at least 39min reviewing chart, test results, communicating with consultants and direct patient care
Anticipated Discharge: > 48 hours
Subjective/Interval History
-
Date of Service: November 08, 2023
Objective Data
-
Labs:
Laboratory Results
11/07/23 11/08/23
22:49 07:34
WBC 11.0 H
Hgb 9.6 L
Hct 28.5 L
Plt Count 224
APTT 141.4 H 56.7 H
Sodium 141
Potassium 3.7
Chloride 104
Carbon Dioxide 31 H
BUN 8
Creatinine 0.6
Glucose 91
Calcium 7.3 L
Total Bilirubin 0.4
AST 15
ALT 14
Alkaline Phosphatase 132 H
Vital Signs:
Vital Signs
Temp Pulse Resp BP Pulse Ox
98.3 F 83 17 140/85 98
11/08/23 11:02 11/08/23 11:02 11/08/23 11:02 11/08/23 11:02 11/08/23 11:02
I&O
11/07/23 11/08/2324
06:59 06:59 06:59
Intake Total 1371
Balance 1371 / 1371
Review of Systems
-
History Source: Patient
All other systems: Reviewed and negative
Physical Exam
-
General: Well Developed
Respiratory: Clear to Auscultation
Cardiac: Irregular Rhythm
GI: Soft, Nontender and Nondistended
Skin: Warm
Neuro: Awake, Alert, Oriented and AO x 3
Psych: Calm and Other (intellectual disability)
[2023-11-08 12:08] LABS: Glucose - Point of Care 107 mg/dl (70-99)
[2023-11-08] MEDS: NSS 1000 IV (12:24)
--- NOTE | 2023-11-08 12:52 | PTCARENOTE ---
Pt off the floor for her procedure in the OR. Take by transport on her hospital bed
--- NOTE | 2023-11-08 14:15 | PTCARENOTE ---
Copy of [place] Durable Power of Apparel Machinery Instructor dated 07/30/19 was reviewed by Onel Sultana Commissions Specialist. This POA is a financial POA only and does not refer to ability or privilege of medical decision making for the patient. Unless an additional
POA is supplied, there is no medical POA of record at this time.
--- NOTE | 2023-11-08 15:53 | PTCARENOTE ---
Pt is going to [facility] post-surgical. Gave report to Lucia LEZAMA
--- NOTE | 2023-11-08 16:57 | W.IMMPOSTOP ---
Addendum entered and electronically signed by Chandana Rose MD 11/08/23 17:12:
Family updated in waiting area.
Original Note:
Surgical Immed Post Op Note
-
Primary Surgeon: Arline Rose MD
Assisting Surgeon: LENARD Trivedi
Pre-op Diagnosis: left sided colitis with stricture and abscess
Post-op Diagnosis: same
Procedure Performed: 1) exploratory laparotomy 2) left colectomy (including entire descending and sigmoid colon) with transverse end colostomy 3) takedown splenic flexure 4) partial small bowel resection 4) drainage left lower abdominal abscess
Anesthesia Type: general plus local
Specimen / Cultures: 1) abdominal abscess cultures 2) left colon (including descending and sigmoid)--stitch marking distal sigmoid
Estimated Blood Loss: 200 cc
Complications: no immediate
Operative Findings: thickened inflamed and stenotic descending and sigmoid colon with abscess and inflammatory adhesions to small bowel--etiology unclear
#19 Michael in pelvis.
Santa in bladder.
Will send to IMU.
[2023-11-08 17:25] LABS: Glucose - Point of Care 152 mg/dl (70-99)
[2023-11-08] MEDS: NORMOSOL-R/PLASMALYTE-A 1000 IV (17:46)
[2023-11-08] MEDS: NEO-SYNEPHRINE 250 IV (17:50)
--- NOTE | 2023-11-08 19:08 | PTCARENOTE ---
Addendum note.. Attempted to draw post-op blood work, unsuccessful X2 attempts. Reached out to refrigerating machine operator senior environmental scientist with no response. Per nursing jewel supervisor transfer patient to IMU, blood work to be drawn on IMU.
[2023-11-08 19:47] LABS: % Basophils 0.5 % (0-2); % Immature Granulocytes 1.4 % (0-0.5); % Lymphocytes 2.5 % (20.5-51.1); % Monocytes 2.3 % (1.7-9.3); % Neutrophils 93.3 % (42.2-75.2); Absolute Basophils 0.1 10^3/uL (0-0.2); Absolute Immature Granulocytes 0.3 10^3/uL (0-0.05); Absolute Lymphocytes 0.6 10^3/uL (1.2-3.4); Absolute Monocytes 0.5 10^3/uL (0.1-0.6); Absolute Neutrophils 20.7 10^3/uL (1.4-6.5); Hematocrit 33.8 % (37.0-47.0); Hemoglobin 11.5 g/dL (12.0-16.0); Mean Corpuscular Hgb 29.4 pg (27.0-31.0); Mean Corpuscular Volume 86.4 fL (81.0-99.0); Mean Platelet Volume 9.8 fL (7.4-10.4); Nucleated Red Blood Cells % 0 %; Platelet Count 275 10^3/uL (130-400); Red Blood Cell Count 3.91 10^6/uL (4.20-5.40); Red Cell Dist. Width 14.6 % (11.5-14.5); White Blood Cell Count 22.2 10^3/uL (4.8-10.8)
[2023-11-08 20:00] LABS: Blood Urea Nitrogen 6 mg/dl (7-17); Calcium 6.4 mg/dl (8.4-10.2); Carbon Dioxide 27 mmol/L (22-30); Chloride 99 mmol/L (98-107); Estimated Creatinine Clearance 53 ml/min; Glucose 162 mg/dl (70-99); Magnesium 2.1 mg/dl (1.6-2.3); Potassium 3.7 mmol/L (3.5-5.1); Sodium 139 mmol/L (135-145); eGFR > 60.00
[2023-11-08 20:16] LABS: Glucose - Point of Care 195 mg/dl (70-99)
--- NOTE | 2023-11-08 21:05 | PTCARENOTE ---
Addendum entered by Laxmi Lopes RN 11/09/23 02:07:
Radha MAZARIEGOS made aware of Main off at 0030
Addendum entered by Laxmi Lopes RN 11/09/23 01:21:
Main off 0030
Original Note:
Pt received from PACU about 1900. Pt AAOx3. Pt having no pain at that time. Normosol/ Plasmalyte-A running @100ml/hr with Phenylephrine Y site @40mcg/min in R upper arm IV. Pt feeling pain and burning in second site on right forearm IV when flushed,
VAT called. Normosol on hold at this time until second site can be acquired due to compatibility. Pt labs obtained by Pathagility tech. Critical CA reported to radha MAZARIEGOS. Pt has ABD midline dressing in tact scant drainage, outlined. R lower MANN site,
sanguinous drainage in bulb no drainage on dressing at this time. Per PACU left lower 'skin tear', dressing intact no drainage. Santa in place draining straw colored urine. Colostomy bag intact, stoma red and budded.
[2023-11-08] MEDS: TORADOL 10 MG IV (21:16)
[2023-11-08] MEDS: PACERONE 200 MG PO (21:17)
[2023-11-08] MEDS: OFIRMEV 62 MG IV (23:11)
[2023-11-09] VITALS (26 sets, daily range): BP systolic 97–137; BP diastolic 61–85; BMI 18.8
[2023-11-09] MEDS: DILAUDID 0.25 MG IV (00:04)
[2023-11-09 01:22] LABS: Glucose - Point of Care 139 mg/dl (70-99)
[2023-11-09] MEDS: TORADOL 10 MG IV ×4 (03:04→20:14)
[2023-11-09] MEDS: NORMOSOL-R/PLASMALYTE-A 1000 IV ×2 (04:44→16:29)
[2023-11-09] MEDS: OFIRMEV 62 MG IV ×3 (04:44→16:31)
[2023-11-09] MEDS: UNASYN IV ×4 (04:44→21:49)
[2023-11-09 05:01] LABS: Glucose - Point of Care 132 mg/dl (70-99)
[2023-11-09 05:45] LABS: % Basophils 0.2 % (0-2); % Immature Granulocytes 0.8 % (0-0.5); % Lymphocytes 5.2 % (20.5-51.1); % Monocytes 3.8 % (1.7-9.3); Absolute Immature Granulocytes 0.1 10^3/uL (0-0.05); Absolute Lymphocytes 0.7 10^3/uL (1.2-3.4); Absolute Monocytes 0.5 10^3/uL (0.1-0.6); Absolute Neutrophils 11.3 10^3/uL (1.4-6.5); Hematocrit 28.2 % (37.0-47.0); Hemoglobin 9.9 g/dL (12.0-16.0); Mean Corp Hgb Conc. 35.1 g/dL (33.0-37.0); Mean Corpuscular Hgb 30.8 pg (27.0-31.0); Mean Corpuscular Volume 87.9 fL (81.0-99.0); Mean Platelet Volume 9.6 fL (7.4-10.4); Nucleated Red Blood Cells % 0 %; Platelet Count 206 10^3/uL (130-400); Red Blood Cell Count 3.21 10^6/uL (4.20-5.40); Red Cell Dist. Width 14.5 % (11.5-14.5); White Blood Cell Count 12.5 10^3/uL (4.8-10.8)
[2023-11-09 05:55] LABS: ALT (SGPT) 17 U/L (0-35); AST (SGOT) 17 U/L (14-36); Albumin 1.9 g/dl (3.5-5.0); Alkaline Phosphatase 82 U/L (38-126); Blood Urea Nitrogen 8 mg/dl (7-17); Calcium 6.7 mg/dl (8.4-10.2); Carbon Dioxide 26 mmol/L (22-30); Chloride 101 mmol/L (98-107); Estimated Creatinine Clearance 48 ml/min; Glucose 123 mg/dl (70-99); Magnesium 2.2 mg/dl (1.6-2.3); Potassium 3.5 mmol/L (3.5-5.1); Sodium 138 mmol/L (135-145); Total Bilirubin 0.5 mg/dl (0.2-1.3); Total Protein 3.9 g/dl (6.3-8.2); eGFR > 60.00
--- NOTE | 2023-11-09 05:58 | PTCARENOTE ---
Pt troponin over night trending slightly up, pt Asymptomatic. Night RESIDENTIAL DESIGNER made aware, will order another trop.
[2023-11-09] MEDS: NOVOLOG FLEXPEN-LOW RESISTANCE SC ×3 (09:01→17:45)
[2023-11-09] MEDS: PACERONE PO (09:09)
[2023-11-09] MEDS: NSS (PRESERVATIVE FREE) 10 ML IV (09:09)
[2023-11-09] MEDS: LOPRESSOR PO (09:09)
[2023-11-09] MEDS: PROTONIX IV 40 MG IV (09:09)
[2023-11-09] MEDS: ZESTRIL PO (09:11)
[2023-11-09] MEDS: CORDARONE 104 MG IV (10:30)
[2023-11-09 11:23] LABS: Glucose - Point of Care 113 mg/dl (70-99)
--- NOTE | 2023-11-09 11:29 | W.PN.CRS1 ---
Today's Communication / Plan
-
npo with sips/chips
wound RN
hold eliquis
Assessment/Plan
-
POD#1 1) exploratory laparotomy 2) left colectomy (including entire descending and sigmoid colon) with transverse end colostomy 3) takedown splenic flexure 4) partial small bowel resection 4) drainage left lower abdominal abscess
-Hgb 9.9 from 11.5. Likely due to blood loss anemia with dilutional anemia. Repeat at noon.
-OOB as tolerated
-Wound RN for stoma teaching
-TEDS/SCDS in place. Will add lovenox if hemoglobin stable.
-OR pathology pending
-Continue NPO with chips/sips, given bloating
-Hold off on home Eliquis through the . Possibly restart on sunday.
-Will need IVC filter eventually retrieved
-Continue IV Unasyn (will need po antibiotics as an outpatient given abscess)
Subjective Data
Procedure
11/07- 1) exploratory laparotomy 2) left colectomy (including entire descending and sigmoid colon) with transverse end colostomy 3) takedown splenic flexure 4) partial small bowel resection 4) drainage left lower abdominal abscess
Subjective Data
Date of Service: November 09, 2023
Patient states she has no complaints. She is a little bloated. She denies nausea or vomiting. Her pain is controlled.
Objective Data
-
Vital Signs
Temp Pulse Resp BP Pulse Ox
97.7 F 97 25 116/80 94
11/09/23 07:00 11/09/23 09:00 11/09/23 09:00 11/09/23 09:00 11/09/23 09:00
Intake & Output
11/08/23 11/09/23 11/10/23
06:59 06:59 06:59
Intake Total 2175 / 2175 1906.8 / 1906.8
Output Total 810 / 810
Balance 2175 / 2175 1096.8 / 1096.8
Intake:
Oral fluids 1320 / 1320 30 / 30
IV fluids (Total) 615 / 615 1512.8 / 1512.8
Normosol 500 / 500
Phenylephrine 12.8 / 12.8
IV piggybacks 240 / 240 364 / 364
Output:
Drain Output (Total) 235 / 235
Right Lower Abdomen Richard- 235 / 235
King
Urine, Santa 575 / 575
Other:
Number of approximated SMALL 1
amounts of urine
Number of approximated MODERATE 3
amounts of urine
How many times incontinent 3
MODERATE amount urine
How many times incontinent 4
SATURATED amount urine
Lab Results
11/09/23 05:15
Physical Exam
-
General: No Acute Distress and AOx3
Abdomen: Soft, Distended (mild) and Tender (around incisions)
Skin: Warm and Dry
[2023-11-09] MEDS: LOPRESSOR 2.5 MG IV ×2 (11:30→17:41)
--- NOTE | 2023-11-09 11:49 | W.PN.ID1 ---
Date of Service
Date of Service: November 09, 2023
Today's Communication
Continue Unasyn (d4) pending OR culture data.
Assessment / Plan
Colitis
LLQ abscess
Septic Shock - resolved
Cachexia
Intellectual disability
- UTI ruled out, very low colony count of E coli, sepsis was likely due to colitis
- given two episodes of colitis which appears to be assc with anatomic irregularity within 2 months, recent unprovoked DVT/PE, would purse definitive diagnosis and management of cause of possible stricture
- appreciate colorectal surgery, GI and consultants input.
-11/08/23 s/p left colectomy with transverse end colostomy, partial small bowel resection, and drainage left lower abdominal abscess
OR cx GNR
- Continue Unasyn (d4) pending culture data.
Chief Complaint
-: UTI and Other (shock)
Subjective / Review of Systems
No post-op pain.
Vital Signs / Physical Exam
Vital Signs
Vital Signs
Temp Pulse Resp BP Pulse Ox
97.7 F 97 25 116/80 94
11/09/23 07:00 11/09/23 09:00 11/09/23 09:00 11/09/23 09:00 11/09/23 09:00
Physical Exam
Constitutional: No Acute Distress and Comfortable
Cardiovascular: Regular Rate and S1/S2
Gastrointestinal: Soft, Non Tender, Non Distended and Decreased Bowel Sounds
Extremities: Negative Edema
Neurological: Awake and Alert
Objective Data
Lab Data
Lab Results
11/09/23 05:15
PT 18.3 Sec (11.4-14.6) H 11/06/23 08:00
INR 1.53 11/06/23 08:00
APTT 56.7 Sec (23.4-35.0) H 11/08/23 07:34
Estimated Creat Clear 48 ml/min 11/09/23 05:15
Lactic Acid 1.6 mmol/L (0.7-2.0) 11/03/23 16:17
Total Bilirubin 0.5 mg/dl (0.2-1.3) 11/09/23 05:15
AST 17 U/L (14-36) 11/09/23 05:15
ALT 17 U/L (0-35) 11/09/23 05:15
Alkaline Phosphatase 82 U/L (38-126) 11/09/23 05:15
C-Reactive Protein 83.30 mg/L (0.0-10.00) H 11/08/23 07:34
Most recent labs reviewed.
Micro Results:
11/08/23 14:05 Anaerobic Culture - Preliminary
Abdomen Culture pending. Anaerobic cultures are examined after 3
days incubation. Additional information to follow.
11/08/23 14:05 Wound Culture - Preliminary
Abdomen Gram negative bacilli
Gram Stain - Preliminary
11/02/23 21:48 Blood Culture - Final
Blood/Venous No Growth - Final Report
11/02/23 21:48 Blood Culture - Final
Blood/Venous No Growth - Final Report
11/03/23 12:00 Salmonella/Shigella Culture - Final
Feces/Stool No Salmonella, Shigella, Aeromonas or Plesiomonas species
isolated.
Campylobacter Culture - Final
No Campylobacter species isolated.
Shiga Toxin Test - Final
No E. coli Shiga Toxin 1 or 2 detected.
Stool Leukocytes - Final
11/03/23 00:48 Urine Culture - Final
Urine Escherichia coli
11/03/23 12:00 C. difficile GDH Antigen & Toxins - Final
Feces/Stool Negative for toxigenic C.difficile
11/02/23 21:14 Influenza Types A & B (MARK) - Final
Nasal Swab Negative for Influenza A & B, NAAT
Negative results must be combined with clinical observations
and patient history.
Nucleic Acid Amplification test (NAAT)performed on the
[employer] platform.
11/04/33 CT a/p: Findings at least for crescentic/curvilinear elongated abnormal fluid collection measuring at least 7 cm in the left lower abdomen adjacent to suspected sigmoid colitis and secondarily inflamed partially obstructed proximal to mid
small bowel containing bubbles of air, suspicious for abscess. Oral contrast only opacifying stomach and proximal to mid small bowel, possibly partially obstructed in the left abdomen.
--- NOTE | 2023-11-09 11:57 | W.PN.HOSP.TC ---
Addendum entered and electronically signed by Shawn Solorio MD 11/09/23 15:09:
Switch to once a day IV Amio 200mg as per agreement with cardio
Original Note:
Today's Communication/Plan
-
cont ABx
Needs PICC
Assessment / Plan
Assessment / Plan
63yo F with PMHx of DM, HTN, intellectual impairment, Afib, recent diagnosis of VTE brought to the hospital after the fall, found febrile with sepsis on admission 2/2 UTI. Also had watery diarrhea for 3 days before admission and still was
continuing. Also b/l LE swelling. Managed for CHF, Afib with RVR, later found abdominal abscess s/p exploratory laparotomy with left colectomy with transverse end colostomy, takedown splenic flexure, partial small bowel resection, drainage left
lower abdominal abscess for colectomy on 11/08/23
A/P:
#Colitis, enteritis with abdominal abscess
#pSBO
COlorectalSx: s/p 1) exploratory laparotomy 2) left colectomy (including entire descending and sigmoid colon) with transverse end colostomy 3) takedown splenic flexure 4) partial small bowel resection 4) drainage left lower abdominal abscess on
11/07/23
Abscess periOP Cx - GNB - cont Unasyn, pending further identification and ID consult
CRP elevated
Calprotectin pending
C.diff negative
GI consult: working on ischemic/diverticular causes
Place PICC in anticipation for TPN
#UTI with sepsis on admission
#Overflow diarrhea
never used pressors - no shock
Ucx - pansensitive E.coli - completed Abx for it
#Paroxysmal Afib with RVR
#PACs
#acute on chronic HFpEF
Cardiology follows: amiodarone
Echo in Sep - grade 2 diastolic dysfunction, severe L atrial dilation
Lasix as per cardio
Hold anticoagulation until allowed to restart by surgical service - prelim on 11/12/23
#Recent VTE, provoked
#Anemia of chronic disease
Eliquis initially held, as per RN - no signs of bleeding with stool, bedside FOBT done - apparently neg, will repeat for official record
Heparin drip and closely follow Hgb, transfuse as needed to keep Hgb >7
Onc followed: recommended periOP IVCf - IRAD consulted and IVC filter placed on 11/08/23
#LE swelling, cannot exclude 2/2 protein-loosing enteropathy with diarrhea
Lasix PRN
GI consult: persistent colitis
Advise to increase oral intake
Proteine supplements
C.diff neg
Stool Cx neg
#Indirect bilirubinemia
#Minimal alk.phos elevated
No RUQ pain
most likely 2/2 PRBC transfusion and acute disease
haptoglobin high
#Hypokalemia
#Hypomagnesemia
2/2 enteric losses and poor oral intake
replete and follow
#DM type 2 with neuropathy
Accuchecks, DM diet, insulin SS, hold metformin
#L pelvis dermoid
PCP f/u as outpatient
#Essential HTN
held BP meds due to relative hypotension - restart low dose lisinopril
#Malnutrition, protein calorie
Might need TPN while awaiting for return of bowel function
DVT ppx on Heparin drip
FUll code
I have spent at least 39min reviewing chart, test results, communicating with consultants and direct patient care
Anticipated Discharge: > 48 hours
Subjective/Interval History
-
Date of Service: November 09, 2023
Objective Data
-
Labs:
Laboratory Results
11/09/23 11/09/23
05:15 12:00
WBC 12.5 H
Hgb 9.9 L Pending
Hct 28.2 L Pending
Plt Count 206 D
Sodium 138
Potassium 3.5
Chloride 101
Carbon Dioxide 26
BUN 8
Creatinine 0.8
Glucose 123 H
Calcium 6.7 L*
Total Bilirubin 0.5
AST 17
ALT 17
Alkaline Phosphatase 82
Vital Signs:
Vital Signs
Temp Pulse Resp BP Pulse Ox
97.7 F 97 25 116/80 94
11/09/23 07:00 11/09/23 09:00 11/09/23 09:00 11/09/23 09:00 11/09/23 09:00
I&O
11/08/23 11/09/23 11/10/23
06:59 06:59 06:59
Intake Total 2175 / 2175 1906.8 / 1906.8
Output Total 810 / 810
Balance 2175 / 2175 1096.8 / 1096.8
Review of Systems
-
History Source: Patient
All other systems: Reviewed and negative
Physical Exam
-
General: No Apparent Distress
HEENT: Normocephalic and Atraumatic
Respiratory: Clear to Auscultation
Cardiac: Regular Rhythm
GI: Soft, Nontender and Ostomy
Musculoskeletal: No Clubbing, No Cyanosis and No Edema
Skin: Warm; Negative Dry or Rash
Neuro: Awake, Alert and Oriented
Psych: Calm and Other (intellectual disability)
--- NOTE | 2023-11-09 13:49 | WOUNDNOTE ---
[facility] RN NOTE: Reviewed chart and met with patient and family. Patient is s/p exploratory laparotomy 2) left colectomy (including entire descending and sigmoid colon) with transverse end colostomy 3) takedown splenic flexure 4) partial small bowel
resection 4) drainage left lower abdominal abscess on 11/07/23. Stoma is pink and budded with scant amount of output. Patient is awake and alert and accompanied by her brother Khanh. Per patient and Khanh, preferred plan is for patient to go home with
Khanh and VN. Khanh and perhaps some other siblings would like to be involved with ostomy care/teaching.
--- NOTE | 2023-11-09 13:54 | WOUNDNOTE ---
[facility] RN NOTE: Reviewed chart and met with patient, brother Khanh and sister, Chey.Patient is s/p exploratory laparotomy 2) left colectomy (including entire descending and sigmoid colon) with transverse end colostomy 3) takedown splenic flexure 4)
partial small bowel resection 4) drainage left lower abdominal abscess on 11/07/23. Stoma is pink and budded with a scant amount of drainage. Midline dressing is clean and intact. Per patient and Khanh preferred plan is for patient to go home with Khanh
and VN. Khanh and Chey would like to be involved with ostomy teaching. Polina information book left at bedside. Ostomy supplies at bedside. Confirmed with Colorectal Surgery that midline dressing can be removed when appliance is changed on 11/11.
Please call Khanh [phone] or Chey at [phone] to schedule ostomy teaching on 11/12.
--- NOTE | 2023-11-09 14:51 | W.PN.CARDCBS ---
Today's Communication / Plan
-
Resume anticoagulation when safe from a surgical standpoint
Transition metoprolol and amiodarone back to oral when able to take p.o.
Impression / Plan
-
PCP: Gaurav Jensen PA-C
Cardiology: Dr. Bruce
Impression:
Admitted with fall, UTI and sepsis 11/02/23
Possible sigmoid colitis
previously identified severe left colitis 09/26/23
Fall
Marked anemia
Sinus tachycardia with PACs and short runs of PAT 11/03/23
Recent admission with DVT, PE and newly diagnosed Afib 09/26/23 until 10/02/23
Paroxysmal Afib
new diagnosis 09/26/23 that spontaneously converted 09/27/23
Chronic Eliquis OAC
Acute on chronic vs chronic B/L LE edema
cRBBB
h/o right common femoral and superficial femoral vein thrombus and B/L PE 09/26/23
Prediabetes
HTN
HLD
Iatrogenic increased volume
Hypokalemia
Echo 09/27/2023: EF 56%, stage II diastolic dysfunction, mild to moderate MR, mild TR, estimated PAP 25 to 30 mmHg
Plan:
-Now s/p colectomy and colostomy 11/08/23
-H/o AFib/Atach
-Currently received metoprolol and amio via IV, woud transition back to oral when clear to take PO
-Eliquis on hold post-op, would resume when safe from surgical standpoint
-Appears euvolemic, would hold off on further diuresis at this time
-Outpatient dose of lisinopril on hold for hypotension
HPI: Patient [facility] after a fall at home and cardiology is now consulted for abnormal telemetry and chronic OAC. Patient was just admitted to 09/26/23 until 10/02/23 with new DVT and PE. Cardiology was consulted at that time foe
new Afib that spontaneously converted to SR. Eliquis 5 mg BID started. Patient was also diuresed with Lasix 20 mg IV x1, but patient was not discharged to home on diuretic due to hypotension. Patient came to hospital f/u visit at cardiology office
10/26/23 and appeared to be euvolemic and patient's sister thought her LE edema was improved. Lisinopril dose was decreased to 10 mg daily due to hypotension. Also, Toprol XL was increased to 50 mg BID due to rapid HR, but patient was in SR on ECG. 7
day monitor applied that is not yet resulted. Patient came back to [facility] last night after a fall at home. Patient with sepsis, shock and UTI on admission. Levophed started overnight, but now stopped. Patient started on IV antibiotics. Cardiology
consulted for tele review that looked like possible recurrent Afib with RVR. Patient denies palpitations. No chest pain or SOB
Progress Note - [employer]ician
Subjective
Date of Service: November 09, 2023
No acute overnight events. Resting comfortably in the IMU after colectomy yesterday. No cardiac complaints.
Objective
Labs:
11/09/23 05:15
Labs
Hgb 9.9 g/dL (12.0-16.0) L 11/09/23 05:15
Hct 28.2 % (37.0-47.0) L 11/09/23 05:15
Plt Count 206 10^3/uL (130-400) D 11/09/23 05:15
PT 18.3 Sec (11.4-14.6) H 11/06/23 08:00
INR 1.53 11/06/23 08:00
APTT 56.7 Sec (23.4-35.0) H 11/08/23 07:34
Sodium 138 mmol/L (135-145) 11/09/23 05:15
Potassium 3.5 mmol/L (3.5-5.1) 11/09/23 05:15
BUN 8 mg/dl (7-17) 11/09/23 05:15
Creatinine 0.8 mg/dL (0.6-1.0) 11/09/23 05:15
Glucose 123 mg/dl (70-99) H 11/09/23 05:15
Vital Signs and I&O:
Vital Signs
Temp Pulse Resp BP Pulse Ox
97.9 F 84 23 128/69 95
11/09/23 11:59 11/09/23 13:00 11/09/23 13:00 11/09/23 13:00 11/09/23 14:37
Vital Signs
Temp Pulse Resp BP Pulse Ox
97.9 F 84 23 128/69 95
11/09/23 11:59 11/09/23 13:00 11/09/23 13:00 11/09/23 13:00 11/09/23 14:37
Intake & Output
11/07/23 11/08/23 11/09/23 11/10/23
06:59 06:59 06:59 06:59
Intake Total 1372 / 1372 2175 / 2175 1906.8 / 1906.8
Output Total 810 / 810
Balance 1372 / 1372 2175 / 2175 1096.8 / 1096.8 -
Physical Exam
Physical Exam
Gen: NAD, AA
HEENT: NC/AT, sclera anicteric
Neck: No JVD
CV: RRR, NL s1/s2
Lungs: CTAB
Ext: No LE edema
Skin: Warm, dry
Neuro: Non-focal
--- NOTE | 2023-11-09 17:05 | CM ---
Patient with Hx intellectual impairment, recent fall with Dx colitis/enteritis w abdominal abscess, pSBO, s/p colectomy/colostomy/partial SBR, UTI w sepsis, PAF w RVR. Room air. NPO. Receiving IV acetaminophen, Amiodarone IV gtt, IV Abx,
parenteral electrolytes. PT/OT recommend HH. Seen by wound care nurse- family members identified for ostomy teaching.
Noting referral to [facility] per prior CM notes 11/06/23.
CM continuing to follow for d/c needs.
Plan follow up with [facility] for appropriate disposition.
Plan home with VN for ostomy care when medically ready.
[2023-11-09 17:56] LABS: Glucose - Point of Care 105 mg/dl (70-99)
--- NOTE | 2023-11-09 19:40 | PTCARENOTE ---
Received pt from day shift. AAOx3. VSS. NS on monitor. Normosol/Plasmalyte-A running @ 100 mL/hr. ABD midline dressing intact with scant drainage. R lower abdominal MANN dressing dry and intact, bulb contains scant serosanguineous drainage. Santa
care completed and it is draining clear yellow urine. Colostomy bag intact, stoma pink and budded. Pt resting in bed with call plascencia in reach.
[2023-11-09 19:58] LABS: Hematocrit 26.6 % (37.0-47.0); Hemoglobin 9.2 g/dL (12.0-16.0)
[2023-11-09 23:08] LABS: Glucose - Point of Care 98 mg/dl (70-99)
[2023-11-09] MEDS: NORMOSOL-R/PLASMALYTE-A IV (23:27)
--- NOTE | 2023-11-09 23:30 | PTCARENOTE ---
Insulin gtt stopped @ 2129 and notified YAIR Marino. BMPs ordered for 0200 and 0600, accu checks to be completed as well at those times per ELOY.
[2023-11-10] VITALS (11 sets, daily range): BP systolic 119–143; BP diastolic 66–97; BMI 19.1
[2023-11-10] MEDS: UNASYN IV ×4 (03:07→21:28)
[2023-11-10] MEDS: TORADOL 10 MG IV ×4 (03:07→20:14)
[2023-11-10] MEDS: LOPRESSOR 2.5 MG IV ×3 (03:08→17:44)
[2023-11-10] MEDS: DEXTROSE 50% SYRINGE 12.5 GRAMS IV (06:30)
[2023-11-10 06:33] LABS: Glucose - Point of Care 69 mg/dl (70-99)
[2023-11-10 06:47] LABS: % Basophils 0.2 % (0-2); % Eosinophils 0.1 % (0-6); % Immature Granulocytes 0.6 % (0-0.5); % Lymphocytes 5.5 % (20.5-51.1); % Monocytes 2.1 % (1.7-9.3); % Neutrophils 91.5 % (42.2-75.2); Absolute Immature Granulocytes 0.1 10^3/uL (0-0.05); Absolute Lymphocytes 0.7 10^3/uL (1.2-3.4); Absolute Monocytes 0.3 10^3/uL (0.1-0.6); Absolute Neutrophils 11.3 10^3/uL (1.4-6.5); Hematocrit 26.7 % (37.0-47.0); Mean Corp Hgb Conc. 33.7 g/dL (33.0-37.0); Mean Corpuscular Hgb 30.4 pg (27.0-31.0); Mean Corpuscular Volume 90.2 fL (81.0-99.0); Mean Platelet Volume 9.4 fL (7.4-10.4); Nucleated Red Blood Cells % 0 %; Platelet Count 253 10^3/uL (130-400); Red Blood Cell Count 2.96 10^6/uL (4.20-5.40); Red Cell Dist. Width 15.1 % (11.5-14.5); White Blood Cell Count 12.4 10^3/uL (4.8-10.8)
[2023-11-10 06:52] LABS: ALT (SGPT) 19 U/L (0-35); AST (SGOT) 19 U/L (14-36); Albumin 2.1 g/dl (3.5-5.0); Alkaline Phosphatase 95 U/L (38-126); Blood Urea Nitrogen 12 mg/dl (7-17); Calcium 7.6 mg/dl (8.4-10.2); Carbon Dioxide 27 mmol/L (22-30); Chloride 103 mmol/L (98-107); Estimated Creatinine Clearance 44 ml/min; Glucose 63 mg/dl (70-99); Potassium 3.1 mmol/L (3.5-5.1); Sodium 141 mmol/L (135-145); Total Bilirubin 0.5 mg/dl (0.2-1.3); Total Protein 4.2 g/dl (6.3-8.2); eGFR > 60.00
[2023-11-10 07:28] LABS: Glucose - Point of Care 117 mg/dl (70-99)
[2023-11-10] MEDS: NSS (PRESERVATIVE FREE) 10 ML IV (08:31)
[2023-11-10] MEDS: PROTONIX IV 40 MG IV (08:31)
[2023-11-10] MEDS: KCL 270 MEQ IV (08:32)
--- NOTE | 2023-11-10 08:57 | W.PN.ID1 ---
Date of Service
Date of Service: November 10, 2023
Today's Communication
Continue antibiotics.
Assessment / Plan
Colitis
LLQ abscess
- S/P exp lap / (L) colectomy /w transverse end colostomy / drainage LLQ abscess (11/08/23)
- OR cx's with GNR's
Septic Shock - resolved
Cachexia
Intellectual disability
- UTI ruled out, very low colony count of E coli, sepsis was likely due to colitis
Recommendations:
Continue Unasyn (d4) pending culture data.
Follow white count temperature curve.
Chief Complaint
-: UTI and Other (shock)
Subjective / Review of Systems
Review of Systems: No Fever, No Chills and No Abdominal Pain
Vital Signs / Physical Exam
Vital Signs
Vital Signs
Temp Pulse Resp BP Pulse Ox
97.5 F 93 23 136/80 99
11/10/23 07:00 11/10/23 06:00 11/10/23 06:00 11/10/23 06:00 11/10/23 06:00
Physical Exam
Constitutional: No Acute Distress, Comfortable, Chronically Ill and Non-toxic
Eyes: Sclera Anicteric
Cardiovascular: S1/S2; Negative S3/S4
Pulmonary: Non Labored
Gastrointestinal: Soft and Non Distended
Extremities: Negative Edema or Cyanosis
Skin: Warm; Negative Dry
Neurological: Awake and Alert
Psychological: Calm
Objective Data
Lab Data
Lab Results
11/10/23 06:19
11/10/23 06:19
PT 18.3 Sec (11.4-14.6) H 11/06/23 08:00
INR 1.53 11/06/23 08:00
APTT 56.7 Sec (23.4-35.0) H 11/08/23 07:34
Estimated Creat Clear 44 ml/min 11/10/23 06:19
Lactic Acid 1.6 mmol/L (0.7-2.0) 11/03/23 16:17
Total Bilirubin 0.5 mg/dl (0.2-1.3) 11/10/23 06:19
AST 19 U/L (14-36) 11/10/23 06:19
ALT 19 U/L (0-35) 11/10/23 06:19
Alkaline Phosphatase 95 U/L (38-126) 11/10/23 06:19
C-Reactive Protein 83.30 mg/L (0.0-10.00) H 11/08/23 07:34
Most recent labs reviewed.
Micro Results:
11/08/23 14:05 Wound Culture - Preliminary
Abdomen Gram negative bacilli
Gram Stain - Preliminary
11/08/23 14:05 Anaerobic Culture - Preliminary
Abdomen Culture pending. Anaerobic cultures are examined after 3
days incubation. Additional information to follow.
11/02/23 21:48 Blood Culture - Final
Blood/Venous No Growth - Final Report
11/02/23 21:48 Blood Culture - Final
Blood/Venous No Growth - Final Report
11/03/23 12:00 Salmonella/Shigella Culture - Final
Feces/Stool No Salmonella, Shigella, Aeromonas or Plesiomonas species
isolated.
Campylobacter Culture - Final
No Campylobacter species isolated.
Shiga Toxin Test - Final
No E. coli Shiga Toxin 1 or 2 detected.
Stool Leukocytes - Final
11/03/23 00:48 Urine Culture - Final
Urine Escherichia coli
11/03/23 12:00 C. difficile GDH Antigen & Toxins - Final
Feces/Stool Negative for toxigenic C.difficile
11/02/23 21:14 Influenza Types A & B (MARK) - Final
Nasal Swab Negative for Influenza A & B, NAAT
Negative results must be combined with clinical observations
and patient history.
Nucleic Acid Amplification test (NAAT)performed on the
[employer] platform.
11/04/33 CT a/p: Findings at least for crescentic/curvilinear elongated abnormal fluid collection measuring at least 7 cm in the left lower abdomen adjacent to suspected sigmoid colitis and secondarily inflamed partially obstructed proximal to mid
small bowel containing bubbles of air, suspicious for abscess. Oral contrast only opacifying stomach and proximal to mid small bowel, possibly partially obstructed in the left abdomen.
[2023-11-10] MEDS: CORDARONE 104 MG IV (09:42)
[2023-11-10 09:45] LABS: Glucose - Point of Care 91 mg/dl (70-99)
[2023-11-10 11:52] LABS: Glucose - Point of Care 91 mg/dl (70-99)
--- NOTE | 2023-11-10 12:30 | W.PN.HOSP.TC ---
Today's Communication/Plan
-
Follow with Colorectal if TPN needed
cont Unasyn
might need D5 if feeding or TPN not planned
Replete potassium
Assessment / Plan
Assessment / Plan
63yo F with PMHx of DM, HTN, intellectual impairment, Afib, recent diagnosis of VTE brought to the hospital after the fall, found febrile with sepsis on admission 2/2 UTI. Also had watery diarrhea for 3 days before admission and still was
continuing. Also b/l LE swelling. Managed for CHF, Afib with RVR, later found abdominal abscess s/p exploratory laparotomy with left colectomy with transverse end colostomy, takedown splenic flexure, partial small bowel resection, drainage left
lower abdominal abscess for colectomy on 11/08/23
A/P:
#Colitis, enteritis with abdominal abscess
#pSBO
COlorectalSx: s/p 1) exploratory laparotomy 2) left colectomy (including entire descending and sigmoid colon) with transverse end colostomy 3) takedown splenic flexure 4) partial small bowel resection 4) drainage left lower abdominal abscess on
11/07/23
Abscess periOP Cx - GNB - cont Unasyn, pending further identification and ID consult
CRP elevated
Calprotectin pending
C.diff negative
GI consult: working on ischemic/diverticular causes
Place PICC if TPN will be planned- follow COlorectalSx
#UTI with sepsis on admission
#Overflow diarrhea
never used pressors - no shock
Ucx - pansensitive E.coli - completed Abx for it
#Paroxysmal Afib with RVR
#PACs
#acute on chronic HFpEF
Cardiology follows: amiodarone
Echo in Sep - grade 2 diastolic dysfunction, severe L atrial dilation
Lasix as per cardio
Hold anticoagulation until allowed to restart by surgical service - prelim on 11/12/23
#Recent VTE, provoked
#Anemia of chronic disease
Eliquis initially held, as per RN - no signs of bleeding with stool, bedside FOBT done - apparently neg, will repeat for official record
Heparin drip and closely follow Hgb, transfuse as needed to keep Hgb >7
Onc followed: recommended periOP IVCf - IRAD consulted and IVC filter placed on 11/08/23
#LE swelling, cannot exclude 2/2 protein-loosing enteropathy with diarrhea
Lasix PRN
GI consult: persistent colitis
Advise to increase oral intake
Proteine supplements
C.diff neg
Stool Cx neg
#Indirect bilirubinemia
#Minimal alk.phos elevated
No RUQ pain
most likely 2/2 PRBC transfusion and acute disease
haptoglobin high
#Hypokalemia
#Hypomagnesemia
2/2 enteric losses and poor oral intake
replete and follow
#DM type 2 with neuropathy
Accuchecks, DM diet, insulin SS, hold metformin
#L pelvis dermoid
PCP f/u as outpatient
#Essential HTN
held BP meds due to relative hypotension - restart low dose lisinopril
#Malnutrition, protein calorie
Might need TPN while awaiting for return of bowel function
DVT ppx on Heparin drip
FUll code
I have spent at least 39min reviewing chart, test results, communicating with consultants and direct patient care
Anticipated Discharge: > 48 hours
Subjective/Interval History
-
Date of Service: November 10, 2023
Objective Data
-
Labs:
Laboratory Results
11/10/23
06:19
WBC 12.4 H
Hgb 9.0 L
Hct 26.7 L
Plt Count 253 D
Sodium 141
Potassium 3.1 L
Chloride 103
Carbon Dioxide 27
BUN 12
Creatinine 0.9
Glucose 63 L
Calcium 7.6 L
Total Bilirubin 0.5
AST 19
ALT 19
Alkaline Phosphatase 95
Vital Signs:
Vital Signs
Temp Pulse Resp BP Pulse Ox
97.6 F 77 19 131/97 96
11/10/23 11:00 11/10/23 12:00 11/10/23 12:00 11/10/23 12:00 11/10/23 12:00
I&O
11/09/23 11/10/23 11/11/23
06:59 06:59 06:59
Intake Total 1906.8 / 1906.8 18832 / 66495
Output Total 810 / 810 330 / 330
Balance 1096.8 / 1096.8 57628 / 46477
Review of Systems
-
History Source: Patient
All other systems: Reviewed and negative
Physical Exam
-
General: No Apparent Distress
HEENT: Normocephalic
Cardiac: Regular Rhythm
GI: Soft, Nontender, Nondistended and Ostomy (with liquid brown output)
Skin: Warm
Neuro: Awake, Alert, Oriented and AO x 3
Psych: Calm
--- NOTE | 2023-11-10 12:51 | W.PN.CRS1 ---
Today's Communication / Plan
-
clear liquids with ENsure
Assessment/Plan
-
POD#2 1) exploratory laparotomy 2) left colectomy (including entire descending and sigmoid colon) with transverse end colostomy 3) takedown splenic flexure 4) partial small bowel resection 4) drainage left lower abdominal abscess
-OOB as tolerated
-Wound RN for stoma teaching
-TEDS/SCDS in place. Add Lovenox.
-OR pathology pending
-Clear liquids with Ensure supplement. Will hold TPN for now.
-Hold off on home Eliquis through the weekend. Possibly restart on Sunday.
-Will need IVC filter eventually retrieved
-Continue IV Unasyn (will need po antibiotics as an outpatient given abscess)
Subjective Data
Procedure
11/07- 1) exploratory laparotomy 2) left colectomy (including entire descending and sigmoid colon) with transverse end colostomy 3) takedown splenic flexure 4) partial small bowel resection 4) drainage left lower abdominal abscess
Subjective Data
Date of Service: November 10, 2023
Patient states she is feeling well. She has no complaints of pain. She feels 'good'. She denies nausea or vomiting. She is hungry.
Objective Data
-
Vital Signs
Temp Pulse Resp BP Pulse Ox
97.6 F 77 19 131/97 96
11/10/23 11:00 11/10/23 12:00 11/10/23 12:00 11/10/23 12:00 11/10/23 12:00
Intake & Output
11/09/23 11/10/23 11/11/23
06:59 06:59 06:59
Intake Total 1906.8 / 1906.8 28101 / 80327
Output Total 810 / 810 330 / 330
Balance 1096.8 / 1096.8 28613 / 12470
Intake:
Oral fluids 30 / 30
IV fluids (Total) 1512.8 / 1512.8 14474 / 46280
Normosol 500 / 500
Phenylephrine 12.8 / 12.8
IV piggybacks 364 / 364 560 / 560
Output:
Drain Output (Total) 235 / 235 80 / 80
Right Lower Abdomen Richard- 235 / 235 80 / 80
King
Urine, Santa 575 / 575 250 / 250
Other:
Number of approximated SMALL 1
amounts of urine
Lab Results
11/10/23 06:19
11/10/23 06:19
Physical Exam
-
General: No Acute Distress and AOx3
Abdomen: Soft, Non Distended, Non Tender and Other (ileostomy warm and pink with some flatus in bag)
Skin: Warm and Dry
Wound: Dressing in Place
[2023-11-10 16:36] LABS: Glucose - Point of Care 116 mg/dl (70-99)
--- NOTE | 2023-11-10 17:21 | PTCARENOTE ---
see nursing assessment. pt sat oob in chair several hours this shift. pt started and is tolerating clear liquid diet. iv potassium given over 4 hours per order. pt reports minimal incisional pain. juarez removed early this am and pt has voided x4
small amounts tea color urine on bedside commode. colostomy red and budded draining serosanguinous fluid. courtney to bulb suction with serosanguinous drainage. abdominal dressing intact with small amount old drainage.
[2023-11-10] MEDS: LOVENOX 40 MG SC (17:44)
[2023-11-10 21:31] LABS: Glucose - Point of Care 157 mg/dl (70-99)
[2023-11-11] VITALS (14 sets, daily range): BP systolic 123–147; BP diastolic 67–85; PULSE 82; O2SAT 97; BMI 19.7
[2023-11-11] MEDS: LOPRESSOR 2.5 MG IV ×3 (01:05→17:25)
[2023-11-11] MEDS: TORADOL 10 MG IV ×2 (01:05→09:35)
[2023-11-11] MEDS: UNASYN IV ×4 (03:26→21:07)
[2023-11-11 05:03] LABS: % Basophils 0.1 % (0-2); % Eosinophils 0.4 % (0-6); % Immature Granulocytes 0.5 % (0-0.5); % Lymphocytes 3.5 % (20.5-51.1); % Monocytes 1.8 % (1.7-9.3); % Neutrophils 93.7 % (42.2-75.2); Absolute Eosinophils 0.1 10^3/uL (0-0.7); Absolute Immature Granulocytes 0.1 10^3/uL (0-0.05); Absolute Lymphocytes 0.5 10^3/uL (1.2-3.4); Absolute Monocytes 0.2 10^3/uL (0.1-0.6); Hematocrit 24.9 % (37.0-47.0); Hemoglobin 8.2 g/dL (12.0-16.0); Mean Corp Hgb Conc. 32.9 g/dL (33.0-37.0); Mean Corpuscular Hgb 30.4 pg (27.0-31.0); Mean Corpuscular Volume 92.2 fL (81.0-99.0); Nucleated Red Blood Cells % 0 %; Platelet Count 254 10^3/uL (130-400); White Blood Cell Count 12.8 10^3/uL (4.8-10.8)
--- NOTE | 2023-11-11 05:43 | PTCARENOTE ---
Pt resting comfortably in bed. AAO x 3, pleasant; NSR on monitor; Pt denies pain; Abd Midline aquacell dressing with small amount of old drainage noted. Colostomy intact, stoma pink and budded. + Flatus, small amount of serosanguineous drainage
noted in bag. Will continue to monitor and assess.
[2023-11-11 05:45] LABS: ALT (SGPT) 17 U/L (0-35); AST (SGOT) 17 U/L (14-36); Alkaline Phosphatase 93 U/L (38-126); Blood Urea Nitrogen 12 mg/dl (7-17); Calcium 7.3 mg/dl (8.4-10.2); Carbon Dioxide 31 mmol/L (22-30); Chloride 103 mmol/L (98-107); Estimated Creatinine Clearance 58 ml/min; Glucose 89 mg/dl (70-99); Magnesium 2.1 mg/dl (1.6-2.3); Potassium 3.5 mmol/L (3.5-5.1); Sodium 140 mmol/L (135-145); Total Bilirubin 0.3 mg/dl (0.2-1.3); Total Protein 4.2 g/dl (6.3-8.2); eGFR > 60.00
--- NOTE | 2023-11-11 08:38 | PTCARENOTE ---
pt assisted oob to bedside commode. voiding small concentrated amount of urine. 75 ml liquid dark brown stool and flatus emptied from colostomy bag. +2 pitting edema noted bilateral pedals through flanks. resp even and non-labored; pox 96% on room
air without desat with activity. requesting to sit in chair. continuing to monitor
[2023-11-11 08:49] LABS: Glucose - Point of Care 75 mg/dl (70-99)
[2023-11-11] MEDS: NOVOLOG FLEXPEN-LOW RESISTANCE SC ×2 (09:34→12:00)
[2023-11-11] MEDS: NSS (PRESERVATIVE FREE) 10 ML IV (09:35)
[2023-11-11] MEDS: PROTONIX IV 40 MG IV (09:35)
[2023-11-11] MEDS: LASIX 40 MG IV (09:36)
[2023-11-11] MEDS: CORDARONE 104 MG IV (09:37)
--- NOTE | 2023-11-11 10:24 | W.PN.ID1 ---
Date of Service
Date of Service: November 11, 2023
Today's Communication
Continue antibiotics. Will add micafungin given recovery of Carol albicans.
Assessment / Plan
Colitis
LLQ abscess
- S/P exp lap / (L) colectomy /w transverse end colostomy / drainage LLQ abscess (11/08/23)
- OR cx's with E. coli (pansensitive); Carol albicans
Clinical sepsis - resolved
Paroxysmal A-fib with RVR
-Currently on amiodarone
Cachexia
Intellectual disability
Recommendations:
Continue Unasyn (d#5). Add micafungin.
Follow white count & temperature curve.
Chief Complaint
-: UTI and Other (shock)
Subjective / Review of Systems
Review of Systems: No Fever and No Chills
Vital Signs / Physical Exam
Vital Signs
Vital Signs
Temp Pulse Resp BP Pulse Ox
98.3 F 70 23 130/73 96
11/11/23 07:52 11/11/23 09:36 11/11/23 08:00 11/11/23 09:36 11/11/23 08:00
Physical Exam
Constitutional: No Acute Distress, Comfortable and Non-toxic
Eyes: Sclera Anicteric
Cardiovascular: S1/S2; Negative S3/S4
Pulmonary: Non Labored
Gastrointestinal: Soft
Neurological: Awake and Alert
Psychological: Calm
Objective Data
Lab Data
Lab Results
11/11/23 04:53
11/11/23 04:53
PT 18.3 Sec (11.4-14.6) H 11/06/23 08:00
INR 1.53 11/06/23 08:00
APTT 56.7 Sec (23.4-35.0) H 11/08/23 07:34
Estimated Creat Clear 58 ml/min 11/11/23 04:53
Lactic Acid 1.6 mmol/L (0.7-2.0) 11/03/23 16:17
Total Bilirubin 0.3 mg/dl (0.2-1.3) 11/11/23 04:53
AST 17 U/L (14-36) 11/11/23 04:53
ALT 17 U/L (0-35) 11/11/23 04:53
Alkaline Phosphatase 93 U/L (38-126) 11/11/23 04:53
C-Reactive Protein 83.30 mg/L (0.0-10.00) H 11/08/23 07:34
Most recent labs reviewed.
Micro Results:
11/08/23 14:05 Wound Culture - Preliminary
Abdomen Escherichia coli
Carol albicans
Gram Stain - Preliminary
11/08/23 14:05 Anaerobic Culture - Preliminary
Abdomen Culture pending. Anaerobic cultures are examined after 3
days incubation. Additional information to follow.
11/02/23 21:48 Blood Culture - Final
Blood/Venous No Growth - Final Report
11/02/23 21:48 Blood Culture - Final
Blood/Venous No Growth - Final Report
11/03/23 12:00 Salmonella/Shigella Culture - Final
Feces/Stool No Salmonella, Shigella, Aeromonas or Plesiomonas species
isolated.
Campylobacter Culture - Final
No Campylobacter species isolated.
Shiga Toxin Test - Final
No E. coli Shiga Toxin 1 or 2 detected.
Stool Leukocytes - Final
11/03/23 00:48 Urine Culture - Final
Urine Escherichia coli
11/03/23 12:00 C. difficile GDH Antigen & Toxins - Final
Feces/Stool Negative for toxigenic C.difficile
11/02/23 21:14 Influenza Types A & B (MARK) - Final
Nasal Swab Negative for Influenza A & B, NAAT
Negative results must be combined with clinical observations
and patient history.
Nucleic Acid Amplification test (NAAT)performed on the
[employer] platform.
11/04/33 CT a/p: Findings at least for crescentic/curvilinear elongated abnormal fluid collection measuring at least 7 cm in the left lower abdomen adjacent to suspected sigmoid colitis and secondarily inflamed partially obstructed proximal to mid
small bowel containing bubbles of air, suspicious for abscess. Oral contrast only opacifying stomach and proximal to mid small bowel, possibly partially obstructed in the left abdomen.
--- NOTE | 2023-11-11 11:33 | W.PN.CRS1 ---
Today's Communication / Plan
-
repeat hgb
hold lovenox/toradol
fulls
Assessment/Plan
-
POD#3 1) exploratory laparotomy 2) left colectomy (including entire descending and sigmoid colon) with transverse end colostomy 3) takedown splenic flexure 4) partial small bowel resection 4) drainage left lower abdominal abscess
-OOB as tolerated
-Wound RN for stoma teaching
-TEDS/SCDS in place. Add Lovenox.
-OR pathology pending
-Full liquids with Ensure supplement. Will hold TPN for now.
-Hold off on home Eliquis through the . Possibly restart on Sunday.
-Will need IVC filter eventually retrieved
-Continue IV Unasyn (will need po antibiotics as an outpatient given abscess)
-Repeat hgb, 8.2 from 9.0. Holding Toradol/Lovenox.
Subjective Data
Procedure
11/07- 1) exploratory laparotomy 2) left colectomy (including entire descending and sigmoid colon) with transverse end colostomy 3) takedown splenic flexure 4) partial small bowel resection 4) drainage left lower abdominal abscess
Subjective Data
Date of Service: November 11, 2023
Patient states she is having gas and bowel movements. She is hungry. Her stoma has function. She denies nausea or vomiting.
Objective Data
-
Vital Signs
Temp Pulse Resp BP Pulse Ox
98.3 F 85 23 127/70 96
11/11/23 07:52 11/11/23 11:04 11/11/23 08:00 11/11/23 11:04 11/11/23 08:00
Intake & Output
11/10/23 11/11/23 11/12/23
06:59 06:59 06:59
Intake Total 97799 / 87483 2070 / 2070 360 / 360
Output Total 330 / 330 353 / 353 250 / 250
Balance 18609 / 40648 1717 / 1717 110 / 110
Intake:
Oral fluids 1180 / 1180 360 / 360
IV fluids (Total) 91270 / 16496 100 / 100
IV piggybacks 560 / 560 790 / 790
Output:
Liquid stool amount 50 / 50
Colostomy 50 / 50
Drain Output (Total) 80 / 80 3 / 3
Right Lower Abdomen Richard- 80 / 80 3 / 3
King
Urine, Santa 250 / 250
Urine, Voided 300 / 300 250 / 250
Other:
Number of approximated SMALL 1
amounts of urine
Lab Results
11/11/23 04:53
Physical Exam
-
General: No Acute Distress and AOx3
Abdomen: Soft, Non Distended and Non Tender
Skin: Warm and Dry
Incision: Clear, Dry, Intact
[2023-11-11] MEDS: MYCAMINE 105 MG IV (12:06)
--- NOTE | 2023-11-11 12:28 | W.PN.HOSP.TC ---
Today's Communication/Plan
-
Advance diet as tolerated
Lasix IV
Minimal drop in Hgb without overt bleeding or painful abd - cont to hold Ac and follow H&H
Assessment / Plan
Assessment / Plan
63yo F with PMHx of DM, HTN, intellectual impairment, Afib, recent diagnosis of VTE brought to the hospital after the fall, found febrile with sepsis on admission 2/2 UTI. Also had watery diarrhea for 3 days before admission and still was
continuing. Also b/l LE swelling. Managed for CHF, Afib with RVR, later found abdominal abscess s/p exploratory laparotomy with left colectomy with transverse end colostomy, takedown splenic flexure, partial small bowel resection, drainage left
lower abdominal abscess for colectomy on 11/08/23, had rapid return of bowel function.
A/P:
#Colitis, enteritis with abdominal abscess
#pSBO
COlorectalSx: s/p 1) exploratory laparotomy 2) left colectomy (including entire descending and sigmoid colon) with transverse end colostomy 3) takedown splenic flexure 4) partial small bowel resection 4) drainage left lower abdominal abscess on
11/07/23
Abscess periOP Cx - E.coli and Carol albicans. Unasyn and Micafungin as per ID consult
CRP elevated
Calprotectin pending
C.diff negative
GI consult: working on ischemic/diverticular causes
#UTI with sepsis on admission
#Overflow diarrhea
never used pressors - no shock
Ucx - pansensitive E.coli - completed Abx for it
#Paroxysmal Afib with RVR
#PACs
#acute on chronic HFpEF
Cardiology follows: amiodarone
Echo in Sep - grade 2 diastolic dysfunction, severe L atrial dilation
Lasix as per cardio
Hold anticoagulation until allowed to restart by surgical service - prelim on 11/12/23
#Recent VTE, provoked
#Anemia of chronic disease
Eliquis initially held, as per RN - no signs of bleeding with stool, bedside FOBT done - apparently neg, will repeat for official record
Heparin drip and closely follow Hgb, transfuse as needed to keep Hgb >7
Onc followed: recommended periOP IVCf - IRAD consulted and IVC filter placed on 11/08/23
#LE swelling, cannot exclude 2/2 protein-loosing enteropathy with diarrhea
Lasix PRN
GI consult: persistent colitis
Advise to increase oral intake
Proteine supplements
C.diff neg
Stool Cx neg
#Indirect bilirubinemia
#Minimal alk.phos elevated
No RUQ pain
most likely 2/2 PRBC transfusion and acute disease
haptoglobin high
#Hypokalemia
#Hypomagnesemia
2/2 enteric losses and poor oral intake
replete and follow
#DM type 2 with neuropathy
Accuchecks, DM diet, insulin SS, hold metformin
#L pelvis dermoid
PCP f/u as outpatient
#Essential HTN
held BP meds due to relative hypotension - restart low dose lisinopril
#Malnutrition, protein calorie
Might need TPN while awaiting for return of bowel function
DVT ppx on Heparin drip
FUll code
I have spent at least 39min reviewing chart, test results, communicating with consultants and direct patient care
Anticipated Discharge: > 48 hours
Subjective/Interval History
-
Date of Service: November 11, 2023
Objective Data
-
Labs:
Laboratory Results
11/11/23 11/11/23
04:53 12:17
WBC 12.8 H
Hgb 8.2 L Pending
Hct 24.9 L Pending
Plt Count 254
Sodium 140
Potassium 3.5
Chloride 103
Carbon Dioxide 31 H
BUN 12
Creatinine 0.7
Glucose 89
Calcium 7.3 L
Total Bilirubin 0.3
AST 17
ALT 17
Alkaline Phosphatase 93
Vital Signs:
Vital Signs
Temp Pulse Resp BP Pulse Ox
98.3 F 85 23 127/70 96
11/11/23 07:52 11/11/23 11:04 11/11/23 10:50 11/11/23 11:04 11/11/23 08:00
I&O
11/10/23 11/11/23 11/12/23
06:59 06:59 06:59
Intake Total 24621 / 52232 2070 / 2070 660 / 660
Output Total 330 / 330 353 / 353 425 / 425
Balance 97442 / 14284 1717 / 1717 235 / 235
Review of Systems
-
History Source: Patient
All other systems: Reviewed and negative
Physical Exam
-
General: No Apparent Distress
Respiratory: Clear to Auscultation
Cardiac: Regular Rhythm
GI: Soft, Nontender, Nondistended, Normal Bowel Sounds and Peg Tube
Musculoskeletal: No Clubbing, No Cyanosis, Edema, Right Lower Extrem and Edema, Left Lower Extrem
Neuro: Awake, Alert, Oriented and AO x 3
[2023-11-11 12:33] LABS: Glucose - Point of Care 115 mg/dl (70-99)
[2023-11-11 12:35] LABS: Hematocrit 27.5 % (37.0-47.0); Hemoglobin 9.2 g/dL (12.0-16.0)
[2023-11-11 17:22] LABS: Glucose - Point of Care 195 mg/dl (70-99)
[2023-11-11] MEDS: NOVOLOG FLEXPEN-LOW RESISTANCE 1 UNITS SC (17:27)
[2023-11-11 21:33] LABS: Glucose - Point of Care 104 mg/dl (70-99)
[2023-11-12] VITALS (11 sets, daily range): BP systolic 123–160; BP diastolic 64–97; BMI 19.6
[2023-11-12] MEDS: LOPRESSOR 2.5 MG IV ×2 (01:59→11:24)
--- NOTE | 2023-11-12 03:20 | PTCARENOTE ---
Received Pt resting comfortably in bed; OOB to BSC several times overnight voiding small amount of 50-100mls at a time. MANN dressing noted to be saturated with sanguineous drainage and no drainage noted in MANN drain. Dressing changed and reinforced.
Will continue to monitor and assess.
[2023-11-12] MEDS: UNASYN IV ×4 (03:21→22:15)
[2023-11-12 04:37] LABS: Glucose - Point of Care 79 mg/dl (70-99)
[2023-11-12 05:09] LABS: % Eosinophils 0.6 % (0-6); % Immature Granulocytes 0.5 % (0-0.5); % Lymphocytes 4.3 % (20.5-51.1); % Monocytes 1.7 % (1.7-9.3); % Neutrophils 92.9 % (42.2-75.2); Absolute Eosinophils 0.1 10^3/uL (0-0.7); Absolute Immature Granulocytes 0.1 10^3/uL (0-0.05); Absolute Lymphocytes 0.5 10^3/uL (1.2-3.4); Absolute Monocytes 0.2 10^3/uL (0.1-0.6); Absolute Neutrophils 11.5 10^3/uL (1.4-6.5); Hematocrit 25.5 % (37.0-47.0); Hemoglobin 8.6 g/dL (12.0-16.0); Mean Corp Hgb Conc. 33.7 g/dL (33.0-37.0); Mean Corpuscular Volume 92.1 fL (81.0-99.0); Mean Platelet Volume 9.3 fL (7.4-10.4); Nucleated Red Blood Cells % 0 %; Platelet Count 287 10^3/uL (130-400); Red Blood Cell Count 2.77 10^6/uL (4.20-5.40); Red Cell Dist. Width 14.8 % (11.5-14.5); White Blood Cell Count 12.3 10^3/uL (4.8-10.8)
[2023-11-12 05:41] LABS: ALT (SGPT) 14 U/L (0-35); AST (SGOT) 14 U/L (14-36); Alkaline Phosphatase 97 U/L (38-126); Blood Urea Nitrogen 10 mg/dl (7-17); Calcium 7.2 mg/dl (8.4-10.2); Carbon Dioxide 33 mmol/L (22-30); Chloride 100 mmol/L (98-107); Estimated Creatinine Clearance 67 ml/min; Glucose 83 mg/dl (70-99); Magnesium 1.8 mg/dl (1.6-2.3); Potassium 3.3 mmol/L (3.5-5.1); Sodium 139 mmol/L (135-145); Total Bilirubin 0.3 mg/dl (0.2-1.3); Total Protein 4.2 g/dl (6.3-8.2); eGFR > 60.00
[2023-11-12] MEDS: KCL 40 MEQ PO ×2 (08:06→20:02)
[2023-11-12] MEDS: NSS (PRESERVATIVE FREE) 10 ML IV (08:07)
[2023-11-12] MEDS: LASIX 40 MG IV (08:07)
[2023-11-12] MEDS: PROTONIX IV 40 MG IV (08:07)
[2023-11-12] MEDS: MAGNESIUM OXIDE 500 MG PO (08:08)
[2023-11-12] MEDS: NOVOLOG FLEXPEN-LOW RESISTANCE SC (08:08)
[2023-11-12 08:16] LABS: Glucose - Point of Care 68 mg/dl (70-99)
[2023-11-12 08:51] LABS: Glucose - Point of Care 84 mg/dl (70-99)
--- NOTE | 2023-11-12 08:54 | W.PN.ID1 ---
Date of Service
Date of Service: November 12, 2023
Today's Communication
Continue Unasyn and micafungin
Assessment / Plan
Colitis
LLQ abscess
- S/P exp lap / (L) colectomy /w transverse end colostomy / partial small bowel resection / drainage LLQ abscess (11/08/23)
- OR cx's with E. coli (pansensitive); Carol albicans
Clinical sepsis - resolved
Paroxysmal A-fib with RVR
-Currently on amiodarone
Cachexia
Intellectual disability
Recommendations:
Continue unasyn - day 4 of therapy since obtaining source control, micafungin day 2
Recheck QTc last assessment with PACs & sinus tach was >500
Pathology pending
Follow white count & temperature curve.
Chief Complaint
-: Other (colitis, intraabdominal abscess)
Subjective / Review of Systems
remains afebrile
some serosanguineous leaking around the courtney drain
ostomy with liquid stool output
Vital Signs / Physical Exam
Vital Signs
Vital Signs
Temp Pulse Resp BP Pulse Ox
98.6 F 62 14 128/65 96
11/12/23 07:36 11/12/23 02:45 11/12/23 02:45 11/12/23 02:45 11/11/23 20:40
Physical Exam
Constitutional: No Acute Distress and Chronically Ill
Cardiovascular: Regular Rate and S1/S2; Negative Murmur or Rub
Pulmonary: Clear and Symmetric; Negative Wheezes or Rales
Gastrointestinal: Soft, Non Tender, Non Distended, Normal Bowel Sounds and Other (ostomy pink with dark brown liquid stool, COURTNEY drain with serosanguinous fluid)
Skin: Warm and Dry; Negative Rash or Jaundice
Objective Data
Lab Data
Lab Results
11/12/23 04:49
11/12/23 04:49
PT 18.3 Sec (11.4-14.6) H 11/06/23 08:00
INR 1.53 11/06/23 08:00
APTT 56.7 Sec (23.4-35.0) H 11/08/23 07:34
Estimated Creat Clear 67 ml/min 11/12/23 04:49
Lactic Acid 1.6 mmol/L (0.7-2.0) 11/03/23 16:17
Total Bilirubin 0.3 mg/dl (0.2-1.3) 11/12/23 04:49
AST 14 U/L (14-36) 11/12/23 04:49
ALT 14 U/L (0-35) 11/12/23 04:49
Alkaline Phosphatase 97 U/L (38-126) 11/12/23 04:49
C-Reactive Protein 83.30 mg/L (0.0-10.00) H 11/08/23 07:34
Most recent labs reviewed.
L shift persists - stable
Micro Results:
11/08/23 14:05 Anaerobic Culture - Preliminary
Abdomen Culture pending. Anaerobic cultures are examined after 3
days incubation. Additional information to follow.
11/08/23 14:05 Wound Culture - Preliminary
Abdomen Escherichia coli
Carol albicans
Gram Stain - Preliminary
11/02/23 21:48 Blood Culture - Final
Blood/Venous No Growth - Final Report
11/02/23 21:48 Blood Culture - Final
Blood/Venous No Growth - Final Report
11/03/23 12:00 Salmonella/Shigella Culture - Final
Feces/Stool No Salmonella, Shigella, Aeromonas or Plesiomonas species
isolated.
Campylobacter Culture - Final
No Campylobacter species isolated.
Shiga Toxin Test - Final
No E. coli Shiga Toxin 1 or 2 detected.
Stool Leukocytes - Final
11/03/23 00:48 Urine Culture - Final
Urine Escherichia coli
11/03/23 12:00 C. difficile GDH Antigen & Toxins - Final
Feces/Stool Negative for toxigenic C.difficile
11/02/23 21:14 Influenza Types A & B (MARK) - Final
Nasal Swab Negative for Influenza A & B, NAAT
Negative results must be combined with clinical observations
and patient history.
Nucleic Acid Amplification test (NAAT)performed on the
[employer] platform.
11/04/33 CT a/p: Findings at least for crescentic/curvilinear elongated abnormal fluid collection measuring at least 7 cm in the left lower abdomen adjacent to suspected sigmoid colitis and secondarily inflamed partially obstructed proximal to mid
small bowel containing bubbles of air, suspicious for abscess. Oral contrast only opacifying stomach and proximal to mid small bowel, possibly partially obstructed in the left abdomen.
--- NOTE | 2023-11-12 09:55 | PTCARENOTE ---
pt helped oob to commode this am. large amount of serosanguinous drainage noted from courtney site, dressing saturated. small amt drainage in courtney bulb(less than 5 mls). surgery made aware.
[2023-11-12] MEDS: CORDARONE 104 MG IV (10:15)
--- NOTE | 2023-11-12 10:33 | W.PN.HOSP.TC ---
Today's Communication/Plan
-
cont Abx and micafungin pedning further ID recommendations
Eliquis restart when Ok by ColorectalSx with recent drop in Hgb
Lasix can be stopped
Assessment / Plan
Assessment / Plan
63yo F with PMHx of DM, HTN, intellectual impairment, Afib, recent diagnosis of VTE brought to the hospital after the fall, found febrile with sepsis on admission 2/2 UTI. Also had watery diarrhea for 3 days before admission and still was
continuing. Also b/l LE swelling. Managed for CHF, Afib with RVR, later found abdominal abscess s/p exploratory laparotomy with left colectomy with transverse end colostomy, takedown splenic flexure, partial small bowel resection, drainage left
lower abdominal abscess for colectomy on 11/08/23, had rapid return of bowel function.
A/P:
#Colitis, enteritis with abdominal abscess
#pSBO
COlorectalSx: s/p 1) exploratory laparotomy 2) left colectomy (including entire descending and sigmoid colon) with transverse end colostomy 3) takedown splenic flexure 4) partial small bowel resection 4) drainage left lower abdominal abscess on
11/07/23
Abscess periOP Cx - E.coli and Carol albicans. Unasyn and Micafungin as per ID consult
CRP elevated
Calprotectin pending
C.diff negative
GI consult: working on ischemic/diverticular causes
#UTI with sepsis on admission
#Overflow diarrhea
never used pressors - no shock
Ucx - pansensitive E.coli - completed Abx for it
#Paroxysmal Afib with RVR
#PACs
#acute on chronic HFpEF
#LE swelling, cannot exclude 2/2 protein-loosing enteropathy with diarrhea
Cardiology follows: amiodarone
Echo in Sep - grade 2 diastolic dysfunction, severe L atrial dilation
Lasix PRN for swelling, unclear if needs at home, since cardio did not recommend standing dose.
Hold anticoagulation until allowed to restart by surgical service - prelim on 11/12/23, but delayed due to concern for Hgb drop
#Recent VTE, provoked
#Anemia of chronic disease
Eliquis initially held, as per RN - no signs of bleeding with stool, bedside FOBT done - apparently neg, will repeat for official record
Heparin drip and closely follow Hgb, transfuse as needed to keep Hgb >7
Onc followed: recommended periOP IVCf - IRAD consulted and IVC filter placed on 11/08/23
#Indirect bilirubinemia
#Minimal alk.phos elevated
No RUQ pain
most likely 2/2 PRBC transfusion and acute disease
haptoglobin high
#Hypokalemia
#Hypomagnesemia
2/2 enteric losses and poor oral intake
replete and follow
#DM type 2 with neuropathy
Accuchecks, DM diet, insulin SS, hold metformin
#L pelvis dermoid
PCP f/u as outpatient
#Essential HTN
held BP meds due to relative hypotension - restart low dose lisinopril
#Malnutrition, protein calorie
start oral supplements when diet advanced
DVT ppx on Heparin drip
FUll code
I have spent at least 39min reviewing chart, test results, communicating with consultants and direct patient care
Anticipated Discharge: 24 - 48 hours
Subjective/Interval History
-
Date of Service: November 12, 2023
Objective Data
-
Labs:
Laboratory Results
11/12/23
04:49
WBC 12.3 H
Hgb 8.6 L
Hct 25.5 L
Plt Count 287
Sodium 139
Potassium 3.3 L
Chloride 100
Carbon Dioxide 33 H
BUN 10
Creatinine 0.6
Glucose 83
Calcium 7.2 L
Total Bilirubin 0.3
AST 14
ALT 14
Alkaline Phosphatase 97
Vital Signs:
Vital Signs
Temp Pulse Resp BP Pulse Ox
98.6 F 78 16 135/64 96
11/12/23 07:36 11/12/23 08:00 11/12/23 08:00 11/12/23 06:00 11/12/23 09:47
I&O
11/11/23 11/12/23 11/13/23
06:59 06:59 06:59
Intake Total 2069 1280 / 1280
Output Total 353 / 353 775 / 775
Balance 1717 / 1717 505 / 505
Review of Systems
-
History Source: Patient
All other systems: Reviewed and negative
Physical Exam
-
General: No Apparent Distress
HEENT: Normocephalic
Respiratory: Clear to Auscultation
Cardiac: Regular Rhythm
GI: Soft, Nontender and Nondistended
Genito-urinary: No Costovertebral Tender
Musculoskeletal: No Clubbing, No Cyanosis, Edema, Right Lower Extrem and Edema, Left Lower Extrem
Skin: Warm
Neuro: Awake, Alert, Oriented and AO x 3
Psych: Calm
--- NOTE | 2023-11-12 11:20 | W.PN.CRS1 ---
Today's Communication / Plan
-
low residue
Assessment/Plan
-
POD#4 1) exploratory laparotomy 2) left colectomy (including entire descending and sigmoid colon) with transverse end colostomy 3) takedown splenic flexure 4) partial small bowel resection 4) drainage left lower abdominal abscess
-OOB as tolerated
-Wound RN for stoma teaching
-TEDS/SCDS in place. Add Lovenox.
-OR pathology pending
-Advance to low residue. Will hold TPN for now.
-Hold off on home Eliquis through the weekend. Hold one more day. Possible restart 11/12.
-Will need IVC filter eventually retrieved
-Continue IV Unasyn (will need po antibiotics as an outpatient given abscess)
-Repeat hgb, 8.2 from 9.0. Holding Toradol/Lovenox.
Subjective Data
Procedure
11/07- 1) exploratory laparotomy 2) left colectomy (including entire descending and sigmoid colon) with transverse end colostomy 3) takedown splenic flexure 4) partial small bowel resection 4) drainage left lower abdominal abscess
Subjective Data
Date of Service: November 12, 2023
Patient doing well. She has no pain. She has bowel function. She denies nausea or vomiting.
Objective Data
-
Vital Signs
Temp Pulse Resp BP Pulse Ox
98.6 F 78 16 135/64 96
11/12/23 07:36 11/12/23 08:00 11/12/23 08:00 11/12/23 06:00 11/12/23 09:47
Intake & Output
11/11/23 11/12/23 11/13/23
06:59 06:59 06:59
Intake Total 2070 / 2070 1280 / 1280
Output Total 353 / 353 775 / 775
Balance 1717 / 1717 505 / 505
Intake:
Oral fluids 1180 / 1180 660 / 660
IV fluids (Total) 100 / 100
IV piggybacks 790 / 790 620 / 620
Output:
Liquid stool amount 50 / 50 100 / 100
Colostomy 50 / 50 100 / 100
Drain Output (Total) 3 / 3 0 / 0
Right Lower Abdomen Richard- 3 / 3 0 / 0
King
Urine, Voided 300 / 300 675 / 675
Other:
Number of approximated SMALL 1 1
amounts of urine
Number of approximated MODERATE 1
amounts of urine
Lab Results
11/12/23 04:49
11/12/23 04:49
Physical Exam
-
General: No Acute Distress and AOx3
Abdomen: Soft, Non Distended, Non Tender and Other (Colostomy warm and pink with function)
Skin: Warm and Dry
Incision: Clear, Dry, Intact
--- NOTE | 2023-11-12 12:05 | W.PN.CARDCBS ---
Today's Communication / Plan
-
Continue IV heparin and transition to Eliquis once cleared by surgery
Transition IV to oral medications
Impression / Plan
-
PCP: Gaurav Jensen PA-C
Cardiology: Dr. Bruce
Impression:
Admitted with fall, UTI and sepsis 11/02/23
Possible sigmoid colitis
previously identified severe left colitis 09/26/23
Fall
Marked anemia
Sinus tachycardia with PACs and short runs of PAT 11/03/23
Recent admission with DVT, PE and newly diagnosed Afib 09/26/23 until 10/02/23
Paroxysmal Afib
new diagnosis 09/26/23 that spontaneously converted 09/27/23
Chronic Eliquis OAC
Acute on chronic vs chronic B/L LE edema
cRBBB
h/o right common femoral and superficial femoral vein thrombus and B/L PE 09/26/23
Prediabetes
HTN
HLD
Iatrogenic increased volume
Hypokalemia
Echo 09/27/2023: EF 56%, stage II diastolic dysfunction, mild to moderate MR, mild TR, estimated PAP 25 to 30 mmHg
Plan:
-Now s/p colectomy and colostomy 11/08/23
-Doing well postop with diet being advanced
-Low-grade temperature today
-ID and colorectal surgery following
-Postop IV antibiotics per ID; completed antibiotic therapy previously for pansensitive E. coli UTI
-H/o AFib/Atach
-Will stop IV amiodarone and metoprolol and transition back to oral therapy
-Eliquis has been on hold for surgery. Please resume when safe from surgical standpoint
-Keep K greater than 4, mag greater than 2
Ongoing bilateral lower extremity edema, likely multifactoria
-Appears euvolemic, would hold off on further diuresis at this time
-Recent PE/DVT previously on Eliquis anticoagulation
-IV heparin drip while off oral anticoagulation
HPI: Patient came to [facility] last night after a fall at home and cardiology is now consulted for abnormal telemetry and chronic OAC. Patient was just admitted to 09/26/23 until 10/02/23 with new DVT and PE. Cardiology was consulted at that time foe
new Afib that spontaneously converted to SR. Eliquis 5 mg BID started. Patient was also diuresed with Lasix 20 mg IV x1, but patient was not discharged to home on diuretic due to hypotension. Patient came to hospital f/u visit at cardiology office
10/26/23 and appeared to be euvolemic and patient's sister thought her LE edema was improved. Lisinopril dose was decreased to 10 mg daily due to hypotension. Also, Toprol XL was increased to 50 mg BID due to rapid HR, but patient was in SR on ECG. 7
day monitor applied that is not yet resulted. Patient came back to [facility] last night after a fall at home. Patient with sepsis, shock and UTI on admission. Levophed started overnight, but now stopped. Patient started on IV antibiotics. Cardiology
consulted for tele review that looked like possible recurrent Afib with RVR. Patient denies palpitations. No chest pain or SOB
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
Subjective
Date of Service: November 12, 2023
Seen and examined. Patient sitting out of bed to chair with no complaints. Tolerating current diet.
Objective
Labs:
11/12/23 04:49
11/12/23 04:49
Labs
Hgb 8.6 g/dL (12.0-16.0) L 11/12/23 04:49
Hct 25.5 % (37.0-47.0) L 11/12/23 04:49
Plt Count 287 10^3/uL (130-400) 11/12/23 04:49
PT 18.3 Sec (11.4-14.6) H 11/06/23 08:00
INR 1.53 11/06/23 08:00
APTT 56.7 Sec (23.4-35.0) H 11/08/23 07:34
Sodium 139 mmol/L (135-145) 11/12/23 04:49
Potassium 3.3 mmol/L (3.5-5.1) L 11/12/23 04:49
BUN 10 mg/dl (7-17) 11/12/23 04:49
Creatinine 0.6 mg/dL (0.6-1.0) 11/12/23 04:49
Glucose 83 mg/dl (70-99) 11/12/23 04:49
Vital Signs and I&O:
Vital Signs
Temp Pulse Resp BP Pulse Ox
100.4 F H 78 16 135/64 96
11/12/23 11:20 11/12/23 08:00 11/12/23 08:00 11/12/23 06:00 11/12/23 09:47
Vital Signs
Temp Pulse Resp BP Pulse Ox
100.4 F H 78 16 135/64 96
11/12/23 11:20 11/12/23 08:00 11/12/23 08:00 11/12/23 06:00 11/12/23 09:47
Intake & Output
11/10/23 11/11/23 11/12/23 11/13/23
06:59 06:59 06:59 06:59
Intake Total 34853 / 85457 2070 / 2070 1280 / 1280
Output Total 330 / 330 353 / 353 775 / 775
Balance 62759 / 48381 1717 / 1717 505 / 505
Physical Exam
Physical Exam
GEN: NAD, OOB to chair. RA
HEENT: mmm
LUNGS: CTA, no wheezes/rales
CV: RRR w/ occ ectopic beats, S1/S2, 1/6 syst LSB, no gallop
EXT: ++ edema
[2023-11-12 12:16] LABS: Glucose - Point of Care 161 mg/dl (70-99)
[2023-11-12] MEDS: NOVOLOG FLEXPEN-LOW RESISTANCE 1 UNITS SC ×2 (13:00→17:20)
[2023-11-12] MEDS: TORADOL 10 MG IV ×2 (14:42→20:03)
[2023-11-12] MEDS: MYCAMINE 105 MG IV (14:43)
--- NOTE | 2023-11-12 14:45 | WOUNDNOTE ---
[facility] RN note: Patient's stoma pink and budded about 1 1/4 x 1 1/2 inches diameter. Peristomal skin with minimal local redness. Instructed brother Khanh how to empty and change pouch using Polina wafer # [id number], Naomi seal and [place] pouch # [id number].
Brother had to be assisted by nursing staff to couch to lay down d/t feeling faint. He was later about to walk to bedside for teaching. Midline incision dressing changed as approved by Dr. Rhodes. Wick maintained, Dry gauze applied to midline
incision. Patient able to turn self in bed. Skin on sacrum and heels intact. Patient and brother gave verbal permission to order a [place] ostomy secure starter kit. Ostomy supplies and teaching folder in room. Next appliance change due
or Sunday.
[2023-11-12 16:59] LABS: Glucose - Point of Care 156 mg/dl (70-99)
[2023-11-12] MEDS: LOVENOX 40 MG SC (17:19)
--- NOTE | 2023-11-12 19:45 | PTCARENOTE ---
Received pt from day shift. Pt aaox3. Pt resting in chair. VSS. Hygiene completed. Dressing around MANN drain changed due to drainage on dressing. Output 75 mL of serosanguineous fluid. Pt used BSC and then assisted to bed. Pt now resting in bed with
call plascencia in reach.
[2023-11-12] MEDS: LOPRESSOR 25 MG PO (20:02)
[2023-11-12 22:38] LABS: Glucose - Point of Care 166 mg/dl (70-99)
[2023-11-13] VITALS (15 sets, daily range): BP systolic 111–146; BP diastolic 66–91; PULSE 74–89; O2SAT 99–100; BMI 19.3
[2023-11-13] MEDS: TORADOL 10 MG IV ×3 (03:02→13:49)
[2023-11-13] MEDS: UNASYN IV ×4 (03:03→23:10)
[2023-11-13 03:22] LABS: Glucose - Point of Care 129 mg/dl (70-99)
[2023-11-13 04:08] LABS: % Basophils 0.2 % (0-2); % Eosinophils 0.3 % (0-6); % Immature Granulocytes 0.8 % (0-0.5); % Lymphocytes 2.8 % (20.5-51.1); % Monocytes 1.7 % (1.7-9.3); % Neutrophils 94.2 % (42.2-75.2); Absolute Eosinophils 0.1 10^3/uL (0-0.7); Absolute Immature Granulocytes 0.2 10^3/uL (0-0.05); Absolute Lymphocytes 0.6 10^3/uL (1.2-3.4); Absolute Monocytes 0.3 10^3/uL (0.1-0.6); Absolute Neutrophils 18.5 10^3/uL (1.4-6.5); Hematocrit 23.7 % (37.0-47.0); Hemoglobin 7.7 g/dL (12.0-16.0); Mean Corp Hgb Conc. 32.5 g/dL (33.0-37.0); Mean Corpuscular Hgb 29.2 pg (27.0-31.0); Mean Corpuscular Volume 89.8 fL (81.0-99.0); Mean Platelet Volume 9.5 fL (7.4-10.4); Nucleated Red Blood Cells % 0 %; Platelet Count 341 10^3/uL (130-400); Red Blood Cell Count 2.64 10^6/uL (4.20-5.40); Red Cell Dist. Width 14.8 % (11.5-14.5); White Blood Cell Count 19.7 10^3/uL (4.8-10.8)
[2023-11-13 04:10] LABS: ALT (SGPT) 13 U/L (0-35); AST (SGOT) 11 U/L (14-36); Albumin 1.9 g/dl (3.5-5.0); Alkaline Phosphatase 105 U/L (38-126); Blood Urea Nitrogen 9 mg/dl (7-17); Calcium 7.2 mg/dl (8.4-10.2); Carbon Dioxide 34 mmol/L (22-30); Chloride 99 mmol/L (98-107); Estimated Creatinine Clearance 66 ml/min; Glucose 117 mg/dl (70-99); Magnesium 1.6 mg/dl (1.6-2.3); Potassium 3.8 mmol/L (3.5-5.1); Sodium 138 mmol/L (135-145); Total Bilirubin 0.3 mg/dl (0.2-1.3); Total Protein 4.1 g/dl (6.3-8.2); eGFR > 60.00
[2023-11-13 09:11] LABS: Glucose - Point of Care 95 mg/dl (70-99)
--- NOTE | 2023-11-13 09:17 | W.PN.ID1 ---
Date of Service
Date of Service: November 13, 2023
Today's Communication
would plan continuing unasyn and micafungin through 11/14 stopping on 11/15
Assessment / Plan
Colitis
LLQ abscess
- S/P exp lap / (L) colectomy /w transverse end colostomy / partial small bowel resection / drainage LLQ abscess (11/08/23)
- OR cx's with E. coli (pansensitive); Carol albicans
Clinical sepsis - resolved
Paroxysmal A-fib with RVR
-Currently on amiodarone
Cachexia
Intellectual disability
Recommendations:
Continue unasyn - day 5 of therapy since obtaining source control, micafungin day 3
RBBB - qtc remains quite prolonged - likely not accurate per discussion with cardiology, however planned course of micafungin is quite short and probably simplest to complete that inpatient rather than attempt a switch to a qtc prolonging agent
would plan continuing unasyn and micafungin through 11/14 stopping on 11/15
Pathology pending
Follow white count & temperature curve.
Chief Complaint
-: Other (colitis, intraabdominal abscess)
Subjective / Review of Systems
tmax 100.4 overnight
drainage around the MANN ongoing
RBBB - qtc remains quite prolonged - likely not accurate per discussion with cardiology, however planned course of micafungin is quite short and probably simplest to complete that inpatient rather than attempt a switch to a qtc prolonging agent
Vital Signs / Physical Exam
Vital Signs
Vital Signs
Temp Pulse Resp BP Pulse Ox
97.9 F 81 18 128/81 95
11/13/23 07:49 11/13/23 06:00 11/13/23 06:00 11/13/23 06:00 11/13/23 04:00
Physical Exam
Constitutional: No Acute Distress
Cardiovascular: Regular Rate and S1/S2; Negative Murmur or Rub
Pulmonary: Clear and Symmetric; Negative Wheezes or Rales
Gastrointestinal: Soft, Non Tender, Non Distended and Normal Bowel Sounds
Skin: Warm and Dry; Negative Rash or Jaundice
Lines: Other (drain with serosanguinous fluid)
Objective Data
Lab Data
Lab Results
11/13/23 03:33
11/13/23 03:33
PT 18.3 Sec (11.4-14.6) H 11/06/23 08:00
INR 1.53 11/06/23 08:00
APTT 56.7 Sec (23.4-35.0) H 11/08/23 07:34
Estimated Creat Clear 66 ml/min 11/13/23 03:33
Lactic Acid 1.6 mmol/L (0.7-2.0) 11/03/23 16:17
Total Bilirubin 0.3 mg/dl (0.2-1.3) 11/13/23 03:33
AST 11 U/L (14-36) L 11/13/23 03:33
ALT 13 U/L (0-35) 11/13/23 03:33
Alkaline Phosphatase 105 U/L (38-126) 11/13/23 03:33
C-Reactive Protein 83.30 mg/L (0.0-10.00) H 11/08/23 07:34
Most recent labs reviewed.
Micro Results:
11/08/23 14:05 Wound Culture - Preliminary
Abdomen Escherichia coli
Carol albicans
Gram Stain - Preliminary
11/08/23 14:05 Anaerobic Culture - Preliminary
Abdomen Culture pending. Anaerobic cultures are examined after 3
days incubation. Additional information to follow.
11/02/23 21:48 Blood Culture - Final
Blood/Venous No Growth - Final Report
11/02/23 21:48 Blood Culture - Final
Blood/Venous No Growth - Final Report
11/03/23 12:00 Salmonella/Shigella Culture - Final
Feces/Stool No Salmonella, Shigella, Aeromonas or Plesiomonas species
isolated.
Campylobacter Culture - Final
No Campylobacter species isolated.
Shiga Toxin Test - Final
No E. coli Shiga Toxin 1 or 2 detected.
Stool Leukocytes - Final
11/03/23 00:48 Urine Culture - Final
Urine Escherichia coli
11/03/23 12:00 C. difficile GDH Antigen & Toxins - Final
Feces/Stool Negative for toxigenic C.difficile
11/02/23 21:14 Influenza Types A & B (MARK) - Final
Nasal Swab Negative for Influenza A & B, NAAT
Negative results must be combined with clinical observations
and patient history.
Nucleic Acid Amplification test (NAAT)performed on the
[employer] platform.
11/04/33 CT a/p: Findings at least for crescentic/curvilinear elongated abnormal fluid collection measuring at least 7 cm in the left lower abdomen adjacent to suspected sigmoid colitis and secondarily inflamed partially obstructed proximal to mid
small bowel containing bubbles of air, suspicious for abscess. Oral contrast only opacifying stomach and proximal to mid small bowel, possibly partially obstructed in the left abdomen.
Care Review
Plan reviewed with: Physician (Dr Bustamante - dayna)
[2023-11-13] MEDS: PACERONE 200 MG PO (09:23)
[2023-11-13] MEDS: NSS (PRESERVATIVE FREE) 10 ML IV (09:23)
[2023-11-13] MEDS: PROTONIX IV 40 MG IV (09:23)
[2023-11-13] MEDS: LOPRESSOR 25 MG PO ×2 (09:23→20:01)
[2023-11-13] MEDS: MAGNESIUM OXIDE 500 MG PO (09:24)
[2023-11-13] MEDS: KCL 40 MEQ PO ×2 (09:24→15:17)
[2023-11-13] MEDS: NOVOLOG FLEXPEN-LOW RESISTANCE SC ×3 (09:26→18:24)
--- NOTE | 2023-11-13 09:48 | W.PN.CARDCBS ---
Today's Communication / Plan
-
RECOMMENDATIONS:
-ECG reviewed and QTc probably more like 450msec when corrected for RBBB.
-IF we make changes in antifungal regimen will need to follow
-H/H falling
-Oral anticoag on Hold: She really need to wear pneumatic compression stockings
Impression / Plan
-
PCP: Gaurav Jensen PA-C
Cardiology: Dr. Bruce
Impression:
Admitted with fall, UTI and sepsis 11/02/23
Possible sigmoid colitis
previously identified severe left colitis 09/26/23
Fall
Marked anemia
Sinus tachycardia with PACs and short runs of PAT 11/03/23
Recent admission with DVT, PE and newly diagnosed Afib 09/26/23 until 10/02/23
Paroxysmal Afib
new diagnosis 09/26/23 that spontaneously converted 09/27/23
Chronic Eliquis OAC
Acute on chronic vs chronic B/L LE edema
cRBBB
h/o right common femoral and superficial femoral vein thrombus and B/L PE 09/26/23
Prediabetes
HTN
HLD
Iatrogenic increased volume
Hypokalemia
Echo 09/27/2023: EF 56%, stage II diastolic dysfunction, mild to moderate MR, mild TR, estimated PAP 25 to 30 mmHg
Plan:
-Now s/p colectomy and colostomy 11/08/23: Cultured positive for E.coli and Carol albicans
-ID asking about QT reading 577 on ECG and antifungal regimen.
True QTc probably closer to 450 msec given RBBB
-Doing well postop with diet being advanced
-Planned CT today
-Low-grade temperature today
-ID and colorectal surgery following
-Postop IV antibiotics per ID; completed antibiotic therapy previously for pansensitive E. coli UTI
-H/o AFib/Atach
On oral amiodarone
Eliquis has been on hold.
H/H fell a little. She is currently in SR
Please resume when safe from surgical standpoint
-Keep K greater than 4, mag greater than 2
Ongoing bilateral lower extremity edema, likely multifactorial
Appears euvolemic, would hold off on further diuresis at this time
-H/o of DVT / PE recent as well as PAF. DVT 09/2023
IV heparin drip while off oral anticoagulation
Needs pneumatic compression sleeves if not on anticoagulation
HPI: Patient came to [facility] last night after a fall at home and cardiology is now consulted for abnormal telemetry and chronic OAC. Patient was just admitted to 09/26/23 until 10/02/23 with new DVT and PE. Cardiology was consulted at that time foe
new Afib that spontaneously converted to SR. Eliquis 5 mg BID started. Patient was also diuresed with Lasix 20 mg IV x1, but patient was not discharged to home on diuretic due to hypotension. Patient came to hospital f/u visit at cardiology office
10/26/23 and appeared to be euvolemic and patient's sister thought her LE edema was improved. Lisinopril dose was decreased to 10 mg daily due to hypotension. Also, Toprol XL was increased to 50 mg BID due to rapid HR, but patient was in SR on ECG. 7
day monitor applied that is not yet resulted. Patient came back to [facility] last night after a fall at home. Patient with sepsis, shock and UTI on admission. Levophed started overnight, but now stopped. Patient started on IV antibiotics. Cardiology
consulted for tele review that looked like possible recurrent Afib with RVR. Patient denies palpitations. No chest pain or SOB
Progress Note - Nps
Subjective
Date of Service: November 13, 2023
She is sitting in a chair. Awake alert conversant. No acute distress.
Objective
Labs:
11/13/23 03:33
11/13/23 03:33
Labs
Hgb 7.7 g/dL (12.0-16.0) L 11/13/23 03:33
Hct 23.7 % (37.0-47.0) L 11/13/23 03:33
Plt Count 341 10^3/uL (130-400) 11/13/23 03:33
PT 18.3 Sec (11.4-14.6) H 11/06/23 08:00
INR 1.53 11/06/23 08:00
APTT 56.7 Sec (23.4-35.0) H 11/08/23 07:34
Sodium 138 mmol/L (135-145) 11/13/23 03:33
Potassium 3.8 mmol/L (3.5-5.1) 11/13/23 03:33
BUN 9 mg/dl (7-17) 11/13/23 03:33
Creatinine 0.6 mg/dL (0.6-1.0) 11/13/23 03:33
Glucose 117 mg/dl (70-99) H 11/13/23 03:33
Vital Signs and I&O:
Vital Signs
Temp Pulse Resp BP Pulse Ox
97.9 F 81 18 128/81 95
11/13/23 07:49 11/13/23 06:00 11/13/23 06:00 11/13/23 06:00 11/13/23 04:00
Vital Signs
Temp Pulse Resp BP Pulse Ox
97.9 F 81 18 128/81 95
11/13/23 07:49 11/13/23 06:00 11/13/23 06:00 11/13/23 06:00 11/13/23 04:00
Intake & Output
11/10/23 11/11/23 11/12/23 11/13/23
23:59 23:59 23:59 23:59
Intake Total 1989 640 / 640
Output Total 925 / 925 1135 / 1135 330 / 330
Balance 1787 / 1787 1175 / 1175 -495 / -495 -330 / -330
Physical Exam
Physical Exam
GEN: Very thin and frail elderly female who is sitting in a chair. She is interactive and conversant. No acute distress
HEENT: NC/AT, sclera are anicteric,
LUNGS: Clear to bases bilaterally. No wheezing
CV: Regular rate and rhythm. Normal S1/S2. Murmur: None
[2023-11-13] MEDS: OMNIPAQUE 50 ML PO (11:02)
--- NOTE | 2023-11-13 11:07 | PTCARENOTE ---
Addendum entered by Elaina Blanc 11/13/23 17:58:
Awaiting CT throughout the day, multiple calls to department and d/w Krystyna Santiago. Told department would call when ready for pt. Call to CT again approx [phone], informed that test would not be done today. Pt updated on plan of care. Dr. Rose
notified via TT.
Original Note:
Pt for CT scan. Refusing oral contrast. D/w TD Ortega- advised to encourage pt to try to drink even a little bit of contrast. Pt educated and agreeable to attempt to drink. First cup initiated; see MAR.
--- NOTE | 2023-11-13 11:10 | W.PN.CRS1 ---
Today's Communication / Plan
-
CT A/P
Assessment/Plan
-
POD#5 1) exploratory laparotomy 2) left colectomy (including entire descending and sigmoid colon) with transverse end colostomy 3) takedown splenic flexure 4) partial small bowel resection 4) drainage left lower abdominal abscess
-WBC 19.7 from 12.3. Tmax 100.4. Tachy 100-[address] A/P with rectal/IV/oral contrast ordered.
-OOB as tolerated
-Wound RN for stoma teaching
-TEDS/SCDS in place. Hold Lovenox given hemoglobin.
-Hgb 7.7 from 8.6. Holding Lovenox.
-OR pathology pending
-Continue low residue diet.
-Holding Eliquis given anemia.
-Will need IVC filter eventually retrieved
-Continue IV Unasyn (will need po antibiotics as an outpatient given abscess)
Subjective Data
Procedure
11/07- 1) exploratory laparotomy 2) left colectomy (including entire descending and sigmoid colon) with transverse end colostomy 3) takedown splenic flexure 4) partial small bowel resection 4) drainage left lower abdominal abscess
Subjective Data
Date of Service: November 13, 2023
Patient states she had some abdominal pain yesterday, which has resolved. She is hungry. She denies nausea. She spiked a temp yesterday.
Objective Data
-
Vital Signs
Temp Pulse Resp BP Pulse Ox
97.9 F 85 18 138/74 95
11/13/23 07:49 11/13/23 10:00 11/13/23 10:00 11/13/23 10:00 11/13/23 08:36
Intake & Output
11/12/23 11/13/23 11/14/23
06:59 06:59 06:59
Intake Total 1280 / 1280 640 / 640
Output Total 775 / 775 1395 / 1395 70 / 70
Balance 505 / 505 -755 / -755 -70 / -70
Intake:
Oral fluids 660 / 660 240 / 240
IV piggybacks 620 / 620 400 / 400
Output:
Liquid stool amount 100 / 100 175 / 175
Colostomy 100 / 100 175 / 175
Drain Output (Total) 0 / 0 / 70 / 70
Right Lower Abdomen Richard- 0 / 0 / 70 / 70
King
Urine, Voided 675 / 675 600 / 600
Other:
Number of approximated SMALL 1 1 1
amounts of urine
Number of approximated MODERATE 1
amounts of urine
Lab Results
11/13/23 03:33
11/13/23 03:33
Physical Exam
-
General: No Acute Distress and AOx3
Abdomen: Soft, Non Distended, Non Tender and Other (colostomy warm and pink with output)
Skin: Warm and Dry
Wound: Dressing Changed (mago removed)
--- NOTE | 2023-11-13 11:11 | W.PN.HOSP.TC ---
Today's Communication/Plan
-
Noted spiking fever with rising WBC.
While on IV antibiotics, check CT scan of the abdomen.
Continue MANN drain.
Hemoglobin dropped to 7.7, hold Lovenox.
Serial H&H, transfuse if below 7.
Remains on low residue diet started on 11/11
Assessment / Plan
Assessment / Plan
63yo F with PMHx of DM, HTN, intellectual impairment, Afib, recent diagnosis of VTE brought to the hospital after the fall, found febrile with sepsis on admission 2/2 UTI. Also had watery diarrhea for 3 days before admission and still was
continuing. Also b/l LE swelling. Managed for CHF, Afib with RVR, later found abdominal abscess s/p exploratory laparotomy with left colectomy with transverse end colostomy, takedown splenic flexure, partial small bowel resection, drainage left
lower abdominal abscess for colectomy on 11/08/23, had rapid return of bowel function.
A/P:
#Colitis, enteritis with abdominal abscess
#pSBO
COlorectalSx: s/p 1) exploratory laparotomy 2) left colectomy (including entire descending and sigmoid colon) with transverse end colostomy 3) takedown splenic flexure 4) partial small bowel resection 4) drainage left lower abdominal abscess on
11/07/23
Abscess periOP Cx - E.coli and Carol albicans. Unasyn and Micafungin as per ID consult
CRP elevated
Calprotectin pending
C.diff negative
GI consult: working on ischemic/diverticular causes
#UTI with sepsis on admission
#Overflow diarrhea
never used pressors - no shock
Ucx - pansensitive E.coli - completed Abx for it
#Paroxysmal Afib with RVR
#PACs
#acute on chronic HFpEF
#LE swelling, cannot exclude 2/2 protein-loosing enteropathy with diarrhea
Cardiology follows: amiodarone
Echo in Sep - grade 2 diastolic dysfunction, severe L atrial dilation
Lasix PRN for swelling, unclear if needs at home, since cardio did not recommend standing dose.
#Recent VTE, provoked
#Anemia of chronic disease
Eliquis initially held, as per RN - no signs of bleeding with stool, bedside FOBT done - apparently neg, will repeat for official record
Heparin drip and closely follow Hgb, transfuse as needed to keep Hgb >7
Onc followed: recommended periOP IVCf - IRAD consulted and IVC filter placed on 11/08/23
#Indirect bilirubinemia
#Minimal alk.phos elevated
No RUQ pain
most likely 2/2 PRBC transfusion and acute disease
haptoglobin high
#Hypokalemia
#Hypomagnesemia
2/2 enteric losses and poor oral intake
replete and follow
#DM type 2 with neuropathy
Accuchecks, DM diet, insulin SS, hold metformin
#L pelvis dermoid
PCP f/u as outpatient
#Essential HTN
held BP meds due to relative hypotension - restart low dose lisinopril
#Malnutrition, protein calorie
start oral supplements when diet advanced
DVT ppx on Heparin drip
FUll code
I have spent at least 39min reviewing chart, test results, communicating with consultants and direct patient care
Anticipated Discharge: > 48 hours
Subjective/Interval History
-
Date of Service: November 13, 2023
Objective Data
-
Labs:
Laboratory Results
11/13/23
03:33
WBC 19.7 H
Hgb 7.7 L
Hct 23.7 L
Plt Count 341
Sodium 138
Potassium 3.8
Chloride 99
Carbon Dioxide 34 H
BUN 9
Creatinine 0.6
Glucose 117 H
Calcium 7.2 L
Total Bilirubin 0.3
AST 11 L
ALT 13
Alkaline Phosphatase 105
Vital Signs:
Vital Signs
Temp Pulse Resp BP Pulse Ox
97.9 F 85 18 138/74 95
11/13/23 07:49 11/13/23 10:00 11/13/23 10:00 11/13/23 10:00 11/13/23 08:36
I&O
11/12/23 11/13/23 11/14/23
06:59 06:59 06:59
Intake Total 1280 / 1280 640 / 640
Output Total 775 / 775 1395 / 1395 70 / 70
Balance 505 / 505 -755 / -755 -70 / -70
Physical Exam
-
General: No Apparent Distress
HEENT: Normocephalic
Respiratory: Clear to Auscultation
Cardiac: Regular Rhythm
GI: Soft, Nontender, Nondistended and Other (colostomy, MANN drain)
Genito-urinary: No Costovertebral Tender
Musculoskeletal: No Clubbing, No Cyanosis, Edema, Right Lower Extrem and Edema, Left Lower Extrem
Skin: Warm
Neuro: Awake, Alert, Oriented and AO x 3
Psych: Calm
[2023-11-13 12:56] LABS: Glucose - Point of Care 106 mg/dl (70-99)
[2023-11-13] MEDS: MYCAMINE 105 MG IV (13:49)
--- NOTE | 2023-11-13 16:22 | CM ---
Addendum entered by Elaine Tom RN 11/13/23 17:22:
Noting patient has MANN drain.
Original Note:
Patient with Hx intellectual impairment, recent fall with Dx colitis/enteritis w abdominal abscess, pSBO, s/p colectomy/colostomy/partial SBR, UTI w sepsis, PAF w RVR, HF. Room air. NPO. Receiving IV Abx. PT/OT recommend HH. Seen by wound care
nurse - ostomy teaching with family.
Phone call to Rianna Haddad, Eligibility Specialist [facility]; left message requesting call back re; report of concern made by CM on 11/03/23.
Phone call to Chey Mark, patient's sister/POA; left message requesting callback for d/c planning.
Plan home with VN.
[2023-11-13 18:00] LABS: Glucose - Point of Care 109 mg/dl (70-99)
[2023-11-13 21:26] LABS: Glucose - Point of Care 198 mg/dl (70-99)
--- NOTE | 2023-11-13 22:21 | PTCARENOTE ---
Received pt from day shift. Pt aaox3. Pt resting in chair. VSS. no c/o pain. Hygiene and wound care completed (see worklist) Pt used BSC and then assisted to bed. Pt now resting in bed with call plascencia in reach.
[2023-11-14] VITALS (17 sets, daily range): BP systolic 119–148; BP diastolic 67–91; BMI 19.1
[2023-11-14] MEDS: UNASYN IV ×4 (04:06→21:23)
[2023-11-14 05:30] LABS: % Basophils 0.1 % (0-2); % Immature Granulocytes 0.7 % (0-0.5); % Lymphocytes 3.7 % (20.5-51.1); % Monocytes 1.9 % (1.7-9.3); % Neutrophils 92.6 % (42.2-75.2); Absolute Eosinophils 0.1 10^3/uL (0-0.7); Absolute Immature Granulocytes 0.1 10^3/uL (0-0.05); Absolute Lymphocytes 0.5 10^3/uL (1.2-3.4); Absolute Monocytes 0.3 10^3/uL (0.1-0.6); Absolute Neutrophils 12.5 10^3/uL (1.4-6.5); Hematocrit 22.6 % (37.0-47.0); Hemoglobin 7.4 g/dL (12.0-16.0); Mean Corp Hgb Conc. 32.7 g/dL (33.0-37.0); Mean Corpuscular Hgb 30.7 pg (27.0-31.0); Mean Corpuscular Volume 93.8 fL (81.0-99.0); Mean Platelet Volume 9.6 fL (7.4-10.4); Nucleated Red Blood Cells % 0 %; Platelet Count 386 10^3/uL (130-400); Red Blood Cell Count 2.41 10^6/uL (4.20-5.40); Red Cell Dist. Width 14.7 % (11.5-14.5); White Blood Cell Count 13.5 10^3/uL (4.8-10.8)
[2023-11-14 06:13] LABS: Blood Urea Nitrogen 12 mg/dl (7-17); Calcium 7.6 mg/dl (8.4-10.2); Carbon Dioxide 30 mmol/L (22-30); Chloride 100 mmol/L (98-107); Estimated Creatinine Clearance 66 ml/min; Glucose 110 mg/dl (70-99); Potassium 4.9 mmol/L (3.5-5.1); Sodium 139 mmol/L (135-145); eGFR > 60.00
[2023-11-14] MEDS: NOVOLOG FLEXPEN-LOW RESISTANCE SC ×3 (07:30→17:00)
--- NOTE | 2023-11-14 08:26 | PTCARENOTE ---
Pt assisted to bathroom by chief nursing executive. When back to chair, this RN discovered MANN drain and IV site had been pulled out. Krystyna APPIAH notified. IVT paged for new IV site.
--- NOTE | 2023-11-14 08:40 | W.PN.CARDCBS ---
Today's Communication / Plan
-
Back in sinus rhythm. Continue amiodarone and Toprol.
Repeat EKG to follow QT interval on amiodarone and micafungin.
Volume status appears to be stable
Remains off anticoagulation as hemoglobin continues to drop down to 7.2.
May need transfusion. Eventually restart anticoagulation when hemoglobin is stable.
Continue postoperative care
Impression / Plan
-
PCP: Gaurav Jensen PA-C
Cardiology: Dr. Brcue
Impression:
Admitted with fall, UTI and sepsis 11/02/23
Possible sigmoid colitis
previously identified severe left colitis 09/26/23
Fall
Marked anemia
Sinus tachycardia with PACs and short runs of PAT 11/03/23
Recent admission with DVT, PE and newly diagnosed Afib 09/26/23 until 10/02/23
Paroxysmal Afib
new diagnosis 09/26/23 that spontaneously converted 09/27/23
Chronic Eliquis OAC
Acute on chronic vs chronic B/L LE edema
cRBBB
h/o right common femoral and superficial femoral vein thrombus and B/L PE 09/26/23
Prediabetes
HTN
HLD
Iatrogenic increased volume
Hypokalemia
Echo 09/27/2023: EF 56%, stage II diastolic dysfunction, mild to moderate MR, mild TR, estimated PAP 25 to 30 mmHg
Plan:
-Now s/p colectomy and colostomy 11/08/23: Cultured positive for E.coli and Carol albicans
-Continue to follow QT interval. Will repeat EKG today.
-No new fevers
-ID and colorectal surgery following
-Postop IV antibiotics per ID; completed antibiotic therapy previously for pansensitive E. coli UTI. Remains on micafungin
-H/o AFib/Atach
Back in sinus rhythm today. Continue amiodarone and Toprol.
Repeat EKG to follow QT interval on amiodarone.
-Keep K greater than 4, mag greater than 2
Ongoing bilateral lower extremity edema, likely multifactorial
Appears euvolemic, would hold off on further diuresis at this time
-H/o of DVT / PE recent as well as PAF. DVT 09/2023
Hemoglobin down to 7. Continue to hold anticoagulation.
Continue SCDs. May need transfusion. Eventually restart full anticoagulation with A-fib and history of DVT/PE
HPI: Patient came to [facility] last night after a fall at home and cardiology is now consulted for abnormal telemetry and chronic OAC. Patient was just admitted to 09/26/23 until 10/02/23 with new DVT and PE. Cardiology was consulted at that time foe
new Afib that spontaneously converted to SR. Eliquis 5 mg BID started. Patient was also diuresed with Lasix 20 mg IV x1, but patient was not discharged to home on diuretic due to hypotension. Patient came to hospital f/u visit at cardiology office
10/26/23 and appeared to be euvolemic and patient's sister thought her LE edema was improved. Lisinopril dose was decreased to 10 mg daily due to hypotension. Also, Toprol XL was increased to 50 mg BID due to rapid HR, but patient was in SR on ECG. 7
day monitor applied that is not yet resulted. Patient came back to [facility] last night after a fall at home. Patient with sepsis, shock and UTI on admission. Levophed started overnight, but now stopped. Patient started on IV antibiotics. Cardiology
consulted for tele review that looked like possible recurrent Afib with RVR. Patient denies palpitations. No chest pain or SOB
Progress Note - Supervisor Dried Yeast
Subjective
Date of Service: November 14, 2023
Denies chest pain or shortness of breath. Back in sinus rhythm today.
Objective
Labs:
11/14/23 04:27
11/14/23 04:27
Labs
Hgb 7.4 g/dL (12.0-16.0) L 11/14/23 04:27
Hct 22.6 % (37.0-47.0) L 11/14/23 04:27
Plt Count 386 10^3/uL (130-400) 11/14/23 04:27
PT 18.3 Sec (11.4-14.6) H 11/06/23 08:00
INR 1.53 11/06/23 08:00
APTT 56.7 Sec (23.4-35.0) H 11/08/23 07:34
Sodium 139 mmol/L (135-145) 11/14/23 04:27
Potassium 4.9 mmol/L (3.5-5.1) D 11/14/23 04:27
BUN 12 mg/dl (7-17) 11/14/23 04:27
Creatinine 0.6 mg/dL (0.6-1.0) 11/14/23 04:27
Glucose 110 mg/dl (70-99) H 11/14/23 04:27
Vital Signs and I&O:
Vital Signs
Temp Pulse Resp BP Pulse Ox
99.1 F 81 16 128/71 99
11/14/23 03:12 11/14/23 06:00 11/14/23 06:00 11/14/23 06:00 11/14/23 04:10
Vital Signs
Temp Pulse Resp BP Pulse Ox
99.1 F 81 16 128/71 99
11/14/23 03:12 11/14/23 06:00 11/14/23 06:00 11/14/23 06:00 11/14/23 04:10
Intake & Output
11/12/23 11/13/23 11/14/23 11/15/23
06:59 06:59 06:59 06:59
Intake Total 1280 / 1280 640 / 640 510 / 510
Output Total 775 / 775 1395 / 1395 1205 / 1205
Balance 505 / 505 -755 / -755 -695 / -695
Physical Exam
Physical Exam
GEN: No distress, awake, Ox3
HEENT: supple, anicteric, mmm
LUNGS: CTA, no wheezes/rales
CV: Reg, S1/S2, 1/6 syst LSB, no gallop
ABD: soft, BS+, NT/ND
EXT: No edema
NEURO: Gross non-focal
SKIN: No rash
[2023-11-14 09:34] LABS: Glucose - Point of Care 87 mg/dl (70-99)
--- NOTE | 2023-11-14 09:52 | W.PN.ID1 ---
Date of Service
Date of Service: November 14, 2023
Today's Communication
await CT abdomen
Assessment / Plan
Colitis
LLQ abscess
- S/P exp lap / (L) colectomy /w transverse end colostomy / partial small bowel resection / drainage LLQ abscess (11/08/23)
- OR cx's with E. coli (pansensitive); Carol albicans
Clinical sepsis - resolved
Paroxysmal A-fib with RVR
-Currently on amiodarone
Cachexia
Intellectual disability
Recommendations:
Continue unasyn - day 6 of therapy since obtaining source control, micafungin day [address] abd
would plan continuing unasyn and micafungin through 11/14 stopping on 11/15 unless new pathology revealed on CT abdomen
Pathology pending
Follow white count & temperature curve.
Chief Complaint
-: Other (colitis, intraabdominal abscess)
Subjective / Review of Systems
afebrile
bp stable
patient pulled out her own courtney and iv today
Vital Signs / Physical Exam
Vital Signs
Vital Signs
Temp Pulse Resp BP Pulse Ox
98.5 F 81 16 128/71 99
11/14/23 08:00 11/14/23 06:00 11/14/23 06:00 11/14/23 06:00 11/14/23 04:10
Physical Exam
Constitutional: No Acute Distress and Chronically Ill
Cardiovascular: Regular Rate and S1/S2; Negative Murmur or Rub
Pulmonary: Clear and Symmetric; Negative Wheezes or Rales
Gastrointestinal: Soft, Non Tender, Non Distended and Normal Bowel Sounds
Skin: Warm and Dry; Negative Rash or Jaundice
Objective Data
Lab Data
Lab Results
11/14/23 04:27
11/14/23 04:27
PT 18.3 Sec (11.4-14.6) H 11/06/23 08:00
INR 1.53 11/06/23 08:00
APTT 56.7 Sec (23.4-35.0) H 11/08/23 07:34
Estimated Creat Clear 66 ml/min 11/14/23 04:27
Lactic Acid 1.6 mmol/L (0.7-2.0) 11/03/23 16:17
Total Bilirubin 0.3 mg/dl (0.2-1.3) 11/13/23 03:33
AST 11 U/L (14-36) L 11/13/23 03:33
ALT 13 U/L (0-35) 11/13/23 03:33
Alkaline Phosphatase 105 U/L (38-126) 11/13/23 03:33
C-Reactive Protein 83.30 mg/L (0.0-10.00) H 11/08/23 07:34
Most recent labs reviewed.
Micro Results:
11/08/23 14:05 Wound Culture - Final
Abdomen Escherichia coli
Carol albicans
Gram Stain - Final
11/08/23 14:05 Anaerobic Culture - Final
Abdomen
11/02/23 21:48 Blood Culture - Final
Blood/Venous No Growth - Final Report
11/02/23 21:48 Blood Culture - Final
Blood/Venous No Growth - Final Report
11/03/23 12:00 Salmonella/Shigella Culture - Final
Feces/Stool No Salmonella, Shigella, Aeromonas or Plesiomonas species
isolated.
Campylobacter Culture - Final
No Campylobacter species isolated.
Shiga Toxin Test - Final
No E. coli Shiga Toxin 1 or 2 detected.
Stool Leukocytes - Final
11/03/23 00:48 Urine Culture - Final
Urine Escherichia coli
11/03/23 12:00 C. difficile GDH Antigen & Toxins - Final
Feces/Stool Negative for toxigenic C.difficile
11/02/23 21:14 Influenza Types A & B (MARK) - Final
Nasal Swab Negative for Influenza A & B, NAAT
Negative results must be combined with clinical observations
and patient history.
Nucleic Acid Amplification test (NAAT)performed on the
[employer] ([employer]) platform.
11/04/33 CT a/p: Findings at least for crescentic/curvilinear elongated abnormal fluid collection measuring at least 7 cm in the left lower abdomen adjacent to suspected sigmoid colitis and secondarily inflamed partially obstructed proximal to mid
small bowel containing bubbles of air, suspicious for abscess. Oral contrast only opacifying stomach and proximal to mid small bowel, possibly partially obstructed in the left abdomen.
Care Review
Plan reviewed with: Nurse (drain)
--- NOTE | 2023-11-14 09:52 | W.PN.CRS1 ---
Today's Communication / Plan
-
CT abdomen and pelvis
Assessment/Plan
-
POD# 6 1) exploratory laparotomy 2) left colectomy (including entire descending and sigmoid colon) with transverse end colostomy 3) takedown splenic flexure 4) partial small bowel resection 4) drainage left lower abdominal abscess
-WBC 13.5 from 19.7. Afebrile over the last [address] A/P with rectal/IV/oral contrast ordered. This was not performed yesterday. I spoke to the radiologist who recommended she have oral contrast again given it has been 24 hours.
-OOB as tolerated
-Wound RN for stoma teaching
-TEDS/SCDS in place. Hold Lovenox given hemoglobin.
-Hgb 7.4 from 7.7. Holding Lovenox. On Protonix.
-OR pathology pending
-Continue low residue diet.
-Holding Eliquis given anemia.
-Will need IVC filter eventually retrieved
-Continue IV Unasyn (will need po antibiotics as an outpatient given abscess)
-I left a voicemail with the patient's POA, Chey, to call me back for an update
Subjective Data
Procedure
11/07- 1) exploratory laparotomy 2) left colectomy (including entire descending and sigmoid colon) with transverse end colostomy 3) takedown splenic flexure 4) partial small bowel resection 4) drainage left lower abdominal abscess
Subjective Data
Date of Service: November 14, 2023
Patient states she had some nausea last night. She denies pain this morning. Her colostomy looks slightly blood-tinged. Also it was noted that the MANN drain fell out when the patient tried to get up out of bed after we rounded on her.
Objective Data
-
Vital Signs
Temp Pulse Resp BP Pulse Ox
98.5 F 81 16 128/71 99
11/14/23 08:00 11/14/23 06:00 11/14/23 06:00 11/14/23 06:00 11/14/23 04:10
Intake & Output
11/13/23 11/14/23 11/15/23
06:59 06:59 06:59
Intake Total 640 / 640 510 / 510
Output Total 1395 / 1395 1205 / 1205
Balance -755 / -755 -695 / -695
Intake:
Oral fluids 240 / 240 210 / 210
IV fluids (Total) 60 / 60
IV piggybacks 400 / 400 240 / 240
Output:
Liquid stool amount 175 / 175 875 / 875
Colostomy 175 / 175 875 / 875
Drain Output (Total) 620 / 620 330 / 330
Right Lower Abdomen Richard- 620 / 620 330 / 330
King
Urine, Voided 600 / 600
Other:
Number of approximated SMALL 1 1
amounts of urine
Number of approximated MODERATE 1 1
amounts of urine
How many times incontinent 1
SMALL amount urine
Lab Results
11/14/23 04:27
11/14/23 04:27
Physical Exam
-
General: No Acute Distress and AOx3
Abdomen: Soft, Non Distended, Non Tender and Other (Colostomy warm and pink with some dark blood-tinged output)
Incision: Clear, Dry, Intact
[2023-11-14] MEDS: PROTONIX 40 MG PO (10:21)
[2023-11-14] MEDS: MAGNESIUM OXIDE 500 MG PO (10:21)
[2023-11-14] MEDS: PACERONE 200 MG PO (10:21)
[2023-11-14] MEDS: LOPRESSOR 25 MG PO ×2 (10:21→21:22)
[2023-11-14] MEDS: OMNIPAQUE 50 ML PO (10:27)
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
[2023-11-14] MEDS: MYCAMINE 105 MG IV (12:21)
--- NOTE | 2023-11-14 13:00 | VNURNOTE ---
Home Health Liaison spoke with ELIJAH Guerrier via phone to discuss [facility] nurse/therapy, visits, schedule and homebound status. ELIJAH Guerrier is agreeable and understands that visits at home will be 2-3 x per week to assess and teach medical management and
colostomy teaching.
Home Health Liaison met with patient to discuss [facility] nurse/therapy visits.
[facility] brochure provided with contact information. Patient is aware that [facility] will contact them for start of care in 1-2 days after discharge from .
[facility] referral completed in [facility].
--- NOTE | 2023-11-14 14:23 | W.PN.HOSP.TC ---
Today's Communication/Plan
-
IV antibiotics.
MANN drain indefinitely removed.
Hemoglobin relatively stable at sevens. Transfuse additional unit of packed red blood cells and monitor.
Resume anticoagulation with Lovenox if appropriate response to transfusion on 11/14
Low residue diet
Assessment / Plan
Assessment / Plan
63yo F with PMHx of DM, HTN, intellectual impairment, Afib, recent diagnosis of VTE brought to the hospital after the fall, found febrile with sepsis on admission 2/2 UTI. Also had watery diarrhea for 3 days before admission and still was
continuing. Also b/l LE swelling. Managed for CHF, Afib with RVR, later found abdominal abscess s/p exploratory laparotomy with left colectomy with transverse end colostomy, takedown splenic flexure, partial small bowel resection, drainage left
lower abdominal abscess for colectomy on 11/08/23, had rapid return of bowel function.
A/P:
#Colitis, enteritis with abdominal abscess
#pSBO
COlorectalSx: s/p 1) exploratory laparotomy 2) left colectomy (including entire descending and sigmoid colon) with transverse end colostomy 3) takedown splenic flexure 4) partial small bowel resection 4) drainage left lower abdominal abscess on
11/07/23
Abscess periOP Cx - E.coli and Carol albicans. Unasyn and Micafungin as per ID consult
CRP elevated
Calprotectin pending
C.diff negative
CT scan of the abdomen pelvis on 11/13 with postoperative changes, although negative for abscess, perforation or other complications
Continue low residue diet baseline MANN drain indefinitely removed on 11/13.
Acute postoperative blood loss anemia.
Hemoglobin trending down to 7s
No evidence for brisk blood loss including recent imaging.
Transfuse to keep hemoglobin above 8
#UTI with sepsis on admission
#Overflow diarrhea
never used pressors - no shock
Ucx - pansensitive E.coli - completed Abx for it
#Paroxysmal Afib with RVR
#PACs
#acute on chronic HFpEF
#LE swelling, cannot exclude 2/2 protein-loosing enteropathy with diarrhea
Cardiology follows: amiodarone
Echo in Sep - grade 2 diastolic dysfunction, severe L atrial dilation
Lasix PRN for swelling, unclear if needs at home, since cardio did not recommend standing dose.
#Recent VTE, provoked
#Anemia of chronic disease
Eliquis initially held, as per RN - no signs of bleeding with stool, bedside FOBT done - apparently neg, will repeat for official record
Heparin drip and closely follow Hgb, transfuse as needed to keep Hgb >7
Onc followed: recommended periOP IVCf - IRAD consulted and IVC filter placed on 11/08/23
#Indirect bilirubinemia
#Minimal alk.phos elevated
No RUQ pain
most likely 2/2 PRBC transfusion and acute disease
haptoglobin high
#Hypokalemia
#Hypomagnesemia
2/2 enteric losses and poor oral intake
replete and follow
#DM type 2 with neuropathy
Accuchecks, DM diet, insulin SS, hold metformin
#L pelvis dermoid
PCP f/u as outpatient
#Essential HTN
held BP meds due to relative hypotension - restart low dose lisinopril
#Malnutrition, protein calorie
start oral supplements when diet advanced
DVT ppx on Heparin drip
FUll code
I have spent at least 39min reviewing chart, test results, communicating with consultants and direct patient care
Anticipated Discharge: > 48 hours
Subjective/Interval History
-
Date of Service: November 14, 2023
Objective Data
-
Labs:
Laboratory Results
11/14/23
04:27
WBC 13.5 H
Hgb 7.4 L
Hct 22.6 L
Plt Count 386
Sodium 139
Potassium 4.9 D
Chloride 100
Carbon Dioxide 30
BUN 12
Creatinine 0.6
Glucose 110 H
Calcium 7.6 L
Vital Signs:
Vital Signs
Temp Pulse Resp BP Pulse Ox
97.3 F 81 16 141/75 95
11/14/23 11:52 11/14/23 10:21 11/14/23 06:00 11/14/23 10:21 11/14/23 10:31
I&O
11/13/23 11/14/23 11/15/23
06:59 06:59 06:59
Intake Total 640 / 640 510 / 510
Output Total 1395 / 1395 1205 / 1205
Balance -755 / -755 -695 / -695
Physical Exam
-
General: No Apparent Distress
HEENT: Normocephalic
Respiratory: Clear to Auscultation
Cardiac: Regular Rhythm
GI: Soft, Nontender, Nondistended and Other (colostomy, MANN drain)
Genito-urinary: No Costovertebral Tender
Musculoskeletal: No Clubbing, No Cyanosis, Edema, Right Lower Extrem and Edema, Left Lower Extrem
Skin: Warm
Neuro: Awake, Alert, Oriented and AO x 3
Psych: Calm
[2023-11-14 14:48] LABS: Glucose - Point of Care 94 mg/dl (70-99)
--- NOTE | 2023-11-14 15:09 | PTCARENOTE ---
Pt to and from CT via stretcher. OOB to chair and resting comfortably.
--- NOTE | 2023-11-14 16:10 | W.PN.UPDATE ---
Update Note
Progress Note Update
CT scan images and results available for review. I reviewed both with Dr. Fritz of radiology. No obvious acute issues. Normal postoperative changes. No obvious abscess. No adverse extravasation of contrast from the bowel or the rectal stump.
No obvious obstruction. I did update the patient's next of kin/power of corporate associate attorney who happens to be her sister. Will continue current measures.
[2023-11-14 16:57] LABS: Glucose - Point of Care 113 mg/dl (70-99)
[2023-11-14 23:43] LABS: Glucose - Point of Care 145 mg/dl (70-99)
[2023-11-15] VITALS (11 sets, daily range): BP systolic 137–163; BP diastolic 69–97; BMI 19.3; BMI 19.1
--- NOTE | 2023-11-15 03:18 | PTCARENOTE ---
Pt had no complaints at this time. Assessment care and vitals as charted.
--- NOTE | 2023-11-15 03:47 | PTCARENOTE ---
Received pt from previous RN. Pt on RA O2 sat 97%. Left colostomy in place. VSS. Pt is laying in bed with call plascencia in reach.
[2023-11-15] MEDS: UNASYN IV ×4 (04:49→22:11)
[2023-11-15 05:23] LABS: % Basophils 0.1 % (0-2); % Eosinophils 1.3 % (0-6); % Immature Granulocytes 0.5 % (0-0.5); % Lymphocytes 4.7 % (20.5-51.1); % Monocytes 3.5 % (1.7-9.3); % Neutrophils 89.9 % (42.2-75.2); Absolute Eosinophils 0.1 10^3/uL (0-0.7); Absolute Immature Granulocytes 0.1 10^3/uL (0-0.05); Absolute Lymphocytes 0.5 10^3/uL (1.2-3.4); Absolute Monocytes 0.3 10^3/uL (0.1-0.6); Absolute Neutrophils 8.7 10^3/uL (1.4-6.5); Hematocrit 25.9 % (37.0-47.0); Hemoglobin 8.7 g/dL (12.0-16.0); Mean Corp Hgb Conc. 33.6 g/dL (33.0-37.0); Mean Corpuscular Hgb 28.9 pg (27.0-31.0); Mean Platelet Volume 9.1 fL (7.4-10.4); Nucleated Red Blood Cells % 0 %; Platelet Count 392 10^3/uL (130-400); Red Blood Cell Count 3.01 10^6/uL (4.20-5.40); Red Cell Dist. Width 16.2 % (11.5-14.5); White Blood Cell Count 9.7 10^3/uL (4.8-10.8)
[2023-11-15 06:22] LABS: Blood Urea Nitrogen 9 mg/dl (7-17); Calcium 7.7 mg/dl (8.4-10.2); Carbon Dioxide 31 mmol/L (22-30); Chloride 100 mmol/L (98-107); Estimated Creatinine Clearance 66 ml/min; Glucose 95 mg/dl (70-99); Potassium 4.2 mmol/L (3.5-5.1); Sodium 135 mmol/L (135-145); eGFR > 60.00
[2023-11-15 08:09] LABS: Glucose - Point of Care 75 mg/dl (70-99)
--- NOTE | 2023-11-15 08:09 | W.PN.CRS1 ---
Today's Communication / Plan
-
recheck hgb
Assessment/Plan
-
POD# 7 1) exploratory laparotomy 2) left colectomy (including entire descending and sigmoid colon) with transverse end colostomy 3) takedown splenic flexure 4) partial small bowel resection 4) drainage left lower abdominal abscess
-WBC normalized to 9.7
-OOB as tolerated
-Wound RN for stoma teaching
-TEDS/SCDS in place. Hold Lovenox given hemoglobin.
-Hgb 8.7 from 7.4. Holding Lovenox. On Protonix. Recheck hemoglobin at noon.
-OR pathology pending
-Continue low residue diet.
-Holding Eliquis given anemia.
-Will need IVC filter eventually retrieved
-Continue IV Unasyn (will need po antibiotics as an outpatient given abscess)
Subjective Data
Procedure
11/07- 1) exploratory laparotomy 2) left colectomy (including entire descending and sigmoid colon) with transverse end colostomy 3) takedown splenic flexure 4) partial small bowel resection 4) drainage left lower abdominal abscess
Subjective Data
Date of Service: November 15, 2023
Patient states she ate yesterday. She has no issues with pain. She denies nausea or vomiting. She has been out of bed.
Objective Data
-
Vital Signs
Temp Pulse Resp BP Pulse Ox
98.1 F 69 19 144/76 97
11/15/23 07:14 11/15/23 06:07 11/15/23 06:07 11/15/23 06:07 11/15/23 04:00
Intake & Output
11/14/23 11/15/23 11/16/23
06:59 06:59 06:59
Intake Total 510 / 510 480 / 480
Output Total 1205 / 1205 550 / 550
Balance -695 / -695 -70 / -70
Intake:
Oral fluids 210 / 210 110 / 110
IV fluids (Total) 60 / 60
IV piggybacks 240 / 240 120 / 120
Blood Product Amount Infused ( 250 / 250
mL)
Packed Rbc Leukoreduced Unit 250 / 250
[id number]
Output:
Liquid stool amount 875 / 875 450 / 450
Colostomy 875 / 875 450 / 450
Drain Output (Total) 330 / 330
Right Lower Abdomen Richard- 330 / 330
King
Urine, Voided 100 / 100
Other:
Number of approximated SMALL 1 1
amounts of urine
Number of approximated MODERATE 1 2
amounts of urine
How many times incontinent 1
SMALL amount urine
Lab Results
11/15/23 04:48
11/15/23 04:48
Physical Exam
-
General: No Acute Distress and AOx3
Abdomen: Soft, Non Distended, Non Tender and Other (colostomy warm and pink with function)
Skin: Warm and Dry
--- NOTE | 2023-11-15 09:14 | W.PN.CARDCBS ---
Today's Communication / Plan
-
Remains in sinus rhythm. Continue amiodarone.
QT interval stable. Will repeat EKG 11/15.
Hemoglobin improved and up to 8.7 status post transfusion.
Would prefer to restart anticoagulation today
Impression / Plan
-
PCP: Gaurav Jensen PA-C
Cardiology: Dr. Bruce
Impression:
Admitted with fall, UTI and sepsis 11/02/23
Possible sigmoid colitis
previously identified severe left colitis 09/26/23
Fall
Marked anemia
Sinus tachycardia with PACs and short runs of PAT 11/03/23
Recent admission with DVT, PE and newly diagnosed Afib 09/26/23 until 10/02/23
Paroxysmal Afib
new diagnosis 09/26/23 that spontaneously converted 09/27/23
Chronic Eliquis OAC
Acute on chronic vs chronic B/L LE edema
cRBBB
h/o right common femoral and superficial femoral vein thrombus and B/L PE 09/26/23
Prediabetes
HTN
HLD
Iatrogenic increased volume
Hypokalemia
Echo 09/27/2023: EF 56%, stage II diastolic dysfunction, mild to moderate MR, mild TR, estimated PAP 25 to 30 mmHg
Plan:
-Now s/p colectomy and colostomy 11/08/23: Cultured positive for E.coli and Carol albicans
-EKG/QT intervals stable on amiodarone and micafungin.
-No new fevers
-ID and colorectal surgery following
-Postop IV antibiotics per ID; completed antibiotic therapy previously for pansensitive E. coli UTI. Remains on micafungin
-H/o AFib/Atach
Back in sinus rhythm today. Continue amiodarone and Toprol.
Repeat EKG 11/15 to follow QT interval on amiodarone.
-Keep K greater than 4, mag greater than 2
Ongoing bilateral lower extremity edema, likely multifactorial
Appears euvolemic, would hold off on further diuresis at this time
Weight overall stable
-H/o of DVT / PE recent as well as PAF. DVT 09/2023
Hemoglobin improved to 8.7. Would prefer to restart anticoagulation. Will discuss with hospitalist team. Could use Lovenox short-term versus restarting Eliquis per
HPI: Patient came to [facility] last night after a fall at home and cardiology is now consulted for abnormal telemetry and chronic OAC. Patient was just admitted to 09/26/23 until 10/02/23 with new DVT and PE. Cardiology was consulted at that time foe
new Afib that spontaneously converted to SR. Eliquis 5 mg BID started. Patient was also diuresed with Lasix 20 mg IV x1, but patient was not discharged to home on diuretic due to hypotension. Patient came to hospital f/u visit at cardiology office
10/26/23 and appeared to be euvolemic and patient's sister thought her LE edema was improved. Lisinopril dose was decreased to 10 mg daily due to hypotension. Also, Toprol XL was increased to 50 mg BID due to rapid HR, but patient was in SR on ECG. 7
day monitor applied that is not yet resulted. Patient came back to [facility] last night after a fall at home. Patient with sepsis, shock and UTI on admission. Levophed started overnight, but now stopped. Patient started on IV antibiotics. Cardiology
consulted for tele review that looked like possible recurrent Afib with RVR. Patient denies palpitations. No chest pain or SOB
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
Subjective
Date of Service: November 15, 2023
Remains in sinus rhythm. Denies chest pains or shortness of breath.
Objective
Labs:
11/15/23 04:48
11/15/23 04:48
Labs
Hgb 8.7 g/dL (12.0-16.0) L 11/15/23 04:48
Hct 25.9 % (37.0-47.0) L 11/15/23 04:48
Plt Count 392 10^3/uL (130-400) 11/15/23 04:48
PT 18.3 Sec (11.4-14.6) H 11/06/23 08:00
INR 1.53 11/06/23 08:00
APTT 56.7 Sec (23.4-35.0) H 11/08/23 07:34
Sodium 135 mmol/L (135-145) 11/15/23 04:48
Potassium 4.2 mmol/L (3.5-5.1) 11/15/23 04:48
BUN 9 mg/dl (7-17) 11/15/23 04:48
Creatinine 0.6 mg/dL (0.6-1.0) 11/15/23 04:48
Glucose 95 mg/dl (70-99) 11/15/23 04:48
Vital Signs and I&O:
Vital Signs
Temp Pulse Resp BP Pulse Ox
98.1 F 69 19 144/76 97
11/15/23 07:14 11/15/23 06:07 11/15/23 06:07 11/15/23 06:07 11/15/23 08:43
Vital Signs
Temp Pulse Resp BP Pulse Ox
98.1 F 69 19 144/76 97
11/15/23 07:14 11/15/23 06:07 11/15/23 06:07 11/15/23 06:07 11/15/23 08:43
Intake & Output
11/13/23 11/14/23 11/15/23 11/16/23
06:59 06:59 06:59 06:59
Intake Total 640 / 640 510 / 510 480 / 480
Output Total 1395 / 1395 1205 / 1205 550 / 550
Balance -755 / -755 -695 / -695 -70 / -70
Physical Exam
Physical Exam
GEN: No distress, awake, Ox3
HEENT: supple, anicteric, mmm
LUNGS: CTA, no wheezes/rales
CV: Reg, S1/S2, 1/6 syst LSB, no gallop
ABD: soft, BS+, mild incis tend
EXT: No edema
NEURO: Gross non-focal
SKIN: No rash
[2023-11-15] MEDS: NOVOLOG FLEXPEN-LOW RESISTANCE SC ×2 (09:15→17:03)
[2023-11-15] MEDS: MAGNESIUM OXIDE 500 MG PO (09:16)
[2023-11-15] MEDS: LOPRESSOR 25 MG PO ×2 (09:16→20:05)
[2023-11-15] MEDS: PACERONE 200 MG PO (09:17)
[2023-11-15] MEDS: PROTONIX 40 MG PO (09:17)
--- NOTE | 2023-11-15 10:55 | PTCARENOTE ---
Pt received from senior coldfusion developer RN. Pt Ox3 and appropriate, developmental delay. NSR on tele with PAC's and long QT. +1 UE, +2 LE edema, + pulses. Pt on RA, breath sounds clear. Colostomy intact with budded pink stoma, soft brown stool output. BSC x 1,
moving with minimal difficulty. R MANN site with some serous drainage, midline incision with old drainage. R midline intact. Call plascencia within reach. Pt makes needs known.
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
[2023-11-15 11:25] LABS: Glucose - Point of Care 190 mg/dl (70-99)
[2023-11-15] MEDS: NOVOLOG FLEXPEN-LOW RESISTANCE 1 UNITS SC (11:41)
[2023-11-15] MEDS: MYCAMINE 105 MG IV (11:42)
--- NOTE | 2023-11-15 11:56 | W.PN.ID1 ---
Date of Service
Date of Service: November 15, 2023
Today's Communication
Continue unasyn through tonight then stop
continue micafungin today then stop
Pathology pending
Follow up with colorectal surgery
Assessment / Plan
Colitis
LLQ abscess
- S/P exp lap / (L) colectomy /w transverse end colostomy / partial small bowel resection / drainage LLQ abscess (11/08/23)
- OR cx's with E. coli (pansensitive); Carol albicans
Clinical sepsis - resolved
Paroxysmal A-fib with RVR
-Currently on amiodarone
Cachexia
Intellectual disability
Recommendations:
Continue unasyn through tonight then stop
continue micafungin today then stop
Pathology pending
Follow up with colorectal surgery
Chief Complaint
-: Other (colitis, intraabdominal abscess)
Subjective / Review of Systems
afebrile
bp stable
still with leaking from prior MANN site
Vital Signs / Physical Exam
Vital Signs
Vital Signs
Temp Pulse Resp BP Pulse Ox
98.1 F 86 16 141/73 97
11/15/23 07:14 11/15/23 10:00 11/15/23 10:00 11/15/23 10:00 11/15/23 08:43
Physical Exam
Constitutional: No Acute Distress
Cardiovascular: Regular Rate and S1/S2; Negative Murmur or Rub
Pulmonary: Clear and Symmetric; Negative Wheezes or Rales
Gastrointestinal: Soft, Non Tender, Non Distended and Normal Bowel Sounds
Skin: Warm and Dry; Negative Rash or Jaundice
Objective Data
Lab Data
Lab Results
11/15/23 04:48
PT 18.3 Sec (11.4-14.6) H 11/06/23 08:00
INR 1.53 11/06/23 08:00
APTT 56.7 Sec (23.4-35.0) H 11/08/23 07:34
Estimated Creat Clear 66 ml/min 11/15/23 04:48
Lactic Acid 1.6 mmol/L (0.7-2.0) 11/03/23 16:17
Total Bilirubin 0.3 mg/dl (0.2-1.3) 11/13/23 03:33
AST 11 U/L (14-36) L 11/13/23 03:33
ALT 13 U/L (0-35) 11/13/23 03:33
Alkaline Phosphatase 105 U/L (38-126) 11/13/23 03:33
C-Reactive Protein 83.30 mg/L (0.0-10.00) H 11/08/23 07:34
Most recent labs reviewed.
Micro Results:
11/08/23 14:05 Wound Culture - Final
Abdomen Escherichia coli
Carol albicans
Gram Stain - Final
11/08/23 14:05 Anaerobic Culture - Final
Abdomen
11/02/23 21:48 Blood Culture - Final
Blood/Venous No Growth - Final Report
11/02/23 21:48 Blood Culture - Final
Blood/Venous No Growth - Final Report
11/03/23 12:00 Salmonella/Shigella Culture - Final
Feces/Stool No Salmonella, Shigella, Aeromonas or Plesiomonas species
isolated.
Campylobacter Culture - Final
No Campylobacter species isolated.
Shiga Toxin Test - Final
No E. coli Shiga Toxin 1 or 2 detected.
Stool Leukocytes - Final
11/03/23 00:48 Urine Culture - Final
Urine Escherichia coli
11/03/23 12:00 C. difficile GDH Antigen & Toxins - Final
Feces/Stool Negative for toxigenic C.difficile
11/02/23 21:14 Influenza Types A & B (MARK) - Final
Nasal Swab Negative for Influenza A & B, NAAT
Negative results must be combined with clinical observations
and patient history.
Nucleic Acid Amplification test (NAAT)performed on the
[employer] platform.
11/04/33 CT a/p: Findings at least for crescentic/curvilinear elongated abnormal fluid collection measuring at least 7 cm in the left lower abdomen adjacent to suspected sigmoid colitis and secondarily inflamed partially obstructed proximal to mid
small bowel containing bubbles of air, suspicious for abscess. Oral contrast only opacifying stomach and proximal to mid small bowel, possibly partially obstructed in the left abdomen.
Care Review
Plan reviewed with: Physician (Dr Guzman - enteritis, duration of antibiotics, he is in agreement with plan to stop)
[2023-11-15 13:19] LABS: Hematocrit 28.2 % (37.0-47.0); Hemoglobin 9.3 g/dL (12.0-16.0)
[2023-11-15] MEDS: LOVENOX 40 MG SC (14:32)
--- NOTE | 2023-11-15 16:34 | WOUNDNOTE ---
WO RN note: Patient's stoma pink and functioning for soft loose brown stool. Peristomal skin intact. Instructed family colostomy care including pouch emptying and changing appliance using [place] wafer # [id number], Naomi seal and [employer] pouch #
[id number]. Ostomy supplies and colostomy teaching folder in room. Family member Latonia signed [place] ostomy secure starter kit fax auth form. t/c SPD and ordered Naomi seals. Wax Room Supervisor Marilia to give to patient. Next appliance change due Sunday.
--- NOTE | 2023-11-15 16:59 | WOUNDNOTE ---
WOC RN Note: t/c Spoke with Gee from [employer], ostomy secure starter kit ordered.
[2023-11-15 17:13] LABS: Glucose - Point of Care 143 mg/dl (70-99)
[2023-11-15 18:19] LABS: Calprotectin, Fecal 68 ug/g (<=49)
[2023-11-15 21:57] LABS: Glucose - Point of Care 144 mg/dl (70-99)
[2023-11-16] MEDS: LOVENOX 40 MG SC (01:44)
[2023-11-16 04:06] VITALS: BP 158/91
[2023-11-16 06:00] VITALS: BMI 19.4
[2023-11-16 07:30] VITALS: BP 161/86
[2023-11-16 07:46] LABS: Glucose - Point of Care 91 mg/dl (70-99)
[2023-11-16 07:47] LABS: % Basophils 0.1 % (0-2); % Eosinophils 0.9 % (0-6); % Immature Granulocytes 0.4 % (0-0.5); % Lymphocytes 7.4 % (20.5-51.1); % Monocytes 7.5 % (1.7-9.3); % Neutrophils 83.7 % (42.2-75.2); Absolute Eosinophils 0.1 10^3/uL (0-0.7); Absolute Lymphocytes 0.6 10^3/uL (1.2-3.4); Absolute Monocytes 0.6 10^3/uL (0.1-0.6); Absolute Neutrophils 6.2 10^3/uL (1.4-6.5); Hematocrit 30.2 % (37.0-47.0); Hemoglobin 9.9 g/dL (12.0-16.0); Mean Corp Hgb Conc. 32.8 g/dL (33.0-37.0); Mean Corpuscular Volume 88.6 fL (81.0-99.0); Mean Platelet Volume 9.1 fL (7.4-10.4); Nucleated Red Blood Cells % 0 %; Platelet Count 451 10^3/uL (130-400); Red Blood Cell Count 3.41 10^6/uL (4.20-5.40); Red Cell Dist. Width 15.9 % (11.5-14.5); White Blood Cell Count 7.5 10^3/uL (4.8-10.8)
[2023-11-16] MEDS: NOVOLOG FLEXPEN-LOW RESISTANCE SC ×2 (08:11→12:45)
[2023-11-16 08:16] LABS: Blood Urea Nitrogen 7 mg/dl (7-17); Calcium 7.5 mg/dl (8.4-10.2); Carbon Dioxide 32 mmol/L (22-30); Chloride 98 mmol/L (98-107); Estimated Creatinine Clearance 67 ml/min; Glucose 85 mg/dl (70-99); Potassium 4.7 mmol/L (3.5-5.1); Sodium 137 mmol/L (135-145); eGFR > 60.00
[2023-11-16] MEDS: ZESTRIL 5 MG PO (09:18)
[2023-11-16] MEDS: PROTONIX 40 MG PO (09:18)
[2023-11-16] MEDS: MAGNESIUM OXIDE 500 MG PO (09:18)
[2023-11-16] MEDS: LOPRESSOR 25 MG PO (09:19)
[2023-11-16] MEDS: PACERONE 200 MG PO (09:19)
--- NOTE | 2023-11-16 10:14 | W.PN.CARDCBS ---
Addendum entered and electronically signed by Estefani Steven DO 11/16/23 13:18:
I saw and examined the patient.
The [employer] Repairer's note was reviewed and I agree with the note.
Comment: Patient seen and examined. Chart/telemetry and EKG reviewed. Plan for discharge today per primary service. Patient offers no specific complaints
GEN: NAD, out of bed to chair
HEENT: mmm
LUNGS: CTA, no wheezes/rales
CV: Reg, S1/S2, no murmur
ABD: soft, BS+, mild incis tenderness; colostomy bag in place
EXT: +1 george LE edema, no clubbing or cyanosis
Plan:
S/p colectomy and colostomy 11/08/23: Cultured positive for E.coli and Carol albicans
-Last dose of Micafungin 11/14 pm.
-No new fevers
-ID and colorectal surgery following
-Postop IV antibiotics per ID; completed antibiotic therapy 11/14
-H/o AFib/Atach
In sinus rhythm
Continue amiodarone and Toprol.
Repeat EKG 11/15 to follow QT interval on amiodarone. Sinus rhythm w/ RBBB, QTc 536 ms 11/15. Discussed with EP and will continue amiodarone at current dose
Keep K greater than 4, mag greater than 2
-Hypertension
Blood pressure has been elevated on Lopressor
Restart Lisinopril 5 mg daily. Was on 10 mg daily as an outpatient and may need further up titration following discharge
-Ongoing bilateral lower extremity edema, likely multifactorial
Appears euvolemic, would hold off on further diuresis at this time
Use compression stocking
Weight overall stable
-H/o of DVT /PE recent as well as PAF. DVT 09/2023
Hemoglobin improved to 9.9. s/p tranfusion 10/29, 11/03, 11/07, 11/13
Now back on Eliquis, resumed 11/15 in am. Continue to monitor Hgb
Okay from a cardiovascular standpoint to discharge
Outpatient cardiac follow-up to be arranged
Original Note:
Today's Communication / Plan
-
Now off antibiotics per ID
QTc stable on ECG 11/15
Resume Eliquis today
Restart Lisinopril for HTN
Monitor Hgb and Lytes
Utilize knee-high compression stockings
Impression / Plan
-
PCP: Gaurav Jensen PA-C
Cardiology: Dr. Bruce
Impression:
Admitted with fall, UTI and sepsis 11/02/23
Possible sigmoid colitis
previously identified severe left colitis 09/26/23
Fall
Marked anemia
Sinus tachycardia with PACs and short runs of PAT 11/03/23
Recent admission with DVT, PE and newly diagnosed Afib 09/26/23 until 10/02/23
Paroxysmal Afib
new diagnosis 09/26/23 that spontaneously converted 09/27/23
Chronic Eliquis OAC
Acute on chronic vs chronic B/L LE edema
cRBBB
h/o right common femoral and superficial femoral vein thrombus and B/L PE 09/26/23
Prediabetes
HTN
HLD
Iatrogenic increased volume
Hypokalemia
Echo 09/27/2023: EF 56%, stage II diastolic dysfunction, mild to moderate MR, mild TR, estimated PAP 25 to 30 mmHg
Plan:
-S/p colectomy and colostomy 11/08/23: Cultured positive for E.coli and Carol albicans
-EKG/QT intervals stable on amiodarone and micafungin. Last dose of Micafungin 11/14 pm.
-No new fevers
-ID and colorectal surgery following
-Postop IV antibiotics per ID; completed antibiotic therapy 11/14
-H/o AFib/Atach
Back in sinus rhythm today. Continue amiodarone and Toprol.
Repeat EKG 11/15 to follow QT interval on amiodarone. Sinus rhythm w/ RBBB, QTc 536 ms 11/15.
Keep K greater than 4, mag greater than 2
Hypertension
Blood pressure has been elevated on Lopressor
Would restart Lisinopril 5 mg. Was on 10 mg as outpt. If blood pressure remains elevated in next 24 hours would consider up titration
Ongoing bilateral lower extremity edema, likely multifactorial
Appears euvolemic, would hold off on further diuresis at this time
Use compression stocking
Weight overall stable
-H/o of DVT /PE recent as well as PAF. DVT 09/2023
Hemoglobin improved to 9.9. s/p tranfusion 10/29, 11/03, 11/07, 11/13
Now back on Eliquis, resumed 11/15 in am. Continue to monitor Hgb
HPI: Patient came to [facility] last night after a fall at home and cardiology is now consulted for abnormal telemetry and chronic OAC. Patient was just admitted to 09/26/23 until 10/02/23 with new DVT and PE. Cardiology was consulted at that time foe
new Afib that spontaneously converted to SR. Eliquis 5 mg BID started. Patient was also diuresed with Lasix 20 mg IV x1, but patient was not discharged to home on diuretic due to hypotension. Patient came to hospital f/u visit at cardiology office
10/26/23 and appeared to be euvolemic and patient's sister thought her LE edema was improved. Lisinopril dose was decreased to 10 mg daily due to hypotension. Also, Toprol XL was increased to 50 mg BID due to rapid HR, but patient was in SR on ECG. 7
day monitor applied that is not yet resulted. Patient came back to [facility] last night after a fall at home. Patient with sepsis, shock and UTI on admission. Levophed started overnight, but now stopped. Patient started on IV antibiotics. Cardiology
consulted for tele review that looked like possible recurrent Afib with RVR. Patient denies palpitations. No chest pain or SOB
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
Subjective
Date of Service: November 16, 2023
Patient seen and examined. Patient sitting up in chair playing game with her sister. Complains of some ongoing lower extremity edema. Denies chest pain, shortness of breath or dizziness.
Objective
Labs:
11/16/23 06:52
11/16/23 06:52
Labs
Hgb 9.9 g/dL (12.0-16.0) L 11/16/23 06:52
Hct 30.2 % (37.0-47.0) L 11/16/23 06:52
Plt Count 451 10^3/uL (130-400) H 11/16/23 06:52
PT 18.3 Sec (11.4-14.6) H 11/06/23 08:00
INR 1.53 11/06/23 08:00
APTT 56.7 Sec (23.4-35.0) H 11/08/23 07:34
Sodium 137 mmol/L (135-145) 11/16/23 06:52
Potassium 4.7 mmol/L (3.5-5.1) 11/16/23 06:52
BUN 7 mg/dl (7-17) 11/16/23 06:52
Creatinine 0.5 mg/dL (0.6-1.0) L 11/16/23 06:52
Glucose 85 mg/dl (70-99) 11/16/23 06:52
Vital Signs and I&O:
Vital Signs
Temp Pulse Resp BP Pulse Ox
98.2 F 80 20 161/86 98
11/16/23 07:30 11/16/23 07:30 11/16/23 07:30 11/16/23 07:30 11/16/23 07:30
Vital Signs
Temp Pulse Resp BP Pulse Ox
98.2 F 80 20 161/86 98
11/16/23 07:30 11/16/23 07:30 11/16/23 07:30 11/16/23 07:30 11/16/23 07:30
Intake & Output
11/14/23 11/15/23 11/16/23 11/17/23
06:59 06:59 06:59 06:59
Intake Total 510 / 510 480 / 480 890 / 890
Output Total 1205 / 1205 550 / 550 300 / 300
Balance -695 / -695 -70 / -70 590 / 590
Physical Exam
Physical Exam
GEN: No distress, awake, Ox3, sitting up in chair
HEENT: supple, anicteric, mmm
LUNGS: CTA, no wheezes/rales
CV: Reg, S1/S2, 1/6 syst LSB, no gallop
ABD: soft, BS+, mild incis tenderness; colostomy bag in place
EXT: +1 george LE edema, no clubbing or cyanosis
NEURO: Gross non-focal
SKIN: No rash, warm, dry, pink
[2023-11-16 11:30] VITALS: BP 153/82
--- NOTE | 2023-11-16 12:04 | W.PN.CRS1 ---
Today's Communication / Plan
-
Okay to restart Eliquis from our standpoint
Continue low residue diet
Assessment/Plan
-
POD# 8 1) exploratory laparotomy 2) left colectomy (including entire descending and sigmoid colon) with transverse end colostomy 3) takedown splenic flexure 4) partial small bowel resection 4) drainage left lower abdominal abscess
-WBC normalized to 7.5
-OOB as tolerated
-Wound RN for stoma teaching
-TEDS/SCDS in place. Hold Lovenox given hemoglobin.
-OR pathology pending
-Continue low residue diet.
-Okay to restart Eliquis from our perspective
-Will need IVC filter eventually retrieved
-Appreciate infectious disease
Subjective Data
Procedure
11/07- 1) exploratory laparotomy 2) left colectomy (including entire descending and sigmoid colon) with transverse end colostomy 3) takedown splenic flexure 4) partial small bowel resection 4) drainage left lower abdominal abscess
Subjective Data
Date of Service: November 16, 2023
Patient states she has hardly any pain. She is eating well. She states that she is burping a lot. She has no nausea or vomiting.
Objective Data
-
Vital Signs
Temp Pulse Resp BP Pulse Ox
98.2 F 80 20 161/86 98
11/16/23 07:30 11/16/23 07:30 11/16/23 07:30 11/16/23 07:30 11/16/23 07:30
Intake & Output
11/15/23 11/16/23 11/17/23
06:59 06:59 06:59
Intake Total 480 / 480 890 / 890
Output Total 550 / 550 300 / 300
Balance -70 / -70 590 / 590
Intake:
Oral fluids 110 / 110 360 / 360
IV piggybacks 120 / 120 530 / 530
Blood Product Amount Infused ( 250 / 250
mL)
Packed Rbc Leukoreduced Unit 250 / 250
[id number]
Output:
Liquid stool amount 450 / 450 125 / 125
Colostomy 450 / 450 125 / 125
Urine, Voided 100 / 100 175 / 175
Other:
Number of approximated SMALL 1 5
amounts of urine
Number of approximated MODERATE 2
amounts of urine
Lab Results
11/16/23 06:52
11/16/23 06:52
Physical Exam
-
General: No Acute Distress and AOx3
Abdomen: Soft, Non Distended, Non Tender and Other (Colostomy warm and pink with function)
Skin: Warm and Dry
--- NOTE | 2023-11-16 12:26 | W.DS.TRANS ---
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
-
Discharge Instructions:
Discharge Diagnosis/Procedures Abdominal abscess/colitis.
Status post exploratory laparotomy with left
colectomy and transverse and colostomy, takedown
splenic flexure, partial small bowel resection
with abscess drainage on 11/08/2023
Urinary tract infection
Clinical sepsis present on admission.
Acute blood loss anemia.
Paroxysmal atrial fibrillation
Anticoagulation with Eliquis.
Recent diagnosis of DVT, PE
Hypertension
Type 2 diabetes NIDDM
Dyslipidemia
Hypokalemia
Intellectual disability
Diet Low Residue
Activity No strenuous activity
Additional Activity No lifting over 10lbs (gallon of milk)
Driving Restrictions Not until seen by your Dr
Bathing Restrictions OK to Shower
Instructions: Low Fiber Diet
Stand-Alone Forms:
Changes to Home Medications: No
Discharge Medications:
DC Medications w/original date entered in [employer]
atorvastatin 40 mg tablet 40 mg PO DAILY High Cholesterol 09/26/23
lisinopril 20 mg tablet 10 mg PO DAILY Blood Pressure 09/26/23
apixaban 5 mg tablet (Eliquis) 5 mg PO BID 30 days #60 tabs 10/02/23
metformin 500 BID Diabetes 11/03/23
metoprolol succinate 50 mg BID Heart Disease/Condition 11/03/23
amiodarone 200 mg tablet 200 mg PO DAILY #30 tabs 11/16/23
pantoprazole 40 mg tablet,delayed release 40 mg PO DAILY #30 tabs 11/16/23
Home Medication Changes
Pending Results: No
[2023-11-16 12:40] LABS: Glucose - Point of Care 121 mg/dl (70-99)
[2023-11-16] MEDS: ELIQUIS 5 MG PO (12:40)
--- NOTE | 2023-11-16 12:55 | CM ---
CM reviewed chart, met with patient and sister, Latonia, bedside. CM discussed plan for discharge today. Update to [facility] on patient discharge. CM reviewed IMM with sister, sister reports if something goes wrong 'I will contact my crop and soil technician'. CM discussed
patient/family have the right to appeal discharge, sister reports she is agreeable to discharge. Update to Hospitalist. CM will continue to follow for all discharge planning needs.
Plan; discharge home, sister to provide transportation, [facility].
[2023-11-16] MEDS: FLUAD (65 yr+) 2024-2025 FORMULA 0.5 ML IM (13:01)
--- NOTE | 2023-11-16 14:22 | W.PN.ID1 ---
Date of Service
Date of Service: November 16, 2023
Today's Communication
completed a course of unasyn and micafungin
Pathology pending
Follow up with colorectal surgery
Assessment / Plan
Colitis
LLQ abscess
- S/P exp lap / (L) colectomy /w transverse end colostomy / partial small bowel resection / drainage LLQ abscess (11/08/23)
- OR cx's with E. coli (pansensitive); Carol albicans
Clinical sepsis - resolved
Paroxysmal A-fib with RVR
-Currently on amiodarone
Cachexia
Intellectual disability
Recommendations:
completed a course of unasyn and micafungin
Pathology pending
Follow up with colorectal surgery
Chief Complaint
-: Other (colitis, intraabdominal abscess)
Subjective / Review of Systems
afebrile
no complaints
happy to be going home
Vital Signs / Physical Exam
Vital Signs
Vital Signs
Temp Pulse Resp BP Pulse Ox
97.2 F 63 20 153/82 96
11/16/23 11:30 11/16/23 11:30 11/16/23 11:30 11/16/23 11:30 11/16/23 11:30
Physical Exam
Constitutional: No Acute Distress
Cardiovascular: Regular Rate and S1/S2; Negative Murmur or Rub
Pulmonary: Clear and Symmetric; Negative Wheezes or Rales
Gastrointestinal: Soft, Non Tender, Non Distended and Normal Bowel Sounds
Skin: Warm and Dry; Negative Rash or Jaundice
Objective Data
Lab Data
Lab Results
11/16/23 06:52
11/16/23 06:52
PT 18.3 Sec (11.4-14.6) H 11/06/23 08:00
INR 1.53 11/06/23 08:00
APTT 56.7 Sec (23.4-35.0) H 11/08/23 07:34
Estimated Creat Clear 67 ml/min 11/16/23 06:52
Lactic Acid 1.6 mmol/L (0.7-2.0) 11/03/23 16:17
Total Bilirubin 0.3 mg/dl (0.2-1.3) 11/13/23 03:33
AST 11 U/L (14-36) L 11/13/23 03:33
ALT 13 U/L (0-35) 11/13/23 03:33
Alkaline Phosphatase 105 U/L (38-126) 11/13/23 03:33
C-Reactive Protein 83.30 mg/L (0.0-10.00) H 11/08/23 07:34
Most recent labs reviewed.
Micro Results:
11/08/23 14:05 Wound Culture - Final
Abdomen Escherichia coli
Carol albicans
Gram Stain - Final
11/08/23 14:05 Anaerobic Culture - Final
Abdomen
11/02/23 21:48 Blood Culture - Final
Blood/Venous No Growth - Final Report
11/02/23 21:48 Blood Culture - Final
Blood/Venous No Growth - Final Report
11/03/23 12:00 Salmonella/Shigella Culture - Final
Feces/Stool No Salmonella, Shigella, Aeromonas or Plesiomonas species
isolated.
Campylobacter Culture - Final
No Campylobacter species isolated.
Shiga Toxin Test - Final
No E. coli Shiga Toxin 1 or 2 detected.
Stool Leukocytes - Final
11/03/23 00:48 Urine Culture - Final
Urine Escherichia coli
11/03/23 12:00 C. difficile GDH Antigen & Toxins - Final
Feces/Stool Negative for toxigenic C.difficile
11/02/23 21:14 Influenza Types A & B (MARK) - Final
Nasal Swab Negative for Influenza A & B, NAAT
Negative results must be combined with clinical observations
and patient history.
Nucleic Acid Amplification test (NAAT)performed on the
[employer] platform.
11/04/33 CT a/p: Findings at least for crescentic/curvilinear elongated abnormal fluid collection measuring at least 7 cm in the left lower abdomen adjacent to suspected sigmoid colitis and secondarily inflamed partially obstructed proximal to mid
small bowel containing bubbles of air, suspicious for abscess. Oral contrast only opacifying stomach and proximal to mid small bowel, possibly partially obstructed in the left abdomen.
--- NOTE | 2023-11-16 15:05 | VNURNOTE ---
Rec'ed info that patient had [facility] prior to admission. Called patient's sister Latonia. Informed her that patient cannot be seen by both agencies, would have to cancel with [facility] prior to our start. Informed her [facility] are able to see pt
tomorrow for start of care visit. Latonia stated she would cancel [facility] -number provided to her from their website. [facility] intake notified.
== END 2023-11-16 15:03 | disposition home health service (06) | DRG 853 ==
LOC: 4 WEST ACU 02:47
PROVIDERS: Internal Medicine; Physician Assistant; Radiology Diagnostic Radiology; Surgery; ADMITTING PHYSICIAN Internal Medicine; ATTENDING PHYSICIAN Internal Medicine; CONSULT PHYSICIAN Internal Medicine Critical Care Medicine; CONSULT PHYSICIAN Internal Medicine Gastroenterology; EMERGENCY PHYSICIAN Student in an Organized Health Care Education/Training Program; FAMILY PHYSICIAN Family Medicine; OTHER PHYSICIAN Internal Medicine Cardiovascular Disease; OTHER PHYSICIAN Internal Medicine Hematology & Oncology; OTHER PHYSICIAN Surgery
PROC: 30233N1 Transfusion of Nonautologous Red Blood Cells into Peripheral Vein, Percutaneous Approach (ICD-10-PCS; 2023-11-04)
PROC: B5191ZZ Fluoroscopy of Inferior Vena Cava using Low Osmolar Contrast (ICD-10-PCS; 2023-11-08)
PROC: 06H03DZ Insertion of Intraluminal Device into Inferior Vena Cava, Percutaneous Approach (ICD-10-PCS; 2023-11-08)
PROC: 0DTG0ZZ Resection of Left Large Intestine, Open Approach (ICD-10-PCS; 2023-11-08)
PROC: 0DB80ZZ Excision of Small Intestine, Open Approach (ICD-10-PCS; 2023-11-08)
PROC: 0D1L0Z4 Bypass Transverse Colon to Cutaneous, Open Approach (ICD-10-PCS; 2023-11-08)
PROC: 0W9G00Z Drainage of Peritoneal Cavity with Drainage Device, Open Approach (ICD-10-PCS; 2023-11-08)
PROC: 3E02340 Introduction of Influenza Vaccine into Muscle, Percutaneous Approach (ICD-10-PCS; 2023-11-16)
DX: A41.9 Sepsis, unspecified organism (principal); I26.99 Other pulmonary embolism without acute cor pulmonale; I50.33 Acute on chronic diastolic (congestive) heart failure; K65.1 Peritoneal abscess; K57.20 Diverticulitis of large intestine with perforation and abscess without bleeding; K56.51 Intestinal adhesions [bands], with partial obstruction; E87.20 Acidosis, unspecified; Z68.1 Body mass index [BMI] 19.9 or less, adult; I47.19 Other supraventricular tachycardia; D62 Acute posthemorrhagic anemia; N17.9 Acute kidney failure, unspecified; K86.2 Cyst of pancreas; E46 Unspecified protein-calorie malnutrition; N39.0 Urinary tract infection, site not specified; E11.649 Type 2 diabetes mellitus with hypoglycemia without coma; I48.0 Paroxysmal atrial fibrillation; F81.9 Developmental disorder of scholastic skills, unspecified; F70 Mild intellectual disabilities; E88.09 Other disorders of plasma-protein metabolism, not elsewhere classified; D27.1 Benign neoplasm of left ovary; D75.839 Thrombocytosis, unspecified; I45.10 Unspecified right bundle-branch block; E86.0 Dehydration; E11.40 Type 2 diabetes mellitus with diabetic neuropathy, unspecified; D63.8 Anemia in other chronic diseases classified elsewhere; E78.00 Pure hypercholesterolemia, unspecified; B37.9 Candidiasis, unspecified; E83.42 Hypomagnesemia; E87.6 Hypokalemia; D50.9 Iron deficiency anemia, unspecified; B96.20 Unspecified Escherichia coli [E. coli] as the cause of diseases classified elsewhere; R79.1 Abnormal coagulation profile; I11.0 Hypertensive heart disease with heart failure; W01.0XXA Fall on same level from slipping, tripping and stumbling without subsequent striking against object, initial encounter; Y93.01 Activity, walking, marching and hiking; Y92.003 Bedroom of unspecified non-institutional (private) residence as the place of occurrence of the external cause; Z79.84 Long term (current) use of oral hypoglycemic drugs; Z90.49 Acquired absence of other specified parts of digestive tract; Z86.718 Personal history of other venous thrombosis and embolism; Z79.01 Long term (current) use of anticoagulants; Z86.711 Personal history of pulmonary embolism; Z82.49 Family history of ischemic heart disease and other diseases of the circulatory system; Z23 Encounter for immunization; Z11.52 Encounter for screening for COVID-19
CPT/HCPCS: 88307; 37191; 70450; 71045; 72125; 74022; 74177; 80048; 80053; 81003; 81015; 82248; 82533; 82607; 82728; 82746; 82805; 82962; 83010; 83540; 83550; 83605; 83615; 83735; 83880; 83993; 84100; 84132; 84484; 85014; 85018; 85025; 85027; 85045; 85384; 85520; 85610; 85730; 86140; 86803; 86850; 86880; 86900; 86901; 86920; 87040; 87045; 87046; 87070; 87075; 87077; 87086; 87147; 87186; 87205; 87324; 87427; 87449; 87502; 87811; 89055; 90662; 93005; 94760; 96365; 96366; 96367; 97116; 97164; 97167; 97168; 97530; 97535; 99285; C1729; C1769; C1776; C1880; G0008; J2916; P9016; P9047; Q9967

== ENCOUNTER 2023-11-20 13:45 | Emergency (ER) | payer MEDICARE, OTHER, SELFPAY ==
--- NOTE | 2023-11-20 13:52 | ED.GENMED ---
ED Provider Triage
<Jing Malhotra PA-C - Last Filed: 11/20/23 16:57>
-
Patient seen by provider in Triage?: Seen in Triage
Attestation: A medical screening examination has been initiated by a qualified medical provider. Based on the assessment performed at this time, it has been determined that an emergent medical condition may exist and the patient has been informed
that further medical evaluation and possible additional diagnostic testing may be needed.
HPI: 63yoF here with vomiting. Recently admitted for colitis with abscess. Underwent L colectomy with transverse end colostomy and partial small bowel resection on 11/09/[address] Dorado. Discharged on 11/16/23. Having ongoing vomiting since
discharge. No abdominal pain. Normal output from colostomy.
GENERAL: Alert , in no apparent distress
EYE: No visual abnormalities.
NECK: Trachea midline
ENT: No visible abnormalities.
LUNGS: No acute respiratory distress
NEUROLOGICAL: Alert and oriented
SKIN: Skin intact. No visible changes.
MUSCULOSKELETAL: Moving extremities normally
PSYCH: Normal and appropriate interaction.
This is a medical evaluation conducted in person to initiate diagnostic evaluation and provide initial therapeutics. Please see further documentation by the treating clinician.
CBC, CMP, and magnesium ordered.
History of Present Illness
<Jing Malhotra PA-C - Last Filed: 11/20/23 16:57>
General
Chief Complaint: Abdominal Symptoms
Time Seen by Provider: 11/20/23 14:34
<Manisha Hess PA-C - Last Filed: 11/20/23 17:46>
General
Source: patient and family
Exam Limitations: none
Nursing documentation reviewed up to this point in time: agreed with
History of Present Illness
History of Present Illness:
pt is a 63 y/o F with ho afib on eliquis
had a ex lap with L colectomy and transverse colostomy, takedown splenic flexure due to colitis with abscess/perf and partial small bowel obstruction s/p partial small bowel resection on 11/[address] dorado
has been home since 11/15 and has had a few episodes of vomiting since discharge
she apparently had n/v/ for a few months prior to all of this but ultimately her vomiting was though tot be due to her colitis and then this urgent issue took over
pt thinks she thew up a few times total in 4 days
they called her PCP who called her back today and said to come in to be seen. pt hasn't vomited today . she had some soup and was able to keep it down.
she doesn't want to be here and doesn't want to do a cat scan.
pt has no pain, fever, diarrhea. output of ostomy is good she believes
she has had home RN come to the house yesterday and check her incision
Past History
<Manisha Hess PA-C - Last Filed: 11/20/23 17:46>
Past History
ED Past Medical History: HTN, Hypercholesterolemia and Other (dvt on eliuquis; colitis with perforation and abscess s/p colectomy; sbo with partial small bowel resection)
Social History
Tobacco: Non-smoker
Alcohol: None
Personal: Single
Living: with family
Review of Systems
<Manisha Hess PA-C - Last Filed: 11/20/23 17:46>
Review of Systems
Allergies reviewed?: Yes
All Other Systems: Not applicable
Phy Exam
<Manisha Hess PA-C - Last Filed: 11/20/23 17:46>
Physical Exam
Physical Exam:
GENERAL: Alert , in no apparent distress, nontoxic
EYE: pupils equal and reactive
NECK: Supple
ENT: o/p clr, mmm. not dehydrated
CARDIAC:irregularlyirregular normal rate
LUNGS: Clear breath sounds bilaterally, no acute respiratory distress, no wheezes/rales/rhonchi
ABDOMEN: Soft, abd slightly distended; colostomy in place with normal output and stoma is pink; nontender; no r/g, no cvat, normal bowel sounds
NEUROLOGICAL: Alert and oriented, no focal neuro deficits
SKIN: Warm and dry, skin intact.
MUSCULOSKELETAL: No edema, well perfused.
PSYCH: Normal and appropriate interaction.
Course
<Jing Malhotra PA-C - Last Filed: 11/20/23 16:57>
Orders/Labs/Results
Orders:
Orders
11/20/23 13:56
Complete Blood Count/With Diff Urgent
Comprehensive Metabolic Panel Urgent
Magnesium Urgent
11/20/23 15:36
Obstruct Series W/PA Chest [CR Obstruct Series W/pa Chest] Urgent
Comment:
Reason For Exam: VOMITING, RECENT COLECTOMY
Abnormal Lab Results
11/20/23
13:56
RBC 3.43 L 10^6/uL
(4.20-5.40)
Hgb 9.9 L g/dL
(12.0-16.0)
Hct 30.5 L %
(37.0-47.0)
MCHC 32.5 L g/dL
(33.0-37.0)
RDW 14.8 H %
(11.5-14.5)
Plt Count 663 H D 10^3/uL
(130-400)
Absolute Lymphs (auto) 0.6 L 10^3/uL
(1.2-3.4)
Neutrophils % 86.3 H %
(42.2-75.2)
Lymphocytes % 7.5 L %
(20.5-51.1)
Carbon Dioxide 31 H mmol/L
(22-30)
Calcium 8.2 L mg/dl
(8.4-10.2)
AST 13 L U/L
(14-36)
Alkaline Phosphatase 156 H U/L
(38-126)
Total Protein 5.0 L g/dl
(6.3-8.2)
Albumin 2.3 L g/dl
(3.5-5.0)
11/20/23 13:56
11/20/23 13:56
Vital Signs
Initial and Last Documented VS:
Initial Vital Signs
Temp Pulse Resp Pulse Ox
98.5 F 86 18 99
11/20/23 13:47 11/20/23 13:47 11/20/23 13:47 11/20/23 13:47
Last Documented Vital Signs
Temp Pulse Resp BP Pulse Ox
98.7 F 73 18 152/80 99
11/20/23 15:40 11/20/23 17:06 11/20/23 13:47 11/20/23 17:06 11/20/23 17:06
<Manisha Hess PA-C - Last Filed: 11/20/23 17:46>
Orders/Labs/Results
Orders:
Orders
11/20/23 13:56
Complete Blood Count/With Diff Urgent
Comprehensive Metabolic Panel Urgent
Magnesium Urgent
11/20/23 15:36
Obstruct Series W/PA Chest [CR Obstruct Series W/pa Chest] Urgent
Comment:
Reason For Exam: VOMITING, RECENT COLECTOMY
Abnormal Lab Results
11/20/23
13:56
RBC 3.43 L 10^6/uL
(4.20-5.40)
Hgb 9.9 L g/dL
(12.0-16.0)
Hct 30.5 L %
(37.0-47.0)
MCHC 32.5 L g/dL
(33.0-37.0)
RDW 14.8 H %
(11.5-14.5)
Plt Count 663 H D 10^3/uL
(130-400)
Absolute Lymphs (auto) 0.6 L 10^3/uL
(1.2-3.4)
Neutrophils % 86.3 H %
(42.2-75.2)
Lymphocytes % 7.5 L %
(20.5-51.1)
Carbon Dioxide 31 H mmol/L
(22-30)
Calcium 8.2 L mg/dl
(8.4-10.2)
AST 13 L U/L
(14-36)
Alkaline Phosphatase 156 H U/L
(38-126)
Total Protein 5.0 L g/dl
(6.3-8.2)
Albumin 2.3 L g/dl
(3.5-5.0)
11/20/23 13:56
11/20/23 13:56
Vital Signs
Initial and Last Documented VS:
Initial Vital Signs
Temp Pulse Resp Pulse Ox
98.5 F 86 18 99
11/20/23 13:47 11/20/23 13:47 11/20/23 13:47 11/20/23 13:47
Last Documented Vital Signs
Temp Pulse Resp BP Pulse Ox
98.7 F 73 18 152/80 99
11/20/23 15:40 11/20/23 17:06 11/20/23 13:47 11/20/23 17:06 11/20/23 17:06
Chesterlt;Hayes Gupta, DO - Last Filed: 11/20/23 16:48>
Orders/Labs/Results
Orders:
Orders
11/20/23 13:56
Complete Blood Count/With Diff Urgent
Comprehensive Metabolic Panel Urgent
Magnesium Urgent
11/20/23 15:36
Obstruct Series W/PA Chest [CR Obstruct Series W/pa Chest] Urgent
Comment:
Reason For Exam: VOMITING, RECENT COLECTOMY
Abnormal Lab Results
11/20/23
13:56
RBC 3.43 L 10^6/uL
(4.20-5.40)
Hgb 9.9 L g/dL
(12.0-16.0)
Hct 30.5 L %
(37.0-47.0)
MCHC 32.5 L g/dL
(33.0-37.0)
RDW 14.8 H %
(11.5-14.5)
Plt Count 663 H D 10^3/uL
(130-400)
Absolute Lymphs (auto) 0.6 L 10^3/uL
(1.2-3.4)
Neutrophils % 86.3 H %
(42.2-75.2)
Lymphocytes % 7.5 L %
(20.5-51.1)
Carbon Dioxide 31 H mmol/L
(22-30)
Calcium 8.2 L mg/dl
(8.4-10.2)
AST 13 L U/L
(14-36)
Alkaline Phosphatase 156 H U/L
(38-126)
Total Protein 5.0 L g/dl
(6.3-8.2)
Albumin 2.3 L g/dl
(3.5-5.0)
11/20/23 13:56
11/20/23 13:56
Vital Signs
Initial and Last Documented VS:
Initial Vital Signs
Temp Pulse Resp Pulse Ox
98.5 F 86 18 99
11/20/23 13:47 11/20/23 13:47 11/20/23 13:47 11/20/23 13:47
Last Documented Vital Signs
Temp Pulse Resp BP Pulse Ox
98.7 F 73 18 152/80 99
11/20/23 15:40 11/20/23 17:06 11/20/23 13:47 11/20/23 17:06 11/20/23 17:06
<Manisha Hess PA-C - Last Filed: 11/20/23 17:46>
MDM/Problems Addressed
Differential Diagnosis Includes:
partial SBO/ileus, bowel obstruction, gastriis; sepsis
MDM/Problems Addressed:
63 y/o F
says she has been vomiting intermittently for months but then got a severe colitis causing abscess with perf
had colostomy, sbo with resection
is here with vomiting for th epast 4 days but minimal number of toyin, maybre 4 and not today
she apparently had vomiting intermittently for months before this surgery
she has no pain
normal ostomy output
no fever
pt is in no dsitress
appears hydrated
distended but soft an dnontender abdomen, stool and gas in bag, normal color
incision closed
no signs of infection
given her risk since she just had surgery, discussed CT but pt refused adamantly
she was agreeable to an xray
xray no obstruction; she does have pleural effusion which she had on previous imaging, no cp, sob
she wants to go home
tolerated pochallenge
seen by ed attending
will counselling psychologist on return precautions
anemia stable.
<Manisha Hess PA-C - Last Filed: 11/20/23 17:46>
*Critical Care Note
Total Time (30-74mins, 75-104mins- exclusive of procedures): Not Applicable
ED Attending Note
<Jing Malhotra PA-C - Last Filed: 11/20/23 16:57>
-
Portions of this chart may have been created with voice recognition software.� Occasional wrong word or��sound alike� substitutions may have occurred due to the inherent limitations of voice recognition software.
<Hayes Gupta, DO - Last Filed: 11/20/23 16:48>
ED Attending Note
Patient seen and examined by attending physician: Yes
I performed the substantive portion of visit, reviewed & personally made and approve the management plan that is documented in note by myself or SWEETIE.: Yes
ED Attending Note:
seenw with Pa, agree with a/p, n/v for months, admitted recently, bowel infection, lap-abscess, feeling ok, kept soup/banana down, refused CT today, obs noted
will try clears,
Discharge Plan
Departure
Patient Disposition: Home (Routine Discharge)
Date of Disposition: 11/20/23
Time of Disposition: 17:11
Patient with high blood pressure during this ER visit?: No
Condition: Fair
Covid-19: Not Applicable
Discharge Problem:
Vomiting
Instructions: Nausea and Vomiting, Adult (DC), Anemia caused by low iron in adults - Discharge instructions
Prescriptions:
No Action
atorvastatin 40 mg Tablet
40 mg PO DAILY
lisinopril 20 mg Tablet
10 mg PO DAILY
Eliquis 5 mg tablet
5 mg PO BID 30 Days Qty: 60 0RF
Rx Instructions:
Take one 5mg tablet, two times per day, for 30 days
metformin 500 mg
500 BID
metoprolol succinate 50 mg
50 mg BID
pantoprazole 40 mg Tablet,Delayed Release (Dr/Ec)
40 mg PO DAILY Qty: 30 0RF
amiodarone 200 mg Tablet
200 mg PO DAILY Qty: 30 0RF
Referrals:
UNKNOWN - PT DOES,NOT KNOW [Unknown Provider] -
Activity Restrictions/Additional Instructions:
WE ARE NOT SURE THE CAUSE OF YOUR VOMITING BUT YOU DO NOT HAVE OBVIOUS EVIDENCE OF A BOWEL OBSTRUCTION AND YOU WERE ABLE TO TOLERATE LIQUIDS AND CRACKERS HERE
TRY BLAND DIET, SMALL AMOUNTS FOR NOW SINCE YOU ARE SO CLOSE TO YOUR SURGERY
FOLLOW UP WITH YOUR DOCTOR AND YOUR SURGEON PLANNED
YOU ARE ANEMIC BUT NO WORSE THAN WHEN YOU WERE IN THE HOSPITAL
RETURN FOR ANY COCNERN: FEVER, VOMITING, WORSE ABDOMINAL PAIN ETC
* NOTE WE HAD WANTED TO DO A CAT SCAN BUT YOU PREFERRED AN XRAY FOR NOW - BUT YOU MAY NEED A CAT SCAN IF THE VOMITIGN PERSISTS.
Interventions
Interventions:
*Risk Screen - Suicide Last Done: 11/20/23 13:47
*General Assessment Last Done: 11/20/23 13:47
*Neglect/Abuse Screening Last Done: 11/20/23 13:47
ED- Fall Risk Assessment Last Done: 11/20/23 17:38
*ED COVID-19 Vaccine History Last Done: 11/20/23 13:47
*Nursing Disposition Last Done: 11/20/23 17:38
[facility]-Vglnks-Tjo[facility]icy[facility] Assessment Last Done: 11/20/23 15:41
Discharge Date and Time
Discharge Date/Time: 11/20/23 17:38
Print Language: [place]AST [place]
[2023-11-20 14:23] LABS: % Basophils 0.1 % (0-2); % Eosinophils 0.5 % (0-6); % Immature Granulocytes 0.5 % (0-0.5); % Lymphocytes 7.5 % (20.5-51.1); % Monocytes 5.1 % (1.7-9.3); % Neutrophils 86.3 % (42.2-75.2); Absolute Lymphocytes 0.6 10^3/uL (1.2-3.4); Absolute Monocytes 0.4 10^3/uL (0.1-0.6); Absolute Neutrophils 6.3 10^3/uL (1.4-6.5); Hematocrit 30.5 % (37.0-47.0); Hemoglobin 9.9 g/dL (12.0-16.0); Mean Corp Hgb Conc. 32.5 g/dL (33.0-37.0); Mean Corpuscular Hgb 28.9 pg (27.0-31.0); Mean Corpuscular Volume 88.9 fL (81.0-99.0); Mean Platelet Volume 8.7 fL (7.4-10.4); Nucleated Red Blood Cells % 0 %; Platelet Count 663 10^3/uL (130-400); Red Blood Cell Count 3.43 10^6/uL (4.20-5.40); Red Cell Dist. Width 14.8 % (11.5-14.5); White Blood Cell Count 7.3 10^3/uL (4.8-10.8)
[2023-11-20 14:25] LABS: ALT (SGPT) 13 U/L (0-35); AST (SGOT) 13 U/L (14-36); Albumin 2.3 g/dl (3.5-5.0); Alkaline Phosphatase 156 U/L (38-126); Blood Urea Nitrogen 9 mg/dl (7-17); Calcium 8.2 mg/dl (8.4-10.2); Carbon Dioxide 31 mmol/L (22-30); Chloride 98 mmol/L (98-107); Glucose 94 mg/dl (70-99); Magnesium 1.8 mg/dl (1.6-2.3); Potassium 4.2 mmol/L (3.5-5.1); Sodium 137 mmol/L (135-145); Total Bilirubin 0.4 mg/dl (0.2-1.3); eGFR > 60.00
[2023-11-20 15:40] VITALS: BP 150/72; BMI 19.1
[2023-11-20 17:06] VITALS: BP 152/80
== END 2023-11-20 17:38 | disposition home or self-care (01) ==
LOC: EMR 13:45
PROVIDERS: Physician Assistant; EMERGENCY PHYSICIAN Emergency Medicine; FAMILY PHYSICIAN Family Medicine
DX: R11.2 Nausea with vomiting, unspecified (principal); E78.00 Pure hypercholesterolemia, unspecified; I10 Essential (primary) hypertension; J90 Pleural effusion, not elsewhere classified; D64.9 Anemia, unspecified; I48.91 Unspecified atrial fibrillation; Z79.01 Long term (current) use of anticoagulants; Z90.49 Acquired absence of other specified parts of digestive tract; Z86.718 Personal history of other venous thrombosis and embolism; Z93.3 Colostomy status
CPT/HCPCS: 99284; 74022; 80053; 83735; 85025

== ENCOUNTER → 2023-11-29 07:44 | Outpatient (REF) | payer MEDICARE, OTHER, SELFPAY ==
[2023-11-29 08:22] LABS: Glucose - Point of Care 95 mg/dl (70-99)
[2023-11-29 08:23] VITALS: BP 166/85; BP_SYST 65
== END ==
LOC: RADI 07:44
PROVIDERS: ATTENDING PHYSICIAN Radiology Diagnostic Radiology
DX: Z45.89 Encounter for adjustment and management of other implanted devices (principal); I82.409 Acute embolism and thrombosis of unspecified deep veins of unspecified lower extremity
CPT/HCPCS: 37193; 82962; 99152; 99153; C1769

== ENCOUNTER 2024-04-28 23:39 | Inpatient (IN) | payer MEDICARE, OTHER, SELFPAY ==
[2024-04-28] VITALS (8 sets, daily range): BP systolic 111–144; BP diastolic 50–83
[2024-04-28 20:54] LABS: % Basophils 0.1 % (0-2); % Eosinophils 0.3 % (0-6); % Immature Granulocytes 0.8 % (0-0.5); % Lymphocytes 10.7 % (20.5-51.1); % Monocytes 7.6 % (1.7-9.3); % Neutrophils 80.5 % (42.2-75.2); Absolute Immature Granulocytes 0.1 10^3/uL (0-0.05); Absolute Monocytes 0.7 10^3/uL (0.1-0.6); Absolute Neutrophils 7.1 10^3/uL (1.4-6.5); Hematocrit 12.2 % (37.0-47.0); Hemoglobin 3.1 g/dL (12.0-16.0); Mean Corp Hgb Conc. 25.4 g/dL (33.0-37.0); Mean Corpuscular Hgb 18.2 pg (27.0-31.0); Mean Corpuscular Volume 71.8 fL (81.0-99.0); Mean Platelet Volume 10.7 fL (7.4-10.4); Nucleated Red Blood Cells % 7.4 %; Platelet Count 445 10^3/uL (130-400); Red Cell Dist. Width 22.1 % (11.5-14.5); White Blood Cell Count 8.9 10^3/uL (4.8-10.8)
[2024-04-28 21:04] LABS: Troponin I < 0.012 ng/ml
[2024-04-28 21:06] LABS: Anisocytosis 2+
[2024-04-28 21:07] LABS: Hypochromasia 3+; Macrocytosis 1+; Microcytosis 2+; Ovalocytes 1+
--- NOTE | 2024-04-28 21:07 | ED.GENMED ---
History of Present Illness
<ELOY Tellez - Last Filed: 04/29/24 02:04>
General
Chief Complaint: Breathing Problem
Source: patient and family
Exam Limitations: none
Time Seen by Provider: 04/28/24 21:07
Nursing documentation reviewed up to this point in time: agreed with
History of Present Illness
History of Present Illness:
Patient is a 63-year-old female with history of colitis with abscess and colostomy, paroxysmal A-fib on Eliquis, type 2 diabetes, DVT PE. Patient brought by sister for evaluation of weakness and shortness of breath for the past several days since
the weekend. Daughter also notes that patient's stoma seems to be protruding.
Patient denies any black or dark stool in colostomy bag.
Future patient denies any abdominal pain nausea vomiting chest pain.
Past History
<ELOY Tellez - Last Filed: 04/29/24 02:04>
Past History
ED Past Medical History: HTN, Hypercholesterolemia and Other (dvt on eliuquis; colitis with perforation and abscess s/p colectomy; sbo with partial small bowel resection)
Social History
Tobacco: Non-smoker
Alcohol: None
Personal: Single
Living: with family
Review of Systems
<ELOY Tellez - Last Filed: 04/29/24 02:04>
Review of Systems
Allergies reviewed?: Yes
All Other Systems: ROS reviewed and negative except as documented in HPI and ROS
Constitutional: Reports no symptoms; Denies fever, fatigue or chills
EENT: Reports no symptoms
Respiratory: Reports trouble breathing
Cardiac: Reports no symptoms; Denies chest pain or palpitations
ABD/GI: Reports other; Denies abdominal pain, vomiting or diarrhea
: Reports no symptoms
Musculoskeletal: Reports other (discomfort in right thigh )
Skin: Reports no symptoms
Neurological: Reports no symptoms
Psychiatric: Reports no symptoms
Phy Exam
<ELOY Tellez - Last Filed: 04/29/24 02:04>
General Physical Exam
General Presentation: no apparent distress
General age: appears stated age
General Skin: warm, dry and pale
General Mental: alert
General Hydration: appears well hydrated
Cardiovascular Exam
Cardiovascular Exam: regular rate/rhythm, no murmur and normal peripheral pulses
Pulmonary Exam
Pulmonary Exam: lungs clear and no respiratory distress
Gastrointestinal Exam
Gastrointestinal Exam: soft and other (non tender + colostomy with protrusion of stoma;stoma pink in color small brown liquid stool in bag)
Neurological Exam
Neurological Exam: alert and oriented x3
Musculoskeletal Exam
Musculoskeletal Exam: full ROM
Skin Exam
Skin Exam: normal color and warm/dry
Psychiatric Exam
Psychiatric Exam: normal mood/affect
Scores
<ELOY Tellez - Last Filed: 04/29/24 02:04>
Heart Failure Risk
Heart Failure Risk Score: Not Applicable
Course
<ELOY Tellez - Last Filed: 04/29/24 02:04>
Orders/Labs/Results
Orders:
Orders
04/28/24 20:01
Electrocardiogram (*1) Urgent
Reason for Study: Atrial Fibrillation
EKG- Treatment ONCE
04/28/24 20:17
Acetaminophen Urgent
Complete Blood Count/With Diff Urgent
Comprehensive Metabolic Panel Urgent
Ferritin Urgent
Comment: ADD ON
Folate Urgent
Comment: ADD ON
Haptoglobin [S] Urgent
Comment: ADDED
Iron Urgent
LDH Urgent
Comment: ADDED
Reticulocyte Count Urgent
Comment: ADDED
Total Iron Binding Urgent
Troponin I Urgent
Vitamin B12 Urgent
Comment: ADD ON
04/28/24 21:19
* Blood Bank Products Urgent
's Orders: YAIR jones / DR Eubanks
Blood Bank Products: *Packed RBC Leuko(PRBC's)
Quantity: 2
Transfuse Today: Yes
Is product needed for scheduled surgery?: No
Reason: Anemia
IV Insert/Care/Rem.- Treatment PRN
04/28/24 21:23
Type+Screen Urgent
04/28/24 21:36
Blood Bank Products [* Blood Bank Products] Urgent
'vish Orders: [facility]
Blood Bank Products: *Packed RBC Leuko(PRBC's)
Quantity: 2
Transfuse Today: Yes
Reason: Anemia
Patient will require pre-treatment for transfusion:: No
Comment: done
04/28/24 21:41
PT/INR [Prothrombin Time] Urgent
04/28/24 22:07
Add On- LAB Urgent
Tests Added?: acetaminophen ,iron , TIBC ferritin
04/28/24 22:09
0.9% Sodium Chloride 1000 ml [Nss] 1,000 ml IV BOLUS
04/28/24 23:05
Add On- LAB Routine
Tests Added?: iron, % saturation, vit b12 and folate
Add On- LAB Urgent
Tests Added?: tylenol level
04/28/24 23:06
Sodium Bicarbonate 50 meq IV NOW STA
04/28/24 23:07
Blood Bank Products [* Blood Bank Products] Urgent
Blood Bank Products: *Fresh Frozen Plasma
Quantity: 1
Transfuse Today: Yes
Reason: Bleeding
04/28/24 23:[address] Non Medication Order As Directed
Physician Order: Please give 2 units PRBCs then 1 unit of FFP, then give 2 more units of PRBCs
Above order entered?: Yes
04/28/24 23:23
Admit/Transfer Patient As Directed
Co-Sign Provider:
Level of Care: Inpatient admission
Assign to:: IMU- Intermediate Care
Physician / Group: Olga
Diagnosis: Anemia, GI Bleed
Reason for Hospitalization: blood transfusion
Expected length of stay greater than two midnights?: Yes
ELOS- Estimated Length of Stay in days: 4
I certify the patient meets the requirements for IP care: Yes
PRN Pain Medication Management As Directed
May give lesser potent ordered pain med per pt: Yes
preference::
Protocol:: Medication orders for pain may be administered in a
manner that supports deferring to patient preference
when the pt is:
- Requesting an ordered lesser potent pain medication.
Least to most potent pain medications are defined
as: acetaminophen < NSAID < tramadol < opioids
(morphine, oxycodone, hydromorphone).
- Requesting a lesser dose of the same medication IF
ORDERED.
- Requesting a less intrusive route of administration
if both routes are prescribed by the provider (PO <
IV).
04/28/24 23:24
Chest X-ray Portable [CR Chest Portable - 1 View] Urgent
Comment:
Reason For Exam: sob
Reason Study Needs to be Portable: Other
04/28/24 23:25
Code Status As Directed
Resuscitation Status: Full Code
04/29/24 02:01
Dextrose 50%-Water [Dextrose 50% Syringe] 12.5 grams IV [id number] PRN
Glucagon [GlucaGen] 1 mg IM PRN PRN
Pantoprazole [Protonix IV] 40 mg IV Q12H
Sterile Water For Inj [Sterile Water For Injection 1000 ml] 1,000 ml Sodium Bicarbonate 150 meq IV 80 mls/hr
04/29/24 02:01
ColoRectal Surgery Consult Routine
Consulting Provider: Chandana Rose
Was physician already notified: Yes
Consult Notification Routine
Specialty to Notify: Gastroenterology
GASTROINTESTINAL CONSULT Routine
Consulting Provider: Tamiko Rivas
Was physician already notified: No
Reason for consult: GI Bleed, Elevated LFTs
Activity As Directed
Activity Level: Out of Bed- Chair
Bedside Glucose Monitoring As Directed
Frequency: AC&HS
Additional Instructions:: Change to q6h if pt on TPN, tube feeding or not eating
Bladder Scan As Directed
Follow Bladder Retention/Intermittent Cath Algorithm?: Yes
PRN if no void in __ hours: 6
Frequency: Per Retention Algorithm
If Bladder Scan Result >: 400
then:: Straight cath
I&O [Intake/ Output] As Directed
Frequency: q12h
Pneumatic Compression Sleeves As Directed
Type: Knee high
Straight Cath As Directed
Frequency: Per Retention Algorithm
Additional Instructions: straight cath as needed per acute urinary retention algorithm for 24 hrs
Additional Instructions: for bladder scan greater than 400 mL
Vital Signs As Directed
Frequency: Per unit guidelines
Weight As Directed
Frequency: Daily
DX Deep Vein Thrombosis Video Routine
04/29/24 Breakfast
NPO
Allow oral meds: Yes
Allow clear liquids: Sips of Clears
NPO with Ice Chips: Yes
Complete Blood Count/No Diff IN AM
Comprehensive Metabolic Panel IN AM
Glycohemoglobin (HgbA1c) IN AM
Magnesium IN AM
Prothrombin Time IN AM
TSH Reflex To Free T4 IN AM
04/29/24 07:30
Insulin Aspart Corrective Low [Novolog Flexpen-Low Resistance] See Protocol SC AC
04/29/24 08:00
Metoprolol Xl [Toprol Xl] 50 mg PO BID
Abnormal Lab Results
04/28/24 04/28/24 04/28/24
20:17 21:23 21:41
RBC 1.70 L 10^6/uL
(4.20-5.40)
Hgb 3.1 L* g/dL
(12.0-16.0)
Hct 12.2 L* %
(37.0-47.0)
MCV 71.8 L fL
(81.0-99.0)
MCH 18.2 L pg
(27.0-31.0)
MCHC 25.4 L g/dL
(33.0-37.0)
RDW 22.1 H %
(11.5-14.5)
Plt Count 445 H 10^3/uL
(130-400)
MPV 10.7 H fL
(7.4-10.4)
Abs Immat Gran (auto) 0.1 H 10^3/uL
(0-0.05)
Absolute Neuts (auto) 7.1 H 10^3/uL
(1.4-6.5)
Absolute Lymphs (auto) 1.0 L 10^3/uL
(1.2-3.4)
Absolute Monos (auto) 0.7 H 10^3/uL
(0.1-0.6)
Immature Gran % 0.8 H %
(0-0.5)
Neutrophils % 80.5 H %
(42.2-75.2)
Lymphocytes % 10.7 L %
(20.5-51.1)
Retic Count 55.6 H %
(0.4-2.8)
PT 31.9 H Sec
(11.4-14.6)
Chloride 111 H mmol/L
(98-107)
Carbon Dioxide 14 L* mmol/L
(22-30)
BUN 22 H mg/dl
(7-17)
Creatinine 1.1 H mg/dL
(0.6-1.0)
Glucose 189 H mg/dl
(70-99)
Iron 23 L ug/dl
(37-170)
% Saturation 5 L %
(20-50)
Total Bilirubin 1.8 H mg/dl
(0.2-1.3)
AST 627 H* U/L
(14-36)
ALT 1087 H* U/L
(0-35)
Alkaline Phosphatase 172 H U/L
(38-126)
Lactate Dehydrogenase 1180 H U/L
(120-246)
Total Protein 5.9 L g/dl
(6.3-8.2)
Albumin 3.4 L g/dl
(3.5-5.0)
Acetaminophen < 10 L ug/ml
(10-30)
Crossmatch IS Only See Detail
04/28/24 20:17
04/28/24 20:17
Vital Signs
Initial and Last Documented VS:
Initial Vital Signs
Temp
98.0 F
04/28/24 19:53
Last Documented Vital Signs
Temp Pulse Resp BP Pulse Ox
97.6 F 70 16 152/70 96
04/29/24 01:52 04/29/24 01:52 04/29/24 01:52 04/29/24 01:52 04/29/24 01:52
Logging Contractor consulted with Physician
Logging Contractor consulted with physician?: Yes
Name of Physician Consulted: Cha
<Redd Eubanks, DO - Last Filed: 04/28/24 22:16>
Orders/Labs/Results
Orders:
Orders
04/28/24 20:01
Electrocardiogram (*1) Urgent
Reason for Study: Atrial Fibrillation
EKG- Treatment ONCE
04/28/24 20:17
Acetaminophen Urgent
Complete Blood Count/With Diff Urgent
Comprehensive Metabolic Panel Urgent
Ferritin Urgent
Comment: ADD ON
Folate Urgent
Comment: ADD ON
Haptoglobin [S] Urgent
Comment: ADDED
Iron Urgent
LDH Urgent
Comment: ADDED
Reticulocyte Count Urgent
Comment: ADDED
Total Iron Binding Urgent
Troponin I Urgent
Vitamin B12 Urgent
Comment: ADD ON
04/28/24 21:19
* Blood Bank Products Urgent
's Orders: YAIR jones / DR Eubanks
Blood Bank Products: *Packed RBC Leuko(PRBC's)
Quantity: 2
Transfuse Today: Yes
Is product needed for scheduled surgery?: No
Reason: Anemia
IV Insert/Care/Rem.- Treatment PRN
04/28/24 21:23
Type+Screen Urgent
04/28/24 21:36
Blood Bank Products [* Blood Bank Products] Urgent
'vish Orders: [facility]
Blood Bank Products: *Packed RBC Leuko(PRBC's)
Quantity: 2
Transfuse Today: Yes
Reason: Anemia
Patient will require pre-treatment for transfusion:: No
Comment: done
04/28/24 21:41
PT/INR [Prothrombin Time] Urgent
04/28/24 22:07
Add On- LAB Urgent
Tests Added?: acetaminophen ,iron , TIBC ferritin
04/28/24 22:09
0.9% Sodium Chloride 1000 ml [Nss] 1,000 ml IV BOLUS
04/28/24 23:05
Add On- LAB Routine
Tests Added?: iron, % saturation, vit b12 and folate
Add On- LAB Urgent
Tests Added?: tylenol level
04/28/24 23:06
Sodium Bicarbonate 50 meq IV NOW STA
04/28/24 23:07
Blood Bank Products [* Blood Bank Products] Urgent
Blood Bank Products: *Fresh Frozen Plasma
Quantity: 1
Transfuse Today: Yes
Reason: Bleeding
04/28/24 23:[address] Non Medication Order As Directed
Physician Order: Please give 2 units PRBCs then 1 unit of FFP, then give 2 more units of PRBCs
Above order entered?: Yes
04/28/24 23:23
Admit/Transfer Patient As Directed
Co-Sign Provider:
Level of Care: Inpatient admission
Assign to:: IMU- Intermediate Care
Physician / Group: Olga
Diagnosis: Anemia, GI Bleed
Reason for Hospitalization: blood transfusion
Expected length of stay greater than two midnights?: Yes
ELOS- Estimated Length of Stay in days: 4
I certify the patient meets the requirements for IP care: Yes
PRN Pain Medication Management As Directed
May give lesser potent ordered pain med per pt: Yes
preference::
Protocol:: Medication orders for pain may be administered in a
manner that supports deferring to patient preference
when the pt is:
- Requesting an ordered lesser potent pain medication.
Least to most potent pain medications are defined
as: acetaminophen < NSAID < tramadol < opioids
(morphine, oxycodone, hydromorphone).
- Requesting a lesser dose of the same medication IF
ORDERED.
- Requesting a less intrusive route of administration
if both routes are prescribed by the provider (PO <
IV).
04/28/24 23:24
Chest X-ray Portable [CR Chest Portable - 1 View] Urgent
Comment:
Reason For Exam: sob
Reason Study Needs to be Portable: Other
04/28/24 23:25
Code Status As Directed
Resuscitation Status: Full Code
04/29/24 02:01
Dextrose 50%-Water [Dextrose 50% Syringe] 12.5 grams IV [id number] PRN
Glucagon [GlucaGen] 1 mg IM PRN PRN
Pantoprazole [Protonix IV] 40 mg IV Q12H
Sterile Water For Inj [Sterile Water For Injection 1000 ml] 1,000 ml Sodium Bicarbonate 150 meq IV 80 mls/hr
04/29/24 02:01
ColoRectal Surgery Consult Routine
Consulting Provider: Chandana Rose
Was physician already notified: Yes
Consult Notification Routine
Specialty to Notify: Gastroenterology
GASTROINTESTINAL CONSULT Routine
Consulting Provider: Tamiko Rivas
Was physician already notified: No
Reason for consult: GI Bleed, Elevated LFTs
Activity As Directed
Activity Level: Out of Bed- Chair
Bedside Glucose Monitoring As Directed
Frequency: AC&HS
Additional Instructions:: Change to q6h if pt on TPN, tube feeding or not eating
Bladder Scan As Directed
Follow Bladder Retention/Intermittent Cath Algorithm?: Yes
PRN if no void in __ hours: 6
Frequency: Per Retention Algorithm
If Bladder Scan Result >: 400
then:: Straight cath
I&O [Intake/ Output] As Directed
Frequency: q12h
Pneumatic Compression Sleeves As Directed
Type: Knee high
Straight Cath As Directed
Frequency: Per Retention Algorithm
Additional Instructions: straight cath as needed per acute urinary retention algorithm for 24 hrs
Additional Instructions: for bladder scan greater than 400 mL
Vital Signs As Directed
Frequency: Per unit guidelines
Weight As Directed
Frequency: Daily
DX Deep Vein Thrombosis Video Routine
04/29/24 Breakfast
NPO
Allow oral meds: Yes
Allow clear liquids: Sips of Clears
NPO with Ice Chips: Yes
Complete Blood Count/No Diff IN AM
Comprehensive Metabolic Panel IN AM
Glycohemoglobin (HgbA1c) IN AM
Magnesium IN AM
Prothrombin Time IN AM
TSH Reflex To Free T4 IN AM
04/29/24 07:30
Insulin Aspart Corrective Low [Novolog Flexpen-Low Resistance] See Protocol SC AC
04/29/24 08:00
Metoprolol Xl [Toprol Xl] 50 mg PO BID
Abnormal Lab Results
04/28/24 04/28/24 04/28/24
20:17 21:23 21:41
RBC 1.70 L 10^6/uL
(4.20-5.40)
Hgb 3.1 L* g/dL
(12.0-16.0)
Hct 12.2 L* %
(37.0-47.0)
MCV 71.8 L fL
(81.0-99.0)
MCH 18.2 L pg
(27.0-31.0)
MCHC 25.4 L g/dL
(33.0-37.0)
RDW 22.1 H %
(11.5-14.5)
Plt Count 445 H 10^3/uL
(130-400)
MPV 10.7 H fL
(7.4-10.4)
Abs Immat Gran (auto) 0.1 H 10^3/uL
(0-0.05)
Absolute Neuts (auto) 7.1 H 10^3/uL
(1.4-6.5)
Absolute Lymphs (auto) 1.0 L 10^3/uL
(1.2-3.4)
Absolute Monos (auto) 0.7 H 10^3/uL
(0.1-0.6)
Immature Gran % 0.8 H %
(0-0.5)
Neutrophils % 80.5 H %
(42.2-75.2)
Lymphocytes % 10.7 L %
(20.5-51.1)
Retic Count 55.6 H %
(0.4-2.8)
PT 31.9 H Sec
(11.4-14.6)
Chloride 111 H mmol/L
(98-107)
Carbon Dioxide 14 L* mmol/L
(22-30)
BUN 22 H mg/dl
(7-17)
Creatinine 1.1 H mg/dL
(0.6-1.0)
Glucose 189 H mg/dl
(70-99)
Iron 23 L ug/dl
(37-170)
% Saturation 5 L %
(20-50)
Total Bilirubin 1.8 H mg/dl
(0.2-1.3)
AST 627 H* U/L
(14-36)
ALT 1087 H* U/L
(0-35)
Alkaline Phosphatase 172 H U/L
(38-126)
Lactate Dehydrogenase 1180 H U/L
(120-246)
Total Protein 5.9 L g/dl
(6.3-8.2)
Albumin 3.4 L g/dl
(3.5-5.0)
Acetaminophen < 10 L ug/ml
(10-30)
Crossmatch IS Only See Detail
04/28/24 20:17
04/28/24 20:17
Vital Signs
Initial and Last Documented VS:
Initial Vital Signs
Temp
98.0 F
04/28/24 19:53
Last Documented Vital Signs
Temp Pulse Resp BP Pulse Ox
97.6 F 70 16 152/70 96
04/29/24 01:52 04/29/24 01:52 04/29/24 01:52 04/29/24 01:52 04/29/24 01:52
<ELOY Tellez - Last Filed: 04/29/24 02:04>
MDM/Problems Addressed
Differential Diagnosis Includes:
not limited to: anemia /dehydration
MDM/Problems Addressed:
As documented patient is a 63-year-old female with history of abdominal abscess colon resection and colostomy presents for several days of shortness of breath. Sister at bedside ports patient is very pale. Patient presents with a hemoglobin of
3.1. Patient reports stools been brown in colostomy bag she presents with small amount of brown liquid in colostomy bag. She denies chest pain. Denies any fever or chills. She denies any abdominal pain. Patient does complain of some mild right
thigh pain however on exam there is no obvious swelling redness. She is good range of motion strong distal pulses bilaterally patient is afebrile with a white count of 8.9 platelets are 445 with an elevated INR 3 .11. Patient's creatinine is 1.1
which is increased from 0.11 November 2023.
Case discussed ED physician evaluated patient patient consented and ordered 4 units of packed red blood cells. In addition patient order fluids
Patient does complain of protrusion of her stoma which is obviously protruded stoma however is pink in color. Stool tested and now with bright red blood in bag.
I spoke with Dr. Rose and was able to send him a picture of the stoma. CAT scan initially ordered however with minimally increased creatinine he would like to hold off until patient is hydrated
Patient will require admission for severe anemia patient admitted to the hospital service
Chronic conditions affecting care:
colectomy/colostomy, DVT PE on Eliquis
<ELOY Tellez - Last Filed: 04/29/24 02:04>
*Pulse Oximetry
Patient hypoxic: no
*EKG
Interpreted by ED Provider?: Yes
Heart Rate: 68
Rate: normal
Rhythm: sinus
Ischemia: no ischemia
*Critical Care Note
Total Time (30-74mins, 75-104mins- exclusive of procedures): Not Applicable
ED Attending Note
<ELOY Tellez - Last Filed: 04/29/24 02:04>
-
Portions of this chart may have been created with voice recognition software.� Occasional wrong word or��sound alike� substitutions may have occurred due to the inherent limitations of voice recognition software.
<Redd Eubanks DO - Last Filed: 04/28/24 22:16>
ED Attending Note
Patient seen and examined by attending physician: Yes
I performed the substantive portion of visit, reviewed & personally made and approve the management plan that is documented in note by myself or SWEETIE.: Yes
ED Attending Note:
I evaluated the patient at bedside. The patient has no specific complaints but does appear very ill. She has markedly low hemoglobin with transaminase elevation. Sister denies any use of acetaminophen. Total bili is 1.8 and INR is over 3.
Bicarb is 14. I did obtain a sample from the colostomy which was briskly heme positive, the the bowel at the stoma site is markedly edematous.
Discharge Plan
Departure
Patient Disposition: Admit
Date of Disposition: 04/28/24
Time of Disposition: 22:43
Admit to: Med/Surg
Admit to doctor: hospitalist
Presentation/result/management discussed w/ accepting MD/DO: Hospitalist
Patient with high blood pressure during this ER visit?: No
Condition: Fair
Covid-19: Not Applicable
Discharge Problem:
Anemia, Elevated LFTs
Interventions
Interventions:
*Risk Screen - Suicide Last Done: 04/29/24 01:11
*General Assessment Last Done: 04/29/24 00:30
*Neglect/Abuse Screening Last Done: 04/28/24 20:06
*ED- Fall Risk Assessment Last Done: 04/29/24 00:30
*ED COVID-19 Vaccine History Last Done: 04/29/24 01:11
*Nursing Disposition Last Done: 04/29/24 00:30
ED- Cardiac Assessment Last Done: 04/28/24 23:05
ED- Pulmonary Assessment Last Done: 04/28/24 23:05
Discharge Date and Time
Discharge Date/Time: 04/29/24 00:30
[2024-04-28 21:10] LABS: Normal RBC Morphology No
[2024-04-28 21:13] LABS: ALT (SGPT) 1087 U/L (0-35); AST (SGOT) 627 U/L (14-36); Albumin 3.4 g/dl (3.5-5.0); Alkaline Phosphatase 172 U/L (38-126); Blood Urea Nitrogen 22 mg/dl (7-17); Calcium 8.5 mg/dl (8.4-10.2); Carbon Dioxide 14 mmol/L (22-30); Chloride 111 mmol/L (98-107); Glucose 189 mg/dl (70-99); Potassium 4.7 mmol/L (3.5-5.1); Sodium 145 mmol/L (135-145); Total Bilirubin 1.8 mg/dl (0.2-1.3); Total Protein 5.9 g/dl (6.3-8.2); eGFR 55.76
[2024-04-28 22:05] LABS: INR 3.11; PT 31.9 Sec (11.4-14.6)
[2024-04-28] MEDS: NSS 1000 IV (22:22)
--- NOTE | 2024-04-28 22:44 | HPS.HSE ---
Family Physician
-
Family Physician: Wai Britton
Chief Complaint
-
Shortness of Breath
History of Present Illness
Patient is a 63 y/o female past medical history of Atrial fibrillation and DVT/PE on Eliquis, HTN, DM and recent left colectomy with colostomy who presents with shortness of breath. Patient reports increasing shortness of breath. Sister at bedside
notes that she appears very pale. Sister at bedside notes protrusion of patient's stoma for the last 10 days. There are no reports of black or bloody stools at home, though in the ED a small amount of blood was noted in the ostomy bag. Patient
reports her appetite is good, and she denies any vomiting or abdominal pain. She denies chest pains or dizziness. She denies any signficant bruising
Medical History
Past Medical History
Past Medical History: Reports Other
Additional Past Medical History:
Paroxysmal Atrial Fibrillation
Essential Hypertension
Hyperlipidemia
Diabetes Mellitus, Type II
RLE DVT / Bilateral PEs - Sep 2023
Intellectual Disability
Past Surgical History: Reports Other
Additional Past Surgical History:
Left Colectomy / Small Bowel Resection / Left Lower Abdominal Abscess Drainage - Nov 2023
Ovarian Cyst Removal
Social History
Tobacco: Non-smoker
Alcohol: None
Personal: Single
Living: With Family (Mother and Brother)
Employment: Not Employed
Family History
Family History: Not pertinent
Allergies / Home Medications
Allergies reflects when Allergies were last updated in [facility] [facility].
Home Medications with original date entered in [facility]
Allergy/Medication List:
Allergies
Allergy/AdvReac Type Severity Reaction Status Date / Time
No Known Allergies Allergy Verified 04/28/24 19:57
Home Medications
atorvastatin 40 mg tablet 40 mg PO DAILY High Cholesterol 09/26/23
apixaban 5 mg tablet (Eliquis) 5 mg PO BID 30 days #60 tabs 10/02/23
metformin 500 mg tablet,extended release 24 hr 500 mg PO DAILY Diabetes ##0 11/03/23
metoprolol succinate 50 mg tablet,extended release 24 hr 50 mg PO BID Heart Disease/Condition ##0 11/03/23
amiodarone 200 mg tablet 200 mg PO DAILY #30 tabs 11/16/23
pantoprazole 40 mg tablet,delayed release 40 mg PO DAILY #30 tabs 11/16/23
lisinopril 10 mg tablet 10 mg PO DAILY 04/28/24
Review of Systems
-
A 12 point ROS was completed and negative except as noted: Yes
Constitutional: Denies Fever
Respiratory: Reports Trouble Breathing; Denies Cough
Cardiac: Denies Chest Pain
Physical Exam
Vital Signs
Vital Signs
Temp Pulse Resp BP
98.0 F 72 27 131/61
04/28/24 19:53 04/28/24 21:15 04/28/24 21:15 04/28/24 21:01
Physical Exam
General: Comfortable, Conversant and Other (Appears quite pale)
HEENT: Anicteric and Moist mucous membranes
Respiratory: Clear and Non Labored Respirations
Cardiac: S1/S2 and Regular Rhythm
GI: Soft, Non Tender and Ostomy (Large stoma protrusion)
Genito-urinary: Deferred by me
Musculoskeletal: No Clubbing, No Cyanosis and No Edema
Skin: Warm and Dry
Neuro: Awake, Alert, Oriented and Nonfocal/grossly intact
Psych: Calm
Laboratory Results
-
04/28/24 20:17
04/28/24 20:17
Laboratory Results
PT 31.9 Sec (11.4-14.6) H 04/28/24 21:41
INR 3.11 04/28/24 21:41
Total Bilirubin 1.8 mg/dl (0.2-1.3) H 04/28/24 20:17
AST 627 U/L (14-36) H* 04/28/24 20:17
ALT 1087 U/L (0-35) H* 04/28/24 20:17
Alkaline Phosphatase 172 U/L (38-126) H 04/28/24 20:17
Troponin I < 0.012 ng/ml 04/28/24 20:17
Data Reviewed
-
Lab Data: Labs Reviewed by me
Old Records: Reviewed
Impression/Plan
-
Acute / Severe Symptomatic Anemia
-Admit to IMU for close monitoring
-4 units of PRBCs ordered by ED - Add 1 unit of FFP
-Recheck Hgb in AM
GI Bleed
-Consult GI
-Continue Protonix 40mg IV BID
-Continue NPO/IVFs
Acute Kidney Injury with Severe Metabolic Acidosis
-Give amp of bicarb now
-Continue IVFs with sodium bicarb
-Hold metformin and lisinopril
-Recheck labs in AM
Elevated LFTs with profound Transaminitis, possibly related to shock liver in setting of severe anemia
-Consult GI
-Hold amiodarone and atorvastatin
-Recheck LFTs in AM
Colostomy Stomal Protrusion
-Consult Colorectal Surgery
-Possible CT in AM if renal function improved
Paroxysmal Atrial Fibrillation
-Eliquis on hold due to severe anemia
-Hold amiodarone due to elevated LFTs
-Continue metoprolol for rate control
Essential Hypertension
-Lisinopril on hold due to SAKI
-Continue metoprolol with hold parameters
Hyperlipidemia
-Hold atorvastatin
Diabetes Mellitus, Type II
-Hold metformin
-Monitor sugars and coverage insulin
Extensive RLE DVT / Bilateral PEs - Sep 2023
-Eliquis on hold as above
Code Status: Full Code
[2024-04-28 22:47] LABS: Acetaminophen < 10 ug/ml (10-30)
[2024-04-28 22:54] LABS: Iron 23 ug/dl (37-170); Percent Saturation 5 % (20-50); Total Iron Binding Capacity 419 ug/dl (265-497)
--- NOTE | 2024-04-28 23:32 | W.PN.UPDATE ---
Addendum entered and electronically signed by Genna Espinoza MD 04/28/24 23:41:
Check hemolysis labs.
Original Note:
Update Note
Progress Note Update
This is an addendum to the H&P written by Zonia Jean on 04/28/2024. patient seen and examined independently with PA.
63-year-old female past medical history of colitis/intra-abdominal abscess status post partial small bowel resection and left colectomy/colostomy in October, diabetes, diabetic neuropathy, hypertension, intellectual impairment, paroxysmal atrial
fibrillation on Eliquis, DVT right lower extremity/pulmonary embolism, chronic HFpEF, anemia of chronic disease, hypertension, presenting with shortness of breath and weakness. Patient stoma is protruding. No dark or black stools.
Labs showed hemoglobin of 3.1.
Bicarb of 14. Creatinine 1.1.
Significant elevation of LFTs AST of 627, ALT of 1087. Coags show INR of 3.11, PT of 31.9.
IV fluids given in ER.
Patient with severe microcytic anemia with hemoglobin of 3.1 from 9.9 likely upper GI bleeding. Also with MARISA, metabolic acidosis and coagulopathy.
Unclear etiology of significant transaminitis. Could be shock liver.
IV fluids given, continue bicarb drip with bicarb push. NPO. Protonix drip. 4 units of blood ordered. Will give 1 unit of FFP due to coagulopathy. Check iron studies, B12 and folate. Check Tylenol level. GI consulted. Hold statin,
amiodarone. Hold nephrotoxic medications. Consider further FFP in the AM.
Colorectal surgery given protrusion of stoma. Colorectal surgery recommending CT scan after improvement in MARISA so that contrast can be given.
[2024-04-28] MEDS: SODIUM BICARBONATE 50 MEQ IV (23:42)
[2024-04-29] VITALS (36 sets, daily range): BP systolic 116–196; BP diastolic 64–133; BMI 19.8; BMI 20.1
[2024-04-29 01:04] LABS: Reticulocyte Count 55.6 % (0.4-2.8)
[2024-04-29 01:16] LABS: LDH 1180 U/L (120-246)
--- NOTE | 2024-04-29 02:19 | PTCARENOTE ---
Patient to unit shortly after midnight. Sister present upon arrival, but left for home when patient in room. Patient aao x3, able to make needs known. NSR on the monitor, hrr, no edema noted. Lungs cta throughout. BS active/hypoactive x4. Patient
with colostomy, putting out small amount of serous fluid. Stoma protruding from site. Patient denies pain to colostomy site. Confirms pain to RLE since yesterday. Ice pack applied. Patient instructed to remain in bed due to hgb level. Purewick
applied. Patient has to right forearm IV sites, distal site has 1st unit PRBCs running upon arrival. Currently has 2nd unit running. Patient tolerating well. Call plascencia within reach. Will continue to monitor patient closely.
[2024-04-29] MEDS: SODIUM BICARBONATE 1150 MEQ IV (03:17)
--- NOTE | 2024-04-29 03:30 | PTCARENOTE ---
RN contacted [employer] regarding patients pain 9/10 to right leg. 1x order for Dilaudid ordered, patient refused at this time and states pain is 'ok'.
[2024-04-29 04:05] LABS: Folate > 20.0 ng/ml (2.76-20); Vitamin B12 929 pg/ml (239-931)
--- NOTE | 2024-04-29 05:42 | PTCARENOTE ---
Patient bp elevated. RN notified Angy LYONS, order placed for Metolprolol. RN to administer once 15 minute window up for FFP. Patient tolerated well. Other vss; 74, 96%ra, 22, 98.2. Will continue to monitor patient closely.
[2024-04-29] MEDS: TOPROL XL 50 MG PO ×2 (06:01→21:14)
[2024-04-29 06:17] LABS: Glucose - Point of Care 166 mg/dl (70-99)
[2024-04-29] MEDS: NOVOLOG FLEXPEN-LOW RESISTANCE 1 UNITS SC ×2 (06:46→13:36)
--- NOTE | 2024-04-29 07:02 | CON.GI ---
Addendum entered and electronically signed by Tamiko Rivas MD 04/29/24 17:59:
The patient was seen and examined by me independently in collaboration with the nurse practitioner.
Past medical history/social history/medications/allergies/family history reviewed.
Lab data and imaging data reviewed.
63-year-old female past medical history of atrial fibrillation on Eliquis, DVT and PE, left hemicolectomy of sigmoid and descending colon with end transverse colostomy with partial small bowel resection and abscess drainage November 2023 with
[facility] with pathology revealing diverticulitis with crypt abscess. Patient saw Dr. Wu in the office December 2023 at that time she had thought that likely this was complicated diverticulitis, differential includes ischemia and less likely
IBD. She also had a pancreatic cyst.
Now presenting with hemoglobin 3.1, prior in November was 9.9. She denies any GI symptoms except for prolapse of her stoma which she has seen Dr. Rose for. She has brown stool in the ostomy. She has weight gain recently. I suspect she may
benefit from an endoscopy and a colonoscopy although patient is hesitant at this time. Agree with plan for CT scan tomorrow pending renal function. Hemolysis workup is also being done.
She was also found to have significant elevation of her LFTs with ALT 1149, AST 846, total bilirubin 2.6, no direct bilirubin checked, alk phos 184. The elevations of her LFTs are such that you would expect it would be from shock liver but there is
no reported hypotension if anything she has hypertension. Will get ultrasound of the liver and check hepatitis studies and trend LFTs including direct bilirubin and INR.
Discussed case with colorectal surgery.
Upon discharge, patient will need to follow-up with Dr. Wu
Addendum entered and electronically signed by ELOY Chisholm 04/29/24 11:41:
I update sister who assist patient with decision making. Last HBG was January and did have transfusion with surgery but no know hx anemia in past. Sister is a teacher available at [phone] 11:30-1:30 or after 3 pm.
Original Note:
Consultation
-
Date/Time Consultation Requested: 04/29/24 0200
Date/Time Consultation Performed: 04/29/24 0800
Requesting Provider: Zonia Roberts PA-C
Performing Provider: ELOY Woods, Tavia Rivas MD
Reason for Consultation: anemia
Medical History
Chief Complaint / HPI
Chief Complaint: weakness/shortness of breath
History of Present Illness:
Pt is a 63yo with hx afib on Eliquis, NIDDM, HTN, intellectual disability, ovarian cyst removal, DVT/PE in September 2023, prior colitis with exploratory lap and left colectomy with removal of entire descending and sigmoid colon with transverse end
colostomy/ partial SB resection/ left lower abdominal abscess drainage November 2023(path noted with diverticulitis with abscess formation and acute serositis with active colitis and adhesions) with admission to ER with weakness and shortness of
breath. Pt also noted with protrusion of stoma for 10 days. On admission noted with hbg 3.1 with MCV 71.8 platelets 445. Co2 14, LDH 1180, albumin 3,4, INR 3.11, bili 1.8, AST 627, ALT 1087, alk phos 1087 with further rise after admission. Pt
denies bleeding in ostomy bag but noted with small amount of blood in bag in ER. Pt had flex sig completed in September with Dr. Jimenez with diverticulosis with severe narrowing and pale mucosa without other prior EGD or colonoscopy. Last hbg 01/16/24
10.3.
At this time pt denies odynophagia, dysphagia, GERD, nausea, vomiting, abdominal pain, diarrhea, constipation, blood or black in stools. Denies NSAID use.
Past Medical History
Past Medical History: Arrhythmias (PAF), HTN, Hypercholesterolemia, NIDDM and Other (DVT/PE September 2023, intellectual diability )
Past Surgical History: Bowel Resection (left colectomy with removal of entire descending and sigmoid colon with transverse end colostomy/ partial SB resection/ left lower abdominal abscess drainage November 2023) and Gynecological (ovarian cyst
removal)
Social History
Tobacco: Non-Smoker
Alcohol: None
Drug: None
Living: With Family
Employment: Not Employed
Family History
Family History: Reviewed & Not Pertinent
Allergies / Home Medications
Allergy/AdvReac Type Severity Reaction Status Date / Time
No Known Allergies Allergy Verified 04/28/24 19:57
�Medication �Instructions �Recorded
atorvastatin 40 mg tablet 40 mg PO DAILY High Cholesterol 09/26/23
apixaban 5 mg tablet (Eliquis) 5 mg PO BID 30 days #60 tabs 10/02/23
metformin 500 mg tablet,extended 500 mg PO DAILY Diabetes ##0 11/03/23
release 24 hr
metoprolol succinate 50 mg 50 mg PO BID Heart 11/03/23
tablet,extended release 24 hr Disease/Condition ##0
amiodarone 200 mg tablet 200 mg PO DAILY #30 tabs 11/16/23
pantoprazole 40 mg tablet,delayed 40 mg PO DAILY #30 tabs 11/16/23
release
lisinopril 10 mg tablet 10 mg PO DAILY 04/28/24
Review of Systems
-
History Source: Patient
Constitutional: Reports No Symptoms
EENT: Reports No Symptoms
Respiratory: Reports No Symptoms
Cardiac: Reports No Symptoms
Abdomen/GI: Reports Other (protrusion of stoma)
: Reports No Symptoms
Musculoskeletal: Reports No Symptoms
Skin: Reports No Symptoms
Neurological: Reports Weakness
Endocrine: Reports No Symptoms
Hematologic/Lymphatic: Reports No Symptoms
Vital Signs
Temp Pulse Resp BP Pulse Ox
98.0 F 76 28 172/98 96
04/29/24 06:43 04/29/24 06:43 04/29/24 06:43 04/29/24 06:43 04/29/24 06:43
Physical Exam
Exam
General: Well Developed, Well Nourished and No Apparent Distress
HEENT: Normocephalic and Anicteric
Respiratory: Clear
Cardiac: Regular Rhythm
GI: Soft, Non Tender, Non Distended and Other (ostomy with protrusion of pink tinged ostomy no stool on ostomy bag )
Rectal: Hem Positive (in ER with pink tinged drainage )
Musculoskeletal: No Clubbing and No Cyanosis
Skin: Warm and Dry
Neuro: Awake, Alert and AO x 3
Psych: Calm
Results
WBC 8.9 10^3/uL (4.8-10.8) 04/28/24 20:17
Hgb 3.1 g/dL (12.0-16.0) L* 04/28/24 20:17
Hct 12.2 % (37.0-47.0) L* 04/28/24 20:17
MCV 71.8 fL (81.0-99.0) L 04/28/24 20:17
Plt Count 445 10^3/uL (130-400) H 04/28/24 20:17
Absolute Neuts (auto) 7.1 10^3/uL (1.4-6.5) H 04/28/24 20:17
PT 31.9 Sec (11.4-14.6) H 04/28/24 21:41
INR 3.11 04/28/24 21:41
Sodium 145 mmol/L (135-145) 04/28/24 20:17
Potassium 4.7 mmol/L (3.5-5.1) 04/28/24 20:17
Chloride 111 mmol/L (98-107) H 04/28/24 20:17
Carbon Dioxide 14 mmol/L (22-30) L* 04/28/24 20:17
BUN 22 mg/dl (7-17) H 04/28/24 20:17
Creatinine 1.1 mg/dL (0.6-1.0) H 04/28/24 20:17
Calcium 8.5 mg/dl (8.4-10.2) 04/28/24 20:17
Total Bilirubin 1.8 mg/dl (0.2-1.3) H 04/28/24 20:17
AST 627 U/L (14-36) H* 04/28/24 20:17
ALT 1087 U/L (0-35) H* 04/28/24 20:17
Alkaline Phosphatase 172 U/L (38-126) H 04/28/24 20:17
Diagnostic Image Results:
04/29/24 CXR
1. Clear lungs.
2. No significant change compared to prior study.
Prior GI Procedures:
EGD: none
Colonoscopy: none
Assessment / Plan
-
Pt is a 63yo with hx afib on Eliquis, NIDDM, HTN, intellectual disability, ovarian cyst removal, DVT/PE in September 2023, prior colitis with exploratory lap and left colectomy with removal of entire descending and sigmoid colon with transverse end
colostomy/ partial SB resection/ left lower abdominal abscess drainage November 2023(path noted with diverticulitis with abscess formation and acute serositis with active colitis and adhesions) with admission to ER with weakness and shortness of
breath. Pt also noted with protrusion of stoma for 10 days. On admission noted with hbg 3.1 with MCV 71.8 platelets 445, Co2 14, LDH 1180, albumin 3,4, INR 3.11, bili 1.8, AST 627, ALT 1087, alk phos 1087 with further rise after admission. . Pt
denies bleeding in ostomy bag but noted with small amount of blood in bag in ER. Pt had flex sig completed in September with Dr. Jimenez with diverticulosis with severe narrowing and pale mucosa without other prior EGD or colonoscopy. Last hbg 01/16/24
10.3.
-symptomatic anemia with pink tinge in ostomy microcytic iron deficiency, elevated LDH and retic count
-acidosis on admission
-marked elevated LFT's
-MARISA on admission - improving
-stoma hernia on exam
-afib on Eliquis
-DVT/PE in September 2023
- prior colitis then exp lap with sigmoid colon with transverse end colostomy/ partial SB resection/ left lower abdominal abscess drainage November 2023(path noted with diverticulitis with abscess formation and acute serositis with active colitis and
adhesions)
-thrombocytosis
-elevated INR in setting of Eliquis use
other med problems:
-NIDDM
-HTN
-intellectual disability
-ovarian cyst removal
PLAN:
Etiology of anemia unclear -- some pink tinge in ostomy bag but no obvious source of bleeding, also marked elevated LFT's with elevated LDH and retic count ? heme related issue
await heme work up to see if any GI testing needed
haptoglobin pending
cont to monitor hbg -- 6.9 today s/p 2 units and 3rd unit transfusion per chart
ok for clear diet
will add US abdomen with elevated LFT's though may be heme process
cont PPI
eliquis hold last dose 04/28 per patient
t/c iron infusion
INR with some elevation may be related to Eliquis vs other cont to trend
CR consult for stoma eval
I left message for sister ELIJAH to review
-
-
Thank you for consultation and allowing me to participate in the patient's care. Please call the environment artist GI physician during the after hours with any questions or concerns.
[2024-04-29 07:59] LABS: Hematocrit 23.3 % (37.0-47.0); Hemoglobin 6.9 g/dL (12.0-16.0); Mean Corp Hgb Conc. 29.6 g/dL (33.0-37.0); Mean Corpuscular Hgb 21.6 pg (27.0-31.0); Mean Corpuscular Volume 72.8 fL (81.0-99.0); Mean Platelet Volume 10.3 fL (7.4-10.4); Platelet Count 342 10^3/uL (130-400); Red Cell Dist. Width 19.4 % (11.5-14.5); White Blood Cell Count 7.6 10^3/uL (4.8-10.8)
[2024-04-29 08:08] LABS: PT 23.7 Sec (11.4-14.6)
[2024-04-29 08:23] LABS: Albumin 3.3 g/dl (3.5-5.0); Alkaline Phosphatase 184 U/L (38-126); Blood Urea Nitrogen 25 mg/dl (7-17); Calcium 8.6 mg/dl (8.4-10.2); Carbon Dioxide 27 mmol/L (22-30); Chloride 109 mmol/L (98-107); Estimated Creatinine Clearance 45 ml/min; Glucose 152 mg/dl (70-99); Magnesium 2.1 mg/dl (1.6-2.3); Potassium 4.6 mmol/L (3.5-5.1); Sodium 145 mmol/L (135-145); Total Bilirubin 2.6 mg/dl (0.2-1.3); Total Protein 5.8 g/dl (6.3-8.2); eGFR > 60.00
[2024-04-29 08:39] LABS: TSH Reflex To Free T4 3.72 uIU/ml (0.47-4.68)
[2024-04-29 08:51] LABS: ALT (SGPT) 1149 U/L (0-35); AST (SGOT) 846 U/L (14-36)
--- NOTE | 2024-04-29 09:08 | W.PN.HOSP.TC ---
Addendum entered and electronically signed by Leonor De Luna MD 04/29/24 15:54:
I saw and evaluated the patient independently. I reviewed the resident�s note and agree with findings and plan as documented by Dr. Darnell.
GENERAL: well developed, well nourished, female in no apparent distress--appears intellectually challenged
HEENT: NC/AT
HEART: regular rate and rhythm, +S1, +S2
LUNGS : clear to auscultation bilaterally
ABDOM: soft, nontender, nondistended, + bowel sounds, ostomy with protruding stoma
EXT: no cyanosis, clubbing, or edema
NEUROLOGIC: grossly intact
Acute on chronic Severe Symptomatic Anemia (doubt exacerbated by Eliquis)(last HGB 11/2023 = 9.9)--doubt acute blood loss, pt would be much more hemodynamically unstable--likely secondary to hemolysis or occult slow blood loss--HGB 3.1--received 2
units pRBC, up to 6.9--transfusing 2 more with repeat H&H pending--also received 1 unit FFP (likely because of Eliquis)--retic count very high at 55, would suggest adequate iron stores to make RBCs--LDH elevated, with retic count increased, leaning
towards hemolysis--await haptoglobin--borderline iron deficient--would hold off on IV iron--consider hematology consult
possible chronic slow GI bleed?--await hemolysis work up--for now cont IV PPI BID--apprec GI--hold Eliquis
Markedly elevated LFTs�May be secondary to liver pathology, doubt shock liver--possible medication effects (atorvastatin, amiodarone)--apprec GI--await abdominal US--consider CT scan
Acute Kidney Injury�baseline creatinine about 0.6 in November 2023--with AGAP (20) metabolic acidosis on admission--etiologies include bicarbonate losses from ostomy output? with renal cause? doubt sepsis--could be due to metformin?--pt was on bicarb
infusion--now normalized--would stop IVF
Colostomy Stomal Protrusion---await Colorectal Surgery--Possible CT in AM if renal function improved
Paroxysmal Atrial Fibrillation--Hold Eliquis and amiodarone as above--Continue metoprolol for rate control
Essential Hypertension--Hold lisinopril as above--Continue metoprolol with hold parameters
Hyperlipidemia--Hold atorvastatin as above
Diabetes Mellitus, Type II--Hold metformin as above--Monitor sugars and insulin sliding scale
Extensive RLE DVT/Bilateral PEs - Sep 2023--Hold Eliquis as above
DVT proph--SCDs
Code Status-- Full Code
Original Note:
Today's Communication/Plan
-
Continue transfusions and repeat H&H. GI and colorectal consulted. See plan.
Assessment / Plan
Assessment / Plan
63-year-old female with past medical history of colitis/intra-abdominal abscess status post partial small bowel resection and left colectomy/colostomy in October, A-fib on Eliquis, DVT/PE, chronic HFpEF, htn, intellectual impairement, DM who
presented to ED for shortness of breath. On arrival, noted to be very pale and labs notable for hemoglobin of 3.1. Small amount of blood seen in ostomy bag, otherwise denies bloody output or GI symptoms. LFTs significantly elevated AST 627, ALT
1087. Coags showed INR of 3.11 and PTT of 31.9.
Acute / Severe Symptomatic Anemia, secondary to acute blood loss versus chronic occult bleeding versus hemolysis. History of anemia of chronic disease.
-Hemoglobin on admission 3.1, now status post 2 units PRBCs and 1 unit FFP.
-Improvement of hemoglobin to 6.9 this morning. Transfuse another 2 units PRBCs. Repeat H&H after. Anticipate crossmatching for additional units.
-Reticulocyte count significantly elevated�suggestive of fairly severe chronic anemia. Last hemoglobin here was 9.9 in November 2023.
-LDL elevated�suggestive of hemolysis. Haptoglobin pending.
Concern for GI Bleed
-GI following, appreciate recs. Diet per GI.
-Continue Protonix 40mg IV BID
-Hold home Eliquis and pharmaceutical anticoagulation
Markedly elevated LFTs�May be secondary to liver pathology versus shock liver in setting of severe anemia versus hemolysis
-GI following, appreciate recs.
-Abdominal ultrasound pending.
-Continue to trend.
-Hold hepatotoxic medications, amiodarone, statin.
Acute Kidney Injury�baseline creatinine about 0.6 in November 2023
High anion gap metabolic acidosis on admission, possibly renal etiology
-S/p bicarb in ED. IV fluids with sodium bicarb continued.
-Renally dose medications as appropriate. Hold metformin and lisinopril.
-Repeat BMP in a.m.
Colostomy Stomal Protrusion
-Consult Colorectal Surgery
-Possible CT in AM if renal function improved
Paroxysmal Atrial Fibrillation
-Hold Eliquis and amiodarone as above
-Continue metoprolol for rate control
Essential Hypertension
-Hold lisinopril as above
-Continue metoprolol with hold parameters
Hyperlipidemia
-Hold atorvastatin as above
Diabetes Mellitus, Type II
-Hold metformin as above
-Monitor sugars and insulin sliding scale
Extensive RLE DVT / Bilateral PEs - Sep 2023
-Hold Eliquis as above
Code Status: Full Code
VTE PPx: SCDs
Diet: Clears liquid per GI
Dispo planning: Pending clinical course and PT eval
Anticipated Discharge: > 48 hours
Subjective/Interval History
-
Date of Service: April 29, 2024
Overnight admission, she received 2 units RBC transfusions and 1 unit of FFP. This morning she feels well overall, no complaints. ROS negative. She denies lightheadedness, dizziness, chest pain, shortness of breath, palpitations. She denies
abdominal pain, nausea, vomiting, diarrhea/increased output of ostomy, or bloody output from ostomy.
Objective Data
-
Labs:
Laboratory Results
03/04/28/24 04/29/24
20:17 21:41 07:41
WBC 7.6
Hgb 6.9 L* D
Hct 23.3 L
Plt Count 342 D
PT 31.9 H 23.7 H
INR 3.11 2.10
Sodium 145 145
Potassium 4.7 4.6
Chloride 111 H 109 H
Carbon Dioxide 14 L* 27
BUN 22 H 25 H
Creatinine 1.1 H 0.9
Glucose 189 H 152 H
Calcium 8.5 8.6
Total Bilirubin 1.8 H 2.6 H
AST 627 H* 846 H*
ALT 1087 H* 1149 H*
Alkaline Phosphatase 172 H 184 H
04/28/24 04/28/24 04/28/24
20:17 21:23 21:41
RBC 1.70 L
Hgb 3.1 L*
Hct 12.2 L*
MCV 71.8 L
MCH 18.2 L
MCHC 25.4 L
RDW 22.1 H
Plt Count 445 H
MPV 10.7 H
Abs Immat Gran (auto) 0.1 H
Absolute Neuts (auto) 7.1 H
Absolute Lymphs (auto) 1.0 L
Absolute Monos (auto) 0.7 H
Immature Gran % 0.8 H
Neutrophils % 80.5 H
Lymphocytes % 10.7 L
Retic Count 55.6 H
PT 31.9 H
Chloride 111 H
Carbon Dioxide 14 L*
BUN 22 H
Creatinine 1.1 H
Glucose 189 H
Iron 23 L
% Saturation 5 L
Total Bilirubin 1.8 H
AST 627 H*
ALT 1087 H*
Alkaline Phosphatase 172 H
Lactate Dehydrogenase 1180 H
Total Protein 5.9 L
Albumin 3.4 L
Folate > 20.0 H
Acetaminophen < 10 L
POC Glucose
Crossmatch IS Only See Detail
04/29/24 04/29/24
06:05 07:41
RBC 3.20 L
Hgb 6.9 L* D
Hct 23.3 L
MCV 72.8 L
MCH 21.6 L
MCHC 29.6 L
RDW 19.4 H
Plt Count
MPV
Abs Immat Gran (auto)
Absolute Neuts (auto)
Absolute Lymphs (auto)
Absolute Monos (auto)
Immature Gran %
Neutrophils %
Lymphocytes %
Retic Count
PT 23.7 H
Chloride 109 H
Carbon Dioxide
BUN 25 H
Creatinine
Glucose 152 H
Iron
% Saturation
Total Bilirubin 2.6 H
AST 846 H*
ALT 1149 H*
Alkaline Phosphatase 184 H
Lactate Dehydrogenase
Total Protein 5.8 L
Albumin 3.3 L
Folate
Acetaminophen
POC Glucose 166 H
Crossmatch IS Only
Vital Signs:
Vital Signs
Temp Pulse Resp BP Pulse Ox
98.0 F 76 28 172/98 96
04/29/24 06:43 04/29/24 06:43 04/29/24 06:43 04/29/24 06:43 04/29/24 06:43
I&O
04/28/24 04/29/24 04/30/24
06:59 06:59 06:59
Intake Total 832 / 832
Balance 832 / 832
Review of Systems
-
History Source: Patient
All other systems: Reviewed and negative
Physical Exam
-
General: No Apparent Distress, Comfortable, Conversant and Cachectic; Negative Pain, Fever, Chills or Sweats
HEENT: Normocephalic and Atraumatic
Respiratory: Clear to Auscultation and Non Labored Respirations; Negative Wheezes, Rales, Rhonchi or Crackles
Cardiac: Regular Rhythm and S1/S2; Negative Murmur
GI: Soft, Nontender, Nondistended, Normal Bowel Sounds and Other (Stoma prolapse, ostomy)
Rectal: Deferred by Provider
Musculoskeletal: No Clubbing, No Cyanosis and No Edema
Skin: Warm and Dry
Neuro: Awake, Alert, Oriented and AO x 3
Psych: Calm and Other (Intellectual impairment)
Data Reviewed
-
Diagnostic Radiology: Image personally visualized and interpreted and Report Reviewed by me
Labs: Labs Reviewed by me, Discussed with Physician, Discussed with Nurse and Discussed with Patient
[2024-04-29 09:13] LABS: Glycohemoglobin (HgbA1c) 6.6 % (4.0-5.6)
[2024-04-29 09:36] LABS: Creatine Phosphokinase 162 U/L (30-135)
[2024-04-29] MEDS: NSS (PRESERVATIVE FREE) 10 ML IV ×2 (11:17→21:13)
[2024-04-29] MEDS: PROTONIX IV 40 MG IV ×2 (11:17→21:13)
--- NOTE | 2024-04-29 11:19 | CON.CRS ---
Consultation
-
Date/Time Consultation Requested: 04/29/2024, 02:01
Date/Time Consultation Performed: 04/29/2024, 08:30
Requesting Provider: Zonia Roberts PA-C
Performing Provider: Chandana Rose MD
Reason for Consultation: anemia
Medical History
-
Chief Complaint: weakness/sob
History of Present Illness:
63-year-old female, with a significant past medical history of left-sided colitis with stricture and abscess status post left colectomy/partial small bowel resection/transverse and colostomy/drainage of left lower abscess by Dr. Rose in 2023,
presents to [facility] due to weakness and shortness of breath. In the ER she was found to have a hemoglobin of 3.1 and was transfused several units of blood. Her current hemoglobin is 6.9. No imaging was performed. She states she has no
abdominal pain. She has not noticed any bloody bowel movements whatsoever. She is eating without difficulty. She denies nausea or vomiting. She also mentions she has noticed her stoma has prolapse more over the past week or 2. Given these
findings we have been consulted for further surgical opinion.
Past Medical History
Past Medical History: Arrhythmias (afib), CHF, HTN, Hypercholesterolemia, NIDDM and Other (dvt on eliuquis; colitis with perforation and abscess s/p colectomy; sbo with partial small bowel resection, intellectual development delay)
Past Surgical History: Bowel Resection (1) exploratory laparotomy 2) left colectomy (including entire descending and sigmoid colon) with transverse end colostomy 3) takedown splenic flexure 4) partial small bowel resection 4) drainage left lower
abdominal abscess) and Other (Ovarian cyst mass removal (1999), hernia repair at age 3)
Social History
Tobacco: Non-Smoker
Alcohol: None
Drug: None
Family History
Family History: Reviewed & Not Pertinent
Allergies / Home Medications
Allergy/AdvReac Type Severity Reaction Status Date / Time
No Known Allergies Allergy Verified 04/28/24 19:57
�Medication �Instructions �Recorded �Confirmed �Type
atorvastatin 40 mg tablet 40 mg PO DAILY High Cholesterol 09/26/23 04/28/24 History
apixaban 5 mg tablet (Eliquis) 5 mg PO BID 30 days #60 tabs 10/02/23 04/28/24 Rx
metformin 500 mg tablet,extended 500 mg PO DAILY Diabetes ##0 11/03/23 04/28/24 History
release 24 hr
metoprolol succinate 50 mg 50 mg PO BID Heart 11/03/23 04/28/24 History
tablet,extended release 24 hr Disease/Condition ##0
amiodarone 200 mg tablet 200 mg PO DAILY #30 tabs 11/16/23 04/28/24 Rx
pantoprazole 40 mg tablet,delayed 40 mg PO DAILY #30 tabs 11/16/23 04/28/24 Rx
release
lisinopril 10 mg tablet 10 mg PO DAILY 04/28/24 04/28/24 History
Review of Systems
-
History Source: Patient and Physician
Respiratory: Other (shortness of breath)
Neurological: Weakness
A 10 point review of systems was completed, and was negative except as per HPI.
Physical Exam
Vital Signs
Temp 97.6 F 04/29/24 09:49
Pulse 72 04/29/24 09:49
Resp Rate 23 04/29/24 09:49
Blood pressure 140/89 04/29/24 09:49
SaO2 98 04/29/24 09:49
04/28/24 04/29/24 04/30/24
06:59 06:59 06:59
Actual Weight 46.7 kg
Body Mass Index (BMI) 20.1
Lab Results / Allergies
04/29/24 07:41
WBC 7.6 10^3/uL (4.8-10.8) 04/29/24 07:41
Hgb 6.9 g/dL (12.0-16.0) L* D 04/29/24 07:41
Hct 23.3 % (37.0-47.0) L 04/29/24 07:41
Plt Count 342 10^3/uL (130-400) D 04/29/24 07:41
Abs Immat Gran (auto) 0.1 10^3/uL (0-0.05) H 04/28/24 20:17
Neutrophils % 80.5 % (42.2-75.2) H 04/28/24 20:17
Allergy/AdvReac Type Severity Reaction Status Date / Time
No Known Allergies Allergy Verified 04/28/24 19:57
Physical Exam
General: Well Developed, Well Nourished and No Apparent Distress
GI: Soft, Non Tender, Non Distended and Other (colostomy prolapsed, warm and pink with function)
Skin: Warm and Dry
Neuro: AO x 3
Psych: Calm
Data Reviewed
-
Radiology: Image Personally Visualized and interpreted and Report Reviewed by me
Labs: Labs Reviewed by me, Discussed with Physician and Discussed with Patient
Old Records: Reviewed
Assessment / Plan
-
Assessment: 63-year-old female, with a significant past medical history of left-sided colitis with stricture and abscess status post left colectomy/partial small bowel resection/transverse and colostomy/drainage of left lower abscess by Dr. Rose
in 2023, presents to [facility] due to weakness and shortness of breath with a hgb of 3.1
Plan:
-No plans for surgery at this time. Prolapsed colostomy is viable with function.
-Anemia workup per GI. Discussed with Dr. Vo this morning.
-Trend h/h, transfuse PRN.
-?imaging once anemia improved
[2024-04-29 13:15] LABS: Glucose - Point of Care 173 mg/dl (70-99)
--- NOTE | 2024-04-29 15:30 | CM ---
Addendum entered by Jossie Osborne 04/29/24 16:50:
Patient sister Chey spoke with CM via phone. She requested patient be confidential as she does not want patient to have visits by other sister 'Sherron' or have her get information, CM updated admissions and nursing. Sister Chey indicated that
patient mother is in late stage dementia. Patient sister indicated that she had POA and would send form to CM for placement on chart. CM will continue to follow for discharge planning needs.
Original Note:
Patient seen at bedside in IMU with physicians. Patient verbal and interactive. Per prior chart review with Hx intellectual disability. CM called to patient sisterChey identified as POA [phone], no answer. Patient lives with mother and
brother in 1 story home with 3 steps to enter per prior chart review. Patient has a history of having a lenape vly cm and has no past need of DME or VN/SNF> Patient PCP is Dr. Jensen and she uses the [facility] in [place] on [address]. CM will continue to
follow for discharge planning needs.
Plan; home with VN vs SNF pending functional assessment and medical treatment plan
--- NOTE | 2024-04-29 15:44 | PTCARENOTE ---
3rd unit of PRBCs completed, 4th unit endorsed to evening shift RN. Patient tolerated clear liquids for lunch. No abdominal pain, only complaining of right hip pain, discussed with hospitalist. Patient compliant with plan of care.
[2024-04-29 17:04] LABS: Salicylate < 1.0 mg/dl (2.0-20.0)
--- NOTE | 2024-04-29 17:21 | PTCARENOTE ---
Assumed care of pt at 1515. pt is awke alert and watching TV.Pt without complaints. Assisted OOB to BS for void. Resp even and reg on room air, pulse ox97%. Lungs clear Abdomen soft, Colostomy appliance intact to left lower quadrant. Stoma is
budded but protruding higher than adb wall, Physicians are aware, colostomy functioning for loose brown output. Pt denies any abdominal pain. pt having CT of abd tomorrow. Clear liq diet planned for dinner then NPO. Moving all extremities, NSR/SB at
68 on monitor.
[2024-04-29 18:10] LABS: Glucose - Point of Care 131 mg/dl (70-99)
[2024-04-29] MEDS: NOVOLOG FLEXPEN-LOW RESISTANCE SC (18:21)
--- NOTE | 2024-04-29 19:17 | PTCARENOTE ---
4th unit PRBCs completed and pt tolerated without event
[2024-04-29 21:11] LABS: Hematocrit 30.8 % (37.0-47.0)
[2024-04-29 22:12] LABS: Glucose - Point of Care 148 mg/dl (70-99)
[2024-04-29 23:54] LABS: Glucose - Point of Care 108 mg/dl (70-99)
[2024-04-30] VITALS (19 sets, daily range): BP systolic 134–180; BP diastolic 73–105; PULSE 61–62; O2SAT 98; BMI 20.7
[2024-04-30] MEDS: NOVOLOG FLEXPEN-LOW RESISTANCE SC ×4 (00:49→17:28)
--- NOTE | 2024-04-30 01:33 | PTCARENOTE ---
Assumed care of Pt from day RN. Pt AAOx3 able to make needs known. Pt finishing last unit of PRBC on day shift. Repeat H&H resulting 10.0/30.8, much improved. Pt has no complaints at this time. Call plascencia within reach. Assessment care and vitals as
charted.
[2024-04-30 04:10] LABS: % Basophils 0.1 % (0-2); % Eosinophils 0.5 % (0-6); % Immature Granulocytes 0.5 % (0-0.5); % Lymphocytes 10.6 % (20.5-51.1); % Monocytes 6.7 % (1.7-9.3); % Neutrophils 81.6 % (42.2-75.2); Absolute Lymphocytes 0.9 10^3/uL (1.2-3.4); Absolute Monocytes 0.6 10^3/uL (0.1-0.6); Absolute Neutrophils 6.9 10^3/uL (1.4-6.5); Hematocrit 32.8 % (37.0-47.0); Hemoglobin 10.4 g/dL (12.0-16.0); Mean Corp Hgb Conc. 31.7 g/dL (33.0-37.0); Mean Corpuscular Hgb 23.3 pg (27.0-31.0); Mean Corpuscular Volume 73.5 fL (81.0-99.0); Mean Platelet Volume 10.4 fL (7.4-10.4); Nucleated Red Blood Cells % 2.7 %; Platelet Count 309 10^3/uL (130-400); Red Blood Cell Count 4.46 10^6/uL (4.20-5.40); Red Cell Dist. Width 18.6 % (11.5-14.5); White Blood Cell Count 8.5 10^3/uL (4.8-10.8)
[2024-04-30 04:31] LABS: INR 1.45; PT 17.9 Sec (11.4-14.6)
[2024-04-30 04:34] LABS: AST (SGOT) 444 U/L (14-36); Alkaline Phosphatase 177 U/L (38-126); Blood Urea Nitrogen 20 mg/dl (7-17); Calcium 8.4 mg/dl (8.4-10.2); Carbon Dioxide 28 mmol/L (22-30); Chloride 106 mmol/L (98-107); Direct Bilirubin 0.5 mg/dl (0.0-0.4); Estimated Creatinine Clearance 45 ml/min; Glucose 118 mg/dl (70-99); Potassium 3.9 mmol/L (3.5-5.1); Sodium 141 mmol/L (135-145); Total Bilirubin 3.2 mg/dl (0.2-1.3); Total Protein 5.4 g/dl (6.3-8.2); eGFR > 60.00
[2024-04-30 04:44] LABS: ALT (SGPT) 954 U/L (0-35)
[2024-04-30 05:41] LABS: Glucose - Point of Care 126 mg/dl (70-99)
[2024-04-30] MEDS: TOPROL XL 50 MG PO (08:28)
[2024-04-30] MEDS: PROTONIX IV 40 MG IV ×2 (08:29→20:53)
[2024-04-30] MEDS: NSS (PRESERVATIVE FREE) 10 ML IV ×2 (08:29→20:53)
--- NOTE | 2024-04-30 08:43 | W.PN.HOSP.TC ---
Addendum entered and electronically signed by Natalie Darnell MD, Resident 04/30/24 19:31:
Sister updated over the phone. Discussed labs, imaging, and recommendations from colorectal and GI. She is in agreement with GI regarding utility of EGD/colonoscopy and aware of patient's refusal. She says she is visiting the hospital later
today, and will discuss with her then. She is optimistic that patient will agree with her and hopeful of these performed prior to discharge�explained that I am not sure about the timing, however from GIs note today they will try to get in touch
with her tomorrow. Reviewed that hematology has been consulted, and we will wait their evaluation/recommendations. She appreciated the update, no further questions at this time.
Addendum entered and electronically signed by Leonor De Luna MD 04/30/24 14:18:
I saw and evaluated the patient independently. I reviewed the resident�s note and agree with findings and plan as documented by Dr. Darnell.
GENERAL: well developed, well nourished, female in no apparent distress--appears intellectually challenged
HEENT: NC/AT
HEART: regular rate and rhythm, +S1, +S2
LUNGS : clear to auscultation bilaterally
ABDOM: soft, nontender, nondistended, + bowel sounds, ostomy with protruding stoma
EXT: no cyanosis, clubbing, or edema
NEUROLOGIC: grossly intact
Acute on chronic Severe Symptomatic Anemia (doubt exacerbated by Eliquis--last HGB 11/2023 = 9.9)--doubt acute blood loss, pt would be much more hemodynamically unstable--likely secondary to hemolysis or occult slow blood loss--HGB 3.1--received 4
units pRBC in total--also received 1 unit FFP (likely because of Eliquis)--retic count very high at 55, would suggest adequate iron stores to make RBCs--LDH elevated, with retic count increased, leaning towards hemolysis--await
haptoglobin--borderline iron deficient due to use to make RBCs--would hold off on IV iron--await hematology consult
possible chronic slow GI bleed?--await hemolysis work up--for now cont IV PPI BID--apprec GI--hold Eliquis
Markedly elevated LFTs�May be secondary to liver pathology, doubt shock liver--possible medication effects (atorvastatin, amiodarone)--apprec GI-- abdominal US essentially without significant issues
Acute Kidney Injury�baseline creatinine about 0.6 in November 2023--with AGAP (20) metabolic acidosis on admission--etiologies include bicarbonate losses from ostomy output? with renal cause? doubt sepsis--could be due to metformin?--pt was on bicarb
infusion--now normalized--would stop IVF
Colostomy Stomal Protrusion---await Colorectal Surgery--Possible CT in AM if renal function improved
Paroxysmal Atrial Fibrillation--Hold Eliquis and amiodarone as above--Continue metoprolol for rate control
Essential Hypertension--Hold lisinopril as above--Continue metoprolol with hold parameters
Hyperlipidemia--Hold atorvastatin as above
Diabetes Mellitus, Type II--Hold metformin as above--Monitor sugars and insulin sliding scale
Extensive RLE DVT/Bilateral PEs - Sep 2023--Hold Eliquis as above
DVT proph--SCDs
Code Status-- Full Code
can likely downgrade to tele
Original Note:
Today's Communication/Plan
-
Follow up on pending labs. Consult [facility]. Repeat H/H this afternoon, if stable will consider downgrade from IMU. Rt femur xray and nonvasc ultrasound to evaluate for fracture/hematoma. PT/OT.
Assessment / Plan
Assessment / Plan
63-year-old female with past medical history of colitis/intra-abdominal abscess status post partial small bowel resection and left colectomy/colostomy in 10/2023, extensive RLE DVT and bilateral PEs 09/2023 (?unprovoked), A-fib (diagnosed and started
Eliquis at same time as DVT/PE), chronic HFpEF, htn, intellectual disability, DM who presented to ED for shortness of breath and protrusion of stoma. Denied black or bloody colostomy output at home, though in the ED small amount of blood was noted
in ostomy bag. On admission, patient was very pale; labs notable for hemoglobin of 3.1. Small amount of blood seen in ostomy bag, otherwise denies bloody output or GI symptoms. LFTs significantly elevated AST 627, ALT 1087. Coags showed INR of
3.11 and PTT of 31.9.
Acute / Severe Symptomatic Anemia
History of anemia of chronic disease
-Unclear etiology. Likely secondary to hemolysis or occult GI bleed. Less likely acute blood loss given hemodynamic stability. Eliquis unlikely to be contributing to this anemia.
-Hemoglobin on admission 3.1, -Reticulocyte 55.6%. Still significantly elevated when corrected for severe anemia (15%).
-LDH elevated, consistent with hemolysis though nonspecific. Elevated indirect bilirubin also supports hemolysis Haptoglobin, direct/indirect Vinayak pending.
-Now status post 4 units PRBCs and 1 unit FFP. -- Improvement of Hgb to 10.4 this morning.
-LDH elevated, consistent with hemolysis though nonspecific. Elevated indirect bilirubin also supports hemolysis. Haptoglobin, direct/indirect Vinayak pending.
-Consult hematology for inpatient evaluation and management.
-Hold home Eliquis and defer pharmaceutical anticoagulation at this time. Will consider restarting home Eliquis if hemoglobin remains stable with no evidence of bleeding.
Markedly elevated without liver failure, hepatocellular pattern
-Unclear etiology. No history of liver pathology, normal-appearing on multiple prior CTs and MRI. ?viral hepatitis, drug-induced, hypoxic hepatitis, autoimmune
-GI following, appreciate recs.
-AST and ALT slight downtrend today, total bilirubin slightly increased at 3.2. Continue to trend LFTs including direct bilirubin and INR.
-Abdominal ultrasound pending. Consider hepatitis studies.
-Hold home amiodarone, atorvastatin possibly contributing (held on admission).
Acute Kidney Injury�baseline creatinine about 0.6 in November 2023
High anion gap (20) metabolic acidosis on admission
-Unclear etiology. ?Bicarb loss from ostomy output, ?Renal cause, ?Metformin (though no lactate on admission)
-S/p bicarb in ED followed by IV fluids with sodium bicarb. Discontinued after normalization.
-Renally dose medications as appropriate. Hold home metformin and lisinopril while inpatient, consider restarting when at baseline renal function.
-Cr slightly down trended, most recently 0.9 today
Possible occult GI bleed?
-GI following, appreciate recs. Well-known to GI team.
-No further blood seen in ostomy bag since ED. ostomy output has been appropriately brown.
-Continue Protonix 40mg IV BID
-May benefit from EGD/[place]�defer to GI.
Colostomy Stomal Protrusion��colorectal surgery following, appreciate recs. Well-known to colorectal team. Outpatient notes reviewed, likely conservative management.
Possible abd/pel CT with contrast depending on renal function.
History of complicated diverticulitis with colitis/intra-abdominal abscess/stricture status post partial small bowel resection and left colectomy/colostomy in 10/2023��inpatient/outpatient GI and colorectal notes reviewed. Pathology showed
diverticulitis and active colitis including crypt abscesses though less likely IBD per GI. Outpatient GI rec was for eventual colonoscopy to follow-up prior incomplete sigmoidoscopy.
Extensive RLE DVT / Bilateral PEs 09/2023��hold Eliquis as above. No tachycardia, respiratory symptoms, peripheral edema. Nonetheless given significant history, consider peripheral venous ultrasound if thigh pain/tenderness remains unexplained/not
improving (see below).
Right lateral thigh pain/tenderness��resolved today��no visible or palpable deformity or hematoma. CPK mildly elevated, not consistent with rhabdo. Patient denies recent history of fall or trauma though cannot exclude these given that patient is
poor historian and has history of falls.��Will check x-ray of femur and nonvascular ultrasound to evaluate for fracture/hematoma.�� Consider lidocaine patch if patient requires additional analgesics.
Mild hypoxia?��Required oxygen supplementation of 2 L/min nasal cannula overnight. Wean oxygen as tolerated.
Paroxysmal atrial fibrillation��hold home Eliquis and amiodarone as above.
Essential hypertension��continue home metoprolol with hold parameters. Hold lisinopril as above��BPs predominantly hypertensive, reassess for additional antihypertensive requirements as needed.
Chronic HFpEF, not in acute exacerbation��most recent echo 09/2023 (when admitted for bilateral PEs): LV EF 56%, stage II diastolic dysfunction, severely dilated left atrium, mild-mod MR, mild TR, pulm art pres 25-30.
Diabetes Mellitus, Type II��A1c 6.6 on admission. Hold home metformin as above. Continue Accu-Cheks and insulin sliding scale while inpatient--has required 1 unit blunts yesterday. Reassess for standing insulin PRN.
Abnormal findings as below-- per review of inpatient/outpatient records, these have already been discussed with patient/family who declined further evaluation...
H/o left adnexal mass, 3.9 cm��likely left ovarian dermoid cyst.
H/o right adrenal heterogenous hypoattenuating nodule, 2.4 cm��likely lipid rich adenoma
H/o left adrenal hyperattenuating nodule, 5 mm��likely benign adenoma.
H/o subcentimeter pancreatic cystic lesions without suspicious features��likely pseudocysts and/or side branch ductal papillary mucinous neoplasms. Rad rec repeat imaging in 2 years (2025).
H/o chronically elevated alk phos
Code Status: Full Code
VTE PPx: SCDs
Diet: Clears liquid per GI
Dispo planning: Pending clinical course and PT eval. PT/OT ordered.
Anticipated Discharge: 24 - 48 hours
Subjective/Interval History
-
Date of Service: April 30, 2024
No acute events overnight. Feels well, reports the pain in her right thigh has resolved. Review of systems negative-- denies dizziness, chest pain, shortness of breath, abdominal pain, nausea, vomiting, diarrhea. constipation.
Objective Data
-
Labs:
Laboratory Results
04/29/24 04/30/24
20:59 03:46
WBC 8.5
Hgb 10.0 L D 10.4 L
Hct 30.8 L 32.8 L
Plt Count 309
PT 17.9 H
INR 1.45
Sodium 141
Potassium 3.9
Chloride 106
Carbon Dioxide 28
BUN 20 H
Creatinine 0.9
Glucose 118 H
Calcium 8.4
Total Bilirubin 3.2 H
AST 444 H
ALT 954 H*
Alkaline Phosphatase 177 H
Abnormal Lab Results
04/28/24 04/29/24 04/29/24
21:23 07:41 12:58
Hgb
Hct
MCV
MCH
MCHC
RDW
Absolute Neuts (auto)
Absolute Lymphs (auto)
Neutrophils %
Lymphocytes %
PT
BUN
Glucose
Total Bilirubin
Direct Bilirubin
AST
ALT
Alkaline Phosphatase
Total Protein
Albumin
Salicylates < 1.0 L
POC Glucose 173 H
Crossmatch IS Only See Detail
04/29/24 04/29/24 04/29/24
17:57 20:59 22:00
Hgb 10.0 L D
Hct 30.8 L
MCV
MCH
MCHC
RDW
Absolute Neuts (auto)
Absolute Lymphs (auto)
Neutrophils %
Lymphocytes %
PT
BUN
Glucose
Total Bilirubin
Direct Bilirubin
AST
ALT
Alkaline Phosphatase
Total Protein
Albumin
Salicylates
POC Glucose 131 H 148 H
Crossmatch IS Only
04/29/24 04/30/24 04/30/24
23:43 03:46 05:30
Hgb 10.4 L
Hct 32.8 L
MCV 73.5 L
MCH 23.3 L
MCHC 31.7 L
RDW 18.6 H
Absolute Neuts (auto) 6.9 H
Absolute Lymphs (auto) 0.9 L
Neutrophils % 81.6 H
Lymphocytes % 10.6 L
PT 17.9 H
BUN 20 H
Glucose 118 H
Total Bilirubin 3.2 H
Direct Bilirubin 0.5 H
AST 444 H
ALT 954 H*
Alkaline Phosphatase 177 H
Total Protein 5.4 L
Albumin 3.0 L
Salicylates
POC Glucose 108 H 126 H
Crossmatch IS Only
Vital Signs:
Vital Signs
Temp Pulse Resp BP Pulse Ox
98.1 F 62 14 159/93 100
04/30/24 07:40 04/30/24 08:28 04/30/24 06:00 04/30/24 08:28 04/30/24 06:00
I&O
04/29/24 04/30/24 05/01/24
06:59 06:59 06:59
Intake Total 832 / 832 3060 / 3060
Output Total 100 / 100
Balance 832 / 832 2960 / 2960
Review of Systems
-
History Source: Patient
All other systems: Reviewed and negative
Physical Exam
-
General: No Apparent Distress, Comfortable, Conversant and Cachectic; Negative Pain, Fever, Chills or Sweats
HEENT: Normocephalic and Atraumatic
Respiratory: Clear to Auscultation and Non Labored Respirations; Negative Wheezes, Rales, Rhonchi or Crackles
Cardiac: Regular Rhythm and S1/S2; Negative Murmur
GI: Soft, Nontender, Nondistended, Normal Bowel Sounds and Other (Stoma prolapse, ostomy with brown outup (no blood or melena) )
Musculoskeletal: No Clubbing, No Cyanosis and No Edema
Skin: Warm and Dry
Neuro: Awake, Alert, Oriented and AO x 3
Psych: Calm and Other (Intellectual impairment)
Data Reviewed
-
Diagnostic Radiology: Image personally visualized and interpreted and Report Reviewed by me
CT Scan: Report Reviewed by me
Ultrasound: Report Reviewed by me
MRI: Report Reviewed by me
Labs: Labs Reviewed by me, Discussed with Physician, Discussed with Nurse and Discussed with Patient
Old Records: Reviewed (prior inpatient/outpatient records)
--- NOTE | 2024-04-30 11:26 | W.PN.CRS1 ---
Addendum entered and electronically signed by Tejinder Downey MD 04/30/24 20:18:
Source of anemia is unlikely related to prolapsed colostomy which is viable on exam and does not require urgent surgery; CTAP showing diffuse anasarca, no evidence of abnormal bleeding, no other acute findings
� Continue workup for anemia; labs suggestive of hemolysis; appreciate hematology
� Colorectal to sign off; please call for questions or concerns
Original Note:
Today's Communication / Plan
-
CT abdomen pelvis
Assessment/Plan
-
Assessment: 63-year-old female, with a significant past medical history of left-sided colitis with stricture and abscess status post left colectomy/partial small bowel resection/transverse and colostomy/drainage of left lower abscess by Dr. Rose
in 2023, presents to [facility] due to weakness and shortness of breath with a hgb of 3.1
Hemoglobin 10.4
Plan:
-No plans for surgery at this time. Prolapsed colostomy is viable with function.
-Anemia workup per GI. Discussed with Dr. Vo.
-Will order a CT abdomen pelvis now that hemoglobin is stabilized
Subjective Data
Subjective Data
Date of Service: April 30, 2024
Patient states she feels a lot better today. She denies nausea or vomiting. She has no abdominal pain. Her stoma is prolapsed but it still feels warm and is functioning.
Objective Data
-
Vital Signs
Temp Pulse Resp BP Pulse Ox
97.6 F 56 21 163/80 96
04/30/24 11:10 04/30/24 10:00 04/30/24 10:00 04/30/24 10:00 04/30/24 10:00
Intake & Output
04/29/24 04/30/24 05/01/24
06:59 06:59 06:59
Intake Total 832 / 832 3060 / 3060
Output Total 100 / 100
Balance 832 / 832 2960 / 2960
Intake:
Oral fluids 1120 / 1120
IV fluids (Total) 890 / 890
Blood products 550 / 550
Blood Product Amount Infused ( 500 / 500
mL)
Fresh Frozen Plasma 24 Hours 332 / 332
Unit [id number]
Packed Rbc Leukoreduced Unit 250 / 250
[id number]
Packed Rbc Leukoreduced Unit 250 / 250
[id number]
Packed Rbc Leukoreduced Unit 250 / 250
[id number]
Packed Rbc Leukoreduced Unit 250 / 250
[id number]
Output:
Urine, Voided 100 / 100
Other:
Number of approximated SMALL 1
amounts of urine
How many times incontinent 1
MODERATE amount urine
Lab Results
04/30/24 03:46
Physical Exam
-
General: No Acute Distress and AOx3
Abdomen: Soft, Non Distended and Non Tender
Skin: Warm and Dry
[2024-04-30 12:21] LABS: Glucose - Point of Care 83 mg/dl (70-99)
--- NOTE | 2024-04-30 12:36 | CM ---
Patient seen at bedside with physicians in IMU. Patient for CT scan per chart review. CM will request resident to call sister to provide medical update. Patient would like to go home with VN if possible. Patient off of O2 at this time. If patient
needing SNF stay would need Level II or 30 day exemption. CM will continue to follow for discharge planning needs.
Plan; home with VN pending medical treatment plan.
[2024-04-30] MEDS: OMNIPAQUE 50 ML PO (13:28)
[2024-04-30] MEDS: FERRLECIT 110 MG IV (14:09)
[2024-04-30 14:31] LABS: Hematocrit 34.5 % (37.0-47.0); Hemoglobin 10.6 g/dL (12.0-16.0)
--- NOTE | 2024-04-30 15:01 | PTCARENOTE ---
Patient is out of bed to chair, prepping for ct scan. Patient is tolerating clear liquids, denying pain when asked. Colostomy with protruding stoma, formed stool. Repeat Hgb 10.6.
[2024-04-30 16:05] LABS: Haptoglobin 354 mg/dL (30-200)
--- NOTE | 2024-04-30 17:07 | W.PN.GI.CBS2 ---
Today's Communication / Plan
-
liver work up, hematology evaluation
Assessment / Plan
-
63-year-old female past medical history of atrial fibrillation on Eliquis, DVT and PE, left hemicolectomy of sigmoid and descending colon with end transverse colostomy with partial small bowel resection and abscess drainage November 2023 with
[facility] with pathology revealing diverticulitis with crypt abscess. Patient saw Dr. Wu in the office December 2023 at that time she had thought that likely this was complicated diverticulitis, differential includes ischemia and less likely
IBD. She also had a pancreatic cyst.
Now presenting with hemoglobin 3.1, prior in November was 9.9. She denies any GI symptoms except for prolapse of her stoma which she has seen Dr. Rose for. She has brown stool in the ostomy. She has weight gain recently. I suspect she may
benefit from an endoscopy and a colonoscopy although patient is hesitant at this time. Low iron sat/ferritin. CT with anasarca, normal liver, b/l pleural effusions. Hemolysis workup is also being done. Retic high, LDH high, indirect
hyperbilirubinemia, hapto high. May be hemolysis and CECE. Patient currently refusing procedures - will see what hematology says, keep on clears for now, if they do agree she would benefit from EGD/cscope I will reach out to sister tomorrow and see
if able to convince pt to move forward.
She was also found to have significant elevation of her LFTs with ALT 1149, AST 846, total bilirubin 2.6, no direct bilirubin checked, alk phos 184. The elevations of her LFTs are such that you would expect it would be from shock liver but there is
no reported hypotension if anything she has hypertension. Will check hepatitis studies. Also could be drug induced.
Upon discharge, patient will need to follow-up with Dr. Wu
Subjective
Subjective
Date of Service: April 30, 2024
No complaints feel well
Objective
Data Reviewed
Laboratory Data:
Laboratory Results
04/30/24 14:09
04/30/24 03:46
Laboratory Results
PT 17.9 Sec (11.4-14.6) H 04/30/24 03:46
INR 1.45 04/30/24 03:46
Magnesium 2.0 mg/dl (1.6-2.3) 04/30/24 03:46
Total Bilirubin 3.2 mg/dl (0.2-1.3) H 04/30/24 03:46
AST 444 U/L (14-36) H 04/30/24 03:46
ALT 954 U/L (0-35) H* 04/30/24 03:46
Alkaline Phosphatase 177 U/L (38-126) H 04/30/24 03:46
Vital Signs and I&O:
Vital Signs
Temp Pulse Resp BP Pulse Ox
97.7 F 63 26 159/82 95
04/30/24 15:26 04/30/24 16:00 04/30/24 16:00 04/30/24 14:00 04/30/24 16:00
I&O
04/29/24 04/30/24 05/01/24
06:59 06:59 06:59
Intake Total 832 / 832 3060 / 3060 500 / 500
Output Total 100 / 100 500 / 500
Balance 832 / 832 2960 / 2960 0 / 0
Physical Exam
Physical Exam
GI: Non Distended and Non Tender
[2024-04-30 17:36] LABS: Glucose - Point of Care 98 mg/dl (70-99)
[2024-04-30] MEDS: TOPROL XL PO (20:54)
[2024-04-30 22:32] LABS: Glucose - Point of Care 115 mg/dl (70-99)
--- NOTE | 2024-04-30 23:12 | PTCARENOTE ---
Patient aaox3 since start of shift. Affect pleasant, able to make needs known. Using call plascencia appropriately. OOB with standby assist x1 for safety during transfers. Tolerated being oob to chair x2 hours. NSR on the monitor, eros at hs. Lungs cta
throughout. BS active x4, colostomy putting out light brown loose stool. Continent of bladder, urine clear, yellow. Left arm INT intact and patent. Patient currently resting in bed with no c/o. Will continue to monitor patient closely.
[2024-05-01] VITALS (11 sets, daily range): BP systolic 122–165; BP diastolic 76–99; BMI 21.1
[2024-05-01 04:29] LABS: Hematocrit 32.3 % (37.0-47.0); Hemoglobin 10.3 g/dL (12.0-16.0); Mean Corp Hgb Conc. 31.9 g/dL (33.0-37.0); Mean Corpuscular Hgb 23.7 pg (27.0-31.0); Mean Corpuscular Volume 74.4 fL (81.0-99.0); Mean Platelet Volume 10.5 fL (7.4-10.4); Platelet Count 272 10^3/uL (130-400); Red Blood Cell Count 4.34 10^6/uL (4.20-5.40); Red Cell Dist. Width 19.2 % (11.5-14.5); White Blood Cell Count 6.4 10^3/uL (4.8-10.8)
[2024-05-01 05:05] LABS: IgA 361 mg/dl (70-400); IgG 569 mg/dl (700-1600); IgM 77 mg/dl (40-230)
[2024-05-01 05:08] LABS: ALT (SGPT) 644 U/L (0-35); AST (SGOT) 130 U/L (14-36); Albumin 2.8 g/dl (3.5-5.0); Alkaline Phosphatase 160 U/L (38-126); Blood Urea Nitrogen 16 mg/dl (7-17); Calcium 8.2 mg/dl (8.4-10.2); Carbon Dioxide 27 mmol/L (22-30); Chloride 103 mmol/L (98-107); Estimated Creatinine Clearance 45 ml/min; Glucose 93 mg/dl (70-99); Potassium 3.4 mmol/L (3.5-5.1); Sodium 138 mmol/L (135-145); Total Bilirubin 2.2 mg/dl (0.2-1.3); Total Protein 5.1 g/dl (6.3-8.2); eGFR > 60.00
--- NOTE | 2024-05-01 06:44 | W.PN.HOSP.TC ---
Addendum entered and electronically signed by Leonor De Luna MD 05/01/24 13:51:
I saw and evaluated the patient independently. I reviewed the resident�s note and agree with findings and plan as documented by Dr. Darnell.
GENERAL: well developed, well nourished, female in no apparent distress--appears intellectually challenged
HEENT: NC/AT
HEART: regular rate and rhythm, +S1, +S2
LUNGS : clear to auscultation bilaterally
ABDOM: soft, nontender, nondistended, + bowel sounds, ostomy with protruding stoma
EXT: no cyanosis, clubbing, or edema
NEUROLOGIC: grossly intact
Acute on chronic Severe Symptomatic Anemia (doubt exacerbated by Eliquis--last HGB 11/2023 = 9.9)--doubt acute blood loss, pt would be much more hemodynamically unstable--no hemolysis by workup--so likely occult slow blood loss--HGB 3.1
onadmission--received 4 units pRBC in total--also received 1 unit FFP (likely because of Eliquis)--retic count very high at 55, would suggest adequate iron stores to make RBCs and brisk response as per heme- haptoglobin high--borderline iron
deficient due to use to make RBCs, replete iron stores per heme
possible chronic slow GI bleed?--for now cont IV PPI BID--apprec GI--hold Eliquis--scopes at their discretion
Markedly elevated LFTs�May be secondary to liver pathology, doubt shock liver--possible medication effects (atorvastatin, amiodarone)--apprec GI-- abdominal US essentially without significant issues
Acute Kidney Injury�baseline creatinine about 0.6 in November 2023--with AGAP (20) metabolic acidosis on admission--etiologies include bicarbonate losses from ostomy output? with renal cause? doubt sepsis--could be due to metformin?--pt was on bicarb
infusion--now normalized--would stop IVF
Colostomy Stomal Protrusion---apprec Colorectal Surgery--abdomen/pelvis CT essentially neg
Paroxysmal Atrial Fibrillation--Hold Eliquis and amiodarone as above--Continue metoprolol for rate control
Essential Hypertension--Hold lisinopril as above--Continue metoprolol with hold parameters
Hyperlipidemia--Hold atorvastatin as above
Diabetes Mellitus, Type II--Hold metformin as above--Monitor sugars and insulin sliding scale
Extensive RLE DVT/Bilateral PEs - Sep 2023--Hold Eliquis as above
DVT proph--SCDs
Code Status-- Full Code
can likely downgrade to tele
Original Note:
Today's Communication/Plan
-
Hematology consultation. Follow-up on pending labs. Possible EGD/colonoscopy per GI, timing TBD.
Assessment / Plan
Assessment / Plan
63-year-old female with past medical history of colitis/intra-abdominal abscess status post partial small bowel resection and left colectomy/colostomy in 10/2023, extensive RLE DVT and bilateral PEs 09/2023 (?unprovoked), A-fib (diagnosed and started
Eliquis at same time as DVT/PE), chronic HFpEF, htn, intellectual disability, DM who presented to ED for shortness of breath and protrusion of stoma. Denied black or bloody colostomy output at home, though in the ED small amount of blood was noted
in ostomy bag. On admission, patient was very pale; labs notable for hemoglobin of 3.1. Small amount of blood seen in ostomy bag, otherwise denies bloody output or GI symptoms. LFTs significantly elevated AST 627, ALT 1087. Coags showed INR of
3.11 and PTT of 31.9.
Acute / Severe Symptomatic Anemia (doubt exacerbated by Eliquis)
History of anemia of chronic disease
��On admission hemoglobin of 3.1, and reticulocyte 55.6%. (15% when corrected for severe anemia.) Reticulocytosis likely driving borderline iron deficiency, would hold off on IV iron.���S/p 4 units PRBCs and 1 unit FFP(04/28-04/29), followed by
appropriate rise in hemoglobin. Hgb improved without additional transfusions. Now relatively stable, 10.3 today.
�Unclear etiology. Unlikely acute blood loss given hemodynamic stability, no evidence of bleeding. Possible occult bleed? Doubt exacerbated by Eliquis, but held due to severity of anemia. Elevated LDL and indirect bili noted, possibly hemolysis?
Though high haptoglobin goes against this. Direct Vinayak negative. Await hematology evaluation.
� Continue protonix BID; possible EGD/colonoscopy per GI, sister and patient both agreeable.
�Given no sign of bleeding and Hgb stable/improving, downgrade to telemetry and will consider restarting Eliquis (H/o extensive DVT/PE 09/2023).
Markedly elevated LFTs without liver failure, hepatocellular pattern
�Unclear etiology. No history of liver pathology, normal-appearing on multiple prior CTs and MRI. ?viral hepatitis, drug-induced (home amiodarone and atorvastatin on hold), hypoxic hepatitis, autoimmune.��US and CT 04/30: Normal-appearing liver;
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 Workup per GI, labs pending.��Trend LFTs, direct bilirubin, INR.
Colostomy Stomal Protrusion��H/o complicated diverticulitis w colitis/intrabd abscess/stricture s/p partial small bowel resection/left colectomy/colostomy ath showed diverticulitis and active colitis including crypt abscesses�less likely
IBD per GI.���CT 04/30/2024 showed diffuse anasarca, increased edema of ostomy; no evidence of obstruction, perforation, abscess, abnormal bleeding.��GI and colorectal surgery following.
Essential hypertension��continue home metoprolol. Hold lisinopril as above��BPs predominantly hypertensive, reassess for additional antihypertensive requirements as needed-- Metoprolol held for bradycardia this AM, will add prn hydralazine.
Diabetes, Type II��A1c 6.6 on admission. Hold home metformin as above. Accu-Cheks and ISS inpatient�� Reassess for standing insulin PRN.
Acute Kidney Injury���baseline creatinine about 0.6 in November 2023, 1.1 on admission���trend Cr, 0.9 today; hold home metformin and lisinopril inpatient
H/o Extensive RLE DVT / Bilateral PEs 09/2023��hold home Eliquis as above. SCDs.
High anion gap (20) metabolic acidosis on admission��resolved���unclear etiology, possible bicarb loss from ostomy output, ?Renal cause, ?Metformin (though no lactate on admission). No evidence of sepsis.���S/p bicarb infusion���now normalized
Right lateral thigh pain/tenderness��resolved��CPK mildly elevated, not clinically significant��no fractures or fluid collection on x-ray/ultrasound. Reassess as needed.
Mild hypoxia? Briefly required 2 L/min via nasal cannula����resolved, appropriately oxygenating on room air.
Paroxysmal atrial fibrillation��hold home Eliquis and amiodarone as above. Asymptomatic.
Chronic HFpEF, not in acute exacerbation��most recent echo 09/2023 (when admitted for bilateral PEs): LV EF 56%, stage II diastolic dysfunction, severely dilated left atrium, mild-mod MR, mild TR, pulm art pres 25-30. Consider eventual update echo.
Abnormal radiology reviewed with sister:
H/o left adnexal mass, 3.9 cm��likely left ovarian dermoid cyst. Consistent with h/o right dermoid cyst s/p oophorectomy 2001.
H/o right adrenal heterogenous hypoattenuating nodule, 2.4 cm��likely lipid rich adenoma
H/o left adrenal hyperattenuating nodule, 5 mm��likely benign adenoma.
H/o subcentimeter pancreatic cystic lesions without suspicious features��likely pseudocysts and/or side branch ductal papillary mucinous neoplasms. Rad rec repeat imaging in 2 years (2025).
Updated sister over the phone 04/29/2024
Code Status: Full Code
VTE PPx: SCDs
Diet: Clears liquid per GI
Dispo planning: PT/OT rec home health�TBD pending clinical couse.
Anticipated Discharge: > 48 hours
Subjective/Interval History
-
Date of Service: May 01, 2024
No acute events overnight. Feels well, in good spirits, offers no complaints. Review of systems negative-- denies dizziness, chest pain, shortness of breath, abdominal pain, nausea, vomiting, bloody output from colostomy. Ambulated halls
yesterday (she is proud that she previously graduated from [employer]). Tolerating oral hydration.
Objective Data
-
Labs:
Laboratory Results
05/01/24
04:18
WBC 6.4
Hgb 10.3 L
Hct 32.3 L
Plt Count 272
Sodium 138
Potassium 3.4 L
Chloride 103
Carbon Dioxide 27
BUN 16
Creatinine 0.9
Glucose 93
Calcium 8.2 L
Total Bilirubin 2.2 H
AST 130 H
ALT 644 H*
Alkaline Phosphatase 160 H
Vital Signs:
Vital Signs
Temp Pulse Resp BP Pulse Ox
98.1 F 56 16 154/77 98
05/01/24 03:00 05/01/24 06:00 05/01/24 06:00 05/01/24 06:00 05/01/24 06:00
I&O
04/29/24 04/30/24 05/01/24
06:59 06:59 06:59
Intake Total 832 / 832 3060 / 3060 900 / 900
Output Total 100 / 100 1400 / 1400
Balance 832 / 832 2960 / 2960 -500 / -500
Review of Systems
-
History Source: Patient
All other systems: Reviewed and negative
--- NOTE | 2024-05-01 07:34 | W.PN.GI.CBS2 ---
Addendum entered and electronically signed by Tamiko Rivas MD 05/01/24 15:36:
Updated sister
Pt able to sign consent
Addendum entered and electronically signed by Tamiko Rivas MD 05/01/24 14:45:
I saw and examined the patient.
The INVENTORY AUDITOR or PA's note was reviewed and I agree with the note.
Comment: 63-year-old female past medical history of atrial fibrillation on Eliquis, DVT and PE, left hemicolectomy of sigmoid and descending colon with end transverse colostomy with partial small bowel resection and abscess drainage November [address] Rose with pathology revealing diverticulitis with crypt abscess. Patient saw Dr. Wu in the office December 2023 at that time she had thought that likely this was complicated diverticulitis, differential includes ischemia and less
likely IBD. She also had a pancreatic cyst.
Now presenting with hemoglobin 3.1, prior in November was 9.9. She denies any GI symptoms except for prolapse of her stoma which she has seen Dr. Rose for. She has brown stool in the ostomy. She has weight gain recently. Patient initially
hesitant for EGD/colon but after hematology agreed this is most likely CECE pt agreeable. R/a/b reviewed inc but not limited to bleeding, infection, perforation. Last Eliquis 04/28. I will update sister as well.
She was also found to have significant elevation of her LFTs with ALT 1149, AST 846, total bilirubin 2.6, no direct bilirubin checked, alk phos 184. The elevations of her LFTs are such that you would expect it would be from shock liver but there is
no reported hypotension if anything she has hypertension. I ordered full lab work up for etiology. Also could be drug induced. US/CT liver no findings except anasarca.
Upon discharge, patient will need to follow-up with Dr. Wu
Original Note:
Today's Communication / Plan
-
Etiology of anemia unclear -still with brown stool in ostomy bag since admission
await heme eval haptoglobin 354, LDH 1180, retic ct 55.6
s/p 4 units PRBC and 1 dose IV iron given with hbg 10.3
on clear diet-- will confirm with Dr. Rivas any plan for EGD/colon if ok to advance as still remains on Eliquis hold (last dose 04/28)
cont PPI
Etiology of LFT elevation unclear - ? DILI has been on chronic amiodarone now on hold, no documented hypotension, no abdominal pain, imaging on US and CT with normal liver, noted GB adenomyomatosis no ductal dilatation, no stones
pt with significant LFT elevation on admission etiology unclear but noted with anasarca on imaging, hypoalbuminemia
LFT's trending down
INR improving off Eliquis
liver serologies sent 04/30 and remain pending
she does have significant hypoalbuminemia but level was down to 1.9 in November and improving
follow with Dr. Michel in office after discharge
Assessment / Plan
-
Pt is a 63yo with hx afib on Eliquis, NIDDM, HTN, intellectual disability, ovarian cyst removal, DVT/PE in September 2023, prior colitis with exploratory lap and left colectomy with removal of entire descending and sigmoid colon with transverse end
colostomy/ partial SB resection/ left lower abdominal abscess drainage November 2023(path noted with diverticulitis with abscess formation and acute serositis with active colitis and adhesions) with admission to ER with weakness and shortness of
breath. Pt also noted with protrusion of stoma for 10 days. On admission noted with hbg 3.1 with MCV 71.8 platelets 445, Co2 14, LDH 1180, albumin 3,4, INR 3.11, bili 1.8, AST 627, ALT 1087, alk phos 1087 with further rise after admission. Pt
denies bleeding in ostomy bag but noted with small amount of blood in bag in ER. Pt had flex sig completed in September with Dr. Jimenez with diverticulosis with severe narrowing and pale mucosa without other prior EGD or colonoscopy. Last hbg 01/16/24
10.3.
04/30/24 US abdomen Gallbladder wall foci with 'ring down' artifact most likely representing adenomyomatosis.
No biliary tract dilatation. Pancreas significantly obscured, most likely by overlying bowel gas.
liver normal size with smooth capsule
04/30/24 CT Abd/pel W Iv And Oral Contr
1. Diffuse anasarca. Slightly increased edema within the left ostomy stoma suggesting mild inflammatory change. No CT evidence for obstruction, perforation or abscess.
2. No overt evidence for abnormal bleeding by CT.
3. Moderate bilateral pleural effusions.
-symptomatic anemia with pink tinge in ostomy microcytic iron deficiency, elevated LDH and retic count
-acidosis on admission
-marked elevated LFT's
-GB adenomyomatosis on CT
-MARISA on admission - improving
-stoma hernia on exam
-afib on Eliquis
-DVT/PE in September 2023
- prior colitis then exp lap with sigmoid colon with transverse end colostomy/ partial SB resection/ left lower abdominal abscess drainage November 2023(path noted with diverticulitis with abscess formation and acute serositis with active colitis and
adhesions)less likely IBD
-thrombocytosis
-elevated INR in setting of Eliquis use
-anasaraca/ hypoalbuminemia
other med problems:
-NIDDM
-HTN
-intellectual disability
-ovarian cyst removal
-adrenal nodule
-pancreatic cysts- .24 MRI up to 9mm scattered in pancreas
PLAN:
Etiology of anemia unclear -still with brown stool in ostomy bag since admission
await heme eval haptoglobin 354, LDH 1180, retic ct 55.6
s/p 4 units PRBC and 1 dose IV iron given with hbg 10.3
on clear diet-- will confirm with Dr. Rivas any plan for EGD/colon if ok to advance as still remains on Eliquis hold (last dose 04/28)
cont PPI
Etiology of LFT elevation unclear - ? DILI has been on chronic amiodarone now on hold, no documented hypotension, no abdominal pain, imaging on US and CT with normal liver, noted GB adenomyomatosis no ductal dilatation, no stones
pt with significant LFT elevation on admission etiology unclear but noted with anasarca on imaging, hypoalbuminemia
LFT's trending down
INR improving off Eliquis
liver serologies sent 04/30 and remain pending
she does have significant hypoalbuminemia but level was down to 1.9 in November and improving
follow with Dr. Michel in office after discharge
Subjective
Subjective
Date of Service: May 01, 2024
05/01 loose brown stool on clear diet
Objective
Data Reviewed
Laboratory Data:
Laboratory Results
05/01/24 04:18
05/01/24 04:18
Laboratory Results
PT 17.9 Sec (11.4-14.6) H 04/30/24 03:46
INR 1.45 04/30/24 03:46
Magnesium 2.0 mg/dl (1.6-2.3) 05/01/24 04:18
Total Bilirubin 2.2 mg/dl (0.2-1.3) H 05/01/24 04:18
AST 130 U/L (14-36) H 05/01/24 04:18
ALT 644 U/L (0-35) H* 05/01/24 04:18
Alkaline Phosphatase 160 U/L (38-126) H 05/01/24 04:18
Vital Signs and I&O:
Vital Signs
Temp Pulse Resp BP Pulse Ox
98.3 F 56 16 154/77 98
05/01/24 07:18 05/01/24 06:00 05/01/24 06:00 05/01/24 06:00 05/01/24 06:00
I&O
04/30/24 05/01/24 05/02/24
06:59 06:59 06:59
Intake Total 3060 / 3060 900 / 900
Output Total 100 / 100 1400 / 1400
Balance 2960 / 2960 -500 / -500
Physical Exam
Physical Exam
HEENT: Other (mild jaundice )
Cardiology: Normal Sinus Rhythm
Pulmonary: Clear
GI: Soft, Non Distended and Other (brown stool in ostomy with herniation )
Extremities: Edema
Neuro: Non Focal
[2024-05-01 07:45] LABS: Glucose - Point of Care 93 mg/dl (70-99)
[2024-05-01] MEDS: NOVOLOG FLEXPEN-LOW RESISTANCE SC ×3 (08:12→18:02)
--- NOTE | 2024-05-01 08:51 | WOUNDNOTE ---
[facility] RN note: Patient admitted with prolapse colostomy. Stoma prolapsed, pink. Peristomal skin intact with mild red skin just distal to stoma. Sacral and heel skin intact. Patient stood with walker during sacral skin check. Air chair cushion in
recliner chair. Small amount of liquid brown stool in pouch. Changed colostomy appliance using Angie wafer # [id number], Naomi seal and Angie pouch # [id number]. Patient's siblings manage her ostomy at home. Nursing can provide routine ostomy
appliance changes going forward during her hospital stay. Ostomy supplies given. Will follow peripherally as needed.
[2024-05-01] MEDS: TOPROL XL PO (09:07)
[2024-05-01] MEDS: PROTONIX IV 40 MG IV ×2 (09:32→20:01)
[2024-05-01] MEDS: NSS (PRESERVATIVE FREE) 10 ML IV ×2 (09:32→20:01)
--- NOTE | 2024-05-01 10:00 | CON.ONC ---
Impression
Impression
a/w Hgb 3.1g/dL. Iron studies c/w CECE with ferritin 14. No evidence of hemolysis with elevated haptoglobin, POOJA negative. No B12 or folate deficiency. s/p 4U PRBC
AF on DOAC
provoked VTE 2023 (cardiolipin, B2 glyocoprotein negative 2023). IVC removed 11/2023
coagulopathy with INR ~3, PT ~2 secondary to DOAC, trending down since held & s/p 1 U FFP 04/29
elevated LFTs
Plan
Plan
f/u copper level
f/u hepatitis studies
GI evaluation underway
Parenteral iron
Repeat iron studies with PCP in 6 weeks
Patient History
History of Present Illness
63yo F presented to with SOB. She reports SOB worse with activity and progressive over the past several weeks. She denies overt bleeding but unsure of ostomy stool color over the past several weeks. Admission labs were notable for Hgb ~3g/dL with
normal WBC and platelet count. Her PT was 31.9, INR 3.11. Iron studies show ferritin 14, IS 5, 419, iron 23, Tbili 3.2, Dbili 0.5, AST 444, AlT 954, Alk phos 177. CXR is clear. LE US shows moderate subcutaneous edema. Ab US showed no biliary
dilatation. CT ab/pelvis showed diffuse anasarca but no obstruction, perforation or abscess and no overt evidence for bleeding.
Clincally, she denies fever, chills, cough, chest pain, palpitations, n/v/d/c or abdominal pain.
Past-Medical/Surgical History
PMH
Paroxysmal Atrial Fibrillation
Essential Hypertension
Hyperlipidemia
Diabetes Mellitus, Type II
provoked RLE DVT / Bilateral PEs - Sep 2023
Intellectual Disability
diverticulitis
PSH Left Colectomy / Small Bowel Resection / Left Lower Abdominal Abscess Drainage - Nov 2023, Ovarian Cyst Removal, IVC removal 11/2023
Social: Non-smoker, denies ETOH, lives with mother and brother, SSD
Family non-contributory
Patient Medication
�Medication �Instructions �Recorded �Confirmed �Last Taken �Type
atorvastatin 40 mg tablet 40 mg PO DAILY High Cholesterol 09/26/23 04/28/24 11/02/23 History
apixaban 5 mg tablet (Eliquis) 5 mg PO BID 30 days #60 tabs 10/02/23 04/28/24 11/28/23 Rx
metformin 500 mg tablet,extended 500 mg PO DAILY Diabetes ##0 11/03/23 04/28/24 11/29/23 History
release 24 hr
metoprolol succinate 50 mg 50 mg PO BID Heart 11/03/23 04/28/24 11/02/23 History
tablet,extended release 24 hr Disease/Condition ##0
amiodarone 200 mg tablet 200 mg PO DAILY #30 tabs 11/16/23 04/28/24 11/29/23 Rx
pantoprazole 40 mg tablet,delayed 40 mg PO DAILY #30 tabs 11/16/23 04/28/24 Unknown Rx
release
lisinopril 10 mg tablet 10 mg PO DAILY Blood Pressure 04/28/24 04/28/24 Unknown History
Active Medications
Generic Name Dose Route Start Last Admin
Trade Name Freq PRN Reason Stop Dose Admin
Dextrose 12.5 grams 04/29/24 02:01
Dextrose 50% (0.5 Grams/Ml) 50 Ml Syringe IV 05/27/24 02:00
[id number] PRN
hypoglycemia
Protocol
Glucagon 1 mg 04/29/24 02:01
Glucagon 1 Mg Vial IM 05/27/24 02:00
PRN PRN
hypoglycemia
Protocol
Hydralazine HCl 5 mg 05/01/24 09:48
Hydralazine 20 Mg/Ml Vial IV 05/29/24 09:47
Q4HPRN PRN
systolic BP 160 or above
Insulin Aspart 0 units 05/01/24 07:30 05/01/24 08:12
Insulin Aspart Low Resistance 300 Units/3 Ml Pen.Injctr SC 05/29/24 07:29 Not Given
AC MENDEZ
Protocol
Metoprolol Succinate 50 mg 04/29/24 20:00 05/01/24 09:07
Metoprolol 50 Mg Extended Release Tablet PO 05/27/24 19:59 Not Given
BID MENDEZ
Pantoprazole Sodium 40 mg 04/29/24 02:53 05/01/24 09:32
Pantoprazole Sodium 40 Mg/10 Ml Vial IV 05/27/24 02:00 40 mg
BID MENDEZ Administration
Sodium Chloride 0 flush 04/29/24 03:00
Sodium Chloride 0.9% (Flush) Syringe IV 05/27/24 02:59
PER PROTOCOL MENDEZ
Sodium Chloride 10 ml 04/29/24 08:00 05/01/24 09:32
Sodium Chloride 0.9% (Preservative Free) 10 Ml Vial IV 05/27/24 07:59 10 ml
Q12H MENDEZ Administration
Review of Systems
-
ROS is notable for HPI, otherwise negative
Physical Exam
-
General: No Apparent Distress and Conversant
HEENT: Moist Mucous Membranes; Negative Jaundice
Cardiology: Normal Sinus Rhythm
Pulmonary: Clear
GI: Soft
Extremities: Pulses Present; Negative Edema
Neurology: Non Focal
Skin: Warm
Psych: Calm
Labs
Lab Results
WBC 6.4 10^3/uL (4.8-10.8) 05/01/24 04:18
RBC 4.34 10^6/uL (4.20-5.40) 05/01/24 04:18
Hgb 10.3 g/dL (12.0-16.0) L 05/01/24 04:18
Hct 32.3 % (37.0-47.0) L 05/01/24 04:18
MCV 74.4 fL (81.0-99.0) L 05/01/24 04:18
MCH 23.7 pg (27.0-31.0) L 05/01/24 04:18
MCHC 31.9 g/dL (33.0-37.0) L 05/01/24 04:18
RDW 19.2 % (11.5-14.5) H 05/01/24 04:18
Plt Count 272 10^3/uL (130-400) 05/01/24 04:18
MPV 10.5 fL (7.4-10.4) H 05/01/24 04:18
Abs Immat Gran (auto) 0.0 10^3/uL (0-0.05) 04/30/24 03:46
Absolute Neuts (auto) 6.9 10^3/uL (1.4-6.5) H 04/30/24 03:46
Absolute Lymphs (auto) 0.9 10^3/uL (1.2-3.4) L 04/30/24 03:46
Absolute Monos (auto) 0.6 10^3/uL (0.1-0.6) 04/30/24 03:46
Absolute Eos (auto) 0.0 10^3/uL (0-0.7) 04/30/24 03:46
Absolute Basos (auto) 0.0 10^3/uL (0-0.2) 04/30/24 03:46
Immature Gran % 0.5 % (0-0.5) 04/30/24 03:46
Neutrophils % 81.6 % (42.2-75.2) H 04/30/24 03:46
Lymphocytes % 10.6 % (20.5-51.1) L 04/30/24 03:46
Monocytes % 6.7 % (1.7-9.3) 04/30/24 03:46
Eosinophils % 0.5 % (0-6) 04/30/24 03:46
Basophils % 0.1 % (0-2) 04/30/24 03:46
Creatinine 0.9 mg/dL (0.6-1.0) 05/01/24 04:18
Vital Signs
Vital Signs
Temp Pulse Resp BP Pulse Ox
98.3 F 56 12 151/99 95
05/01/24 07:18 05/01/24 09:07 05/01/24 08:00 05/01/24 08:00 05/01/24 08:00
[2024-05-01 12:14] LABS: Glucose - Point of Care 101 mg/dl (70-99)
--- NOTE | 2024-05-01 13:21 | CM ---
CM following re: discharge planning.
Reviewed pt's chart, met with pt.
PT and OT evaluations noted - home PT/OT recommended. Pt is aware and she stated she is current with [facility] and she will resume services.
A referral to [facility] made.
D/C plan: home with VN, resumptions of outpatient services at [facility] and family support.
CM will follow with discharge plan updates as hospitalization progresses
[2024-05-01] MEDS: FERRLECIT 110 MG IV (14:38)
[2024-05-01] MEDS: APRESOLINE 5 MG IV (17:08)
--- NOTE | 2024-05-01 17:25 | PTCARENOTE ---
Pt for transfer to tele. Report called to receiving RN. Belongings collected from room. Transferred to [facility] via stretcher. Sister Latonai notified of move via phone.
[2024-05-01 18:02] LABS: Glucose - Point of Care 99 mg/dl (70-99)
[2024-05-01] MEDS: GAVILAX 238 GM PO (18:08)
[2024-05-01 18:55] LABS: Hepatitis B Surface Antigen Negative (Negative)
[2024-05-01 19:12] LABS: Hepatitis A Antibody, Total Negative (Negative); Hepatitis B Surface Antibody Positive; Hepatitis C Antibody Negative (Negative)
[2024-05-01] MEDS: TOPROL XL 50 MG PO (20:00)
[2024-05-02] VITALS (11 sets, daily range): BP systolic 12–168; BP diastolic 60–88; BMI 20.5
[2024-05-02 01:58] LABS: Glucose - Point of Care 97 mg/dl (70-99)
[2024-05-02 06:44] LABS: Glucose - Point of Care 75 mg/dl (70-99)
[2024-05-02 07:34] LABS: Hematocrit 35.8 % (37.0-47.0); Mean Corp Hgb Conc. 30.7 g/dL (33.0-37.0); Mean Corpuscular Hgb 23.5 pg (27.0-31.0); Mean Corpuscular Volume 76.3 fL (81.0-99.0); Mean Platelet Volume 9.8 fL (7.4-10.4); Platelet Count 280 10^3/uL (130-400); Red Blood Cell Count 4.69 10^6/uL (4.20-5.40); Red Cell Dist. Width 20.1 % (11.5-14.5); White Blood Cell Count 6.6 10^3/uL (4.8-10.8)
[2024-05-02 08:12] LABS: ALT (SGPT) 463 U/L (0-35); AST (SGOT) 61 U/L (14-36); Albumin 2.9 g/dl (3.5-5.0); Alkaline Phosphatase 153 U/L (38-126); Blood Urea Nitrogen 8 mg/dl (7-17); Calcium 8.3 mg/dl (8.4-10.2); Carbon Dioxide 31 mmol/L (22-30); Chloride 105 mmol/L (98-107); Estimated Creatinine Clearance 50 ml/min; Glucose 70 mg/dl (70-99); Magnesium 2.1 mg/dl (1.6-2.3); Potassium 3.5 mmol/L (3.5-5.1); Sodium 142 mmol/L (135-145); Total Bilirubin 1.8 mg/dl (0.2-1.3); Total Protein 5.2 g/dl (6.3-8.2); eGFR > 60.00
[2024-05-02] MEDS: NOVOLOG FLEXPEN-LOW RESISTANCE SC ×2 (08:51→12:39)
--- NOTE | 2024-05-02 08:54 | W.PN.HOSP.TC ---
Addendum entered and electronically signed by Leonor De Luna MD 05/02/24 14:59:
I saw and evaluated the patient independently. I reviewed the resident�s note and agree with findings and plan as documented by Dr. Darnell.
GENERAL: well developed, well nourished, female in no apparent distress--appears intellectually challenged
HEENT: NC/AT
HEART: regular rate and rhythm, +S1, +S2
LUNGS : clear to auscultation bilaterally
ABDOM: soft, nontender, nondistended, + bowel sounds, ostomy with protruding stoma
EXT: no cyanosis, clubbing, or edema
NEUROLOGIC: grossly intact
Acute on chronic Severe Symptomatic Anemia (doubt exacerbated by Eliquis--last HGB 11/2023 = 9.9)--doubt acute blood loss, pt would be much more hemodynamically unstable--no hemolysis by workup--so likely occult slow blood loss via angiectasias in
small bowel?--HGB 3.1 on admission--received 4 units pRBC in total--also received 1 unit FFP (likely because of Eliquis)--retic count very high at 55, would suggest adequate iron stores to make RBCs and brisk response as per heme- haptoglobin
high--borderline iron deficient due to use to make RBCs, replete iron stores per heme--EGD/colonoscopy both without out any signs of active or recent bleeding--likely needs capsule study
possible chronic slow GI bleed?--for now cont IV PPI BID--apprec GI--restart Eliquis as per GI
Markedly elevated LFTs�May be secondary to liver pathology, doubt shock liver--possible medication effects (atorvastatin, amiodarone)--apprec GI-- abdominal US essentially without significant issues
Acute Kidney Injury�baseline creatinine about 0.6 in November 2023--with AGAP (20) metabolic acidosis on admission--etiologies include bicarbonate losses from ostomy output? with renal cause? doubt sepsis--could be due to metformin?--pt was on bicarb
infusion--now normalized--would stop IVF
Colostomy Stomal Protrusion---apprec Colorectal Surgery--abdomen/pelvis CT essentially neg
Paroxysmal Atrial Fibrillation--Hold Eliquis and amiodarone as above--Continue metoprolol for rate control
Essential Hypertension--Hold lisinopril as above--Continue metoprolol with hold parameters
Hyperlipidemia--Hold atorvastatin as above
Diabetes Mellitus, Type II--Hold metformin as above--Monitor sugars and insulin sliding scale
Extensive RLE DVT/Bilateral PEs - Sep 2023--Hold Eliquis as above
DVT proph--SCDs
Code Status-- Full Code
Original Note:
Today's Communication/Plan
-
EGD/colonoscopy per GI
Assessment / Plan
Assessment / Plan
63-year-old female with past medical history of colitis/intra-abdominal abscess status post partial small bowel resection and left colectomy/colostomy in 10/2023, extensive RLE DVT and bilateral PEs 09/2023 (?unprovoked), A-fib (diagnosed and started
Eliquis at same time as DVT/PE), chronic HFpEF, htn, intellectual disability, DM who presented to ED for shortness of breath and protrusion of stoma. Denied black or bloody colostomy output at home, though in the ED small amount of blood was noted
in ostomy bag. On admission, patient was very pale; labs notable for hemoglobin of 3.1. Small amount of blood seen in ostomy bag, otherwise denies bloody output or GI symptoms. LFTs significantly elevated AST 627, ALT 1087. Coags showed INR of
3.11 and PTT of 31.9.
Acute / Severe Symptomatic Anemia (doubt exacerbated by Eliquis)
History of anemia of chronic disease
��On admission hemoglobin of 3.1, and reticulocyte 55.6%. (15% when corrected for severe anemia.) Reticulocytosis likely driving borderline iron deficiency���S/p 4 units PRBCs and 1 unit FFP(04/28-04/29), followed by appropriate rise in hemoglobin.
Hgb improved without additional transfusions, now relatively stable, 11.0 today.
�Unclear etiology. Unlikely acute blood loss given hemodynamic stability, no evidence of bleeding. Most likely occult bleed. Doubt exacerbated by Eliquis, but held due to severity of anemia. Apprec heme/onc
� Continue protonix BID; EGD/colonoscopy today per GI
�Given no sign of bleeding and Hgb stable/improving, will consider restarting Eliquis when appropriate (H/o extensive DVT/PE 09/2023).
Markedly elevated LFTs without liver failure, hepatocellular pattern
�Unclear etiology. No history of liver pathology, normal-appearing on multiple prior CTs and MRI. ?viral hepatitis, drug-induced (home amiodarone and atorvastatin on hold), hypoxic hepatitis, autoimmune.��US and CT 04/30: Normal-appearing liver;
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 Workup per GI, labs pending.��Trend LFTs, direct bilirubin, INR.
Colostomy Stomal Protrusion��H/o complicated diverticulitis w colitis/intrabd abscess/stricture s/p partial small bowel resection/left colectomy/colostomy ath showed diverticulitis and active colitis including crypt abscesses�less likely
IBD per GI.���CT 04/30/2024 showed diffuse anasarca, increased edema of ostomy; no evidence of obstruction, perforation, abscess, abnormal bleeding.��GI and colorectal surgery following.
Essential hypertension��continue home metoprolol. Hold lisinopril as above��BPs predominantly hypertensive, reassess for additional antihypertensive requirements as needed-- Metoprolol held for bradycardia, has required prn hydralazine x2.
Diabetes, Type II��A1c 6.6 on admission. Hold home metformin as above. Accu-Cheks and ISS inpatient�� Reassess for standing insulin PRN.
Acute Kidney Injury���baseline creatinine about 0.6 in November 2023, 1.1 on admission���trend Cr, 0.8 today; hold home metformin and lisinopril inpatient
H/o Extensive RLE DVT / Bilateral PEs 09/2023��hold home Eliquis as above. SCDs.
High anion gap (20) metabolic acidosis on admission��resolved���unclear etiology, possible bicarb loss from ostomy output, ?Renal cause, ?Metformin (though no lactate on admission). No evidence of sepsis.���S/p bicarb infusion���now normalized
Right lateral thigh pain/tenderness��resolved��CPK mildly elevated, not clinically significant��no fractures or fluid collection on x-ray/ultrasound. Reassess as needed.
Mild hypoxia? Briefly required 2 L/min via nasal cannula����resolved, appropriately oxygenating on room air.
Paroxysmal atrial fibrillation��hold home Eliquis and amiodarone as above. Asymptomatic.
Chronic HFpEF, not in acute exacerbation��most recent echo 09/2023 (when admitted for bilateral PEs): LV EF 56%, stage II diastolic dysfunction, severely dilated left atrium, mild-mod MR, mild TR, pulm art pres 25-30. Consider eventual update echo.
Abnormal radiology reviewed with sister:
H/o left adnexal mass, 3.9 cm��likely left ovarian dermoid cyst. Consistent with h/o right dermoid cyst s/p oophorectomy 2001.
H/o right adrenal heterogenous hypoattenuating nodule, 2.4 cm��likely lipid rich adenoma
H/o left adrenal hyperattenuating nodule, 5 mm��likely benign adenoma.
H/o subcentimeter pancreatic cystic lesions without suspicious features��likely pseudocysts and/or side branch ductal papillary mucinous neoplasms. Rad rec repeat imaging in 2 years (2025).
Updated sister over the phone 04/29/2024. Will call in afternoon.
Code Status: Full Code
VTE PPx: SCDs
Diet: NPO for EGD
Dispo planning: PT/OT rec home health�TBD pending clinical couse.
Anticipated Discharge: 24 - 48 hours
Subjective/Interval History
-
Date of Service: May 02, 2024
No acute events overnight. Feels well this morning, no complaints. Review of systems negative-- denies dizziness, chest pain, shortness of breath, abdominal pain, nausea, vomiting, diarrhea, constipation. No bloody output from ostomy.
Objective Data
-
Labs:
Laboratory Results
05/02/24
06:32
WBC 6.6
Hgb 11.0 L
Hct 35.8 L
Plt Count 280
Sodium 142
Potassium 3.5
Chloride 105
Carbon Dioxide 31 H
BUN 8
Creatinine 0.8
Glucose 70
Calcium 8.3 L
Total Bilirubin 1.8 H
AST 61 H
ALT 463 H
Alkaline Phosphatase 153 H
Vital Signs:
Vital Signs
Temp Pulse Resp BP Pulse Ox
98.2 F 65 17 168/84 98
05/02/24 07:00 05/02/24 07:00 05/02/24 07:00 05/02/24 07:00 05/02/24 07:00
I&O
05/01/24 05/02/24 05/03/24
06:59 06:59 06:59
Intake Total 900 / 900
Output Total 1400 / 1400 2600 / 2600
Balance -500 / -500 -2600 / -2600
Review of Systems
-
History Source: Patient
All other systems: Reviewed and negative
Physical Exam
-
General: No Apparent Distress, Comfortable, Conversant and Cachectic; Negative Pain, Fever, Chills or Sweats
HEENT: Normocephalic and Atraumatic
Respiratory: Clear to Auscultation and Non Labored Respirations; Negative Wheezes, Rales, Rhonchi or Crackles
Cardiac: Regular Rhythm and S1/S2; Negative Murmur
GI: Soft, Nontender, Nondistended, Normal Bowel Sounds and Other (Stoma prolapse, ostomy with brown output (no blood or melena) )
Musculoskeletal: No Clubbing, No Cyanosis and No Edema
Skin: Warm and Dry
Neuro: Awake, Alert, Oriented and AO x 3
Psych: Calm and Other (Intellectual impairment)
Data Reviewed
-
Diagnostic Radiology: Image personally visualized and interpreted and Report Reviewed by me
CT Scan: Image personally visualized and interpreted and Report Reviewed by me
Ultrasound: Report Reviewed by me
MRI: Report Reviewed by me
Labs: Labs Reviewed by me, Discussed with Physician, Discussed with Nurse and Discussed with Patient
Old Records: Reviewed (prior inpatient/outpatient records)
[2024-05-02] MEDS: TOPROL XL 50 MG PO ×2 (09:31→19:51)
[2024-05-02] MEDS: NSS (PRESERVATIVE FREE) 10 ML IV ×2 (09:32→19:52)
[2024-05-02] MEDS: PROTONIX IV 40 MG IV ×2 (09:32→19:52)
[2024-05-02] MEDS: APRESOLINE 5 MG IV (09:32)
--- NOTE | 2024-05-02 09:58 | VNURNOTE ---
Home health liaison met with patient to discuss [facility] services, visit scheduling/frequency, homebound status and pet policy. Patient agreeable to [facility] services and requested her sister Latonia be notified. Home health liaison spoke to Latonia about [facility]
services. Latonia said patient has had [facility] services in the past and understands home visits will be 1-2 times a week to assess and teach medical management. Latonia aware a visiting nurse will contact them for start of care within 1-2 days after
discharge from . [facility] Referral completed in care port
[2024-05-02 12:38] LABS: Glucose - Point of Care 101 mg/dl (70-99)
[2024-05-02 13:12] LABS: Glucose - Point of Care 93 mg/dl (70-99)
--- NOTE | 2024-05-02 14:24 | W.PN.ONC2 ---
Today's Communication / Plan
-
.
Impression
Impression
a/w Hgb 3.1g/dL. Iron studies c/w CECE with ferritin 14. No evidence of hemolysis with elevated haptoglobin, POOJA negative. No B12 or folate deficiency. s/p 4U PRBC
AF on DOAC
provoked VTE 2023 (cardiolipin, B2 glyocoprotein negative 2023). IVC removed 11/2023
coagulopathy with INR ~3, PT ~2 secondary to DOAC, trending down since held & s/p 1 U FFP 04/29
elevated LFTs
Plan
Plan
f/u copper level
f/u hepatitis studies
GI evaluation underway
Parenteral iron, can continue ferrous sulfate 325mg (65mg elemental iron) PO every other day at discharge
check LE US for VTE
Defer to GI and cardiology regarding risk benefit of continued DOAC for AF
Repeat iron studies with PCP in 6 weeks
No further inpatient recommendations. Hematology will sign off. Please reach out for any further questions or concerns.
Subjective/Objective
Subjective
Vital Signs:
Vital Signs
Temp Pulse Resp BP Pulse Ox
98 F 63 20 145/66 100
05/02/24 13:10 05/02/24 13:10 05/02/24 13:10 05/02/24 13:10 05/02/24 13:10
Lab Results:
Laboratory Data
WBC 6.6 10^3/uL (4.8-10.8) 05/02/24 06:32
Hgb 11.0 g/dL (12.0-16.0) L 05/02/24 06:32
Plt Count 280 10^3/uL (130-400) 05/02/24 06:32
PT 17.9 Sec (11.4-14.6) H 04/30/24 03:46
INR 1.45 04/30/24 03:46
eGFR > 60.00 05/02/24 06:32
Orders
Orders
Orders From Last 24 Hours
05/01/24 14:00
Ferric Gluconate [Ferrlecit] 125 mg 0.9% Sodium Chloride 100 ml [Nss] 100 ml IV DAILY@1400
[2024-05-02] MEDS: FERRLECIT 110 MG IV (16:32)
[2024-05-02 16:41] LABS: Glucose - Point of Care 238 mg/dl (70-99)
[2024-05-02] MEDS: NOVOLOG FLEXPEN-LOW RESISTANCE 2 UNITS SC (17:12)
[2024-05-02] MEDS: ELIQUIS 5 MG PO (20:15)
[2024-05-02 21:58] LABS: Glucose - Point of Care 130 mg/dl (70-99)
[2024-05-03 02:56] LABS: Alpha-1-Antitrypsin 200 mg/dL (90-200)
[2024-05-03 02:58] LABS: Ceruloplasmin 38 mg/dL (16-45)
[2024-05-03 03:18] LABS: Copper, Serum 148.4 ug/dL (80.0-155.0)
[2024-05-03 03:28] VITALS: BP 147/84
[2024-05-03 04:16] LABS: LKM-1 Ab (IgG) 2.2 U (0.0-24.9); Soluble Liver Antigen Ab 1.9 U (0.0-24.9)
[2024-05-03 06:00] VITALS: BMI 20.3
[2024-05-03 06:59] LABS: Hematocrit 34.5 % (37.0-47.0); Hemoglobin 10.7 g/dL (12.0-16.0); Mean Corpuscular Volume 77.5 fL (81.0-99.0); Mean Platelet Volume 9.7 fL (7.4-10.4); Platelet Count 252 10^3/uL (130-400); Red Blood Cell Count 4.45 10^6/uL (4.20-5.40); Red Cell Dist. Width 21.4 % (11.5-14.5); White Blood Cell Count 5.6 10^3/uL (4.8-10.8)
[2024-05-03 07:00] VITALS: BP 154/86
[2024-05-03 07:18] LABS: ALT (SGPT) 337 U/L (0-35); AST (SGOT) 40 U/L (14-36); Albumin 2.7 g/dl (3.5-5.0); Alkaline Phosphatase 138 U/L (38-126); Blood Urea Nitrogen 6 mg/dl (7-17); Calcium 8.4 mg/dl (8.4-10.2); Carbon Dioxide 30 mmol/L (22-30); Chloride 106 mmol/L (98-107); Estimated Creatinine Clearance 58 ml/min; Glucose 93 mg/dl (70-99); Potassium 3.3 mmol/L (3.5-5.1); Sodium 141 mmol/L (135-145); Total Bilirubin 1.5 mg/dl (0.2-1.3); eGFR > 60.00
[2024-05-03 07:23] LABS: Glucose - Point of Care 95 mg/dl (70-99)
--- NOTE | 2024-05-03 08:26 | W.PN.HOSP.TC ---
Addendum entered and electronically signed by Leonor De Luna MD 05/03/24 13:29:
I saw and evaluated the patient independently. I reviewed the resident�s note and agree with findings and plan as documented by Dr. Darnell.
GENERAL: well developed, well nourished, female in no apparent distress--appears intellectually challenged
HEENT: NC/AT
HEART: regular rate and rhythm, +S1, +S2
LUNGS : clear to auscultation bilaterally
ABDOM: soft, nontender, nondistended, + bowel sounds, ostomy with protruding stoma
EXT: no cyanosis, clubbing, or edema
NEUROLOGIC: grossly intact
Acute on chronic Severe Symptomatic Anemia (doubt exacerbated by Eliquis--last HGB 11/2023 = 9.9)--doubt acute blood loss, pt would be much more hemodynamically unstable--no hemolysis by workup--so likely occult slow blood loss via angiectasias in
small bowel?--HGB 3.1 on admission--received 4 units pRBC in total--also received 1 unit FFP (likely because of Eliquis)--retic count very high at 55, would suggest adequate iron stores to make RBCs and brisk response as per heme- haptoglobin
high--borderline iron deficient due to use to make RBCs, replete iron stores per heme--EGD/colonoscopy both without out any signs of active or recent bleeding--likely needs capsule study--oral iron at d/c
possible chronic slow GI bleed?--for now cont IV PPI BID--apprec GI--restart Eliquis as per GI
Markedly elevated LFTs�May be secondary to liver pathology, doubt shock liver--possible medication effects (atorvastatin, amiodarone)--apprec GI-- abdominal US essentially without significant issues
Acute Kidney Injury�baseline creatinine about 0.6 in November 2023--with AGAP (20) metabolic acidosis on admission--etiologies include bicarbonate losses from ostomy output? with renal cause? doubt sepsis--could be due to metformin?--pt was on bicarb
infusion--now normalized
Colostomy Stomal Protrusion---apprec Colorectal Surgery--abdomen/pelvis CT essentially neg
Paroxysmal Atrial Fibrillation--Hold Eliquis and amiodarone as above--Continue metoprolol for rate control
Essential Hypertension--Hold lisinopril as above--Continue metoprolol with hold parameters
Hyperlipidemia--Hold atorvastatin as above
Diabetes Mellitus, Type II--Hold metformin as above--Monitor sugars and insulin sliding scale
Extensive RLE DVT/Bilateral PEs - Sep 2023--Hold Eliquis as above
DVT proph--SCDs
Code Status-- Full Code
ok for d/c
Original Note:
Today's Communication/Plan
-
Discharge home today. Continu IV iron- change to PO iron at discharge. Resume home meds
Assessment / Plan
Assessment / Plan
63-year-old female with past medical history of colitis/intra-abdominal abscess status post partial small bowel resection and left colectomy/colostomy in 10/2023, extensive RLE DVT and bilateral PEs 09/2023 (?unprovoked), A-fib (diagnosed and started
Eliquis at same time as DVT/PE), chronic HFpEF, htn, intellectual disability, DM who presented to ED for shortness of breath and protrusion of stoma. Denied black or bloody colostomy output at home, though in the ED small amount of blood was noted
in ostomy bag. On admission, patient was very pale; labs notable for hemoglobin of 3.1. Small amount of blood seen in ostomy bag, otherwise denies bloody output or GI symptoms. LFTs significantly elevated AST 627, ALT 1087. Coags showed INR of
3.11 and PTT of 31.9.
Acute / Severe Symptomatic Anemia (doubt exacerbated by Eliquis)
History of anemia of chronic disease
��On admission hemoglobin of 3.1, and reticulocyte 55.6%. (15% when corrected for severe anemia.) Reticulocytosis likely driving borderline iron deficiency���S/p 4 units PRBCs and 1 unit FFP(04/28-04/29), followed by appropriate rise in hemoglobin.
Hgb improved without additional transfusions, now relatively stable, 10.7 today.
�Unclear etiology. Unlikely acute blood loss given hemodynamic stability, no evidence of bleeding. Most likely occult bleed. Doubt exacerbated by Eliquis, but held due to severity of anemia. Not suspicious of hemolysis given elevated haptoglobin
and negative POOJA-- Apprec heme/onc and GI-- No evidence of bleeding on EGD/colo 05/02-- Suspect slow blood loss from small bowel, possible angiectasia?
� Continue protonix BID; continue IV iron inpatient, change to ferrous sulfate 325mg (65mg elemental iron) PO every other day at discharge; restart eliquis given stable hgb/no sign of bleeding
�Repeat cbc/cmp 1 week with pcp to monitor; follow up with GI for possible pillcam; repeat iron studies with PCP in 6 weeks
- Stable for discharge home with home health and outpatient follow up
Markedly elevated LFTs without liver failure, hepatocellular pattern
�Unclear etiology. No history of liver pathology, normal-appearing on multiple prior CTs and MRI, as well as US and CT 04/30. Most likely hypoxic hepatitis secondary to severe anemia; hepatitis panel negative so far; less likely drug-induced or
autoimmune-- LFTs significantly down trended-- can resume home amiodarone and atorvastatin-- repeat LFTs in 1 week outpatient, follow up with GI for pending results
Colostomy Stomal Protrusion��H/o complicated diverticulitis w colitis/intrabd abscess/stricture s/p partial small bowel resection/left colectomy/colostomy ath showed diverticulitis and active colitis including crypt abscesses�less likely
IBD per GI.���CT 04/30/2024 showed diffuse anasarca, increased edema of ostomy; no evidence of obstruction, perforation, abscess, abnormal bleeding.��GI and colorectal surgery following.
Essential hypertension��continue home metoprolol. Resume home lisinopril as MARISA resolved
Diabetes, Type II��A1c 6.6 on admission. Resume home metformin at discharge. Accu-Cheks and ISS inpatient�� Reassess for standing insulin PRN.
Acute Kidney Injury���baseline creatinine about 0.6 in November 2023, 1.1 on admission���trend Cr, 0.7 today; resolved
H/o Extensive RLE DVT / Bilateral PEs 09/2023�� home Eliquis was on hold as above, can now resume. SCDs, ambulation as tolerated.
High anion gap (20) metabolic acidosis on admission��resolved���unclear etiology, possible bicarb loss from ostomy output, ?Renal cause, ?Metformin (though no lactate on admission). No evidence of sepsis.���S/p bicarb infusion���now normalized
Right lateral thigh pain/tenderness��resolved��CPK mildly elevated, not clinically significant��no fractures or fluid collection on x-ray/ultrasound. Reassess as needed.
Mild hypoxia? Briefly required 2 L/min via nasal cannula����resolved, appropriately oxygenating on room air.
Paroxysmal atrial fibrillation��Can resume home eliquis and amiodarone as above. Asymptomatic.
Chronic HFpEF, not in acute exacerbation��most recent echo 09/2023 (when admitted for bilateral PEs): LV EF 56%, stage II diastolic dysfunction, severely dilated left atrium, mild-mod MR, mild TR, pulm art pres 25-30. Consider eventual update echo.
Hypokalemia-- supplement prn, repeat labs with PCP
Abnormal radiology reviewed with sister:
H/o left adnexal mass, 3.9 cm��likely left ovarian dermoid cyst. Consistent with h/o right dermoid cyst s/p oophorectomy 2001.
H/o right adrenal heterogenous hypoattenuating nodule, 2.4 cm��likely lipid rich adenoma
H/o left adrenal hyperattenuating nodule, 5 mm��likely benign adenoma.
H/o subcentimeter pancreatic cystic lesions without suspicious features��likely pseudocysts and/or side branch ductal papillary mucinous neoplasms. Rad rec repeat imaging in 2 years (2025).
Discussed with sister over the phone, she is understanding and agreeable with plan, looking forward to bringing Shiloh home today.
Code Status: Full Code
VTE PPx: SCDs, restart eliquis
Diet: regular
Dispo planning: discharge home today with home health
Anticipated Discharge: Today
Subjective/Interval History
-
Date of Service: May 03, 2024
No acute events overnight.
Objective Data
-
Labs:
Laboratory Results
05/03/24
06:31
WBC 5.6
Hgb 10.7 L
Hct 34.5 L
Plt Count 252
Sodium 141
Potassium 3.3 L
Chloride 106
Carbon Dioxide 30
BUN 6 L
Creatinine 0.7
Glucose 93
Calcium 8.4
Total Bilirubin 1.5 H
AST 40 H
ALT 337 H
Alkaline Phosphatase 138 H
Vital Signs:
Vital Signs
Temp Pulse Resp BP Pulse Ox
97.3 F 65 14 147/84 95
05/03/24 03:28 05/03/24 03:28 05/03/24 03:28 05/03/24 03:28 05/03/24 03:28
I&O
05/02/24 05/03/24 05/04/24
06:59 06:59 06:59
Intake Total 480 / 480
Output Total 2600 / 2600
Balance -2600 / -2600 480 / 480
[2024-05-03] MEDS: NOVOLOG FLEXPEN-LOW RESISTANCE SC (08:38)
[2024-05-03] MEDS: GLUCOPHAGE XR EXTENDED RELEASE 500 MG PO (08:40)
[2024-05-03] MEDS: LIPITOR 40 MG PO (08:41)
[2024-05-03] MEDS: PACERONE 200 MG PO (08:42)
[2024-05-03] MEDS: ELIQUIS 5 MG PO (08:42)
[2024-05-03] MEDS: ZESTRIL 10 MG PO (08:42)
[2024-05-03] MEDS: TOPROL XL 50 MG PO (08:43)
[2024-05-03] MEDS: PROTONIX IV 40 MG IV (08:44)
[2024-05-03] MEDS: NSS (PRESERVATIVE FREE) 10 ML IV (08:45)
--- NOTE | 2024-05-03 09:33 | W.PN.GI.CBS2 ---
Today's Communication / Plan
-
Please see assessment and plan for details.
Assessment / Plan
-
1. Anemia: Iron deficiency in the setting of anticoagulation, though degree of anemia seems out of proportion, with no gross bleeding. EGD and colonoscopy via stoma essentially unremarkable. At this point would continue iron supplementation and
monitoring per hematology, okay to restart anticoagulation with close observation if indicated.
2. Elevated LFTs: In a marked necroinflammatory pattern, most consistent with ischemic hepatopathy given profound anemia, all improving, other workup including viral and autoimmune serologies are negative.
I sent a note to the office to repeat LFTs and CBC in 2 weeks, set up outpatient in capsule endoscopy and follow-up with Dr. Michel In 1 month
We will sign off for now, please call back with any further questions.
Subjective
Subjective
Date of Service: May 03, 2024
Patient feeling well, no abdominal pain, tolerated diet without difficulty, no signs of gross bleeding.
Objective
Data Reviewed
Laboratory Data:
Laboratory Results
05/03/24 06:31
05/03/24 06:31
Laboratory Results
PT 17.9 Sec (11.4-14.6) H 04/30/24 03:46
INR 1.45 04/30/24 03:46
Magnesium 2.0 mg/dl (1.6-2.3) 05/03/24 06:31
Total Bilirubin 1.5 mg/dl (0.2-1.3) H 05/03/24 06:31
AST 40 U/L (14-36) H 05/03/24 06:31
ALT 337 U/L (0-35) H 05/03/24 06:31
Alkaline Phosphatase 138 U/L (38-126) H 05/03/24 06:31
Vital Signs and I&O:
Vital Signs
Temp Pulse Resp BP Pulse Ox
97.3 F 67 20 154/86 94
05/03/24 03:28 05/03/24 07:00 05/03/24 07:00 05/03/24 07:00 05/03/24 07:00
I&O
05/02/24 05/03/24 05/04/24
06:59 06:59 06:59
Intake Total 480 / 480
Output Total 2600 / 2600
Balance -2600 / -2600 480 / 480
Physical Exam
Physical Exam
General: NAD
Abdomen: normal bowel sounds, soft, no tenderness, no masses or bruits, no ascites, ostomy in place
--- NOTE | 2024-05-03 10:58 | CM ---
Chart reviewed and patient is for possible discharge today to home, with [facility].
Plan; Home with [facility].
[2024-05-03 11:00] VITALS: BP 149/83
[2024-05-03 11:07] LABS: Glucose - Point of Care 182 mg/dl (70-99)
[2024-05-03] MEDS: KCL 20 MEQ PO (12:13)
[2024-05-03] MEDS: NOVOLOG FLEXPEN-LOW RESISTANCE 1 UNITS SC (12:19)
--- NOTE | 2024-05-03 14:30 | CHAP ---
Shiloh greeted me with a smile, happy to be going home soon. Says she has good support from family. She welcomed prayer - emotional and spiritual support provided.
[2024-05-03] MEDS: FERRLECIT IV (14:32)
[2024-05-03 15:00] VITALS: BP 159/88
--- NOTE | 2024-05-03 15:13 | W.DCSUMMARY ---
Addendum entered and electronically signed by Leonor De Luna MD 05/03/24 17:46:
Read, reviewed, and agree. See same day progress note for additional details. Time spent coordinating care, DC planning, review of DC plan of care with resident, transition of care, review of records in EMR, med rec, consults, notes, d/w
consultants, nursing, family, and CM = 35 minutes
Original Note:
Discharge Summary
Discharge Data
Date of Admission: 04/28/24
Date of Discharge: 05/03/24
-
Pending Results: Yes
Additional Pending Results:
Follow up with GI for pending results of blood work and biopsies
Hospital Course
CC PCP: Wai Britton
Discharging Physician : Dr. Darnell/Dr. De Luna
Disposition : Home with home health
Primary care physician : Wai Britton
Principal Discharge diagnosis :
Severe acute anemia, symptomatic
Markedly elevated liver enzymes
Colostomy stomal protrusion
Acute kidney injury, metabolic acidosis
Iron deficiency
Chronic Discharge diagnosis :
History of anemia of chronic disease
Essential hypertension
Chronic heart failure with preserved ejection fraction
Paroxysmal atrial fibrillation
Diabetes type 2
Hyperlipidemia
History of complicated diverticulitis with intraabdominal abscess
status post left colectomy, transverse colostomy, partial small bowel resection, abscess drainage
History of extensive deep vein thrombosis and bilateral pulmonary embolism
Intellectual disability
Hospital Course :
Presented to the emergency room for shortness of breath and protrusion of stoma. Upon arrival, she was noted to be very pale and had a hemoglobin of 3.1. She and her siblings (who assist her in colostomy bag changes) denied black or bloody
colostomy output at home. She received 4 units of PRBC transfusions and 1 unit of FFP. Her hemoglobin colleen appropriately and remained stable. She was found to have iron deficiency, thought to be depleted secondary to aggressive marrow response as
her reticulocyte count was significantly elevated. There was no evidence of hemolysis or acute hemorrhage, but Eliquis was held as a precaution; her profound anemia was thought to be due to a potential occult GI bleed. She underwent endoscopy and
colonoscopy, which did not reveal any source of bleeding. Hematology/oncology was also consulted. Ultrasound of of bilateral lower extremities did not show DVTs. She received IV iron while inpatient, and changed to oral iron every other day at
discharge. Eliquis was resumed when appropriate.
She had markedly elevated LFTs on admission, thought to be due to ischemic hepatopathy in the setting of profound anemia. Her LFTs trended down, and will be followed outpatient. She also had an acute kidney injury, which resolved. Several
medications were held due to liver/renal function, and were able to be restarted by discharge. In terms of her colostomy stomal prolapse, colorectal surgery was consulted; prolapsed colostomy remained viable with function, and did not require any
surgical intervention. Her other chronic conditions remained stable. On day of discharge, she was stable. She was discharged home with home health and will close follow-up with primary care and gastroenterology.
Important imaging findings :
Chest xray 04/28/24
IMPRESSION:
1. Clear lungs.
2. No significant change compared to prior study.
R femur xray 04/30/24
IMPRESSION:
No acute osseous abnormality.
Small calcific/ossific density noted adjacent to the greater trochanter of the proximal right femur. Cannot exclude trochanteric bursitis.
R thigh ultrasound 04/30/24
IMPRESSION:
Moderate subcutaneous edema in the lateral right thigh in the region of the patient's pain.
Abd ultrasound 04/30/24
IMPRESSION: Gallbladder wall foci with 'ring down' artifact most likely representing adenomyomatosis.
No biliary tract dilatation.
Pancreas significantly obscured, most likely by overlying bowel gas.
Abd/pelvis CT 04/30/24
IMPRESSION:
1. Diffuse anasarca. Slightly increased edema within the left ostomy stoma suggesting mild inflammatory change. No CT evidence for obstruction, perforation or abscess.
2. No overt evidence for abnormal bleeding by CT.
3. Moderate bilateral pleural effusions.
Peripheral vascular ultrasound 05/02/24
IMPRESSION:
No sonographic evidence for lower extremity venous thrombosis.
Procedure findings :
EGD 05/02/24
Findings:
LA Grade A (one or more mucosal breaks less than 5 mm, not extending
between tops of 2 mucosal folds) esophagitis with no bleeding was found.
The entire examined stomach was normal.
The examined duodenum was normal. Biopsies were taken with a cold
forceps for histology. Estimated blood loss was minimal.
Impression: - LA Grade A reflux esophagitis with no bleeding.
- Normal stomach.
- Normal examined duodenum. Biopsied.
Colonoscopy 05/02/24
Findings:
The colostomty was prolapsed though easily reducible. The colon (entire
examined portion) appeared normal. No masses or polyps were seen. No
signs of bleeding were seen.
Impression: - The entire examined colon is normal.
- No specimens collected.
Discharge Plan
-
Patient Disposition: Home with Home Care
Discharge Diagnosis/Procedures: Severe acute anemia, symptomatic
History of anemia of chronic disease
Markedly elevated liver enzymes
Colostomy stomal protrusion
Acute kidney injury, metabolic acidosis
Essential hypertension
Chronic heart failure with preserved ejection fraction
Paroxysmal atrial fibrillation
Diabetes type 2
Hyperlipidemia
Condition: Good
Diet: As tolerated, 2 Gram Sodium and Diabetic, Carb Controlled
Activity: As tolerated, With Walker and No strenuous activity
Driving Restrictions: No driving
Bathing Restrictions: OK to Shower
Blood Work: Repeat CBC and CMP in 1 week with your Primary Care. Iron studies with PCP in 6 weeks.
Other Services: VN, PT, OT and ST
Specialty Instructions: Weigh Daily- Call MD for wt gain/loss 3 lbs overnight/5 lbs in 1 week
Activity Restrictions/Additional Instructions:
Change colostomy appliance 2 times a week ([employer] wafer # [id number], Naomi seal, [employer] pouch #[id number]) and as needed for leakage.
It is very important to follow up with your Primary Care Provider within 1 week. Your liver enzymes and hemoglobin need to be monitored to make sure they are improving. They will also repeat your iron studies in a few weeks.
It is also very important to follow up with your GI and colorectal surgery team as planned.
Instructions: Preventing falls in adults, Anemia overview, How to care for an ostomy, BLOOD PRESSURE
Referrals:
Chandana Rose MD [Active] - (Follow-up with colorectal surgery as planned. Call the office to schedule appointment.)
Jasbir Bruce MD [Active] - As needed (Follow up with the payroll secretary as needed)
Jadyn Michel MD [Active] - in one month (Call the GI office to schedule an appointment in about 1 month)
Wai Britton MD [Family Provider] - in less than 1 week (Call your Primary Care Provider to schedule follow up appointment within 1 week of hospitalization.)
Additional Discharge Medication Instructions: Take iron pill every other day
Prescriptions:
New
ferrous sulfate [iron] 325 mg (65 mg iron) tablet
325 mg PO Q OTHER DAY Qty: 30 0RF
Continued
atorvastatin 40 mg Tablet
40 mg PO DAILY
metoprolol succinate 50 mg Tablet Extended Release 24 Hr
50 mg PO BID Qty: 0
metformin 500 mg Tablet Extended Release 24 Hr
500 mg PO DAILY Qty: 0
lisinopril 10 mg Tablet
10 mg PO DAILY
amiodarone 200 mg Tablet
200 mg PO DAILY Qty: 30 0RF
pantoprazole 40 mg Tablet,Delayed Release (Dr/Ec)
40 mg PO DAILY Qty: 30 0RF
Eliquis 5 mg tablet
5 mg PO BID 30 Days Qty: 60 0RF
Rx Instructions:
Take one 5mg tablet, two times per day, for 30 days
Discharge Orders:
Discharge Patient (As Directed); Ordered 05/03/24
Ordered By: Natalie Darnell
Discharge Date and Time
Print Language: BENGALI
== END 2024-05-03 16:00 | disposition home health service (06) | DRG 377 ==
LOC: 4 WEST ACU 23:39
PROVIDERS: Emergency Medicine; Internal Medicine Gastroenterology; Nurse Practitioner; Nurse Practitioner Adult Health; Physician Assistant Medical; Student in an Organized Health Care Education/Training Program; ADMITTING PHYSICIAN Hospitalist; ATTENDING PHYSICIAN Internal Medicine; CONSULT PHYSICIAN Internal Medicine Gastroenterology; CONSULT PHYSICIAN Internal Medicine Hematology & Oncology; CONSULT PHYSICIAN Surgery; EMERGENCY PHYSICIAN Emergency Medicine; FAMILY PHYSICIAN Family Medicine
PROC: 30233K1 Transfusion of Nonautologous Frozen Plasma into Peripheral Vein, Percutaneous Approach (ICD-10-PCS; 2024-04-28)
PROC: 30233N1 Transfusion of Nonautologous Red Blood Cells into Peripheral Vein, Percutaneous Approach (ICD-10-PCS; 2024-04-28)
PROC: 0DJD8ZZ Inspection of Lower Intestinal Tract, Via Natural or Artificial Opening Endoscopic (ICD-10-PCS; 2024-05-02)
PROC: 0DB88ZX Excision of Small Intestine, Via Natural or Artificial Opening Endoscopic, Diagnostic (ICD-10-PCS; 2024-05-02)
DX: K55.21 Angiodysplasia of colon with hemorrhage (principal); K72.00 Acute and subacute hepatic failure without coma; D68.32 Hemorrhagic disorder due to extrinsic circulating anticoagulants; N17.9 Acute kidney failure, unspecified; E87.20 Acidosis, unspecified; K94.09 Other complications of colostomy; I50.32 Chronic diastolic (congestive) heart failure; R64 Cachexia; I48.0 Paroxysmal atrial fibrillation; K21.00 Gastro-esophageal reflux disease with esophagitis, without bleeding; E11.649 Type 2 diabetes mellitus with hypoglycemia without coma; I11.0 Hypertensive heart disease with heart failure; F79 Unspecified intellectual disabilities; D63.8 Anemia in other chronic diseases classified elsewhere; Z79.01 Long term (current) use of anticoagulants; Z68.20 Body mass index [BMI] 20.0-20.9, adult; Z79.84 Long term (current) use of oral hypoglycemic drugs
CPT/HCPCS: 88305; 36430; 71045; 73552; 74177; 76700; 76882; 80053; 80143; 80179; 82103; 82248; 82390; 82525; 82550; 82607; 82728; 82746; 82784; 82962; 83010; 83036; 83516; 83540; 83550; 83615; 83735; 84443; 84484; 85014; 85018; 85025; 85027; 85045; 85610; 86376; 86381; 86704; 86705; 86706; 86708; 86709; 86803; 86850; 86880; 86900; 86901; 86920; 87340; 93005; 93970; 96360; 97116; 97163; 97167; 99285; J2916; P9016; P9059; Q9967

== ENCOUNTER → 2024-08-20 09:38 | Outpatient (REF) | payer MEDICARE, OTHER, SELFPAY | LOC: HWRAD 09:38 | PROVIDERS: ATTENDING PHYSICIAN Surgery; FAMILY PHYSICIAN Physician Assistant Medical | DX: K94.09 Other complications of colostomy (principal); K43.5 Parastomal hernia without obstruction or gangrene | CPT/HCPCS: 74176 ==

== ENCOUNTER 2024-09-22 12:04 | Inpatient (IN) | payer MEDICARE, OTHER, SELFPAY ==
[2024-09-10 08:49] LABS: Hematocrit 35.2 % (37.0-47.0); Hemoglobin 11.4 g/dL (12.0-16.0); Mean Corp Hgb Conc. 32.4 g/dL (33.0-37.0); Mean Corpuscular Volume 91.9 fL (81.0-99.0); Platelet Count 285 10^3/uL (130-400); Red Cell Dist. Width 12.4 % (11.5-14.5)
[2024-09-10 09:48] LABS: Blood Urea Nitrogen 21 mg/dl (7-17); Calcium 9.4 mg/dl (8.4-10.2); Carbon Dioxide 30 mmol/L (22-30); Chloride 106 mmol/L (98-107); Glucose 114 mg/dl (70-99); Potassium 4.6 mmol/L (3.5-5.1); Sodium 143 mmol/L (135-145); eGFR > 60.00
[2024-09-10 14:01] VITALS: BMI 18.2
[2024-09-22] VITALS (11 sets, daily range): BP systolic 137–184; BP diastolic 75–93; BMI 18.2
[2024-09-22] MEDS: TYLENOL 1000 MG PO (13:06)
[2024-09-22] MEDS: NORMOSOL-R/PLASMALYTE-A 1000 IV (13:07)
[2024-09-22 13:08] LABS: Glucose - Point of Care 110 mg/dl (70-99)
--- NOTE | 2024-09-22 15:20 | HP.FOC2 ---
Focused History & Physical
Chief Complaint
HPI:
Chief Complaint: Colostomy prolapse
HPI / Indication for Planned Procedure: Patient is a 64-year-old female who underwent exploratory laparotomy, left colectomy with an end transverse colostomy and small bowel resection in November 2023. Over the past few months her end colostomy has
developed worsening prolapse which is in varying size but quite noticeable by the end of the day. There is a small parastomal hernia component to her prolapse as well. She presents today for operative correction.
Relevant Past Medical History: Other (Hypertension, hyperlipidemia, paroxysmal atrial fibrillation, right lower extremity DVT and bilateral PE, chronic heart failure with preserved ejection fraction)
Relevant Social History: Negative
Relevant Family History: Negative
Relevant Past Surgical History: Positive for (Removal of ovarian cystic mass, hernia repair as a child, ex lap left colectomy with transverse end colostomy and small bowel resection)
Review of Systems
Review of Pertinent Systems: All Systems Negative
Medication
See Medication form for detailed medications: Yes
Medication List (including Herbals & OTC):
atorvastatin 40 mg tablet 40 mg PO DAILY High Cholesterol 09/26/23
metformin 500 mg tablet,extended release 24 hr 500 mg PO DAILY Diabetes ##0 11/03/23
metoprolol succinate 50 mg tablet,extended release 24 hr 50 mg PO BID Heart Disease/Condition ##0 11/03/23
lisinopril 10 mg tablet 10 mg PO DAILY Blood Pressure 04/28/24
amiodarone 200 mg tablet 200 mg PO DAILY Arrhythmia #30 tabs 05/03/24
apixaban 5 mg tablet (Eliquis) 5 mg PO BID Blood clot prevention/tx 30 days #60 tabs 05/03/24
pantoprazole 40 mg tablet,delayed release 40 mg PO DAILY Gastrointestinal issue #30 tabs 05/03/24
Medications Reviewed: Yes
Allergies and Reactions
Patient has Allergies: No
Noted Allergies and Reactions:
Allergy/AdvReac Type Severity Reaction Status Date / Time
No Known Allergies Allergy Verified 09/22/24 12:48
Pertinent Physical Exam
All Other Systems: Negative
Head/Neck: Normal
Lungs: Normal
Heart: Normal
Abdomen: Other (Left upper quadrant and colostomy site with prolapse)
Extremities: Normal
Neurological: Normal
Diagnosis / Assessment
64-year-old female presenting for revision of her colostomy prolapse and associated parastomal hernia
Plan / Procedure
Parastomal hernia repair with colostomy revision for prolapse
Anesthesia/Sedation to be done by Anesthesia Provider: Yes
--- NOTE | 2024-09-22 15:23 | W.SUR.PREOP ---
Pre-Operative Surgical Note
-
I have examined this patient prior to the performance of the scheduled procedure.
The patient's condition is unchanged from the time of the current History and
Physical and the patient is able to undergo the scheduled procedure.
--- NOTE | 2024-09-22 17:08 | W.IMMPOSTOP ---
Addendum entered and electronically signed by Garo Emanuel MD 09/22/24 17:29:
#[id number]
Original Note:
Surgical Immed Post Op Note
-
Primary Surgeon: Garo Emanuel MD
Assisting Surgeon: Kam WEINBERG
Pre-op Diagnosis: parastomal hernia with prolapse
Post-op Diagnosis: parastomal hernia with prolapse
Procedure Performed: open parastomal hernia repair with mesh and revision of end colostomy
Anesthesia Type: GETA + 0.25% Marcaine with epi
Specimen / Cultures: end colostomy
Estimated Blood Loss: 12mL
Complications: none immediate
Operative Findings: stoma fascial opening about 2.5cm in maximal diameter. no adhesions within parastomal hernia sac. distal 3' of end colostomy resected. fascial edges cleared and freshened circumferentially. placement of onlay Phasix mesh 8cm
x 6cm and secured with 0-PDS. ~2.5cm aperture made centrally within Phasix at fascial opening through which new end colostomy was brought through suture fixated circumferentially to Phasix and fascia with 2-0 PDS. ostomy then matured at same
location to dermis.
Plan: routine post op supportive care
hold therapeutic AC for 72hrs post op
updated patient sister/family in waiting area post op
[2024-09-22 17:56] LABS: Glucose - Point of Care 160 mg/dl (70-99)
--- NOTE | 2024-09-22 18:44 | PTCARENOTE ---
Pt adm to unit from [facility] @ this time, VSS, stoma moist and beefy red, appliance intact. Pt oriented to room and hospital policies. Pt assisted to bedside commode cont for mod void.
[2024-09-22] MEDS: NSS 1000 IV (20:15)
[2024-09-22] MEDS: TOPROL XL 50 MG PO (20:15)
[2024-09-22] MEDS: HEPARIN 5000 UNITS SC (20:15)
[2024-09-23] MEDS: TYLENOL 650 MG PO ×2 (01:35→13:37)
[2024-09-23 03:00] VITALS: BP 113/76
[2024-09-23 06:00] VITALS: BMI 19.2
[2024-09-23 06:17] LABS: Hematocrit 30.5 % (37.0-47.0); Hemoglobin 9.7 g/dL (12.0-16.0); Mean Corp Hgb Conc. 31.8 g/dL (33.0-37.0); Mean Corpuscular Volume 90.2 fL (81.0-99.0); Platelet Count 229 10^3/uL (130-400); Red Cell Dist. Width 12.6 % (11.5-14.5)
[2024-09-23 06:42] LABS: Blood Urea Nitrogen 19 mg/dl (7-17); Calcium 9.2 mg/dl (8.4-10.2); Carbon Dioxide 26 mmol/L (22-30); Chloride 106 mmol/L (98-107); Estimated Creatinine Clearance 41 ml/min; Glucose 160 mg/dl (70-99); Potassium 5.3 mmol/L (3.5-5.1); Sodium 139 mmol/L (135-145); eGFR > 60.00
--- NOTE | 2024-09-23 06:47 | W.PN.GS2 ---
Today's Communication / Plan
-
`
Assessment / Plan
-
Assessment: 64 y/o female POD#1 s/p open parastomal hernia repair with revision of prolapsed colostomy
h/o hypertension, hyperlipidemia, paroxysmal atrial fibrillation, right lower extremity DVT and bilateral PE, CHFpEF, chronic anemia
AFVSS
doing well overnight
mild hyperkalemia
acute on chronic anemia likely more due to dilutional effects then acute blood loss anemia as surgical blood loss was minimal
Plan: multimodal pain control options
full liquid diet and advance as tolerated today
OOBTC/ambulate
home meds
therapeutic AC being held for 48hrs post op
heparin sq/ambulation/SCDs for VTEp while AC being held
dispo: probable dc over next 24-36hrs
Subjective Data
-
Date of Service: September 23, 2024
pt seen and examined.
reports some pain/discomfort at surgical site but controlled with PO tylenol
denies nausea, no vomiting
+flatus in ostomy appliance, no stool
Objective Data
-
Intake and Output
09/21/24 09/22/24 09/23/24
06:59 06:59 06:59
Intake Total 100 / 100
Balance 100 / 100
Intake:
IV fluids (Total) 100 / 100
Normosol 100 / 100
Other:
Number of approximated SMALL 1
amounts of urine
Vital Signs
Temp Pulse Resp BP Pulse Ox
98.3 F 68 14 113/76 99
09/23/24 03:00 09/23/24 03:00 09/23/24 03:00 09/23/24 03:00 09/23/24 03:00
Lab Results
09/23/24 06:01
09/23/24 06:01
Calcium 9.2 mg/dl (8.4-10.2) 09/23/24 06:01
Physical Exam
-
NAD AAOx3
ABD: soft, ND minimal TTP only at ostomy site
ostomy with air in appliance; pink mucosa with some edema; no visible prolapse
Patient has a juarez catheter: No
Patient has a central line: No
[2024-09-23 07:45] VITALS: BP 152/74
[2024-09-23] MEDS: PROTONIX 40 MG PO (09:03)
[2024-09-23] MEDS: TOPROL XL 50 MG PO ×2 (09:03→19:20)
[2024-09-23] MEDS: ZESTRIL 10 MG PO (09:03)
[2024-09-23] MEDS: COLACE 100 MG PO ×2 (09:04→19:20)
[2024-09-23] MEDS: PACERONE 200 MG PO (09:04)
[2024-09-23] MEDS: HEPARIN 5000 UNITS SC ×2 (09:06→19:20)
--- NOTE | 2024-09-23 10:13 | CM ---
Reviewed the chart notes and spoke with the patient at the bedside. The patient reports residing with mother and brother in a one story home with three steps to enter. The patient reports no DME/VN/SNF in the past. The patient confirmed her
pharmacy of choice is [facility]. CM continues to be available to patient/family and is monitoring medical plan for needs at discharge.
Plan: Discharge to home. No needs anticipated.
[2024-09-23 11:30] VITALS: BP 145/72
[2024-09-23 12:25] LABS: Hematocrit 31.4 % (37.0-47.0); Hemoglobin 10.0 g/dL (12.0-16.0)
[2024-09-23 12:47] LABS: Potassium 5.1 mmol/L (3.5-5.1)
[2024-09-23] MEDS: NSS 1000 IV (13:29)
[2024-09-23 15:35] VITALS: BP 126/62
[2024-09-23 19:10] VITALS: BP 144/77
[2024-09-23 23:00] VITALS: BP 136/83
[2024-09-24] MEDS: ROXICODONE 5 MG PO (01:05)
--- NOTE | 2024-09-24 02:37 | DOWNTIME ---
There was a [employer] Client Report Writer Downtime on 09/24/2024 from 0100 to 09/24/2024 at 0235. Downtime documentation of patient's care, including medication administrations, has been reconciled in the electronic record per guidelines. Refer to the
patient's paper chart under the miscellaneous tab to see printed paper medication records and downtime forms.
[2024-09-24 03:00] VITALS: BP 139/75
[2024-09-24 06:00] VITALS: BMI 19.5
--- NOTE | 2024-09-24 06:52 | W.PN.GS2 ---
Addendum entered and electronically signed by Garo Emanuel MD 09/24/24 08:21:
Updated patient's sister, ELIJAH Lincoln regarding patient's postoperative recovery and anticipation for probable DC this afternoon. Reviewed discharge instructions including timing of resumption of Eliquis.
Original Note:
Today's Communication / Plan
-
`
Assessment / Plan
-
Assessment: 64 y/o female POD#2 s/p open parastomal hernia repair with revision of prolapsed colostomy
h/o hypertension, hyperlipidemia, paroxysmal atrial fibrillation, right lower extremity DVT and bilateral PE, CHFpEF, chronic anemia
AFVSS
doing well overnight
mild hyperkalemia - resolved on follow up labs
acute on chronic anemia likely more due to dilutional effects then acute blood loss anemia as surgical blood loss was minimal - stable on follow up H&H
no stool in ostomy appliance yet
Plan: multimodal pain control options
regular diet
OOBTC/ambulate
home meds
therapeutic AC being held for 48hrs post op
heparin sq/ambulation/SCDs for VTEp while AC being held
dispo: probable dc today vs tomorrow AM
Subjective Data
-
Date of Service: September 24, 2024
pt seen and examined
some pain overnight at ostomy site - managed with tylenol and oxycodone
ate regular dinner, no nausea; feels hungry for breakfast
ostomy with air in appliance
Objective Data
-
Intake and Output
09/22/24 09/23/24 09/24/24
06:59 06:59 06:59
Intake Total 100 / 100 2715 / 2715
Balance 100 / 100 5 / 2715
Intake:
Oral fluids 1320 / 1320
IV fluids (Total) 100 / 100 1395 / 1395
Normosol 100 / 100
Other:
Number of approximated SMALL 1 1
amounts of urine
Number of approximated MODERATE 1
amounts of urine
Vital Signs
Temp Pulse Resp BP Pulse Ox
98.3 F 64 16 139/75 97
09/24/24 03:00 09/24/24 03:00 09/24/24 03:00 09/24/24 03:00 09/24/24 03:00
Lab Results
09/23/24 12:18
09/23/24 12:18
Calcium 9.2 mg/dl (8.4-10.2) 09/23/24 06:01
Physical Exam
-
NAD AAOx3
ABD: soft, ND, TTP left sided around ostomy area
stoma pink and edematous
air in appliance but no stool yet
[2024-09-24 07:35] VITALS: BP 150/92
--- NOTE | 2024-09-24 08:46 | CM ---
Reviewed the chart notes. IMM reviewed. CM continues to be available to patient/family and is monitoring medical plan for needs at discharge.
Plan: Discharge to home when medically stable. No needs identified at this time.
[2024-09-24] MEDS: LIPITOR 40 MG PO (08:55)
[2024-09-24] MEDS: ZESTRIL 10 MG PO (08:55)
[2024-09-24] MEDS: GLUCOPHAGE XR EXTENDED RELEASE 500 MG PO (08:55)
[2024-09-24] MEDS: PROTONIX 40 MG PO (08:55)
[2024-09-24] MEDS: PACERONE 200 MG PO (08:56)
[2024-09-24] MEDS: HEPARIN 5000 UNITS SC (08:56)
[2024-09-24] MEDS: TOPROL XL 50 MG PO (08:56)
[2024-09-24] MEDS: MIRALAX 17 GRAMS PO (08:57)
--- NOTE | 2024-09-24 13:50 | W.DS.TRANS ---
DC Summary - Burn Nurse
-
Discharge Instructions:
Sleep Apnea Risk Low
Discharge Diagnosis/Procedures Parastomal hernia repair with revision of
prolapsed colostomy
Diet As tolerated,Regular
Additional Diets Smaller meals if abdominal bloating and
distention are experienced the first few days
postoperatively at home
Activity No strenuous activity
Additional Activity No lifting over 15 to 20 pounds for 6 weeks
postop
Driving Restrictions No driving
Bathing Restrictions OK to Shower
Wound Care Continue with typical ostomy care. No
additional special wound care/incision care is
needed.
Instructions:
Stand-Alone Forms:
Changes to Home Medications: No
Discharge Medications:
DC Medications w/original date entered in [employer]oro system
atorvastatin 40 mg tablet 40 mg PO DAILY High Cholesterol 09/26/23
metformin 500 mg tablet,extended release 24 hr 500 mg PO DAILY Diabetes ##0 11/03/23
metoprolol succinate 50 mg tablet,extended release 24 hr 50 mg PO BID Heart Disease/Condition ##0 11/03/23
lisinopril 10 mg tablet 10 mg PO DAILY Blood Pressure 04/28/24
amiodarone 200 mg tablet 200 mg PO DAILY Arrhythmia #30 tabs 05/03/24
apixaban 5 mg tablet (Eliquis) 5 mg PO BID Blood clot prevention/tx 30 days #60 tabs 05/03/24
Held on 09/23/24. Instructions: Resume on 09/24/24. Resume Sunday evening; 48hrs after surgery
pantoprazole 40 mg tablet,delayed release 40 mg PO DAILY Gastrointestinal issue #30 tabs 05/03/24
acetaminophen 500 mg tablet (Tylenol Extra Strength) 1,000 mg (2 x 500 mg) PO Q6HPRN PRN mild pain #1 tab 09/23/24
oxycodone 5 mg tablet 5 mg PO Q4HPRN PRN breakthrough/severe pain #5 tabs 09/24/24
polyethylene glycol 3350 17 gram/dose oral powder (Miralax) 4 g PO DAILY PRN Constipation #119 grams 09/24/24
Home Medication Changes
Pending Results: No
--- NOTE | 2024-09-24 13:51 | W.DCSUMMARY ---
Discharge Summary
Discharge Data
Date of Admission: 09/22/24
Date of Discharge: 09/24/24
-
Pending Results: No
Hospital Course
The patient is a 64-year-old female who is admitted for scheduled operative correction of worsening prolapse of her end transverse colostomy and small associated parastomal hernia. The procedure took place on 09/22/2024. Operative findings
identified a stomal fascial opening about 2.5 cm in maximal diameter. No adhesions within the parastomal hernia sac. The distal 3 inches of a colostomy that had been previously prolapsing was resected. Fascial edges cleared and an onlay synthetic
resorbable mesh was positioned with suture fixation of the new end colostomy to the fascia and mesh and subsequent maturing of a new end colostomy at the same location to the dermis.
Postoperatively the patient's recovery was unremarkable. Her diet was generally advanced as tolerated to regular which she was tolerating on postoperative day 2 at discharge. Postoperative pain was mild and generally well-controlled with Tylenol
and an occasional oxycodone. Ostomy was functioning with regular passage of flatus/air and some soft stool at time of discharge.
Patient was discharged home on all of her regular preoperative medications but advised to hold her Eliquis for 48 hours postoperatively with resumption on the evening of 09/24/2024 which was the date of discharge.
Discharge Plan
-
Patient Disposition: Home (Routine Discharge)
Discharge Diagnosis/Procedures: Parastomal hernia repair with revision of prolapsed colostomy
Condition: Good
Diet: As tolerated and Regular
Additional Diets: Smaller meals if abdominal bloating and distention are experienced the first few days postoperatively at home
Activity: No strenuous activity
Additional Activity: No lifting over 15 to 20 pounds for 6 weeks postop
Driving Restrictions: No driving
Bathing Restrictions: OK to Shower
Wound Care: Continue with typical ostomy care. No additional special wound care/incision care is needed.
Activity Restrictions/Additional Instructions:
Call if fever greater than 101 �F, worsening abdominal pains, any concerns or questions with healing at colostomy site.
Referrals:
Gaurav Jensen PA-C [Family Provider, Family Practice]
Garo Emanuel MD [Active, Surgical] - in two to three weeks
Prescriptions:
New
acetaminophen [Tylenol Extra Strength] 500 mg tablet
1,000 mg PO Q6HPRN PRN (Reason: mild pain) Qty: 1 0RF
oxycodone 5 mg tablet
5 mg PO Q4HPRN PRN (Reason: breakthrough/severe pain) Qty: 5 0RF
polyethylene glycol 3350 [Miralax] 17 gram/dose powder
4 g PO DAILY PRN (Reason: Constipation) Qty: 119 0RF
Rx Instructions:
start a laxative such as MIRALAX on day 2 after surgery if no bowel movement yet as long as no nausea/vomiting and passing gas
Continued
atorvastatin 40 mg Tablet
40 mg PO DAILY
metoprolol succinate 50 mg Tablet Extended Release 24 Hr
50 mg PO BID Qty: 0
metformin 500 mg Tablet Extended Release 24 Hr
500 mg PO DAILY Qty: 0
lisinopril 10 mg Tablet
10 mg PO DAILY
amiodarone 200 mg Tablet
200 mg PO DAILY Qty: 30 0RF
pantoprazole 40 mg Tablet,Delayed Release (Dr/Ec)
40 mg PO DAILY Qty: 30 0RF
Held
Eliquis 5 mg tablet
5 mg PO BID 30 Days Qty: 60 0RF
Hold Instructions: Resume on 09/24/24. Resume Sunday evening; 48hrs after surgery
Rx Instructions:
Take one 5mg tablet, two times per day, for 30 days
Discharge Orders:
Discharge Patient (As Directed); Ordered 09/24/24
Ordered By: Garo Emanuel
Discharge Date and Time
Print Language: ZAMBIAN
[2024-09-24 13:57] VITALS: BP 142/76
== END 2024-09-24 14:26 | disposition home or self-care (01) | DRG 354 ==
LOC: 2 SOUTH 12:04
PROVIDERS: ADMITTING PHYSICIAN Surgery; FAMILY PHYSICIAN Physician Assistant Medical
PROC: 0WUF0JZ Supplement Abdominal Wall with Synthetic Substitute, Open Approach (ICD-10-PCS; 2024-09-22)
DX: K43.5 Parastomal hernia without obstruction or gangrene (principal); I50.32 Chronic diastolic (congestive) heart failure; K94.09 Other complications of colostomy; I11.0 Hypertensive heart disease with heart failure; E78.5 Hyperlipidemia, unspecified; I48.0 Paroxysmal atrial fibrillation; I49.1 Atrial premature depolarization; D64.9 Anemia, unspecified; E87.5 Hyperkalemia; Z79.84 Long term (current) use of oral hypoglycemic drugs; Z79.01 Long term (current) use of anticoagulants; Z86.711 Personal history of pulmonary embolism; Z86.718 Personal history of other venous thrombosis and embolism; Y83.8 Other surgical procedures as the cause of abnormal reaction of the patient, or of later complication, without mention of misadventure at the time of the procedure
CPT/HCPCS: 36415; 80048; 82962; 84132; 85014; 85018; 85027; 88304; C1776; C1781; J1335